=== PATIENT | female | born 1975 | race Caucasian/White ===

== ENCOUNTER 2023-12-27 15:56 | Emergency (ER) | payer BC, SELFPAY ==
[2023-12-27 16:12] VITALS: BP 140/93; PULSE 99; TEMP 37.7; O2SAT 96; BMI 25.7
[2023-12-27 16:35] LABS: Appearance Urine Clear (Clear); Bilirubin Urine Negative (Negative); Blood Urine Negative (Negative); Color Urine Yellow (Yellow); Glucose Urine Negative (Negative); Ketones Urine Negative (Negative); Leukocyte Esterase Urine Negative (Negative); Nitrite Urine Negative (Negative); Protein Urine Negative (Negative); Specific Gravity Urine 1.025 (1.000-1.030); Urobilinogen Urine 0.2 (0.2-1.0)
[2023-12-27 16:48] LABS: RBC Urine 0-2 (0-2); WBC Urine 0-2 (0-5)
--- NOTE | 2023-12-27 16:54 | ED_ITS ---
HPI - Fever General Chief Complaint: Fever Stated Complaint: fever of 102, has breast cancer/MS Time Seen by Provider: 12/27/23 16:20 History of Present Illness HPI Narrative: This 48-year-old female comes in reporting upper respiratory symptoms that began today including fever measuring at 102? F along with sinus congestion and pain, occasional cough, and sore throat. She has generalized aches and pains also. The patient has MS and breast cancer and is currently on immunosuppressant medications. She did take ibuprofen prior to arrival and her temperature is reduced to 99.9? F. she does not report any shortness of breath. Related Data Home Medications Medication Instructions Recorded Confirmed armodafinil 150 mg tablet (Nuvigil) mg PO 11/15/23 11/15/23 gabapentin 300 mg capsule 300 mg PO DAILY 11/15/23 11/15/23 interferon beta-1a (albumin) 44 44 mcg subcut 3XW 11/15/23 11/15/23 mcg/0.5 mL subcutaneous pen injector (Rebif Rebidose) letrozole 2.5 mg tablet 2.5 mg PO DAILY 11/15/23 11/15/23 Previous Rx's Medication Instructions Recorded amoxicillin 500 mg capsule 500 mg PO TID 7 days #21 caps 12/27/23 Allergies Allergy/AdvReac Type Severity Reaction Status Date / Time No Known Drug Allergies Allergy Verified 11/15/23 09:56 Review of Systems Status of ROS Reports: 10 or more systems reviewed and unremarkable except as noted in History and below Narrative Constitutional: No weight gain or loss. Fevers began today. Eyes: No discharge. No vision changes. HENT: Nasal congestion with left-sided maxillary facial pain. Sore throat. Cardiovascular: No chest pain, no palpitations. Respiratory: No shortness of breath, no wheezes. Occasional cough. Gastrointestinal: No abdominal pain, no vomiting, no diarrhea. Genitourinary: No dysuria, no hematuria. Musculoskeletal: Normal range of motion. Skin: No rashes, no pruritis. Neurological: No dizziness, weakness, sensory change, speech change. Endo/Heme/Allergies: No bruising or bleeding. No polydipsia. Pysch: no suicidality, no anxiety, no insomnia. All other systems reviewed and are negative. PFSH PFSH Social History Smoking Status: Never smoker Non-prescribed substance use: denies use Exam Narrative Exam Narrative: Constitutional: Well-developed, well-nourished, no acute distress. HEENT: Normocephalic, atraumatic. Neck: Normal range of motion. Nontender. Supple. Heart: Regular. No murmurs. Normal rate. Intact distal pulses. Lungs: Clear to auscultation. No chest discomfort. No wheezes, rhonchi, or rales. Abdomen: Normal bowel sounds. Nontender. No rebound tenderness. Genitalia: Deferred. Back: No midline tenderness. Normal range of motion. Extremities: Normal range of motion. No injury. Skin: Intact. No rash. Warm. No erythema or pallor. Neurologic: No altered sensation. No weakness. Alert and oriented. Psychiatric: No suicidality. No anxiety or depression. No insomnia. Nursing notes and vitals signs are reviewed. Const Vital Signs, click to edit/add: Vital Signs - 24 hr 12/27/23 16:12 12/27/23 17:41 Temperature 99.9 F H 99.9 F H Pulse Rate [Pulse Oximeter] 99 Blood Pressure [Right Upper Arm] 140/93 H Pulse Oximetry 96 Oxygen Delivery Method Room Air Course Vital Signs Vital signs: Initial Vital Signs Temperature 99.9 F H 12/27/23 16:12 Temperature Source Temporal Artery Scan 12/27/23 16:12 Pulse Rate 99 12/27/23 16:12 Blood Pressure 140/93 H 12/27/23 16:12 Blood Pressure Mean 108 H 12/27/23 16:12 Blood Pressure Position Sitting 12/27/23 16:12 Pulse Oximetry 96 12/27/23 16:12 Oxygen Delivery Method Room Air 12/27/23 16:12 Vital Signs Temperature 99.9 F H 12/27/23 16:12 Pulse Rate 99 12/27/23 16:12 Blood Pressure 140/93 H 12/27/23 16:12 Pulse Oximetry 96 12/27/23 16:12 Oxygen Delivery Method Room Air 12/27/23 16:12 Temperature 99.9 F H 12/27/23 17:41 Pulse Rate 99 12/27/23 16:12 Blood Pressure 140/93 H 12/27/23 16:12 Pulse Oximetry 96 12/27/23 16:12 Oxygen Delivery Method Room Air 12/27/23 16:12 Medications Administered Medications: Discontinued Medications Generic Name Dose Route Start Last Admin Trade Name Freq PRN Reason Stop Dose Admin Acetaminophen 1,000 mg 12/27/23 16:53 12/27/23 17:00 Acetaminophen 500 Mg Tablet PO 12/27/23 16:54 1,000 mg ONCE ONE Administration MDM - Fever MDM Narrative Medical decision making narrative: This 48-year-old female comes in reporting a fever of 102? F that began this morning. She has nasal congestion and occasional cough with sore throat. She is on some immune modulating medications to treat breast cancer and MS. Nasopharyngeal swab returns negative for viral infections. Additionally lab results are all in normal range including normal white count, lactate, and other electrolytes. Blood cultures are pending. The patient did receive a dose of Tylenol 1000 mg while here. She is okay to be discharged home. She did receive an oral dose of dexamethasone 10 mg and I did provide a prescription for amoxicillin. We did not find any obvious source of her fever but given her medications and suppressed immunity I did prescribe this out of an abundance of caution. Lab Data Labs: Lab Results 12/27/23 12/27/23 12/27/23 Range/Units 16:20 16:30 17:11 WBC 4.84 (4.50-11.00) K/uL RBC 4.12 (4.00-5.20) m/uL Hgb 13.0 (12.0-16.0) gm/dL Hct 38.3 (33.0-51.0) % MCV 93 (80-100) fL MCH 32 (26-34) pg MCHC 34 (32-36) gm/dL RDW Coeff of Gee 11.5 (11.5-15.5) % Plt Count 297 (140-440) K/uL Neut % (Auto) 57.8 (42.0-72.0) % Lymph % (Auto) 26.7 (20-44) % Hyde % (Auto) 13.4 H (0.0-11.0) % Eos % (Auto) 1.7 (0.0-7.0) % Baso % (Auto) 0.2 (0.0-3.0) % Neut # (Auto) 2.80 (1.7-7.0) K/uL Lymph # (Auto) 1.29 (0.90-2.90) K/uL Hyde # (Auto) 0.60 (0.00-0.90) K/UL Eos # (Auto) 0.08 (0.00-0.50) K/uL Baso # (Auto) 0.01 (0.00-0.30) K/uL Abs Immat Gran (auto) 0.01 (0.00-0.30) K/uL Imm/Tot Granulo (auto) 0.2 % Sodium 139 (135-149) mmol/L Potassium 3.8 (3.6-5.1) mmol/L Chloride 104 (96-114) mmol/L Carbon Dioxide 23 (20-32) mmol/L Anion Gap 12 (7-15) mEq/L BUN 16 (7-30) mg/dL Creatinine 0.7 (0.5-1.5) mg/dL Estimated Creat Clear 79.54 Estimated GFR 105 ml/min Glucose 105 (60-115) mg/dL Lactate 0.9 (0.5-1.9) mmol/L Calcium 8.9 (8.4-10.6) mg/dL Urine Color Yellow (Yellow) Urine Appearance Clear (Clear) Urine pH 6.0 (5.0-8.5) Ur Specific [place] 1.025 (1.000-1.030) Urine Protein Negative (Negative) Urine Glucose (UA) Negative (Negative) Urine Ketones Negative (Negative) Urine Blood Negative (Negative) Urine Nitrite Negative (Negative) Urine Bilirubin Negative (Negative) Urine Urobilinogen 0.2 (0.2-1.0) Ur Leukocyte Esterase Negative (Negative) Urine RBC 0-2 (0-2) Urine WBC 0-2 (0-5) Ur Squamous Epith Cells None (None-Few) Urine Bacteria None (None) SARS-CoV-2 (PCR) Negative SARS-CoV-2 (Negative) Influenza Type A (PCR) Negative PCR FLU A (Negative) Influenza Type B (PCR) Negative PCR FLU B (Negative) RSV (PCR) Negative PCR RSV (Negative) Group A Strep DNA NOT DETECTED (Not Detectd) Discharge Plan Discharge Clinical Impression: Fever, Acute respiratory infection Patient Disposition: Home, Self-Care Condition: Stable Additional Instructions: Continue current plans. Take medication as prescribed. Follow up with MD return if worsening. Prescriptions: New amoxicillin 500 mg capsule 500 mg PO TID 7 Days Qty: 21 0RF No Action gabapentin 300 mg capsule 300 mg PO DAILY letrozole 2.5 mg tablet 2.5 mg PO DAILY armodafinil [Nuvigil] 150 mg tablet PO Rebif Rebidose 44 mcg/0.5 mL pen injector 44 mcg subcut 3XW Follow Up/Referrals: Provider,Not a Local [Primary Care Provider] - Stand Alone Forms: [employer] Info Instructions
[2023-12-27 16:57] LABS: Strep A DNA Probe* NOT DETECTED (Not Detectd)
[2023-12-27] MEDS: ACETAMINOPHEN 500 MG TABLET 1000 MG PO (17:00)
[2023-12-27 17:08] LABS: PCR FLU A Negative PCR FLU A (Negative); PCR FLU B Negative PCR FLU B (Negative); PCR RSV Negative PCR RSV (Negative); SARS PCR* Negative SARS-CoV-2 (Negative)
[2023-12-27 17:15] LABS: Lactate* 0.9 mmol/L (0.5-1.9)
[2023-12-27 17:17] LABS: Basophils Absolute Auto 0.01 K/uL (0.00-0.30); Basophils Percent Auto 0.2 % (0.0-3.0); Eosinophils Absolute Auto 0.08 K/uL (0.00-0.50); Eosinophils Percent Auto 1.7 % (0.0-7.0); Hematocrit 38.3 % (33.0-51.0); Immature Granulocytes Abs Auto 0.01 K/uL (0.00-0.30); Immature Granulocytes Pct Auto 0.2 %; Lymphocytes Absolute Auto 1.29 K/uL (0.90-2.90); Lymphocytes Percent Auto 26.7 % (20-44); Mean Corpuscular HGB Conc 34 gm/dL (32-36); Mean Corpuscular Hemoglobin 32 pg (26-34); Mean Corpuscular Volume 93 fL (80-100); Monocytes Percent Auto 13.4 % (0.0-11.0); Neutrophils Percent Auto 57.8 % (42.0-72.0); Platelet Count* 297 K/uL (140-440); RDW Coefficient of Variation % 11.5 % (11.5-15.5); Red Blood Count 4.12 m/uL (4.00-5.20); White Blood Count* 4.84 K/uL (4.50-11.00)
[2023-12-27 17:22] LABS: Slide Review Reflex No
[2023-12-27 17:34] LABS: Chloride* 104 mmol/L (96-114); Potassium* 3.8 mmol/L (3.6-5.1); Sodium* 139 mmol/L (135-149)
[2023-12-27 17:37] LABS: Creatinine* 0.7 mg/dL (0.5-1.5); Est. Creatinine Clearance* 79.54; Estimated Glomerular Filt Rate 105 ml/min
[2023-12-27 17:38] LABS: Anion Gap 12 mEq/L (7-15); Blood Urea Nitrogen* 16 mg/dL (7-30); Calcium* 8.9 mg/dL (8.4-10.6); Carbon Dioxide* 23 mmol/L (20-32); Glucose* 105 mg/dL (60-115)
[2023-12-27 17:41] VITALS: TEMP 37.7
[2023-12-27] MEDS: dexAMETHasone 10 MG/ML inj PO (18:00)
== END 2023-12-27 18:04 | disposition home or self-care (01) ==
PROVIDERS: Emergency Provider Emergency Medicine Emergency Medical Services
DX: J06.9 Acute upper respiratory infection, unspecified (principal)
CPT/HCPCS: 36415; 80048; 81001; 83605; 85025; 87040; 87631; 87651; 99283; 99284; A9270; J1100

== ENCOUNTER 2025-01-07 23:11 | Emergency (ER) | payer BC, SELFPAY ==
--- OUTSIDE RECORDS SUMMARY | 2025-01-07 23:13 | XMS_ITS | Clinical Summary ---
Author Organization [facility] Address [address] [place] [address] Care Team Providers Care Marklogic Developer Name Role Phone No Ref-Primary, Physician Primary Care Provider Allergies Active Allergy Reactions Criticality Noted Date Comments No Known Allergies 06/01/2003 Medications MIRCETTE 0.15-0.02/0.01 MG (05/04) OR TABSIndications:Oth er general counseling and advice for contraceptive management 1 TABLET DAILY-PT WILL NOT BE ALLOWED ANY FURTHER REFILLS UNTIL SEEN. 28 0 04/09/ 5 Active SYNTHROID 100 MCG OR TABSIndications:Uns pecified hypothyroidism 1 TABLET DAILY Active REBIF 44 MCG/0.5ML SC SOLNIndications:MS (multiple sclerosis) (H) 44 MCG THREE TIMES A WEEK Active armodafinil (NUVIGIL) 150 MG TABS Take by mouth every morning. Active Active Problems Problem Noted Date Diagnosed Date Atopic rhinitis 11/10/2011 Overview (08/16/2012): (Problem list name updated by automated process. Provider to review and confirm.) CARDIOVASCULAR SCREENING; LDL GOAL LESS THAN 160 09/15/2010 MS (multiple sclerosis) 01/31/2009 Hypothyroidism 11/13/2005 Overview (08/16/2015): Problem list name updated by automated process. Provider to review Sleep disorder Encounters Date Type Department Care Team Description 10/11/2024 2:00 PM [facility] [address] [place] [address] Multiple sclerosis (H) (Primary Dx) 10/11/2024 Travel from Last 3 Months Immunizations Name Administration Dates Next Due HEPA 04/06/2000 Influenza (IIV3) PF 11/10/2011,08/13/2009 TD,PF 7+ (Tenivac) 04/06/2000 TDAP Vaccine (Adacel) 11/10/2011 Family History Medical History Relation Comments Family History Negative Brother Family History Negative Father Family History Negative Mother Family History Negative Sister Relation Status Comments Brother Father Mother Sister Social History Tobacco Use Types Packs/Day Years Used Date Smoking Tobacco: Never Smokeless Tobacco: Never Tobacco Cessation:Counseling Given: Yes Alcohol Use Standard Drinks/Week Comments Yes 0 (1 standard drink = 0.6 oz pur e alcohol) 1-2 drinks per month Adolescent Education Answer Date Record ed Getting School Help Needed Not on file 08/30 Comments No Sex and Gender Information Value Date Recorded Sex Assigned at Not on file Legal Sex Female 3:34 AM HAND TILE MAKER Gender Identity Not on file Sexual Orientation Not on file Last Filed Vital Signs Vital Sign Reading Time Taken Comments Blood Pressure 124/78 05/23/2021 10:53 AM CDT Pulse 74 05/23/2021 10:53 AM CDT Temperature 36.9 C (98.4 F) 11/10/2011 9:43 AM HAND TILE MAKER Respiratory Rate 16 05/23/2021 10:53 AM CDT Oxygen Saturation 97% 05/23/2021 10:53 AM CDT Inhaled Oxygen Concentration - - Weight 56.7 kg (125 lb) 05/23/2021 10:53 AM CDT Height 160 cm (5' 3) 05/23/2021 10:53 AM CDT Body Mass Index 22.14 05/23/2021 10:53 AM CDT Plan of Treatment Health Maintenance Due Date Last Done Comments ADVANCE CARE PLANNING 1973 ANNUAL REVIEW OF HM ORDERS 1973 CT COLONOGRAPHY 1973 FIT 1973 FLEX SIG 1973 sDNA (Cologuard) 1973 COVID-19 Vaccine (#1) 1978 COLONOSCOPY 1983 COLORECTAL CANCER SCREENING 1983 HIV SCREENING 1988 HEPATITIS B IMMUNIZATION (1 of 3 - 19+ 3-dose series) 1992 Pneumococcal Vaccine: 50+ Years (1 of 2 - PCV) 1992 ZOSTER IMMUNIZATION (1 of 2) 1992 YEARLY PREVENTIVE VISIT 06/11/2006 06/11/2005, 06/01 PAP 04/03/2008 04/03/2005, 03/16, 06/01/2003, Additional history exists TSH W/FREE T4 REFLEX 11/10/2012 11/10/2011, 08/13/2009, 01/19/2008, Additional history exists LIPID 11/10/2016 11/10/2011, 02/14, 10/23/2006, Additional history exists DTAP/TDAP/TD IMMUNIZATION (2 - Td or Tdap) 11/10/2021 11/10/2011, 04/06/2000 INFLUENZA VACCINE (#1) 2024 , 08/02/2019, 11/10/2011, Additional history exists PHQ-2 (once per calendar year) 2024 GLUCOSE 11/18/2025 11/18/2022, 12/0 01/2020, 11/23/2015, Additional history exists MAMMO SCREENING 08/17/2026 08/17/2024, 09/16, 09/24/2007 HEPATITIS C SCREENING Completed 08/23/2024 HPV IMMUNIZATION Aged Out No longer e ligible based on patient's age to complete this topic MENINGITIS IMMUNIZATION Aged Out No l onger eligible based on patient's age to complete this topic Procedures Procedure Name Priority Date/Time Associated Diagnosis Comments NELSON VIRUS AB INDEX REFLEX INHIBITION Routine 10/11/2024 2:08 PM HAND TILE MAKER Multiple sclerosis (H) HEPATITIS C ANTIBODY Routine 08/23/2024 12:37 PM CDT Multiple sclerosis (H) MA DIAGNOSTIC BILATERAL W/ BARRY Routine 08/17/2024 9:20 AM CDT Breast cancer of upper-outer quadrant of right female breast (H) Blurred vision Breast pain Encounter for breast reconstruction following mastectomy Chronic fatigue Hot flashes, menopausal Hypothyroidism Multiple sclerosis (H) Osteopenia BASIC METABOLIC PANEL Routine 11/18/2022 5:00 PM HAND TILE MAKER Encounter for other specified special examinations [ICD-10-CM] TSH WITH FREE T4 REFLEX Routine 11/10/2011 10:01 AM HAND TILE MAKER HYPOTHYROIDISM NOS LIPID REFLEX TO DIRECT LDL PANEL Routine 11/10/2011 10:01 AM HAND TILE MAKER CARDIOVASCULAR SCREENING; LDL GOAL LESS THAN 160 HCL PAP THIN LAYER DIAGNOSTIC Routine 04/03/2005 DIAGNOSIS NOT YET DEFINED from Last 3 Months or Most Recently Relevant to Health Maintenance Results * (ABNORMAL) NELSON Virus Ab Index Reflex Inhibition (10/11/2024 2:08 PM HAND TILE MAKER) See Scanned Result NELSON VIRUS AB INDEX REFLEX INHIBITION- Scanned(A) 10/19/2024 8:41 AM HAND TILE MAKER [facility] Blood STRUCTURE OF LEFT UPPER LIMB / Unknown Venipuncture / Unknown 10/11/2024 2:08 PM HAND TILE MAKER 10/11/2024 2:08 PM HAND TILE MAKER us Kevon Duarte MD LAB - BLOOD ORDERABLES Final R esult [facility] [address] [phone] * Hepatitis C antibody (08/23/2024 12:37 PM CDT) Hepatitis C Antibody Nonreactive Nonreactive 08/23/2024 7:15 PM CDT [facility] Comment:A nonreactive screen ing test result does not exclude the possibility of exposure to or infection with HCV. Nonreactive screening test results in individuals with prior exposure to HCV may be due to antibody levels below the limit of detection of this assay or lack of reactivity to the HCV antigens used in this assay. Patients with recent HCV infections (<3 months from time of exposure) may have false- negative HCV antibody results due to the time needed for seroconversion (average of 8 to 9 weeks). Blood STRUCTURE OF LEFT UPPER LIMB / Unknown Venipuncture / Unknown 08/23/2024 12:37 PM CDT 08/23/2024 12:38 PM CDT us Kevon Duarte MD LAB - BLOOD ORDERABLES Final R esult [facility] [place] [facility] [address] [facility], Room [address] [phone] * (ABNORMAL) MA Diagnostic Bilateral w/Barry (08/17/2024 9:20 AM CDT) Anatomical Region Laterality Modality Breast Bilateral Mammography Impressions 08/17/2024 3:03 PM CDT IMPRESSION: BI-RADS CATEGORY: 6 - Known Biopsy-Proven Malignancy. RECOMMENDED FOLLOW-UP: Continued oncologic and surgical consultation for right breast cancer.. SONAL HERNANDEZ MD Narrative 08/17/2024 3:03 PM CDT EXAM: MA DIAGNOSTIC BILATERAL W/ BARRY, US BREAST RIGHT LIMITED 1-3 QUADRANTS, 08/17/2024 9:20 AM COMPARISONS: Mammogram 09/25/2020, ultrasound 09/25/2020, MRI 12/10/2021, 10/25/2020, PET/CT 10/23/2020 HISTORY: 49-year-old woman with a invasive ductal carcinoma of the right breast diagnosed in September 2020, treated with neoadjuvant endocrine therapy. BREAST DENSITY: The breasts are heterogeneously dense, which may obscure small masses. FINDINGS: In the right breast at the 1:00 position, posterior depth adjacent to the biopsy marker at the site of biopsy-proven malignancy there is a persistent area of architectural distortion. There are no suspicious findings in the left breast. Targeted ultrasound evaluation of the right breast was performed by the technologist and radiologist. At the 1:00 position, 4 cm from the nipple the site of biopsy-proven malignancy, again seen is an irregular, hypoechoic mass measuring 1.4 x 1.1 x 2.0 cm, previously 3.5 x 1.8 x 3.1 cm on 09/25/2020. At the 8:00 and 9:00 position, 6 cm from the nipple, only normal breast tissue is seen. Georgia Gilmore MD IMG MAMMOGRAPHY ORDERABLES Final Result * (ABNORMAL) Basic metabolic panel (11/18/2022 5:00 PM HAND TILE MAKER) Sodium 143 136 - 145 mmol/L 11/18/2022 9:05 PM HAND TILE MAKER [facility] Potassium 3.8 3.4 - 5.3 mmol/L 11/18/2022 9:05 PM HAND TILE MAKER [facility] Chloride 103 98 - 107 mmol/L 11/18/2022 9:05 PM HAND TILE MAKER [facility] Carbon Dioxide (CO2) 23 22 - 29 mmol/L 11/18/2022 9:05 PM HAND TILE MAKER [facility] Anion Gap 17(H) 7 - 15 mmol/L 11/18/2022 9:05 PM HAND TILE MAKER [facility] Urea Nitrogen 14.9 6.0 - 20.0 mg/dL 11/18/2022 9:05 PM HAND TILE MAKER [facility] Creatinine 0.82 0.51 - 0.95 mg/dL 11/18/2022 9:05 PM HAND TILE MAKER [facility] Calcium 9.8 8.6 - 10.0 mg/dL 11/18/2022 9:05 PM HAND TILE MAKER [facility] Glucose 116(H) 70 - 99 mg/dL 11/18/2022 9:05 PM HAND TILE MAKER [facility] GFR Estimate 87 >60 mL/min/1.7 3m2 11/18/2022 9:05 PM HAND TILE MAKER [facility] Comment:Effective October 172020 eGFRcr in adults is calculated using the 2020 CKD-EPI creatinine equation which includes age and gender (Tello et al., NEJ, DOI: 10.1056/DHPGaw0112376) Blood BLOOD SPECIMEN / Unknown Client Draw / Unknown 11/18/2022 5:00 PM HAND TILE MAKER 11/18/2022 8:20 PM HAND TILE MAKER us London Del Rio DO LAB - BLOOD ORDERABLES F inal Result [facility] [place] [facility] [address] [facility] [address] Building, [address] [place] [address], [facility] [phone] * TSH with free T4 reflex (11/10/2011 10:01 AM HAND TILE MAKER) TSH 0.60 0.4 - 5.0 mU/L [facility] Blood specimen (specimen) 11/10/2011 10:01 AM HAND TILE MAKER 11/10/2011 10:04 AM HAND TILE MAKER Oumar Rocha MD LAB - BLOOD ORDERABLES Final Res ult Performing Organization Address City/[facility]/ZIP Co de Phone Number [facility] [address] [place] [address] * (ABNORMAL) Lipid Profile with reflex to direct LDL (11/10/2011 10:01 AM HAND TILE MAKER) Cholesterol 181 0 - 200 mg/dL [facility] Comment: LDL Cholesterol is the primary guide to therapy. The NCEP recommends further evaluation of: patients with cholesterol greater than 200 mg/dL if additional risk factors are present, cholesterol greater than 240 mg/dL, triglycerides greater than 150 mg/dL, or HDL less than 40 mg/dL. Triglycerides 174(H) 0 - 150 mg/dL [facility] HDL Cholesterol 73 50 - 110 mg/dL [facility] LDL Cholesterol Calculated 73 0 - 129 mg/dL [facility] Comment: LDL Cholesterol is the primary guide to therapy: LDL-cholesterol goal in high risk patients is <100 mg/dL and in very high risk patients is <70 mg/dL. VLDL-Cholesterol 35(H) 0 - 30 mg/dL [facility] Cholesterol/HDL Ratio 2.5 0.0 - 5.0 [facility] Blood specimen (specimen) 11/10/2011 10:01 AM HAND TILE MAKER 11/10/2011 10:04 AM HAND TILE MAKER Oumar Rocha MD LAB - BLOOD ORDERABLES Final Res ult Performing Organization Address City/[facility]/ZIP Co de Phone Number [facility] [address] [place] [address] * A THIN LAYER, DIAGNOSTIC PAP (04/03/2005) 04/03/2005 Oumar Rocha MD LABORATORY Final Result MISYS from Last 3 Months or Most Recently Relevant to Health Maintenance Insurance [facility] Care Teams Marklogic Developer Relationship Specialty Start Date End Date No Ref-Primary, Physician PCP - General 10/11/24
[2025-01-07 23:14] VITALS: BP 146/83; PULSE 68; RESP 20; TEMP 36.1; O2SAT 98; BMI 28.3
--- OUTSIDE RECORDS SUMMARY | 2025-01-07 23:14 | XMS_ITS | Encounter Summary ---
Author Organization [facility] Address [address] [place] [address] Care Team Providers Care Case Specialist Name Role Phone Unavailable Primary Care Provider Unavailabl e Encounter Details Date Type Department Care Team (Late st Contact Info) Description 12/02/2024 Clinical Communication Department of Radiation Oncology in [place], [place] [address] [place] [address] Osvaldo Durant M.D. [address] [place] [address] Social History Tobacco Use Types Packs/Day Years Used Date Smoking Tobacco: Never Assessed [facility] Utilities Answer Date Recorded In the past 12 months has th e electric, gas, oil, or water company threatened to shut off services in your home? No 12/14/2024 Exercise Vital Sign Answer Date Recorde d On average, how many days pe r week do you engage in moderate to strenuous exercise (like a brisk walk)? 4 days 12/14/2024 On average, how many minutes do you engage in exercise at this level? 10 min 12/14/2024 Hunger Vital Sign Answer Date Recorded Within the past 12 months, y ou worried that your food would run out before you got the money to buy more. Never true 12/14/19 25 Within the past 12 months, t he food you bought just didn't last and you didn't have money to get more. Never true 12/14/2024 PRAPARE - Transportation Answer Date Re corded In the past 12 months, has l ack of transportation kept you from medical appointments or from getting medications? No 11/17 In the past 12 months, has l ack of transportation kept you from meetings, work, or from getting things needed for daily living? No 12/14/2024 Nutrition Answer Date Recorded On average, how many serving s of fruits and vegetables do you eat per day (serving size is equal to 1 cup or approximately the size of a tennis ball)? 0-2 12/14/2024 Dental Answer Date Recorded Dental: Regular Dentist Yes 12/14/19 Employment Answer Date Recorded Employment status Unemployed/not in [employer] paid workforce but seeking employment 12/14/2024 Housing Stability Answer Date Recorded What is your living situation today? I have a [facility] place to live 12/14/2024 Comments Unknown Sex and Gender Information Value Date Recorded Sex Assigned at Female 12/14/2024 12:10 PM DESKTOP PUBLISHER Legal Sex Female 10:00 AM CDT Gender Identity Female 12/14/2024 12:10 PM DESKTOP PUBLISHER Sexual Orientation Straight 12/14/2024 12 :10 PM DESKTOP PUBLISHER documented as of this encounter Plan of Treatment Upcoming Encounters Date Type Department Care Team (Latest Contact Info) Description 01/12/2025 8:30 AM DESKTOP PUBLISHER Comprehensive Visit Division of Breast and Melanoma Surgical Oncology in [place], [place] [address] [place] [phone] Rosalva Ruiz M.D. [address] [place] [phone] 01/12/2025 10:20 AM DESKTOP PUBLISHER Comprehensive Visit Department of Oncology in [place], [place] [address] [place] [phone] Amie Sue M.B., B.Ch. [address] [place] [address] [phone] 01/12/2025 1:00 PM DESKTOP PUBLISHER Appointment Department of Radiation Oncology in [place], [place] [address] [place] [phone] Delilah Dos Santos, MPAS, P.A.-C. [address] [place] [phone] 01/12/2025 1:30 PM DESKTOP PUBLISHER Comprehensive Visit Breast Diagnostic Clinic in [place], [place] [address] [place] [phone] Radha Becker, Ph.D., L.P. [address] [place] [address] [phone] 01/13/2025 9:30 AM DESKTOP PUBLISHER Appointment Department of Radiology in [place], [place] [address] [place] [phone] Rei Loredo M.D. [address] [place] [address] [phone] Discharge Disposition: Home or Self Care documented as of this encounter Visit Diagnoses Not on filedocumented in this encounter
--- OUTSIDE RECORDS SUMMARY | 2025-01-07 23:14 | XMS_ITS | Clinical Summary ---
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 For routine questions regarding patient records, call [phone] during business hours, M-F 8:00 AM - 5:00 PM Central Time. Record requests for emergency care only can be directed to [phone] at any time.[facility] Allergies No known active allergies Medications armodafiniL (NuvigiL) 150 mg tablet Take 150 mg by mouth 2 (two) times a day. Active letrozole (Femara) 2.5 mg tablet Take 2.5 mg by mouth daily. 4 Active MULTIVITAMIN ORAL Take 1 tablet by mouth 3 (three) times a week. Active ascorbic acid, vitamin C, (Vitamin C) 500 mg chewable tablet Chew 500 mg daily. 3 Active biotin 5,000 mcg tablet,disinteg rating Dissolve 5,000 mcg in the mouth 3 (three) times a week. 2 Active cholecalciferol (Vitamin D3) 50 mcg (2,000 Unit) capsule Take 50 mcg by mouth 3 (three) times a week. 9 Active cyanocobalamin (vitamin B-12) 500 mcg tablet Take 500 mcg by mouth 3 (three) times a week. 4 Active glucosam/edis-m sm1/C/rosie/bosw (OSTEO BI-FLEX TRIPLE STRENGTH ORAL) Take 1 tablet by mouth 3 (three) times a week. 3 Active omega 1-wtk-ppa-fish oil 900 mg-360 mg- 455 mg-1,000 mg capsule Take 1 capsule by mouth 3 (three) times a week. 3 Active ublituximab-xii y (BRIUMVI IV) every 6 (six) months. 4 Active vitamin E acetate (VITAMIN E ORAL) Take 1 capsule by mouth 3 (three) times a week. 4 Active glucosamine sulfate (GLUCOSAMINE ORAL) Glucosamine-C hondroitin Oral Capsule 500 mg-400 mg 3x a week active 01/03/20 25 Discontinu ed(Error) ergocalciferol, vitamin D2, (VITAMIN D2 ORAL) Calcium Carbonate Oral 3x a week active 01/03/20 25 Discontinu ed(Error) armodafiniL (NuvigiL) 150 mg tablet 9 01/04/20 25 Discontinu ed(Duplica te order) Active Problems Problem Noted Date Diagnosed Date Chronic Fatigue Syndrome 12/15/2024 Other Specified Disorders Of Bone Density And Structure Unspecified Site 12/15/2024 Sleep Disorder 12/15/2024 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 11/30/2024 Cancer Staging:Clinical stage from 10/04/2020:Stage IA(cT1c, cN0, cM0, G2, ER+, SC+, HER2-) - Unsigned Multiple Sclerosis 01/31/2009 Hypothyroidism 11/13/2005 Overview (12/15/2024): Problem list name updated by automated process. Provider to review Encounters Date Type Department Care Team Description 01/06/2025 11:43 AM CASH APPLICATIONS SPECIALIST - 01/06/2025 11:59 PM [facility] Hospital Encounter Department of Radiology, [place], [place] [address] [place] [address] Angela Piper APRN, C.N.P., D.N.P. 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) Discharge Disposition: Home or Self Care 01/04/2025 1:30 PM CASH APPLICATIONS SPECIALIST Comprehensive Visit Department of Medical Genetics in [place], [place] [address] [place] [phone] Rei Loredo M.D. Purfeerst, Madaline T, M.SAminata, [facility] [place] 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) (Primary Dx) 01/04/2025 1:00 PM CASH APPLICATIONS SPECIALIST Comprehensive Visit Department of Medical Genetics in [place], [place] [address] [place] [phone] Rei Loredo M.D. Emilio Jamilah 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) 01/04/2025 8:30 AM CASH APPLICATIONS SPECIALIST Comprehensive Visit [facility] in [address] [phone] Rei Loredo M.D. 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) (Primary Dx) 01/04/2025 Clinical Communication Department of Medical Genetics in [address] [phone] Tonie Calle, M.SAminata, [facility] [place] Ambry:MTP 01/03/2025 8:30 AM CASH APPLICATIONS SPECIALIST Clinical Communication Virtual Review in [address] [phone] Pre-visit Intake 12/20/2024 9:25 AM CASH APPLICATIONS SPECIALIST - 12/20/2024 11:59 PM CASH APPLICATIONS SPECIALIST Hospital Encounter Department of Radiology in [address] [phone] Angela Piper APRN, C.N.P., D.N.P. 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 PET CT Skull to Thigh FDG, BI Breast Diagnostic Right with Tomosynthesis, BI Ultrasound Breast Focused Right 12/19/2024 Documentation [facility] in [place], [place] [address] [place] [phone] Joelle Dos Santos L.PAminataN. 12/16/2024 Clinical Communication [facility] in [place], [place] [address] [place] [phone] Fariha Corral M.D. 12/15/2024 12:22 PM CASH APPLICATIONS SPECIALIST - 12/15/2024 11:59 PM CASH APPLICATIONS SPECIALIST Hospital Encounter Department of Radiology in [place], [place] [address] [place] [phone] Arely Martinez P.A.-C. Breast Examination Abnormal Discharge Disposition: Home or Self Care 12/15/2024 9:30 AM CASH APPLICATIONS SPECIALIST - 12/15/2024 12:21 PM CASH APPLICATIONS SPECIALIST Hospital Encounter Department of Radiation Oncology in [place], [place] [address] [place] [address] Osvaldo Durant M.D. 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) 12/08/2024 Orders Only RST RO LMP [address] [place] [phone] Arely Martinez P.A.-C. 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) 12/02/2024 Clinical Communication Department of Radiation Oncology in [address] [phone] Osvaldo Durant M.D. 11/30/2024 1:15 PM CASH APPLICATIONS SPECIALIST Ancillary Procedure Department of Radiology in [address] [phone] Arely Martinez P.AAminata-C. 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) 11/30/2024 Referral Triage Department of Radiation Oncology in [address] [phone] Arely Martinez P.AAminata-CAminata from Last 3 Months Immunizations Immunization Administration Dates Next Due HepA, Unspecified 04/06/2000 Influenza, Seasonal, Injectable 11/10/2011,08/13 Influenza, Unspecified 09/21/2020 Td Preservative Free (TENIVAC, DECAVAC) 04/06/20 00 Tdap 11/10/2011 influenza vaccine quad (FLUZ ONE/FLUARIX) (6 months and older)(PF) 08/02/2019 Family History Medical History Relation Name Comments Heart disease Father's Brother Alberto Bypass josey nancy Heart attack Maternal Grandfather Shine Arthritis Maternal Grandmother Jocelyn Amezcua Obesity Mother Aparna De La Garza Uterine cancer Mother Aparna De La Garza Autism spectrum disorder Nephew Lev el 1 (Asperger's) Endometriosis Paternal Cousin 1 Karmen Coronary artery disease Paternal Cousin 2 Ashutosh Jr. Bypass surgery Relation Name Status Comments Father Yoandy Alive Father's Brother Alberto d. COVID Half-Brother Alive Limited informa tion Maternal Cousin 1 Alive TWO, 1 boy and 1 girl Maternal Cousin 2 Alive THREE, 2 g irls, 1 boy (1 girl is biological) Maternal Cousin 3 Alive THREE, 1 o ne is adopted Maternal Grandfather Shine d. MIOn O2 later in life Maternal Grandmother Jocelyn Seven dAminata megan ntiaLymph nodes removed in 50s, trying to find out more information on this Mother Aparna De La Garza Alive Mother's Brother 1 Alive Mother's Brother 2 dAminata REYEZ Mother's Sister Alive Nephew Alive Over 18 Niece Alive Paternal Cousin 1 Karmen Alive Paternal Cousin 2 Ashutosh Jr. Alive Paternal Grandfather Yoadny Sr d. [place] Paternal Grandmother Claudia d. [place] Sister Shabana Alive Social History Tobacco Use Types Packs/Day Years Used Date Smoking Tobacco: Never Passive Smoke Exposure: Never Smokeless Tobacco: Never Tobacco Cessation:Counseling Given: Not Answered Alcohol Use Standard Drinks/Week Comments Yes 14 (1 standard drink = 0.6 oz pu re alcohol) [facility] Utilities Answer Date Recorded In the past 12 months has [employer], gas, oil, or water [employer] threatened to shut off services in your [...] money to buy more. Never true 12/14/19 Within the past 12 months, t he [...] Answer Date Recorded Employment status Unemployed/not in e paid workforce but seeking employment 12/14/2024 Housing Stability Answer Date Recorded What is your living situation today? I have a [facility] place to live 12/14/2024 Comments No Sex and Gender Information Value Date Recorded Sex Assigned at Female 12/14/2024 12:10 PM CASH APPLICATIONS SPECIALIST Legal Sex Female 10:00 AM CDT Gender Identity Female 12/14/2024 12:10 PM CASH APPLICATIONS SPECIALIST Sexual Orientation Straight 12/14/2024 12 :10 PM CASH APPLICATIONS SPECIALIST Last Filed Vital Signs Vital Sign Reading Time Taken Comments Blood Pressure 127/85 01/04/2025 8:07 AM CASH APPLICATIONS SPECIALIST Pulse 75 01/04/2025 8:07 AM CASH APPLICATIONS SPECIALIST Temperature - - Respiratory Rate - - Oxygen Saturation - - Inhaled Oxygen Concentration - - Weight 74.2 kg (163 lb 7.5 oz) 01/04/2025 8:07 A M CASH APPLICATIONS SPECIALIST Height 160.1 cm (5' 3.03) 01/04/2025 8:07 AM CS T Body Mass Index 28.93 01/04/2025 8:07 AM CASH APPLICATIONS SPECIALIST Plan of Treatment Upcoming Encounters Date Type Department Care Team (Latest Contact Info) Description 01/12/2025 8:30 AM CASH APPLICATIONS SPECIALIST Comprehensive Visit Division of Breast and Melanoma Surgical Oncology in [place], [place] [address] [place] [address] Rosalva Ruiz M.D. [address] [place] [phone] 01/12/2025 10:20 AM CASH APPLICATIONS SPECIALIST Comprehensive Visit Department of Oncology in [place], [place] [address] [place] [phone] Amie Sue M.B., B.Ch. [address] [place] [phone] 01/12/2025 1:00 PM CASH APPLICATIONS SPECIALIST Appointment Department of Radiation Oncology in [place], [place] [address] [place] [phone] Delilah Dos Santos, MPAS, P.A.-C. [address] [place] [phone] 01/12/2025 1:30 PM CASH APPLICATIONS SPECIALIST Comprehensive Visit Breast Diagnostic Clinic in [address] [phone] Radha Becker, Ph.D., L.P. [address] [place] [phone] 01/13/2025 9:30 AM CASH APPLICATIONS SPECIALIST Appointment Department of Radiology in [address] [phone] Rei Loredo M.D. [address] [place] [phone] Discharge Disposition: Home or Self Care Health Maintenance Due Date Last Done Comments CT Colonography 1973 Cologuard 1973 Colonoscopy 1973 Colorectal Cancer Screening 1973 FIT 1973 Hepatitis C Screening 1973 Lipid (Cholesterol) Screening 1973 COVID-19 Vaccine (#1) 1978 Hepatitis B Vaccines (1 of 3 - 19+ 3-dose series) 1992 Pneumococcal vaccine (50+ years) (1 of 2 - PCV) 1992 Zoster Vaccines (1 of 2) 1992 Hepatitis A Vaccines (2 of 2 - Risk 2-dose series) 10/07/2000 04/06/2000 Cervical/Vaginal Cancer Screening 04/03/2008 04/03/2005 DTaP,Tdap,and Td Vaccines (2 - Td or Tdap) 11/10/2021 11/10/2011, 04/06/2000 Influenza Vaccine (#1) 2024 , 08/02/2019, 11/10/2011, Additional history exists Depression Screening (Annual PHQ-2) 11/16/2024 Fasting Glucose for Diabetes Screening 11/18/2025 11/18/2022, 10/18/2020 Mammogram 12/20/2025 12/20/2024, 11/18, 08/17/2024, Additional history exists HPV Vaccines Aged Out No longer eligi ble based on patient's age to complete this topic IPV Vaccines Aged Out No longer eligi ble based on patient's age to complete this topic Medical Devices Implanted Type Area Cellophane Wrapping Examiner Device Identifier Shelf Expiration Date Model / Serial / Lot Imaging Marker Imaging Marker Right: Breast Description:Patient is unsur e of how many markers are in her right breast/axilla. 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) BI BREAST DIAGNOSTIC RIGHT WITH TOMOSYNTHESIS RAD - Routine (most inpatients and all outpatients) 12/20/2024 10:37 AM CASH APPLICATIONS SPECIALIST 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) PET CT SKULL TO THIGH RAD - Routine (most inpatients and all outpatients) 12/20/2024 8:17 AM CASH APPLICATIONS SPECIALIST 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) BI BREAST DIAGNOSTIC LEFT WITH TOMOSYNTHESIS RAD - Routine (most inpatients and all outpatients) 12/15/2024 12:58 PM CASH APPLICATIONS SPECIALIST Breast Examination Abnormal INTERPRETATION OF OUTSIDE BREAST IMAGING RAD - Routine (most inpatients and all outpatients) 12/02/2024 2:29 PM CASH APPLICATIONS SPECIALIST 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) INTERPRETATION OF OUTSIDE BREAST IMAGING RAD - Routine (most inpatients and all outpatients) 12/02/2024 2:29 PM CASH APPLICATIONS SPECIALIST 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) INTERPRETATION OF OUTSIDE NM PET SCAN RAD - Routine (most inpatients and all outpatients) 11/30/2024 1:15 PM CASH APPLICATIONS SPECIALIST 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 LAB MISC ORDERABLES Final Result [facility] [address] [place] [address], [facility] HLS [facility] [address] [place] [address] * (ABNORMAL) BI Ultrasound Breast Focused Right (12/20/2024 12:14 PM CASH APPLICATIONS SPECIALIST) Anatomical Region Laterality Modality Breast, Breast Imaging RST L OS, Breast Imaging ARZ LOS, Breast Imaging FLA LOS Right Ultrasound Impressions 12/20/2024 3:37 PM CASH APPLICATIONS SPECIALIST Known biopsy-proven malignancy in the inner right breast has decreased in mammographic size compared with prior prediagnosis mammogram of 09/25/2020. Due to technical differences and differences in image labeling, it is difficult to definitively evaluate for sonographic change in the known biopsy-proven malignancy. RECOMMENDATION: Clinical Management Breast MRI is recommended to better evaluate extent of patient's known malignancy. Recommend continued multidisciplinary care given patient's known right breast malignancy which has not yet undergone surgical excision. ASSESSMENT: BI-RADS: 6: Known Biopsy-Proven Malignancy. Narrative 12/20/2024 3:37 PM CASH APPLICATIONS SPECIALIST EXAM: BI BREAST DIAGNOSTIC RIGHT WITH TOMOSYNTHESIS, BI ULTRASOUND BREAST FOCUSED RIGHT INDICATION: 49-year-old with right breast carcinoma which was diagnosed in 2019. Patient has undergone extended neoadjuvant endocrine therapy due to personal reasons and has not yet undergone surgical therapy. COMPARISON: Prior exam(s) were available and reviewed for comparison. DENSITY: c. The breast(s) are heterogeneously dense, which may obscure small masses. FINDINGS: There is a hydromark (T4) butterfly biopsy marker clip in the inner right breast posterior depth at reported site of known biopsy-proven malignancy. There is some persistent architectural distortion at the site of the known biopsy-proven malignancy in the inner right breast; this mass appears mammographically decreased in size since the prior outside pre-diagnosis mammogram of 09/25/2020, however the malignant mass was not entirely included on the 09/25/2023 diagnosis mammogram and therefore direct size comparison between the current mammogram and prior outside mammogram of 09/25/2020 is not possible. The persistent architectural distortion at the site of the known biopsy-proven malignancy in the inner right breast posterior depth is grossly similar to the prior outside mammogram of 08/17/2024. Hydromark open coil biopsy marker clip in the subareolar right breast from a prior outside biopsy which reportedly yielded benign findings. Targeted ultrasound of the right breast was performed. There is ill-defined hypoechoic tissue in the 2:00 subareolar/region; it is difficult to definitively determine whether this corresponds with the site of patient's known biopsy- proven malignancy, but this is grossly similar in appearance to prior outside sonographic images of 08/17/2024 which are labeled 1:00 4 cm from the nipple. Procedure Note Jessica Case M.D. - 12/20/2024 EXAM: BI BREAST DIAGNOSTIC RIGHT WITH TOMOSYNTHESIS, BI ULTRASOUND BREASTFOCUSED RIGHT INDICATION: 49-year-old with right breast carcinoma which was diagnosedin 2019. Patient has undergone extended neoadjuvant endocrine therapy dueto personal reasons and has not yet undergone surgical therapy. COMPARISON: Prior exam(s) were available and reviewed for comparison. DENSITY: c. The breast(s) are heterogeneously dense, which may obscuresmall masses. FINDINGS: There is a hydromark (T4) butterfly biopsy marker clip in theinner right breast posterior depth at reported site of known biopsy-provenmalignancy. There is some persistent architectural distortion at the siteof the known biopsy-proven malignancy in the inner right breast; this mass appears mammographicallydecreased in size since the prior outside pre-diagnosis mammogram of09/25/2020, however the malignant mass was not entirely included on the09/25/2023 diagnosis mammogram and therefore direct size comparison between the current mammogram and prioroutside mammogram of 09/25/2020 is not possible. The persistentarchitectural distortion at the site of the known biopsy-proven malignancyin the inner right breast posterior depth is grossly similar to the prior outside mammogram of 08/17/2024. Hydromarkopen coil biopsy marker clip in the subareolar right breast from a prioroutside biopsy which reportedly yielded benign findings. Targeted ultrasound of the right breast was performed. There isill-defined hypoechoic tissue in the 2:00 subareolar/region; it isdifficult to definitively determine whether this corresponds with the siteof patient's known biopsy-proven malignancy, but this is grossly similar in appearance to prior outside sonographic imagesof 08/17/2024 which are labeled 1:00 4 cm from the nipple. IMPRESSION: Known biopsy-proven malignancy in the inner right breast has decreased inmammographic size compared with prior prediagnosis mammogram of09/25/2020. Due to technical differences and differences in imagelabeling, it is difficult to definitively evaluate for sonographic change in the known biopsy- provenmalignancy. RECOMMENDATION: Clinical Management Breast MRI is recommended to better evaluate extent of patient's knownmalignancy. Recommend continued multidisciplinary care given patient'sknown right breast malignancy which has not yet undergone surgicalexcision. ASSESSMENT: BI-RADS: 6: Known Biopsy-Proven Malignancy. Angela Piper APRN, C.N.P., D.N.P. IMG BI PRO CEDURES Final Result * (ABNORMAL) BI Breast Diagnostic Right with Tomosynthesis (12/20/2024 10:37 AM CASH APPLICATIONS SPECIALIST) Anatomical Region Laterality Modality Breast, Breast Imaging RST L OS, Breast Imaging ARZ LOS, Breast Imaging FLA LOS Right Mammography Impressions 12/20/2024 3:37 PM CASH APPLICATIONS SPECIALIST Known biopsy-proven malignancy in the inner right breast has decreased in mammographic size compared with prior prediagnosis mammogram of 09/25/2020. Due to technical differences and differences in image labeling, it is difficult to definitively evaluate for sonographic change in the known biopsy-proven malignancy. RECOMMENDATION: Clinical Management Breast MRI is recommended to better evaluate extent of patient's known malignancy. Recommend continued multidisciplinary care given patient's known right breast malignancy which has not yet undergone surgical excision. ASSESSMENT: BI-RADS: 6: Known Biopsy-Proven Malignancy. Narrative 12/20/2024 3:37 PM CASH APPLICATIONS SPECIALIST EXAM: BI BREAST DIAGNOSTIC RIGHT WITH TOMOSYNTHESIS, BI ULTRASOUND BREAST FOCUSED RIGHT INDICATION: 49-year-old with right breast carcinoma which was diagnosed in 2019. Patient has undergone extended neoadjuvant endocrine therapy due to personal reasons and has not yet undergone surgical therapy. COMPARISON: Prior exam(s) were available and reviewed for comparison. DENSITY: c. The breast(s) are heterogeneously dense, which may obscure small masses. FINDINGS: There is a hydromark (T4) butterfly biopsy marker clip in the inner right breast posterior depth at reported site of known biopsy-proven malignancy. There is some persistent architectural distortion at the site of the known biopsy-proven malignancy in the inner right breast; this mass appears mammographically decreased in size since the prior outside pre-diagnosis mammogram of 09/25/2020, however the malignant mass was not entirely included on the 09/25/2023 diagnosis mammogram and therefore direct size comparison between the current mammogram and prior outside mammogram of 09/25/2020 is not possible. The persistent architectural distortion at the site of the known biopsy-proven malignancy in the inner right breast posterior depth is grossly similar to the prior outside mammogram of 08/17/2024. Hydromark open coil biopsy marker clip in the subareolar right breast from a prior outside biopsy which reportedly yielded benign findings. Targeted ultrasound of the right breast was performed. There is ill-defined hypoechoic tissue in the 2:00 subareolar/region; it is difficult to definitively determine whether this corresponds with the site of patient's known biopsy- proven malignancy, but this is grossly similar in appearance to prior outside sonographic images of 08/17/2024 which are labeled 1:00 4 cm from the nipple. Procedure Note Jessica Case M.D. - 12/20/2024 EXAM: BI BREAST DIAGNOSTIC RIGHT WITH TOMOSYNTHESIS, BI ULTRASOUND BREASTFOCUSED RIGHT INDICATION: 49-year-old with right breast carcinoma which was diagnosedin 2019. Patient has undergone extended neoadjuvant endocrine therapy dueto personal reasons and has not yet undergone surgical therapy. COMPARISON: Prior exam(s) were available and reviewed for comparison. DENSITY: c. The breast(s) are heterogeneously dense, which may obscuresmall masses. FINDINGS: There is a hydromark (T4) butterfly biopsy marker clip in theinner right breast posterior depth at reported site of known biopsy-provenmalignancy. There is some persistent architectural distortion at the siteof the known biopsy-proven malignancy in the inner right breast; this mass appears mammographicallydecreased in size since the prior outside pre-diagnosis mammogram of09/25/2020, however the malignant mass was not entirely included on the09/25/2023 diagnosis mammogram and therefore direct size comparison between the current mammogram and prioroutside mammogram of 09/25/2020 is not possible. The persistentarchitectural distortion at the site of the known biopsy-proven malignancyin the inner right breast posterior depth is grossly similar to the prior outside mammogram of 08/17/2024. Hydromarkopen coil biopsy marker clip in the subareolar right breast from a prioroutside biopsy which reportedly yielded benign findings. Targeted ultrasound of the right breast was performed. There isill-defined hypoechoic tissue in the 2:00 subareolar/region; it isdifficult to definitively determine whether this corresponds with the siteof patient's known biopsy-proven malignancy, but this is grossly similar in appearance to prior outside sonographic imagesof 08/17/2024 which are labeled 1:00 4 cm from the nipple. IMPRESSION: Known biopsy-proven malignancy in the inner right breast has decreased inmammographic size compared with prior prediagnosis mammogram of09/25/2020. Due to technical differences and differences in imagelabeling, it is difficult to definitively evaluate for sonographic change in the known biopsy- provenmalignancy. RECOMMENDATION: Clinical Management Breast MRI is recommended to better evaluate extent of patient's knownmalignancy. Recommend continued multidisciplinary care given patient'sknown right breast malignancy which has not yet undergone surgicalexcision. ASSESSMENT: BI-RADS: 6: Known Biopsy-Proven Malignancy. Angela Piper APRN, C.N.P., D.N.P. IMG BI PRO CEDURES Final Result * PET CT Skull to Thigh FDG (12/20/2024 8:17 AM CASH APPLICATIONS SPECIALIST) Anatomical Region Laterality Modality Body, Nuclear Medicine PET R ST LOS, PET ARZ LOS, Nuclear Medicine PET FLA LOS, Nuclear Medicine N/A Positron Emission Tomography (PET), Positron Emission Tomography (PET) Impressions 12/20/2024 10:09 AM CASH APPLICATIONS SPECIALIST Compared with prior outside FDG PET significantly decreased conspicuity in FDG activity in the right breast cancer now with similar FDG activity to background. No evidence of suspicious FDG avid metastatic disease. Narrative 12/20/2024 10:09 AM CASH APPLICATIONS SPECIALIST EXAM: PET CT SKULL TO THIGH FDG Serum glucose at time of F-18 FDG injection was 81 mg/dL. Patient followed standard dietary/fasting requirements for this exam. RADIOPHARMACEUTICAL/MEDS: Route: intravenous fludeoxyglucose F 18 injection HALFWAY (FDG F-18),14.87 millicurie TECHNIQUE: F-18 FDG PET/CT scan was performed from the orbits through the thighs with low dose, non-contrast, free-breathing CT images for attenuation correction and anatomic localization (AC/AL), with imaging beginning at approximately 60 minutes after radiotracer injection. COMPARISON: Outside FDG PET/CT 10/23/2020 INDICATION: Restaging. Right breast cancer diagnosed in 2019 with extended neoadjuvant endocrine therapy. Subsequent treatment strategy. The patient reports no recent vaccinations. FINDINGS: Compared with prior outside FDG PET of 10/23/2020, the medial right breast cancer has significantly decreased in conspicuity and FDG activity with SUV 1.3 similar to background parenchyma (series 13, series 79), previously this demonstrated SUV max 7.7. Minimal residual soft tissue extending to the pectoralis muscle(series 3, image 80). Bilateral axillary lymph nodes stations demonstrate low level FDG activity SUV max 1.0 (series 12 image 65) and are likely reactive. No significant intramammary shubham activity. No evidence of FDG avid distant metastatic disease. Musculoskeletal degenerative uptake about the hips and shoulders. Incidental findings on low-dose, noncontrast CT performed for attenuation correction purposes: Stable tiny pulmonary nodules. Procedure Note Debbie Pace M.D. - 12/20/2024 EXAM: PET CT SKULL TO THIGH FDG Serum glucose at time of F-18 FDG injection was 81 mg/dL. Patient followedstandard dietary/fasting requirements for this exam. RADIOPHARMACEUTICAL/MEDS: Route: intravenous fludeoxyglucose F 18 injection HALFWAY (FDG F-18),14.87 millicurie TECHNIQUE: F-18 FDG PET/CT scan was performed from the orbits through thethighs with low dose, non-contrast, free-breathing CT images forattenuation correction and anatomic localization (AC/AL), with imagingbeginning at approximately 60 minutes after radiotracer injection. COMPARISON: Outside FDG PET/CT 10/23/2020 INDICATION: Restaging. Right breast cancer diagnosed in 2019 withextended neoadjuvant endocrine therapy. Subsequent treatment strategy. The patient reports no recent vaccinations. FINDINGS: Compared with prior outside FDG PET of 10/23/2020, the medialright breast cancer has significantly decreased in conspicuity and FDGactivity with SUV 1.3 similar to background parenchyma (series 13, [id number]), previously this demonstrated SUV max 7.7. Minimal residual soft tissue extending to the pectoralismuscle(series 3, image 80). Bilateral axillary lymph nodes stations demonstrate low level FDG activitySUV max 1.0 (series 12 image 65) and are likely reactive. No significantintramammary shubham activity. No evidence of FDG avid distant metastatic disease. Musculoskeletaldegenerative uptake about the hips and shoulders. Incidental findings on low-dose, noncontrast CT performed for attenuationcorrection purposes: Stable tiny pulmonary nodules. IMPRESSION: Compared with prior outside FDG PET significantly decreased conspicuity inFDG activity in the right breast cancer now with similar FDG activity tobackground. No evidence of suspicious FDG avid metastatic disease. Angela Piper APRN, C.N.P., D.N.P. IMG NM PRO CEDURES Final Result * BI Breast Diagnostic Left with Tomosynthesis (12/15/2024 12:58 PM CASH APPLICATIONS SPECIALIST) Anatomical Region Laterality Modality Breast, Breast Imaging RST L OS, Breast Imaging ARZ LOS, Breast Imaging FLA LOS Left Mammography Impressions 12/15/2024 1:16 PM C[employer] APPLICATIONS SPECIALIST No mammographic findings of malignancy. RECOMMENDATION: Clinical Management Continue multidisciplinary management of the contralateral breast malignancy. ASSESSMENT: BI-RADS: 2: Benign. Narrative 12/15/2024 1:16 PM CASH APPLICATIONS SPECIALIST EXAM: BI BREAST DIAGNOSTIC LEFT WITH TOMOSYNTHESIS INDICATION: Abnormal outside mammogram COMPARISON: Prior exam(s) were available and reviewed for comparison. DENSITY: c. The breast(s) are heterogeneously dense, which may obscure small masses. FINDINGS: Left diagnostic mammogram with tomosynthesis compression views of the inner breast demonstrates the asymmetry to localize to the inferior skin. Upon direct visual inspection, this corresponds to a skin tag. Procedure Note Soniya Thomas M.D. - 12/15/2024 EXAM: BI BREAST DIAGNOSTIC LEFT WITH TOMOSYNTHESIS INDICATION: Abnormal outside mammogram COMPARISON: Prior exam(s) were available and reviewed for comparison. DENSITY: c. The breast(s) are heterogeneously dense, which may obscuresmall masses. FINDINGS: Left diagnostic mammogram with tomosynthesis compression viewsof the inner breast demonstrates the asymmetry to localize to the inferiorskin. Upon direct visual inspection, this corresponds to a skin tag. IMPRESSION: No mammographic findings of malignancy. RECOMMENDATION: Clinical Management Continue multidisciplinary management of the contralateral breastmalignancy. ASSESSMENT: BI-RADS: 2: Benign. Arely N Juan P.A.-C. IMG BI PROCEDURES Final R esult * Interpretation of Outside Breast Imaging (12/02/2024 2:29 PM CASH APPLICATIONS SPECIALIST) Only the most recent of2 resultswithin the time period is included. Anatomical Region Laterality Modality Breast, Breast Imaging RST L OS, Breast Imaging ARZ LOS, Breast Imaging FLA LOS, Other N/A Mammography Impressions 12/05/2024 11:28 AM CASH APPLICATIONS SPECIALIST 1. Decreased size of the biopsy-proven right breast malignancy at 1:00, 4 cm from the nipple measuring 2 cm (down from 3.5 cm on 09/25/2020), which was initially sampled under ultrasound guidance and as annotated by a Hydromark butterfly clip. This can be localized under ultrasound guidance. 2. Pathology results not available for the additional biopsies performed in the right breast at 1:00 in the retroareolar position (Hydromark open coil clip) and a right axillary lymph node (Hydromark butterfly clip), which were also performed on 10/04/2020. 3. Partially imaged asymmetry in the far posterior inner left breast on the CC view only. RECOMMENDATIONS: 1. Multidisciplinary management recommended for biopsy-proven right breast malignancy. 2. Diagnostic imaging of the partially imaged asymmetry in the far posterior inner left breast. Narrative 12/05/2024 11:28 AM CASH APPLICATIONS SPECIALIST EXAM: INTERPRETATION OF OUTSIDE BREAST IMAGING, INTERPRETATION OF OUTSIDE BREAST IMAGING HISTORY/INDICATION: Biopsy-proven right breast malignancy at 1:00, 4 cm from the nipple initially diagnosed in September 2020 treated with systemic therapy. DENSITY: c. The breast(s) are heterogeneously dense, which may obscure small masses. FINDINGS: BILATERAL DIAGNOSTIC MAMMOGRAPHY WITHOUT INTRAVENOUS CONTRAST, 08/17/2024 COMPARED TO PRIOR MAMMOGRAM DATED 09/25/2020 AND 10/04/2020. TARGETED ULTRASOUND OF THE RIGHT BREAST WITHOUT INTRAVENOUS CONTRAST DATED 08/17/2024 COMPARED TO PRIOR ULTRASOUND DATED 09/25/2020. MAMMOGRAPHY: Multiple biopsy clips are seen in the inner right breast. When compared to the prior 09/25/2020 exam, there is decreased architectural distortion in the far posterior inner right breast at the site of biopsy-proven malignancy. There is a partially imaged asymmetry in the far posterior inner left breast on the CC view only. This is not seen on the XCCL or MLO images. ULTRASOUND: Decreased size of the biopsy-proven malignancy corresponding to an irregular hypoechoic mass in the right breast at 1:00, 4 cm from the nipple measuring 2.0 x 1.4 x 1.1 cm, previously 3.5 x 1.8 x 3.1 cm on 09/25/2020. This was adequately sampled under ultrasound guidance on 10/04/2020 and a butterfly Hydromark clip was placed. Outside pathology was malignant and concordant. Linear echogenicity at 2:00, 6 cm from the nipple in the right breast may present a biopsy clip. Additional medical sales representative images were saved at 2:00, 4 cm from the nipple, 8:00, 6 cm from the nipple, and 9:00, 6 cm from the nipple demonstrating fibroglandular and fibrofatty breast tissue. Images on 09/25/2020 also demonstrate a 4 mm short axis internal mammary lymph node in the 3rd intercostal space. A second site was biopsied under ultrasound guidance at 1:00 in the retroareolar position and annotated by a hydromark open coil clip (10/04/2020). Outside pathology results not available. Images also demonstrate sampling of a right axillary lymph node located 4 cm from the nipple and annotated by a hydromark butterfly clip (10/04/2020). Outside pathology results not available. Procedure Note Primitivo Oliveros M.D. - 12/05/2024 EXAM: INTERPRETATION OF OUTSIDE BREAST IMAGING, INTERPRETATION OF OUTSIDEBREAST IMAGING HISTORY/INDICATION: Biopsy-proven right breast malignancy at 1:00, 4 cmfrom the nipple initially diagnosed in September 2020 treated with systemictherapy. DENSITY: c. The breast(s) are heterogeneously dense, which may obscuresmall masses. FINDINGS: BILATERAL DIAGNOSTIC MAMMOGRAPHY WITHOUT INTRAVENOUS CONTRAST, 4COMPARED TO PRIOR MAMMOGRAM DATED 09/25/2020 AND 10/04/2020. TARGETED ULTRASOUND OF THE RIGHT BREAST WITHOUT INTRAVENOUS CONTRAST DATED1 COMPARED TO PRIOR ULTRASOUND DATED 09/25/2020. MAMMOGRAPHY: Multiple biopsy clips are seen in the inner right breast. When compared tothe prior 09/25/2020 exam, there is decreased architectural distortion inthe far posterior inner right breast at the site of biopsy-provenmalignancy. There is a partially imaged asymmetry in the far posterior inner leftbreast on the CC view only. This is not seen on the XCCL or MLO images. ULTRASOUND: Decreased size of the biopsy-proven malignancy corresponding to anirregular hypoechoic mass in the right breast at 1:00, 4 cm from thenipple measuring 2.0 x 1.4 x 1.1 cm, previously 3.5 x 1.8 x 3.1 cm on09/25/2020. This was adequately sampled under ultrasound guidance on 10/04/2020 and a butterfly Hydromark clip wasplaced. Outside pathology was malignant and concordant. Linear echogenicity at 2:00, 6 cm from the nipple in the right breast maypresent a biopsy clip. Additional medical sales representative images were saved at2:00, 4 cm from the nipple, 8:00, 6 cm from the nipple, and 9:00, 6 cmfrom the nipple demonstrating fibroglandular and fibrofatty breast tissue. Images on 09/25/2020 alsodemonstrate a 4 mm short axis internal mammary lymph node in the 3rdintercostal space. A second site was biopsied under ultrasound guidance at 1:00 in theretroareolar position and annotated by a hydromark open coil clip(10/04/2020). Outside pathology results not available. Images also demonstrate sampling of a right axillary lymph node located 4cm from the nipple and annotated by a hydromark butterfly clip(10/04/2020). Outside pathology results not available. IMPRESSION: 1. Decreased size of the biopsy-proven right breast malignancy at 1:00, 4cm from the nipple measuring 2 cm (down from 3.5 cm on 09/25/2020), whichwas initially sampled under ultrasound guidance and as annotated by aHydromark butterfly clip. This can be localized under ultrasound guidance. 2. Pathology results not available for the additional biopsies performedin the right breast at 1:00 in the retroareolar position (Hydromark opencoil clip) and a right axillary lymph node (Hydromark butterfly clip),which were also performed on 10/04/2020. 3. Partially imaged asymmetry in the far posterior inner left breast onthe CC view only. RECOMMENDATIONS: 1. Multidisciplinary management recommended for biopsy-proven rightbreast malignancy. 2. Diagnostic imaging of the partially imaged asymmetry in the farposterior inner left breast. us Arely MoraA.-C. IMG BI PROCEDURES Final R esult * Interpretation of Outside NM PET Scan (11/30/2024 1:15 PM CASH APPLICATIONS SPECIALIST) Anatomical Region Laterality Modality Nuclear Medicine PET RST LOS , Nuclear Medicine ARZ LOS, Nuclear Medicine FLA LOS, Nuclear Medicine, Other, Neuroradiology ARZ LOS, Neuroradiology FLA LOS, Neuroradiology RST LOS, Body N/A Nuclear Medicine Impressions 12/01/2024 3:49 PM CASH APPLICATIONS SPECIALIST 1. Moderately hypermetabolic right breast mass (deep medial right breast, just above the level of the nipple) consistent with biopsy-proven malignancy. This mass abuts and appears to extend into the adjacent pectoralis muscle. 2. Several tiny right internal mammary lymph nodes with varying degrees of low- level to mild FDG uptake, suspicious for metastatic lymph node involvement. 3. Several prominent but nonenlarged bilateral axillary lymph nodes with low level to mild uptake, nonspecific. These lymph nodes have a similar appearance to the contralateral side and most maintain their fatty hilum. 4. No convincing FDG avid manifestations of distal metastatic disease. Tiny sub- 4 mm noncalcified pulmonary nodules in the right and left upper lobes are below PET resolution. Consider attention on follow-up to ensure stability. Narrative 12/01/2024 3:49 PM CASH APPLICATIONS SPECIALIST EXAM: INTERPRETATION OF OUTSIDE NM PET SCAN dated 10/23/2020. TECHNIQUE: F-18 Fluorodeoxyglucose (FDG) PET/CT scan was performed from the vertex through the toes with CT fusion imaging for attenuation correction and anatomic coregistration only. Note, CT was performed with IV contrast. COMPARISON: Outside breast MRI, 10/25/2020 INDICATION: Right breast cancer. Diagnosed on ultrasound-guided breast biopsy, 10/04/2020. Initial staging study. Initial treatment strategy. FINDINGS: Scattered hypermetabolic brown adipose tissue in the neck, supraclavicular regions, mediastinum, along the descending thoracic aorta, and along the costovertebral junctions. This limits evaluation for subtle nonenlarged lymph nodes in these areas. 2.6 x 1.6 x 1.8 cm (transverse by AP by CC) enhancing mass in the deep medial right breast, just above the level of the nipple. This mass demonstrates associated moderately increased FDG uptake (maximum SUV 7.6) and appears to extend to involve the adjacent pectoralis muscle (CT slice 191). Several tiny suspected right internal mammary nodes with varying degrees of low- level to mild FDG uptake (PET slices 172, 190, and 193, respective CT slices 175, 193, and 196). The most prominent of these suspected lymph nodes (CT slice 193) measures approximately 4 mm with a maximum SUV of 2.3. Several prominent but nonenlarged bilateral axillary lymph nodes with low level to mild FDG uptake. A right axillary lymph node (CT slice 151) measures approximately 1.1 x 0.7 cm, maintains its fatty hilum, and demonstrates a maximum SUV of 2.1 and a left axillary lymph node (CT slice 157) measures 1.1 x 0.9 cm, maintains its fatty hilum, and demonstrates a maximum SUV of 2. No additional concerning FDG avid findings. Physiologic mild-moderate FDG uptake in the bilateral adnexa and mild uptake in the endometrial cavity. Additional contrast-enhanced CT findings: Tiny sub-4 mm noncalcified pulmonary nodules in the left upper lobe (12/70) and right upper lobe (/79) are below PET resolution. Otherwise, no significant incidental CT findings. Procedure Note Tj Jackson M.D. - 12/01/2024 EXAM: INTERPRETATION OF OUTSIDE NM PET SCAN dated 10/23/2020. TECHNIQUE: F-18 Fluorodeoxyglucose (FDG) PET/CT scan was performed fromthe vertex through the toes with CT fusion imaging for attenuationcorrection and anatomic coregistration only. Note, CT was performed withIV contrast. COMPARISON: Outside breast MRI, 10/25/2020 INDICATION: Right breast cancer. Diagnosed on ultrasound-guided breastbiopsy, 10/04/2020. Initial staging study. Initial treatment strategy. FINDINGS: Scattered hypermetabolic brown adipose tissue in the neck, supraclavicularregions, mediastinum, along the descending thoracic aorta, and along thecostovertebral junctions. This limits evaluation for subtle nonenlargedlymph nodes in these areas. 2.6 x 1.6 x 1.8 cm (transverse by AP by CC) enhancing mass in the deepmedial right breast, just above the level of the nipple. This massdemonstrates associated moderately increased FDG uptake (maximum SUV 7.6)and appears to extend to involve the adjacent pectoralis muscle (CT slice 191). Several tiny suspected right internal mammary nodes with varying degreesof low- level to mild FDG uptake (PET slices 172, 190, and 193, respectiveCT slices 175, 193, and 196). The most prominent of these suspected lymphnodes (CT slice 193) measures approximately 4 mm with a maximum SUV of 2.3. Several prominent but nonenlarged bilateral axillary lymph nodes with lowlevel to mild FDG uptake. A right axillary lymph node (CT slice 151)measures approximately 1.1 x 0.7 cm, maintains its fatty hilum, anddemonstrates a maximum SUV of 2.1 and a left axillary lymph node (CT slice 157) measures 1.1 x 0.9 cm, maintainsits fatty hilum, and demonstrates a maximum SUV of 2. No additional concerning FDG avid findings. Physiologic mild-moderate FDGuptake in the bilateral adnexa and mild uptake in the endometrialcavity. Additional contrast-enhanced CT findings: Tiny sub-4 mm noncalcifiedpulmonary nodules in the left upper lobe (12/70) and right upper lobe(2/79) are below PET resolution. Otherwise, no significant incidental CTfindings. IMPRESSION: 1. Moderately hypermetabolic right breast mass (deep medial right breast,just above the level of the nipple) consistent with biopsy-provenmalignancy. This mass abuts and appears to extend into the adjacentpectoralis muscle. 2. Several tiny right internal mammary lymph nodes with varying degrees oflow- level to mild FDG uptake, suspicious for metastatic lymph nodeinvolvement. 3. Several prominent but nonenlarged bilateral axillary lymph nodes withlow level to mild uptake, nonspecific. These lymph nodes have a similarappearance to the contralateral side and most maintain their fattyhilum. 4. No convincing FDG avid manifestations of distal metastatic disease.Tiny sub-4 mm noncalcified pulmonary nodules in the right and left upperlobes are below PET resolution. Consider attention on follow-up to ensurestability. Arely MCLEANG NM PROCEDURES Final R esult from Last 3 Months Insurance [place] [id number]
--- OUTSIDE RECORDS SUMMARY | 2025-01-07 23:14 | XMS_ITS | Encounter Summary ---
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 [address] [place] [phone] Phone: tel: fax: [facility] Referral ID Status Reason Start Date Expiration Date Visits Re quested Visits Authorized [id number] Closed 12/20/2024 06/21/2026 1 1 Encounter Details Date Type Department Care Team (Latest Contact Info) Description 01/04/2025 1:00 PM HIGH SCHOOL SCIENCE TUTOR Comprehensive Visit Department of Medical Genetics in [place], [place] [address] [place] [phone] Rei Loredo M.D. 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) Social History Tobacco Use Types Packs/Day Years Used Date Smoking Tobacco: Never Passive Smoke Exposure: Never Smokeless Tobacco: Never Alcohol Use Standard Drinks/Week Comments Yes 14 (1 standard drink = 0.6 oz pu re alcohol) [facility] Utilities Answer Date Recorded In the past 12 months has [facility] [employer], gas, oil, or water [employer] threatened to shut off services in your [...] Answer Date Recorded Employment status Unemployed/not in th e paid workforce but seeking employment 12/14/2024 Housing Stability Answer Date Recorded What is your living situation today? I have a [facility] place to live 12/14/2024 Comments No Sex and Gender Information Value Date Recorded Sex Assigned at Female 12/14/2024 12:10 PM HIGH SCHOOL SCIENCE TUTOR Legal Sex Female 10:00 AM CDT Gender Identity Female 12/14/2024 12:10 PM HIGH SCHOOL SCIENCE TUTOR Sexual Orientation Straight 12/14/2024 12 :10 PM HIGH SCHOOL SCIENCE TUTOR documented as of this encounter Progress Notes * Jamilah Jhaveri - 01/04/2025 1:00 PM CST REFERRAL Rei Loredo M.D. CHIEF COMPLAINT/PURPOSE OF VISIT Obtain and construct family history for clinical assessment. HISTORY OF PRESENT ILLNESS Please see Tonie Calle [facility] consultation for further details. FAMILY HISTORY Per the referral of Rei Loredo M.D., a comprehensive family history was obtained and constructed for the Clinical Genomics consult. The complete family history has been saved as a scanned document and is available for viewing. The patient will be seen in Clinical Genomics by Tonie Calle [facility]. Please see the consult note regarding pertinent findings of the family history in relationto the differential diagnosis and clinical assessment. Total time: 15 minutes SCHOOL SCIENCE TUTOR documented in this encounter Plan of Treatment Upcoming Encounters Date Type Department Care Team (Latest Contact Info) Description 01/12/2025 8:30 AM HIGH SCHOOL SCIENCE TUTOR Comprehensive Visit Division of Breast and Melanoma Surgical Oncology in [address] [phone] Rosalva Ruiz M.D. [address] [place] [phone] 01/12/2025 10:20 AM HIGH SCHOOL SCIENCE TUTOR Comprehensive Visit Department of Oncology in [address] [phone] Amie Sue M.B., B.Ch. [address] [place] [phone] 01/12/2025 1:00 PM HIGH SCHOOL SCIENCE TUTOR Appointment Department of Radiation Oncology in [address] [phone] Delilah Dos Santos, MPAS, P.A.-C. [address] [place] [phone] 01/12/2025 1:30 PM HIGH SCHOOL SCIENCE TUTOR Comprehensive Visit Breast Diagnostic Clinic in [address] [phone] Radha Becker, Ph.D., L.P. [address] [place] [phone] 01/13/2025 9:30 AM HIGH SCHOOL SCIENCE TUTOR Appointment Department of Radiology in [place], [place] [address] [place] [phone] Rei Loredo M.D. 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
--- OUTSIDE RECORDS SUMMARY | 2025-01-07 23:14 | XMS_ITS | Encounter Summary ---
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 [address] [place] [phone] Phone: tel: fax: [facility] Referral ID Status Reason Start Date Expiration Date Visits Re quested Visits Authorized [id number] Closed 12/15/2024 03/17/2026 1 1 Encounter Details Date Type Department Care Team (Latest Contact Info) Description 01/06/2025 11:43 AM CHEESE PACKER - 01/06/2025 11:59 PM CHEESE PACKER Hospital Encounter Department of Radiology, [facility], in [place], [place] [address] [place] [phone] Angela Piper APRN, C.N.P., D.N.P. 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 Utilities Answer Date Recorded In the past 12 months has th [employer], gas, oil, or water [employer] threatened to shut off services in your [...] Date Recorded Dental: Regular Dentist Yes 12/14/19 25 Employment Answer Date Recorded Employment status Unemployed/not in th e paid workforce but seeking employment 12/14/2024 Housing Stability Answer Date Recorded What is your living situation today? I have a [facility] place to live 12/14/2024 Comments No Sex and Gender Information Value Date Recorded Sex Assigned at Female 12/14/2024 12:10 PM CHEESE PACKER Legal Sex Female 10:00 AM CDT Gender Identity Female 12/14/2024 12:10 PM CHEESE PACKER Sexual Orientation Straight 12/14/2024 12 :10 PM CHEESE PACKER documented as of this encounter Medications at Time of Discharge armodafiniL (NuvigiL) 150 mg tablet Take 150 mg by mouth 2 (two) times a day. ascorbic acid, vitamin C, (Vitamin C) 500 mg chewable tablet Chew 500 mg daily. 11/18/2022 biotin 5,000 mcg tablet,disintegra ting Dissolve 5,000 mcg in the mouth 3 (three) times a week. 11/18/2021 cholecalciferol (Vitamin D3) 50 mcg (2,000 Unit) capsule Take 50 mcg by mouth 3 (three) times a week. 11/18/2008 cyanocobalamin (vitamin B-12) 500 mcg tablet Take 500 mcg by mouth 3 (three) times a week. 08/18/2024 glucosam/eids-msm 1/C/rosie/bosw (OSTEO BI-FLEX TRIPLE STRENGTH ORAL) Take 1 tablet by mouth 3 (three) times a week. 11/18/2022 letrozole (Femara) 2.5 mg tablet Take 2.5 mg by mouth daily. 03/12/2024 MULTIVITAMIN ORAL Take 1 tablet by mouth 3 (three) times a week. omega 4-ayk-xai-fish oil 900 mg-360 mg- 455 mg-1,000 mg capsule Take 1 capsule by mouth 3 (three) times a week. 11/18/2022 ublituximab-xiiy (BRIUMVI IV) every 6 (six) months. 10/27/2024 vitamin E acetate (VITAMIN E ORAL) Take 1 capsule by mouth 3 (three) times a week. 08/18/2024 documented as of this encounter Plan of Treatment Upcoming Encounters Date Type Department Care Team (Latest Contact Info) Description 01/12/2025 8:30 AM CHEESE PACKER Comprehensive Visit Division of Breast and Melanoma Surgical Oncology in [place], [place] [address] [place] [phone] Rosalva Ruiz M.D. [address] [place] [phone] 01/12/2025 10:20 AM CHEESE PACKER Comprehensive Visit Department of Oncology in [place], [place] [address] [place] [phone] Amie Sue M.B., B.Ch. [address] [place] [phone] 01/12/2025 1:00 PM CHEESE PACKER Appointment Department of Radiation Oncology in [address] [phone] Delilah Dos Santos, SCOTS, P.A.-C. [address] [place] [phone] 01/12/2025 1:30 PM CHEESE PACKER Comprehensive Visit Breast Diagnostic Clinic in [address] [phone] Radha Becker, Ph.D., L.P. [address] [place] [phone] 01/13/2025 9:30 AM CHEESE PACKER Appointment Department of Radiology in [address] [phone] Rei Loredo M.D. 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) Once for 1 Occurrences starting 01/06/2025 until 01/06/2025 documented as of this encounter Visit Diagnoses Diagnosis 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 Given 01/06/2025 1:18 PM CHEESE PACKER 8 mL sodium chloride (PF) 0.9 % injection 1-100 mL 1-100 mL, intravenous, Once, On Thu01/06/25 at 1300, For 1 dose, Imaging Protocol Orders, Dose per Radiant Medication Guidelines Given 01/06/2025 1:18 PM CHEESE PACKER 20 mL documented in this encounter
--- OUTSIDE RECORDS SUMMARY | 2025-01-07 23:14 | XMS_ITS | Encounter Summary ---
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 [address] [place] [phone] Phone: tel: fax: [facility] Referral ID Status Reason Start Date Expiration Date Visits Re quested Visits Authorized [id number] Closed 12/16/2024 06/17/2026 1 1 Encounter Details Date Type Department Care Team (Latest Contact Info) Description 01/04/2025 8:30 AM CASTING ASSOCIATE Comprehensive Visit Breast Diagnostic Clinic in [place], [place] [address] [place] [phone] Rei Loredo M.D. 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 I have a [facility] place to live 12/14/2024 Comments No Sex and Gender Information Value Date Recorded Sex Assigned at Female 12/14/2024 12:10 PM CASTING ASSOCIATE Legal Sex Female 10:00 AM CDT Gender Identity Female 12/14/2024 12:10 PM CASTING ASSOCIATE Sexual Orientation Straight 12/14/2024 12 :10 PM CASTING ASSOCIATE documented as of this encounter Last Filed Vital Signs Vital Sign Reading Time Taken Comments Blood Pressure 127/85 01/04/2025 8:07 AM CASTING ASSOCIATE Pulse 75 01/04/2025 8:07 AM CASTING ASSOCIATE Temperature - - Respiratory Rate - - Oxygen Saturation - - Inhaled Oxygen Concentration - - Weight 74.2 kg (163 lb 7.5 oz) 01/04/2025 8:07 A M CASTING ASSOCIATE Height 160.1 cm (5' 3.03) 01/04/2025 8:07 AM CS T Body Mass Index 28.93 01/04/2025 8:07 AM CASTING ASSOCIATE documented in this encounter Progress Notes * Belle Bentley R.N. - 01/04/2025 8:30 AM CST SUBJECTIVE CHIEF COMPLAINT/REASON FOR VISIT Breast cancer education HISTORY OF PRESENT ILLNESS Type of Cancer: invasive ductal carcinoma Hormone Receptors: estrogen positive, progesterone positive, HER2 equivocal, FISH negative, and Ki67: 10% Grade: 2 OBJECTIVE Patient attended the appointment independently. Discussion: Reviewed with patient the findings from the breast pathology and specifically, the difference between in situ and invasive carcinomas. Discussed type of cancer, grading and staging of breast cancer. Discussed estrogen and progesterone receptor status. Discussed Patient Online Services. Explained the process for clinical evaluation which will be outlined today along with recommendations utilizing a team of providers for breast cancer treatment. Psychosocial: Patient appears to be coping adequately at this time. The patient has a network of support including family and friends. I offered encouragement and my continued support at this time. ING ASSOCIATE * Belle Bentley R.N. - 01/04/2025 8:30 AM CST SUBJECTIVE CHIEF COMPLAINT/REASON FOR VISIT Review of resources related to breast cancer consultation. OBJECTIVE Discussion included: Resource List, Breast Cancer Mentorship contact information, [facility]. ING ASSOCIATE documented in this encounter Consult Notes * Rei Loredo M.D. - 01/04/2025 8:30 AM CST SUBJECTIVE CHIEF COMPLAINT / REASON FOR VISIT New diagnosis breast cancer HISTORY OF PRESENT ILLNESS Mrs. Florez is a very pleasant 49 y.o. woman who comes in today for further evaluation and recommendations in regards to a new diagnosis of breast cancer. The patient reportedly noticed the right breast change with breast retraction, and puckering in theupper inner quadrant of her breast with nipple position change. Started evaluation in September of 2020. She was found to have a 3.7 cm at 1 position 7 cm from the nipple, and another lesion retroareolar left breast. Biopsy of the retroareolar breast benign findings. Lesion at 1 position 7 cm from the nipple positive for a grade 2 IDC, ER MD positive HER2 negative by fish, Ki 67 10%. Because of her MS, and pandemic she decided to not proceed with surgery at that time. She was placed on goserelininjection, and letrozole. November 2021: Decreased size of malignancy from 3.5x1.8x3.1 to 2x1.4x1.1. January 05, 2023 had underwent BSO. Subsequently placed only on letrozole. Recent PET scan compared to prior: significantly decreased conspicuity in FDG activity in the right breast cancer now with similar FDG activity to background. No evidence of suspicious FDG avid metastatic disease. Patient came to [facility] seeking Radiation Oncology consultation for possible radiation treatment. She wassubsequently referred to the breast Diagnostic Clinic. Because of her MS, she is looking for nonsurgical treatment, however willing to proceed with standard treatment if advised. Oncology History Overview Note History of MS. 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 Patient palpated abnormality in right breast in early 2018. COVID-19 pandemic delayed evaluation and mass grew. 09/25/2020: US showed a 3.5 cm mass at 1:00 in the right breast. Second mass noted at 1:090, retroareolar breast, measuring 3.7 cm with prominent axillary adenopathy and probable internal mammary adenopathy 10/04/2020 Initial Diagnosis Diagnostic mammogram: Bilateral, 09/25/2020 . Left breast mammography with digital breast tomosynthesis demonstrates calcifications medially. Magnification views show these to be layering calcifications indicating milk of calcium within fibrocystic change. No concerning mammographic/tomographic findings in the Left breast. Ultrasound breast/axilla: Right, 09/25/2020 . Focussed ultrasound by radiologist and technologist of the upper inner quadrant of the RIGHT breast was performed. Irregularly-shaped hypoechoic mass with spiculated margins is seen at the patient's palpable area of concern, 1:00 4 cm from the nipple. This measures approximately 3.1 x 3.5 x 1.8 cm. In the same ductal distribution at 1:00 retroareolar RIGHT breast there is ill-defined hypoechogenicity concerning for a second mass measuring 2.7 x 3.7 x 1.3 cm. RIGHT axillary ultrasound survey demonstrates a prominent lymph node with somewhat eccentric cortical thickening. Additionally, there is a prominent internal mammary chain lymph node in the t hird intercostal space. Per [facility] Review: 10/23/2020: PET scan demonstrates a 2.6 x 1.6 x 1.8 cm moderately hypermetabolic mass in the medial right breast. This abuts and appears to involve the adjacent pectoralis muscle. Several tiny suspected right internal mammary nodes with very degrees of low to mild FDG uptake, the most prominent of which measures approximately 4 mm, suspicious for metastatic involvement. There areseveral prominent but not enlarged bilateral axillary lymph nodes, most maintain their fatty hilum.No evidence of distant metastatic disease. Tiny sub 4 mm noncalcified pulmonary nodules in the right and left upper lobes are below PET resolution, consider attention on follow-up. Per [facility] review of local PET scan. 10/25/2020: Breast MRI showed known malignancy measuring 3.4 x 1.9 x 1.4 cm, abutting right pectoralis muscle, appears to be tethering the muscle. There is a small enhancing mass in the lower outer right breast. Two enlarged right internal mammary lymph nodes, largest measuring 6 mm. Left breast non mass enhancement from 9-11 o'clock without mass or adenopathy. Per local report, not reviewed at [facility]. 04/30/2021: Breast MRI demonstrated decrease size of right breast mass (now 2.6 x 1.2 x 1.8 cm) andinternal mammary adenopathy has decreased in prominence. Previously noted lower outer right breast enhancing mass now measures 2 mm, previously 6 mm. Previously noted left upper inner enhancement less prominent, no mass or adenopathy. Per local report, not reviewed at [facility]. 12/10/2021: Breast MRI demonstrates residual architectural distortion of the right breast in the area of biopsy-proven malignancy but enhancement has completely resolved. Right lower outer enhancing mass has also resolved. No adenopathy. Left breast with mild background parenchymal enhancement no mass or adenopathy. Per local report, not reviewed at [facility]. Per [facility] Review: Screening mammogram: Bilateral, 08/17/2024 . Multiple biopsy clips are seen in the inner right breast. When compared to the prior 09/25/2020 exam, there is decreased architectural distortion in the far posterior inner right breast at the site of biopsy-proven malignancy. There is a partially imaged asymmetry in the far posterior inner left breast on the CC view only. This is not seen on the XCCL or MLO images. Per [facility] Review: Diagnostic mammogram: Right, 08/17/2024 . Decreased size of the biopsy-proven malignancy corresponding [...] breast may present a biopsy clip. Additional field service representative images were saved at 2:00, 4 cm from the nipple, 8:00, 6 cm from the nipple, and 9:00, 6 cm from the nipple demonstrating fibroglandular and f ibrofatty breast tissue. Images on 09/25/2020 also demonstrate a 4 mm short axis internal mammary lymph node in the 3rd intercostal space. A second site was biopsied under ultrasound guidance at 1:00in the retroareolar position and annotated by a hydromark open coil clip (10/04/2020). Outside pathology results not available. Images also demonstrate sampling of a right axillary lymph node located4 cm from the nipple and annotated by a hydromark butterfly clip (10/04/2020). Outside pathology results not available. Diagnostic mammogram: Left, 12/15/2024 . Left diagnostic mammogram with tomosynthesis compression views of the inner breast demonstrates the asymmetry to localize to the inferior skin. Upon direct visual inspection, this corresponds to a skin tag. Diagnostic mammogram: Right, 12/20/2024: There is a hydromark (T4) butterfly biopsy marker clip in the inner right breast posterior depth atreported site of known biopsy-proven malignancy. There is [...] of 09/25/2020 is not possible. The persistent architecturaldistortion at the site of the known biopsy-proven malignancy in the inner right breast posterior depth is grossly similar to the prior outside mammogram of 08/17/2024. Hydromark open coil biopsy marker clip in the subareolar right breast from a prior outside biopsy which reportedly yielded benign fin dings. Ultrasound breast/axilla: Right, 12/20/2024 . Targeted ultrasound of the right breast was performed. There is ill-defined hypoechoic tissue in the 2:00 subareolar/region; it is difficult to definitively determine whether this corresponds with the site of patient's known biopsy- proven malignancy, but this is grossly similar in appearance to prior outside sonographic images of 08/17/2024 which are labeled 1:00 4 cm from the nipple. Positron emission tomography (PET) scan: 12/20/2024. Compared with prior outside FDG PET significantly decreased conspicuity in FDG activity in the right breast cancer now with similar FDG activity to background. No evidence of suspicious FDG avid metastatic disease. Magnetic resonance imaging (MRI): Bilateral, 02/02/2025 . 10/04/2020 Biopsy/Pathology A. Breast, right, 1:00 o'clock, 4 cm from nipple, ultrasound-guided needle core biopsy: Invasive ductal carcinoma, Sandeep grade II (of III), 6 mm in linear extent. Hormone receptor testing: Estrogen positive (91-100%) and Progesterone positive (91-100%). Per report HER2 FISH negative. Ki-67: 10%. B. Right breast biopsy 1 o'clock, retroareolar: benign breast tissue, negative for malignancy. C. Right axillary lymph node biopsy: negative for malignancy, benign lymphoid parenchyma. Per [facility] review: Complete. 10/04/2020 Genetic Testing and Tumor Genotyping MammaPrint: Low risk, luminal B 12/18/2020 - Biological/Targeted/Hormone Therapy Initiated neoadjuvant goserelin injection and letrozole per patient preference (declined upfront surgery). 12/2022 Surgery and Procedures Laparoscopic BSO BREAST CANCER RISK PROFILE: G0. Menarche at 11 or 12. Had BSO at 46. Used control in the past for over 11 years. No fertility medications. Does not know if she was exposed to SHAMAR. No breast pain. Biopsies as above. No radiation to chest or breast in the past. Nonsmoker, no secondhand smoking exposure. Drinks more than 5drinks of alcohol per week (shares about of wine with her every not). Current weight 160 lb, weight a year ago 150 lb. She is 5 ft 3 in tall. She is of white race, not or , andnot adopted. FAMILY HISTORY: No family history of breast or ovarian cancer. The following portions of the patient's history were reviewed and updated as appropriate: allergies, current medications, family history, medical history, social history, surgical history and problemlist. REVIEW OF SYSTEMS Please see HPI. All other systems reviewed and are negative. OBJECTIVE VITAL SIGNS BP 127/85 (BP Location: Left arm, Patient Position: Sitting, Cuff Size: Regular) Pulse 75 Ht 160.1 cm Wt 74.2 kg BMI 28.93 kg/m?? PHYSICAL EXAMINATION Constitutional: She appears well-developed and well-nourished. No distress. Neck: Normal range of motion. Neck supple. No thyromegaly present. Cardiovascular: Normal rate, regular rhythm and normal heart sounds. She exhibits no edema. Exam reveals no gallop and no friction rub. No murmur heard. Pulmonary/Chest: Effort normal and breath sounds normal. No respiratory distress. She has no wheezes. She has no rales. Breast: Breasts are moderate, right breast smaller than left. Right breast: Nipple pulled upward, but everted. No nipple lesion/discharge. No skin puckering, no skin discoloration. 1 o'clock position7 cm from the nipple there is a thickening. Left breast: Nipple everted, no nipple lesion/discharge. No skin discoloration, skin puckering. No dominant mass on palpation. Lymphadenopathy: No submental, no submandibular and no occipital adenopathy present. She has no cervical adenopathy. She has no axillary adenopathy. Psychiatric: She has a normal mood and affect. ASSESSMENT / PLAN #1 Right grade 2 IDC, ER/MD strongly positive HER2 negative by FISH, Ki 67:10% #2 Currently on endocrine therapy #3 Status post BSO January 05, 2023 #4 Multiple sclerosis Reviewed with the patient the findings from the breast pathology and specifically, the difference between in situ and invasive carcinomas. Reviewed grading and staging of breast cancer. Discussed estrogen, progesterone and HER2/elyssa receptor status and impact in determining use of adjuvant treatment. Surgical options were discussed including wide local excision and mastectomy. Equivalent survival with BCT and mastectomy discussed. Risks of local recurrence discussed. Advantages of frozen section pathology discussed. Her preference is lumpectomy. Discussed the role of the sentinel lymph node biopsy technique to assess lymph node involvement in invasive breast cancer. Reviewed the role of complete axillary node dissection if the sentinel lymphnode is positive. Discussed possible complications of sentinel lymph node biopsy and axillary node d issection including potential for lymphedema. Discussed plastic surgery options for reconstruction following mastectomy including breast implantsand flap procedures. Discussed delayed versus immediate reconstruction. Discussed breast MRI indications, risks, limitations, costs and benefits. Discussed potential risk of false-positive test results that might require additional tests with breast ultrasound, mammogramor biopsy. Discussed the role of radiation therapy including the schedule of radiation therapy. Reviewed benefits and potential side effects of radiation therapy. Reviewed the role of adjuvant hormonal treatment (anti-estrogens). Specifically, discussed the risks and benefits of tamoxifen and the aromatase inhibitors. Informed the patient that further discussion regarding the role of chemotherapy and adjuvant hormone therapy would take place with the medical oncologist. Patient referred to breast clinic nurse for cancer education and psychosocial support. Cancer psychology consult may also be considered. I offered my encouragement and support during this difficult time. Discussed the role of the Breast Cancer Survivorship Clinic visit after completion of treatments. Follow-up may be completed either at [facility] or locally. Patient informed that the cancer surveillance schedule will include at a minimum six-month clinical breast exams and annual diagnostic mammograms for five years after which, usual cancer screening can be completed through the primary care provider. RECOMMENDATIONS: 1. Breast MRI, right axillary ultrasound 2. Genetic consultation 3. Multidisciplinary breast Clinic team consultation PATIENT EDUCATION: Ready to learn, no apparent learning barriers were identified; learning preferences include listening. Explained diagnosis and treatment plan; patient expressed understanding of the content. Total visit time greater than 90 minutes, with over 50% spent counseling with the patient and coordination of care activities described above. ING ASSOCIATE documented in this encounter Plan of Treatment Upcoming Encounters Date Type Department Care Team (Latest Contact Info) Description 01/12/2025 8:30 AM CASTING ASSOCIATE Comprehensive Visit Division of Breast and Melanoma Surgical Oncology in [address] [phone] Rosalva Ruiz M.D. [address] [place] [phone] 01/12/2025 10:20 AM CASTING ASSOCIATE Comprehensive Visit Department of Oncology in [address] [phone] Amie Sue M.B., B.Ch. [address] [place] [phone] 01/12/2025 1:00 PM CASTING ASSOCIATE Appointment Department of Radiation Oncology in [address] [phone] Delilah Dos Santos, MPAS, P.A.-C. [address] [place] [phone] 01/12/2025 1:30 PM CASTING ASSOCIATE Comprehensive Visit Breast Diagnostic Clinic in [address] [phone] Radha Becker, Ph.D., L.P. [address] [place] [phone] 01/13/2025 9:30 AM CASTING ASSOCIATE Appointment Department of Radiology in [place], [place] [address] [place] [address] [place] [phone] Rei Loredo M.D. 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) Expected: 01/04/2025, Expires: 04/03/2026 Oncology - Multi-Disiciplinary breast clinic consult (clinic) Outpatient Referral Routine 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
--- OUTSIDE RECORDS SUMMARY | 2025-01-07 23:14 | XMS_ITS | Encounter Summary ---
Author Organization [facility] Address [address] [place] [address] Care Team Providers Care Shirt Presser Name Role Phone Unavailable Primary Care Provider Unavailabl e Reason for Visit * Reason Onset Date Comments Ambry:MTP 01/04/2025 Encounter Details Date Type Department Care Team (Late st Contact Info) Description 01/04/2025 Clinical Communication Department of Medical Genetics in [place], [place] [address] [place] [phone] Tonie Calle M.S., [facility] [address] [place] [phone] Ambry:[facility] Social History Tobacco Use Types Packs/Day Years Used Date Smoking Tobacco: Never Passive Smoke Exposure: Never Smokeless Tobacco: Never Alcohol Use Standard Drinks/Week Comments Yes 14 (1 standard drink = 0.6 oz pu re alcohol) [facility] Utilities Answer Date Recorded In the past 12 months has [facility] [employer], gas, oil, or water [employer] threatened to shut off services in your [...] your living situation today? I have a [facility] place to live 12/14/2024 Comments No Sex and Gender Information Value Date Recorded Sex Assigned at Female 12/14/2024 12:10 PM MATERNITY FLOOR SUPERVISOR Legal Sex Female 10:00 AM CDT Gender Identity Female 12/14/2024 12:10 PM MATERNITY FLOOR SUPERVISOR Sexual Orientation Straight 12/14/2024 12 :10 PM MATERNITY FLOOR SUPERVISOR documented as of this encounter Miscellaneous Notes * Telephone Encounter - Jamilah Jhaveri - 01/04/2025 1:34 PM CST Date: 01/04/25 Lab: [facility] Test: RNA Sample: Whole Blood Provider: Tonie Calle CGC Insurance: Commercial RNITY FLOOR SUPERVISOR documented in this encounter Plan of Treatment Upcoming Encounters Date Type Department Care Team (Latest Contact Info) Description 01/12/2025 8:30 AM MATERNITY FLOOR SUPERVISOR Comprehensive Visit Division of Breast and Melanoma Surgical Oncology in [place], [place] [address] [place] [phone] Rosalva Ruiz M.D. 200 [place] [phone] 01/12/2025 10:20 AM MATERNITY FLOOR SUPERVISOR Comprehensive Visit Department of Oncology in [place], [place] [address] [place] [phone] Amie Sue M.B., B.Ch. [address] [place] [phone] 01/12/2025 1:00 PM MATERNITY FLOOR SUPERVISOR Appointment Department of Radiation Oncology in [place], [place] [address] [place] [address] [phone] Delilah Dos Santos, SCOTS, P.A.-C. [address] [place] [phone] 01/12/2025 1:30 PM MATERNITY FLOOR SUPERVISOR Comprehensive Visit Breast Diagnostic Clinic in [place], [place] [address] [place] [phone] Radha Becker, Ph.D., L.P. [address] [place] [phone] 01/13/2025 9:30 AM MATERNITY FLOOR SUPERVISOR Appointment Department of Radiology in [place], [place] [address] [place] [address] [phone] Rei Loredo M.D. [address] [place] [phone] Discharge Disposition: Home or Self Care documented as of this encounter Visit Diagnoses Not on filedocumented in this encounter
--- OUTSIDE RECORDS SUMMARY | 2025-01-07 23:14 | XMS_ITS | Encounter Summary ---
Author Organization [facility] Address [address] [place] [address] Care Team Providers Care Military Pilot Name Role Phone Unavailable Primary Care Provider Unavailabl e Encounter Details Date Type Department Care Team (Late st Contact Info) Description 12/16/2024 Clinical Communication Breast Diagnostic Clinic in [place], [place] [address] [place] [phone] Fariha Corral M.D. [address] [place] [phone] Social History Tobacco Use Types Packs/Day Years Used Date Smoking Tobacco: Never Smokeless Tobacco: Never Alcohol Use Standard Drinks/Week Comments Yes 14 (1 standard drink = 0.6 oz pu re alcohol) [facility] Utilities Answer Date Recorded In the past 12 months has th e electric, gas, oil, or water [employer] threatened to shut off services in your [...] your living situation today? I have a [facility] place to live 12/14/2024 Comments Unknown Sex and Gender Information Value Date Recorded Sex Assigned at Female 12/14/2024 12:10 PM INTERLOCKING AND SIGNAL MECHANIC Legal Sex Female 10:00 AM CDT Gender Identity Female 12/14/2024 12:10 PM INTERLOCKING AND SIGNAL MECHANIC Sexual Orientation Straight 12/14/2024 12 :10 PM INTERLOCKING AND SIGNAL MECHANIC documented as of this encounter Miscellaneous Notes * Telephone Encounter - Ling Marmolejo - 12/19/2024 10:38 AM CST MAUREEN call has been scheduled RLOCKING AND SIGNAL MECHANIC * Telephone Encounter - Ling Marmolejo - 12/16/2024 3:25 PM CST I see that there???s an order for a breast cancer consultation from Radiation Oncology. 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 However, she has not undergone surgery or radiation therapy. Given this history, should this patient begin in the breast clinic? Also, what type of consult would be most appropriate. Please advise Thank you Ling RLOCKING AND SIGNAL MECHANIC documented in this encounter Plan of Treatment Upcoming Encounters Date Type Department Care Team (Latest Contact Info) Description 01/12/2025 8:30 AM INTERLOCKING AND SIGNAL MECHANIC Comprehensive Visit Division of Breast and Melanoma Surgical Oncology in [place], [place] [address] [place] [phone] Rosalva Ruiz M.D. [address] [place] [phone] 01/12/2025 10:20 AM INTERLOCKING AND SIGNAL MECHANIC Comprehensive Visit Department of Oncology in [place], [place] [address] [place] [phone] Amie Sue M.B., B.Ch. [address] [place] [address] [phone] 01/12/2025 1:00 PM INTERLOCKING AND SIGNAL MECHANIC Appointment Department of Radiation Oncology in [address] [phone] Delilah Dos Santos, AISHWARYA, P.A.-C. [address] [place] [phone] 01/12/2025 1:30 PM INTERLOCKING AND SIGNAL MECHANIC Comprehensive Visit Breast Diagnostic Clinic in [place], [place] [address] [place] [address] [phone] Radha Becker, Ph.D., L.P. [address] [place] [address] [phone] 01/13/2025 9:30 AM INTERLOCKING AND SIGNAL MECHANIC Appointment Department of Radiology in [place], [place] [address] [place] [address] [phone] Rei Loredo M.D. [address] [place] [phone] Discharge Disposition: Home or Self Care documented as of this encounter Visit Diagnoses Not on filedocumented in this encounter
--- OUTSIDE RECORDS SUMMARY | 2025-01-07 23:14 | XMS_ITS | Encounter Summary ---
Author Organization [facility] Address [address] [place] [address] Care Team Providers Care Women'S Basketball Coach Name Role Phone No Ref-Primary, Physician Primary Care Provider No Ref-Primary, Physician Primary Care Provider Encounter Details Date Type Department Care Team (Late st Contact Info) Description 08/22/2024 [facility] [address] [place] [address] Kevon Duarte MD [address] [facility] [address] [place] [address] Multiple sclerosis (H) (Primary Dx) Social History Tobacco Use Types Packs/Day Years Used Date Smoking Tobacco: Never Smokeless Tobacco: Never Alcohol Use Standard Drinks/Week Comments Yes 0 (1 standard drink = 0.6 oz pur e alcohol) 1-2 drinks per month Adolescent Education Answer Date Record ed Getting School Help Needed Not on file 08/30 Comments No Sex and Gender Information Value Date Recorded Sex Assigned at Not on file Legal Sex Female 3:34 AM PLANNER/SCHEDULER Gender Identity Not on file Sexual Orientation Not on file documented as of this encounter Plan of Treatment Not on file documented as of this encounter Results * CD20 on B Cells, Blood (08/23/2024 12:37 PM CDT) CD45 Absolute 2.20 0.99 - 3.15 thou/mcL 08/24/2024 3:06 PM CDT [facility] %CD19 B-Cells 12 4.6 - 22.1 % 08/24/2024 3:06 PM CDT [facility] %CD20 B-Cells 12 5.0 - 22.3 % 08/24/2024 3:06 PM CDT [facility] CD19 Absolute 255 56.6 - 417.4 cells/mcL 08/24/2024 3:06 PM CDT [facility] CD20 Absolute 255 74.4 - 441.1 cells/mcL 08/24/2024 3:06 PM CDT [facility] Comment: ADDITIONAL INFORMATION Reference values implemented February 14, 2009. This test was developed using an analyte specific reagent. Its performance characteristics were determined by [facility] in a manner consistent with CLIA requirements. This test has not been cleared or approved by the U.S. Food and Drug Administration. Test Performed by: [place] [address] Salary Manager: Rich Latif Ph.D.; CLIA# [id number] Blood STRUCTURE OF LEFT UPPER LIMB / Unknown Venipuncture / Unknown 08/23/2024 12:37 PM CDT 08/23/2024 12:38 PM CDT Kevon Duarte MD LAB - BLOOD ORDERABLES Final R esult [facility] [address] [phone] * Hepatitis C antibody (08/23/2024 12:37 PM CDT) Pathologist [facility] Hepatitis C Antibody Nonreactive Nonreactive 08/23/2024 7:15 [...] 12:37 PM CDT 08/23/2024 12:38 PM CDT Kevon Duarte MD LAB - BLOOD ORDERABLES Final R esult [facility] [address] [facility], Room [address] [place] [phone] * [facility]; [id number]; HBV Baseline Avaluation, HCV Direct-acting Antivirals (Laboratory Miscellaneous Order) (08/23/2024 12:37 PM CDT) Specimen Status Specimen received. Reordered and sent to performing laboratory. Report to follow upon completion. [facility] 08/23/2024 1:46 PM CDT LABORATORY Performing Laboratory [facility] 08/23/2024 1:46 PM CDT [facility] Test Name HBV Baseline Avaluation, HCV Direct-acting Antivirals [facility] 08/23/2024 1:46 PM CDT LABORATORY Test Code [id number] [facility] 08/23/2024 1:46 PM CDT LABORATORY Blood STRUCTURE OF LEFT UPPER LIMB / Unknown Venipuncture / Unknown 08/23/2024 12:37 PM CDT 08/23/2024 12:38 PM CDT Kevon Duarte MD LAB - BLOOD ORDERABLES Final R esult LABORATORY [facility] [address] Lab (1st floor, no room number) [place] [phone] documented in this encounter Visit Diagnoses Diagnosis Multiple sclerosis (H)- Primary Multiple sclerosis documented in this encounter Care Teams Women'S Basketball Coach Relationship Specialty Start Date End Date No Ref-Primary, Physician PCP - General 09/04/14 10/10/24 No Ref-Primary, Physician PCP - General 10/11/24 documented as of this encounter
--- OUTSIDE RECORDS SUMMARY | 2025-01-07 23:14 | XMS_ITS | Encounter Summary ---
Author Organization [facility] Address [address] [place] [address] Care Team Providers Care Mash Tub Cooker Name Role Phone Unavailable Primary Care Provider Unavailabl e Encounter Details Date Type Department Care Team ([facility] st Contact Info) Description 12/20/2024 Results Follow-Up Department of Radiation Oncology in [place], [place] [address] [place] [phone] Angela Piper APRN, C.N.P., D.N.P. [address] [place] [phone] Skull to Thigh FDG, BI Breast Diagnostic Right with Tomosynthesis, BI Ultrasound Breast Focused Right Social History Tobacco Use Types Packs/Day Years Used Date Smoking Tobacco: Never Smokeless Tobacco: Never Alcohol Use Standard Drinks/Week Comments Yes 14 (1 standard drink = 0.6 oz pu re alcohol) [facility] Utilities Answer Date Recorded In the past 12 months has [employer], [employer], oil, or water [employer] threatened to shut off services in your [...] your living situation today? I have a [facility] place to live 12/14/2024 Comments Unknown Sex and Gender Information Value Date Recorded Sex Assigned at Female 12/14/2024 12:10 PM EXERCISE PHYSIOLOGY PROFESSOR Legal Sex Female 10:00 AM CDT Gender Identity Female 12/14/2024 12:10 PM EXERCISE PHYSIOLOGY PROFESSOR Sexual Orientation Straight 12/14/2024 12 :10 PM EXERCISE PHYSIOLOGY PROFESSOR documented as of this encounter Plan of Treatment Upcoming Encounters Date Type Department Care Team (Latest Contact Info) Description 01/12/2025 8:30 AM EXERCISE PHYSIOLOGY PROFESSOR Comprehensive Visit Division of Breast and Melanoma Surgical Oncology in [place], [place] 200 [place] [phone] Rosalva Ruiz M.D. [address] [place] [phone] 01/12/2025 10:20 AM EXERCISE PHYSIOLOGY PROFESSOR Comprehensive Visit Department of Oncology in [place], [place] 200 [place] [phone] Amie Sue M.B., B.Ch. [address] [place] [phone] 01/12/2025 1:00 PM EXERCISE PHYSIOLOGY PROFESSOR Appointment Department of Radiation Oncology in [place], [place] [address] [place] [phone] Delilah Dos Santos, SCOTS, P.A.-C. [address] [place] [phone] 01/12/2025 1:30 PM EXERCISE PHYSIOLOGY PROFESSOR Comprehensive Visit Breast Diagnostic Clinic in [place], [place] [address] [place] [phone] Radha Becker, Ph.D., L.P. [address] [place] [phone] 01/13/2025 9:30 AM EXERCISE PHYSIOLOGY PROFESSOR Appointment Department of Radiology in [place], [place] [address] [place] [phone] Rei Loredo M.D. [address] [place] [phone] Discharge Disposition: Home or Self Care documented as of this encounter Visit Diagnoses Not on filedocumented in this encounter
--- OUTSIDE RECORDS SUMMARY | 2025-01-07 23:14 | XMS_ITS | Encounter Summary ---
Author Organization [facility] Address [address] [place] [address] Care Team Providers Care Water Jet Loom Fixer Name Role Phone Unavailable Primary Care Provider Unavailabl e Reason for Referral * Outpatient (Routine) - Closed Specialty Diagnoses / Procedures Referred By Judyac t Referred To Contact Diagnoses Breast Examination Abnormal Procedures BI Breast Diagnostic Left with Tomosynthesis Arely Martinez P.A.-C. [address] [place] [phone] Phone: tel: fax: [facility] Referral ID Status Reason Start Date Expiration Date Visits Re quested Visits Authorized [id number] Closed 12/05/2024 03/07/2026 1 1 R CLEANER OPERATOR Reason for Visit * Outpatient (Routine) - Closed Specialty Diagnoses / Procedures Referred By Contac katty Referred To Contact Diagnoses Breast Examination Abnormal Procedures BI Breast Diagnostic Left with Tomosynthesis Arely Martinez P.A.-C. [address] [place] [phone] Phone: tel: fax: [facility] Referral ID Status Reason Start Date Expiration Date Visits Re quested Visits Authorized [id number] Closed 12/05/2024 03/07/2026 1 1 Encounter Details Date Type Department Care Team (Latest Contact Info) Description 12/15/2024 12:22 PM POWER CLEANER OPERATOR - 12/15/2024 11:59 PM POWER CLEANER OPERATOR Hospital Encounter Department of Radiology in [place], [place] [address] [place] [phone] Arely Martinez P.A.-C. [address] [place] [phone] Breast Examination Abnormal Discharge Disposition: Home or Self Care Social History Tobacco Use Types Packs/Day Years Used Date Smoking Tobacco: Never Smokeless Tobacco: Never Alcohol Use Standard Drinks/Week Comments Yes 14 (1 standard drink = 0.6 oz pu re alcohol) [facility] Utilities Answer Date Recorded In the past 12 months has th e electric, gas, oil, or water [employer] threatened to shut off services in your [...] your living situation today? I have a [facility] place to live 12/14/2024 Comments Unknown Sex and Gender Information Value Date Recorded Sex Assigned at Female 12/14/2024 12:10 PM POWER CLEANER OPERATOR Legal Sex Female 10:00 AM CDT Gender Identity Female 12/14/2024 12:10 PM POWER CLEANER OPERATOR Sexual Orientation Straight 12/14/2024 12 :10 PM POWER CLEANER OPERATOR documented as of this encounter Medications at Time of Discharge armodafiniL (NuvigiL) 150 mg tablet Take 150 mg by mouth 2 (two) times a day. ascorbic acid, vitamin C, (Vitamin C) 500 mg chewable tablet Chew 500 mg daily. 11/18/2022 biotin 5,000 mcg tablet,disintegr ating Dissolve 5,000 mcg in the mouth 3 (three) times a week. 11/18/2021 cholecalciferol (Vitamin D3) 50 mcg (2,000 Unit) capsule Take 50 mcg by mouth 3 (three) times a week. 11/18/2008 cyanocobalamin (vitamin B-12) 500 mcg tablet Take 500 mcg by mouth 3 (three) times a week. 08/18/2024 glucosam/edis-ms m1/C/rosie/bosw (OSTEO BI-FLEX TRIPLE STRENGTH ORAL) Take 1 tablet by mouth 3 (three) times a week. 11/18/2022 letrozole (Femara) 2.5 mg tablet Take 2.5 mg by mouth daily. 03/12/2024 MULTIVITAMIN ORAL Take 1 tablet by mouth 3 (three) times a week. omega 4-jxj-gsv-fish oil 900 mg-360 mg- 455 mg-1,000 mg capsule Take 1 capsule by mouth 3 (three) times a week. 11/18/2022 ublituximab-xiiy (BRIUMVI IV) every 6 (six) months. 10/27/2024 vitamin E acetate (VITAMIN E ORAL) Take 1 capsule by mouth 3 (three) times a week. 08/18/2024 armodafiniL (NuvigiL) 150 mg tablet 11/18/2008 5 ergocalciferol, vitamin D2, (VITAMIN D2 ORAL) Calcium Carbonate Oral 3x a week active 5 glucosamine sulfate (GLUCOSAMINE ORAL) Glucosamine-Cho ndroitin Oral Capsule 500 mg-400 mg 3x a week active 5 documented as of this encounter Plan of Treatment Upcoming Encounters Date Type Department Care Team (Latest Contact Info) Description 01/12/2025 8:30 AM POWER CLEANER OPERATOR Comprehensive Visit Division of Breast and Melanoma Surgical Oncology in [place], [place] [address] [place] [phone] Rosalva Ruiz M.D. [address] [place] [phone] 01/12/2025 10:20 AM POWER CLEANER OPERATOR Comprehensive Visit Department of Oncology in [place], [place] [address] [place] [phone] Amie Sue M.B., B.Ch. [address] [place] [phone] 01/12/2025 1:00 PM POWER CLEANER OPERATOR Appointment Department of Radiation Oncology in [place], [place] [address] [place] [phone] Delilah Dos Santos MPAS, P.A.-C. [address] [place] [address] [phone] 01/12/2025 1:30 PM POWER CLEANER OPERATOR Comprehensive Visit Breast Diagnostic Clinic in [place], [place] [address] [place] [phone] Radha Becker, Ph.D., L.P. [address] [place] [address] [phone] 01/13/2025 9:30 AM POWER CLEANER OPERATOR Appointment Department of Radiology in [place], [place] [address] [place] [address] [phone] Rei Loredo M.D. [address] [place] [phone] Discharge Disposition: Home or Self Care documented as of this encounter Procedures Procedure Name Priority Date/Time Associated Diagnosis Comments BI BREAST DIAGNOSTIC LEFT WITH TOMOSYNTHESIS RAD - Routine (most inpatients and all outpatients) 12/15/2024 12:58 PM POWER CLEANER OPERATOR Breast Examination Abnormal documented in this encounter Results * BI Breast Diagnostic Left with Tomosynthesis (12/15/2024 12:58 PM POWER CLEANER OPERATOR) Anatomical Region Laterality Modality Breast, Breast Imaging RST L OS, Breast Imaging ARZ LOS, Breast Imaging FLA LOS Left Mammography Impressions 12/15/2024 1:16 PM POWER CLEANER OPERATOR No mammographic findings of malignancy. RECOMMENDATION: Clinical Management Continue multidisciplinary management of the contralateral breast malignancy. ASSESSMENT: BI-RADS: 2: Benign. Narrative 12/15/2024 1:16 PM POWER CLEANER OPERATOR EXAM: BI BREAST DIAGNOSTIC LEFT WITH TOMOSYNTHESIS [...] contralateral breastmalignancy. ASSESSMENT: BI-RADS: 2: Benign. Arely Martinez P.A.-C. IM BI PROCEDURES Final R esult documented in this encounter Visit Diagnoses Diagnosis Breast Examination Abnormal documented in this encounter
--- OUTSIDE RECORDS SUMMARY | 2025-01-07 23:14 | XMS_ITS | Encounter Summary ---
Author Organization 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 [address] [place] [phone] Phone: tel: fax: [facility] Referral ID Status Reason Start Date Expiration Date Visits Re quested Visits Authorized [id number] Closed 12/20/2024 06/21/2026 1 1 Encounter Details Date Type Department Care Team (Latest Contact Info) Description 01/04/2025 1:30 PM RADIAGRAPH OPERATOR Comprehensive Visit Department of Medical Genetics in [place], [place] [address] [place] [phone] Rei Loredo M.D. 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 I have a [facility] place to live 12/14/2024 Comments No Sex and Gender Information Value Date Recorded Sex Assigned at Female 12/14/2024 12:10 PM RADIAGRAPH OPERATOR Legal Sex Female 10:00 AM CDT Gender Identity Female 12/14/2024 12:10 PM RADIAGRAPH OPERATOR Sexual Orientation Straight 12/14/2024 12 :10 PM RADIAGRAPH OPERATOR documented as of this encounter Consult Notes * Tonie Calle M.S., [facility] 01/04/2025 1:30 PM CST Images from the original note were not included. REFERRING PROVIDER Rei Loredo M.D. CHIEF COMPLAINT Breast cancer HISTORY OF PRESENT ILLNESS Aury Jeffers is a delightful 49 y.o. female referred today by Rei Loredo M.D. dueto a personal history of breast cancer. Aury was diagnosed with right breast cancer in 2019 at age 45. Final pathology demonstrated invasive ductal carcinoma, ER positive, WI positive, HER2 negative. Aury has been on endocrine therapy for nearly four years; however, Aury has not undergone surgery. Please refer to Dr. Rei Loredo M.D.'s clinical notes for further details of the patient's diagnosis. The patient's surgical consult is scheduled for 01/12/2025. Aury reports no personal history of any additional cancers. Aury retains her uterus but has had bilateral salpingo-oophorectomy. The family history is significant for uterine cancer. Please see family history section below for additional details. The patient attended today's consultation unaccompanied. FAMILY HISTORY Jamilah Jhaveri assisted with today's consultation by documenting the family history. A detailed family history was obtained from the patient and a pedigree was constructed. The pedigree will be saved as a scanned document and available for viewing under [email or web address]. Our risk assessment is based upon medical and family history information as provided by the patient, and may change in the future should new information be obtained. Pedigree by 01/04/2025 Relevant History: -Mother: uterine cancer dx 52, currently age 72 Pertinent Negatives: -The patient has no children -Sister: no cancer, age 47 -Maternal half-brother: adopted out of family, limited information, age 55 -Father: no cancer, age 76 -No additional reported paternal or maternal family history of cancer -Unless listed above, to the patient's knowledge, no one in their family has had clinical hereditary cancer germline genetic testing -There is no reported consanguinity The patient's maternal ancestry is [place] and possibly [place]; the patient's paternal ancestry is [place]. IMPRESSION/REPORT/PLAN PATIENT EDUCATION As a part of this appointment, the patient viewed the Hereditary Breast Cancer Video for educational purposes. The topics covered in this video are summarized below. Note: the terms male/man and female/woman refer to sex assigned at . Cancer is a relatively common diagnosis in the general population, and the majority of these cancers are either sporadic or familial. Hereditary cancers are caused by mutations within a single cancersusceptibility gene. Families with hereditary cancers tend to have the following features: specifictypes of cancer in multiple close relatives and in several consecutive generations, early age at diagnosis (under 50), multiple primary or bilateral tumors, and a lack of environmental or other knownrisk factors. About 12% of women in the [place] will develop breast cancer during their lifetime. It is believed that approximately 5%-10% of breast cancers are associated with a strong underlying hereditary susceptibility, such as mutations in the BRCA1 gene or the BRCA2 gene. Additionally, mutations in other genes, including PALB2, MING, and CHEK2, among others, have been found to cause a hereditary susceptibility to breast cancer. The cancer risks, medical management guidelines, and inheritance patterns associated with mutations in these genes were reviewed. We discussed how results of genetic testing may influence treatment of the patient's breast cancer.Identification of a mutation in a high-risk breast cancer gene may indicate an increased risk for asecond breast cancer during Aury's lifetime. Some individuals with a high-risk breast cancer gene mutation may choose a bilateral mastectomy for breast cancer risk-reduction. We also briefly discussed that individuals with certain germline mutations may be eligible for use of PARP inhibitor to treat their breast cancer. Treatment decisions are deferred to the patient's care team. We discussed testing panels that cover many genes known or thought to be associated with hereditaryor familial cancer. Mutations in some of the genes account for rare hereditary cancer syndromes that include significant risks for cancer, while other genes are currently thought of as modifier genesthat potentially increase the risk for cancer. There are several limitations of these tests. The exact cancer risks for some of the genes that are included on these panels are not known at this pointin time. Therefore, it may be difficult to provide appropriate screening/medical management recommendations. Additionally, there is a significant chance that a variant of uncertain significance may be identified. We discussed different hereditary cancer panel test options. Laws governing genetic discrimination were reviewed. Risks, benefits, and limitations of genetic testing were discussed. Implications of possible test results, including positive, negative, and variant of uncertain significance, were reviewed. RISK ASSESSMENT Aury Florez meets current National Comprehensive Cancer Network (NCCN) Testing Criteria for breast cancer susceptibility genes. The [place] [employer] recommends genetic testing be made available to all patients with a personal history of breast cancer. Genetic testing is most informative when it is first performed on a family member with a personal history of cancer, as is the case for this patient. Genetic testing is warranted for the patient as results will help clarify future cancer risks and, thus, will help direct decisions regarding cancer screening and prevention. JENNIE Jeffers elected to pursue the BRCAplus panel with reflex to the CancerNext: Expanded + RNA insight panel through [facility]. Aury will complete a blood draw today. The laboratory will bill the patient's insurance directly and will contact the patient if the out of pocket cost is greater than $100. Results of the BRCAplus panel will become available approximately 1-2 weeks from the release of testing. Results of the patient's reflex testing may take an additional 1-2 weeks. All results will first be shared with the patient via the patient online portal. If results are negative or a variant of uncertain significance is identified, the patient will be contacted with results via the patient portal or by mailed letter by our genetic counseling assistants. If a pathogenic variant is identified, the patient will first be notified of the result via the portal by a genetic counselor and then a follow-up virtual visit (zoom video call) or an in- person visit will be scheduled to review the results in more detail. If results are complex, the patient will also be offered anin-person or video return visit. If genetic test results are negative or a variant of uncertain significance is identified, the following screening recommendations would apply for the patient and their family. PERSONAL AND FAMILY SCREENING RECOMMENDATIONS The patient is encouraged to follow the recommendations of their care providers in any treatment, management, and/or screening. The following screening recommendations are also applicable. Individuals in this family with a first- or second-degree relative diagnosed with breast cancer remain at increased risk for breast cancer given their family history. Individuals assigned female at would be advised to undergo breast cancer screening beginning approximately 10 years younger than the earliest age of breast cancer diagnosis in the family, or by age 40, whichever comes first. At a minimum, breast cancer screening should include monthly self-breast exam, annual or semi-annual clinical breast exam, annual mammogram, and possibly annual breast MRI. These screening options should be discussed with their care providers. Individuals with a uterus in this family who have a first- or second-degree relative diagnosed withendometrial cancer are encouraged to respond promptly to endometrial cancer symptoms (e.g. dysfunctional uterine bleeding). They may also wish to discuss the options of endometrial cancer screening, such as transvaginal ultrasound and office endometrial sampling, as well as the option of risk reducing hysterectomy with their physicians. Individuals in this family with a first- or second-degree relative diagnosed with another type of cancer or tumor may remain at increased risk for these cancers and/or tumors given their family history. These individuals would be advised to share their family history with their care providers and discuss their screening options with their managing providers. These screening recommendations are based on national guidelines. Final screening recommendations should be deferred to the discretion of the managing physician. Other screening recommendations, suchas those made by the [place] [employer], do remain appropriate. It was a pleasure to meet Aury. The family is certainly welcome to contact us with any additional questions. PATIENT EDUCATION: All of the above was discussed in detail with the patient who verbalized understanding. The patient's questions were answered. Total time: 11 minutes AGRAPH OPERATOR documented in this encounter Plan of Treatment Upcoming Encounters Date Type Department Care Team (Latest Contact Info) Description 01/12/2025 8:30 AM RADIAGRAPH OPERATOR Comprehensive Visit Division of Breast and Melanoma Surgical Oncology in [address] [phone] Rosalva Ruiz M.D. [address] [place] [phone] 01/12/2025 10:20 AM RADIAGRAPH OPERATOR Comprehensive Visit Department of Oncology in [address] [phone] Amie Sue M.B., B.Ch. [address] [place] [phone] 01/12/2025 1:00 PM RADIAGRAPH OPERATOR Appointment Department of Radiation Oncology in [address] [phone] Delilah Dos Santos, SCOTS, P.A.-C. [address] [place] [phone] 01/12/2025 1:30 PM RADIAGRAPH OPERATOR Comprehensive Visit Breast Diagnostic Clinic in [place], [place] [address] [place] [phone] Radha Becker, Ph.D., L.P. [address] [place] [phone] 01/13/2025 9:30 AM RADIAGRAPH OPERATOR Appointment Department of Radiology in [place], [place] [address] [place] [phone] Rei Loredo M.D. [address] [place] [phone] Discharge Disposition: Home or Self Care documented as of this encounter Results * [id number] Emulate Custom + RNA Panel - Miscellaneous Test (01/04/2025 1:50 PM RADIAGRAPH OPERATOR) Test Name Ambry Custom + RNA Panel 01/04/2025 1:50 PM RADIAGRAPH OPERATOR HLS Result Specimen sent out; results to follow DEFAULT 01/04/2025 1:50 PM RADIAGRAPH OPERATOR HLS Blood (Blood, Venous) 01/04/2025 1:50 PM RADIAGRAPH OPERATOR 01/04/2025 1:50 PM RADIAGRAPH OPERATOR Ned Yates M.D. LAB MISC ORDERABLES Final Result [facility] [address] [place] [address], [facility] HLS 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
--- OUTSIDE RECORDS SUMMARY | 2025-01-07 23:14 | XMS_ITS | Encounter Summary ---
Author Organization [facility] Address [address] [place] [phone] Care Team Providers Care Home Health Registered Nurse Name Role Phone Unavailable Primary Care Provider Unavailabl e Encounter Details Date Type Department Care Team (Late st Contact Info) Description 12/08/2024 Orders Only RST RO LMP [address] [place] [phone] Arely Martinez P.A.-C. 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 Utilities Answer Date Recorded In the [...] Answer Date Recorded Employment status Unemployed/not in [email or web address] paid workforce but seeking employment 12/14/2024 Housing Stability Answer Date Recorded What is your living situation today? I have a [facility] place to live 12/14/2024 Comments Unknown Sex and Gender Information Value Date Recorded Sex Assigned at Female 12/14/2024 12:10 PM SENIOR PRINCIPAL Legal Sex Female 10:00 AM CDT Gender Identity Female 12/14/2024 12:10 PM SENIOR PRINCIPAL Sexual Orientation Straight 12/14/2024 12 :10 PM SENIOR PRINCIPAL documented as of this encounter Plan of Treatment Upcoming Encounters Date Type Department Care Team (Latest Contact Info) Description 01/12/2025 8:30 AM SENIOR PRINCIPAL Comprehensive Visit Division of Breast and Melanoma Surgical Oncology in [place], [place] [address] [place] [phone] Rosalva Ruiz M.D. [address] [place], [place] [phone] 01/12/2025 10:20 AM SENIOR PRINCIPAL Comprehensive Visit Department of Oncology in [place], [place] [address] [place] [phone] Amie Sue M.B., B.Ch. [address] [place] [phone] 01/12/2025 1:00 PM SENIOR PRINCIPAL Appointment Department of Radiation Oncology in [place], [place] [address] [place] [phone] Delilah Dos Santos, MPAS, P.A.-C. [address] [place] [phone] 01/12/2025 1:30 PM SENIOR PRINCIPAL Comprehensive Visit Breast Diagnostic Clinic in [place], [place] [address] [place] [phone] Radha Becker, Ph.D., L.P. [address] [place] [phone] 01/13/2025 9:30 AM SENIOR PRINCIPAL Appointment Department of Radiology in [place], [place] [address] [place] [phone] Rei Loredo M.D. [address] [place] [phone] Discharge Disposition: Home or Self Care documented as of this encounter Results * Pathology Review of Outside Material (10/04/2020 12:00 AM SENIOR PRINCIPAL) 12/09/2024 2:01 PM SENIOR PRINCIPAL DTL Report electronically signed by Matthew Abreu M.D. I verify that I have examined all relevant slides/materials for the specimen(s) and rendered or confirmed the diagnosis. 12/09/2024 2:01 PM SENIOR PRINCIPAL DTL Material Received A. [id number]: Breast, right, lymph node, right, axillary 12 stained slides 12/09/2024 2:01 PM SENIOR PRINCIPAL DTL Addendum Breast, right, 1:00 o'clock, 4 cm from nipple, ultrasound-guided needle core biopsy, ([id number]; 10/04/2020): block [id number] SPECIAL PROCEDURE REPORT Breast Biomarker(s) for: Invasive or metastatic breast carcinoma Result(s): Ki-67 by Immunohistochemistry (IHC): Percentage of positive-staining tumor nuclei: 10% METHOD AND SCORING Ki-67 Breast Cancer Automated Scoring Method: Ki-67 proliferation data must be interpreted within the clinical context for which the test was ordered. Studies have suggested that Ki-67 analysis of paraffin-embedded breast cancer tissue specimens may provide useful prognostic and predictive information. 1. jose luis Johansen al. Proliferation marker Ki-67 in early breast cancer https://pubmed.ncbi.[facility].nih.gov/64616839/ 2. Mcqueen et al. Ki-67 as prognostic marker in early breast cancer; a meta-analysis of published studies involving 12,155 patients https://pubmed.ncbi.[facility].nih.gov/08188950/ 3. Castillo Read, et al: Assessment of Ki67 in Breast Cancer: Updated Recommendations from the International Ki67 in Breast Cancer Working Group https://pubmed.ncbi.[facility].nih.gov/02256590/ Immunohistochemical staining of the Ki-67 antigen in formalin-fixed paraffin-embedded tissue sections has been validated by our laboratory, using the Dako mouse monoclonal MIB-1 clone and a proprietary detection system. External controls show appropriate reactivity. Immunohistochemical stained slides are scanned using the [employer] GT450 digital scanner. The captured digital image is analyzed in [facility](r) by an AI (Artificial Intelligence) algorithm. The [employer] software renders a percentage of positive-staining tumor nuclei. A technologist reviews the analyzed digital image and ensures at least 80% of the total invasive or metastatic cancer is analyzed appropriately. The [employer](r) data and corresponding slide are reviewed by a pathologist for final interpretation. This test was developed and its performance characteristics determined by [facility] in a manner consistent with CLIA requirements. This test has not been cleared or approved by the U.S. Food and Drug Administration. Signed by Tone Benavides M.D. 12/23/2024 2:27 PM 12/23/2024 2:27 PM SENIOR PRINCIPAL DTL Comment:REVISED RESULTS Interpretation FINAL DIAGNOSIS Breast, right, and right axillary lymph node ([id number]; 10/04/2020): A. Breast, right, 1:00 o'clock, 4 cm from nipple, ultrasound-guided needle core biopsy: - Invasive ductal carcinoma, [place] grade II (of III), 6 mm in linear extent. Immunohistochemical stains reviewed at [facility] demonstrate: ER: 91-100% of tumor cells staining, strong intensity AL: 91-100% of tumor cells staining, strong intensity Per report, HER2 FISH was performed and was negative. B. Breast, right, 1 o'clock, retroareolar, ultrasound-guided needle core biopsy: - Benign breast tissue, negative for tumor. C. Lymph node, right axillary, needle core biopsy: - Benign lymphoid parenchyma, negative for tumor. Digital imaging was used in the diagnostic assessment of this case. 12/23/2024 2:27 PM SENIOR PRINCIPAL DTL Varies 10/04/2020 12/08/2024 1:1 8 PM SENIOR PRINCIPAL Arely Martinez P.A.-C. 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
--- OUTSIDE RECORDS SUMMARY | 2025-01-07 23:14 | XMS_ITS | Encounter Summary ---
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 [address] [place] [phone] Phone: tel: fax: [facility] Referral ID Status Reason Start Date Expiration Date Visits Re quested Visits Authorized [id number] Closed 12/15/2024 03/17/2026 1 1 Encounter Details Date Type Department Care Team (Latest Contact Info) Description 12/20/2024 9:25 AM HOLISTIC SPECIALIST - 12/20/2024 11:59 PM HOLISTIC SPECIALIST Hospital Encounter Department of Radiology in [place], [place] [address] [place] [address] Angela Piper APRN, C.N.P., D.N.P. 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) Discharge Disposition: Home or Self Care Social History Tobacco Use Types Packs/Day Years Used Date Smoking Tobacco: Never Smokeless Tobacco: Never Alcohol Use Standard Drinks/Week Comments Yes 14 (1 standard drink = 0.6 oz pu re alcohol) [facility] Utilities Answer Date Recorded In the [...] Sex Assigned at Female 12/14/2024 12:10 PM HOLISTIC SPECIALIST Legal Sex Female 10:00 AM CDT Gender Identity Female 12/14/2024 12:10 PM HOLISTIC SPECIALIST Sexual Orientation Straight 12/14/2024 12 :10 PM HOLISTIC SPECIALIST documented as of this encounter Medications at [...] mouth 3 (three) times a week. omega 9-xlq-jpz-fish oil 900 mg-360 mg- 455 mg-1,000 mg capsule Take 1 capsule by mouth 3 (three) times a week. 11/18/2022 ublituximab-xiiy (BRIUMVI IV) every 6 (six) months. 10/27/2024 vitamin E acetate (VITAMIN E ORAL) Take 1 capsule by mouth 3 (three) times a week. 08/18/2024 armodafiniL (NuvigiL) 150 mg tablet 11/18/2008 ergocalciferol, vitamin D2, (VITAMIN D2 ORAL) Calcium Carbonate Oral 3x a week active 5 glucosamine sulfate (GLUCOSAMINE ORAL) Glucosamine-Cho ndroitin Oral Capsule 500 mg-400 mg 3x a week active 5 documented as of this encounter Plan of Treatment Upcoming Encounters Date Type Department Care Team (Latest Contact Info) Description 01/12/2025 8:30 AM HOLISTIC SPECIALIST Comprehensive Visit Division of Breast and Melanoma Surgical Oncology in [place], [place] [address] [place] [phone] Rosalva Ruiz M.D. [address] [place] [phone] 01/12/2025 10:20 AM HOLISTIC SPECIALIST Comprehensive Visit Department of Oncology in [place], [place] [address] [place] [phone] Amie Sue M.B., B.Ch. [address] [place] [phone] 01/12/2025 1:00 PM HOLISTIC SPECIALIST Appointment Department of Radiation Oncology in [place], [place] [address] [place] [phone] Delilah Dos Santos, MPAS, P.A.-C. [address] [place] [phone] 01/12/2025 1:30 PM HOLISTIC SPECIALIST Comprehensive Visit Breast Diagnostic Clinic in [place], [place] [address] [place] [phone] Radha Becker, Ph.D., L.P. [address] [place] [phone] 01/13/2025 9:30 AM HOLISTIC SPECIALIST Appointment Department of Radiology in [place], [place] [address] [place] [phone] Rei Loredo M.D. 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 Narrative 12/20/2024 3:37 PM HOLISTIC SPECIALIST EXAM: BI BREAST DIAGNOSTIC RIGHT WITH [...] D.N.P. 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
--- OUTSIDE RECORDS SUMMARY | 2025-01-07 23:14 | XMS_ITS | Encounter Summary ---
Author Organization [facility] Address [address] [place] [address] Care Team Providers Care Clay Hoister Name Role Phone Unavailable Primary Care Provider Unavailabl e Encounter Details Date Type Department Care Team (Latest Contact Info) Description 01/04/2025 1:37 PM HOMEBOUND TEACHER - 01/04/2025 11:59 PM HOMEBOUND TEACHER Hospital Encounter Department of Laboratory Medicine and Pathology, [facility] in [place], [place] [address] [place] [phone] Ned Yates M.D. 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 I have a [facility] place to live 12/14/2024 Comments No Sex and Gender Information Value Date Recorded Sex Assigned at Female 12/14/2024 12:10 PM HOMEBOUND TEACHER Legal Sex Female 10:00 AM CDT Gender Identity Female 12/14/2024 12:10 PM HOMEBOUND TEACHER Sexual Orientation Straight 12/14/2024 12 :10 PM HOMEBOUND TEACHER documented as of this encounter Medications at [...] mouth 3 (three) times a week. 08/18/2024 glucosam/edis-msm 1/C/rosie/bosw (OSTEO BI-FLEX TRIPLE STRENGTH ORAL) Take 1 tablet by mouth 3 (three) times a week. 11/18/2022 letrozole (Femara) 2.5 mg tablet Take 2.5 mg by mouth daily. 03/12/2024 MULTIVITAMIN ORAL Take 1 tablet by mouth 3 (three) times a week. omega 3-tvg-ufz-fish oil 900 mg-360 mg- 455 mg-1,000 mg [...] (Latest Contact Info) Description 01/12/2025 8:30 AM HOMEBOUND TEACHER Comprehensive Visit Division of Breast and Melanoma Surgical Oncology in [place], [place] [address] [place] [phone] Rosalva Ruiz M.D. [address] [place] [phone] 01/12/2025 10:20 AM HOMEBOUND TEACHER Comprehensive Visit Department of Oncology in [place], [place] [address] [place] [phone] Amie Sue M.B., B.Ch. [address] [place] [phone] 01/12/2025 1:00 PM HOMEBOUND TEACHER Appointment Department of Radiation Oncology in [place], [place] [address] [place] [phone] Delilah Dos Santos, MPAS, P.A.-C. [address] [place] [phone] 01/12/2025 1:30 PM HOMEBOUND TEACHER Comprehensive Visit Breast Diagnostic Clinic in [place], [place] [address] [place] [phone] Radha Becker, Ph.D., L.P. [address] [place] [phone] 01/13/2025 9:30 AM HOMEBOUND TEACHER Appointment Department of Radiology in [place], [place] [address] [place] [phone] Rei Loredo M.D. 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
--- OUTSIDE RECORDS SUMMARY | 2025-01-07 23:14 | XMS_ITS | Encounter Summary ---
Author Organization [facility] Address [address] [place] [address] Care Team Providers Care Motorcycle Tester Name Role Phone Unavailable Primary Care Provider Unavailabl e Reason for Visit * Reason Onset Date Comments Pre-visit Intake 01/03/2025 * Appointment Request (Routine) - Authorized Specialty Diagnoses / Procedures Referred By Deidre t Referred To Contact Breast Clinic Referral ID Status Reason Start Date Expiration Date V isits Requested Visits Authorized [id number] Authorized 12/20/2024 03/22/2026 1 1 Encounter Details Date Type Department Care Team (Latest Contact Info) Description 01/03/2025 8:30 AM SCREENER AND BLENDER OPERATOR Clinical Communication Virtual Review in [address] [phone] Pre-visit Intake Social History Tobacco Use Types Packs/Day Years Used Date Smoking Tobacco: Never Smokeless Tobacco: Never Tobacco Cessation:Counseling Given: Not Answered Alcohol Use Standard Drinks/Week Comments Yes 14 (1 standard drink = 0.6 oz pu re alcohol) [facility] Utilities Answer Date Recorded In the past 12 months has [employer] gas, oil, or water [employer] threatened to shut off services in your [...] living situation today? I have a [facility] place to live 12/14/2024 Comments No Sex and Gender Information Value Date Recorded Sex Assigned at Female 12/14/2024 12:10 PM SCREENER AND BLENDER OPERATOR Legal Sex Female 10:00 AM CDT Gender Identity Female 12/14/2024 12:10 PM SCREENER AND BLENDER OPERATOR Sexual Orientation Straight 12/14/2024 12 :10 PM SCREENER AND BLENDER OPERATOR documented as of this encounter Plan of Treatment Upcoming Encounters Date Type Department Care Team (Latest Contact Info) Description 01/12/2025 8:30 AM SCREENER AND BLENDER OPERATOR Comprehensive Visit Division of Breast and Melanoma Surgical Oncology in [place], [place] 200 [place] [phone] Rosalva Ruiz M.D. [address] [place] [phone] 01/12/2025 10:20 AM SCREENER AND BLENDER OPERATOR Comprehensive Visit Department of Oncology in [place], [place] [address] [place] [phone] Amie Sue M.B., B.Ch. [address] [place] [phone] 01/12/2025 1:00 PM SCREENER AND BLENDER OPERATOR Appointment Department of Radiation Oncology in [place], [place] [address] [place] [phone] Delilah Dos Santos, MPAS, P.A.-C. [address] [place] [phone] 01/12/2025 1:30 PM SCREENER AND BLENDER OPERATOR Comprehensive Visit Breast Diagnostic Clinic in [place], [place] [address] [place] [phone] Radha Becker, Ph.D., L.P. [address] [place] [phone] 01/13/2025 9:30 AM SCREENER AND BLENDER OPERATOR Appointment Department of Radiology in [place], [place] [address] [place] [phone] Rei Loredo M.D. [address] [place] [phone] Discharge Disposition: Home or Self Care documented as of this encounter Visit Diagnoses Not on filedocumented in this encounter
--- OUTSIDE RECORDS SUMMARY | 2025-01-07 23:14 | XMS_ITS | Encounter Summary ---
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 [address] [place] [phone] Phone: tel: fax: [facility] Referral ID Status Reason Start Date Expiration Date Visits Re quested Visits Authorized [id number] Closed 12/15/2024 03/17/2026 1 1 Encounter Details Date Type Department Care Team (Latest Contact Info) Description 12/20/2024 6:08 AM MONITORING ENGINEER - 12/20/2024 9:24 AM MONITORING ENGINEER Hospital Encounter Department of Radiology, [facility], in [place], [place] [address] [place] [phone] Angela Piper APRN, C.N.P., D.N.P. 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 I have a [facility] place to live 12/14/2024 Comments Unknown Sex and Gender Information Value Date Recorded Sex Assigned at Female 12/14/2024 12:10 PM MONITORING ENGINEER Legal Sex Female 10:00 AM CDT Gender Identity Female 12/14/2024 12:10 PM MONITORING ENGINEER Sexual Orientation Straight 12/14/2024 12 :10 PM MONITORING ENGINEER documented as of this encounter Medications at [...] mouth 3 (three) times a week. omega 9-lwu-hyd-fish oil 900 mg-360 mg- 455 mg-1,000 mg [...] (Latest Contact Info) Description 01/12/2025 8:30 AM MONITORING ENGINEER Comprehensive Visit Division of Breast and Melanoma Surgical Oncology in [place], [place] [address] [place] [phone] Rosalva Ruiz M.D. [address] [place] [phone] 01/12/2025 10:20 AM MONITORING ENGINEER Comprehensive Visit Department of Oncology in [place], [place] [address] [place] [phone] Amie Sue M.B., B.Ch. [address] [place] [phone] 01/12/2025 1:00 PM MONITORING ENGINEER Appointment Department of Radiation Oncology in [place], [place] [address] [place] [phone] Delilah Dos Santos, MPAS, P.A.-C. [address] [place] [phone] 01/12/2025 1:30 PM MONITORING ENGINEER Comprehensive Visit Breast Diagnostic Clinic in [place], [place] [address] [place] [phone] Radha Becker, Ph.D., L.P. [address] [place] [address] [phone] 01/13/2025 9:30 AM MONITORING ENGINEER Appointment Department of Radiology in [place], [place] [address] [place] [phone] Rei Loredo M.D. 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 No evidence of suspicious FDG avid metastatic disease. Narrative 12/20/2024 10:09 AM MONITORING ENGINEER EXAM: PET CT SKULL TO THIGH FDG Serum glucose at time of F-18 FDG injection was 81 mg/dL. Patient followed standard dietary/fasting requirements for this exam. RADIOPHARMACEUTICAL/MEDS: Route: intravenous fludeoxyglucose F 18 injection [facility] (FDG F-18),14.87 millicurie TECHNIQUE: F-18 FDG PET/CT [...] RADIOPHARMACEUTICAL/MEDS: Route: intravenous fludeoxyglucose F 18 injection [facility] (FDG F-18),14.87 millicurie TECHNIQUE: F-18 FDG PET/CT [...] 1.3 similar to background parenchyma (series 13, [id number]), previously this demonstrated SUV max 7.7. Minimal [...] evidence of suspicious FDG avid metastatic disease. us Angela Piper APRN, C.N.P., D.N.P. 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
--- OUTSIDE RECORDS SUMMARY | 2025-01-07 23:14 | XMS_ITS | Encounter Summary ---
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 [address] [place] [address] Phone: tel: fax: [facility] Referral ID Status Reason Start Date Expiration Date V isits Requested Visits Authorized [id number] Authorized 12/20/2024 06/21/2026 1 1 Scheduling Instructions Please coordinate with other appointments. If unable to have completed on same day as [facility] or other appointments. Please make it a video appointment. Thanks. BREAKING MACHINE OPERATOR Reason for Visit * Reason Onset Date Comments SUPERVISOR ASBESTOS REMOVAL Dandy Call 12/20/2024 Encounter Details Date Type Department Care Team (Latest Contact Info) Description 12/20/2024 8:45 AM EGG BREAKING MACHINE OPERATOR Clinical Communication Breast Diagnostic Clinic in [place], [place] [address] [place] [address] SUPERVISOR ASBESTOS REMOVAL Dandy Call Social History Tobacco Use Types Packs/Day Years Used Date Smoking Tobacco: Never Smokeless Tobacco: Never Alcohol Use Standard Drinks/Week Comments Yes 14 (1 standard drink = 0.6 oz pu re alcohol) [facility] Utilities Answer Date Recorded In [...] living situation today? I have a [facility] place to live 12/14/2024 Comments Unknown Sex and Gender Information Value Date Recorded Sex Assigned at Female 12/14/2024 12:10 PM EGG BREAKING MACHINE OPERATOR Legal Sex Female 10:00 AM CDT Gender Identity Female 12/14/2024 12:10 PM EGG BREAKING MACHINE OPERATOR Sexual Orientation Straight 12/14/2024 12 :10 PM EGG BREAKING MACHINE OPERATOR documented as of this encounter Miscellaneous Notes * Addendum Note - Joelle Dos Santos L.P.N. - 12/20/2024 2:28 PM CSTAddended by: JOELLE DOS SANTOS on: 12/20/2024 02:28 PM Modules accepted: Orders BREAKING MACHINE OPERATOR * Telephone Encounter - Joelle DosS antos L.P.N. - 12/20/2024 8:34 AM EGG BREAKING MACHINE OPERATOR SUBJECTIVE REFERRAL: Internal Referral Local Care Provider None. REASON FOR COMMUNICATION SUPERVISOR ASBESTOS REMOVAL focused assessment phone call in preparation for first appointment with newly diagnosed breast cancer patient. Patient's expectations of the upcoming visit: Opinion, surgery, radiation therapy and chemotherapy at [facility]. Oncology History Overview Note History of MS. [...] in the t hird intercostal space. Per [place] Review: 10/23/2020: PET scan demonstrates a 2.6 [...] PET resolution, consider attention on follow-up. Per [facility] review of local PET scan. 10/25/2020: Breast [...] adenopathy. Per local report, not reviewed at [facility]. 04/30/2021: Breast MRI demonstrated decrease size of right breast mass (now 2.6 x 1.2 x 1.8 cm) andinternal mammary adenopathy has decreased in prominence. Previously noted lower outer right breast enhancing mass now measures 2 mm, previously 6 mm. Previously noted left upper inner enhancement less prominent, no mass or adenopathy. Per local report, not reviewed at [facility]. 12/10/2021: Breast MRI demonstrates residual architectural distortion of the right breast in the area of biopsy-proven malignancy but enhancement has completely resolved. Right lower outer enhancing mass has also resolved. No adenopathy. Left breast with mild background parenchymal enhancement no mass or adenopathy. Per local report, not reviewed at [facility]. Per [place] Review: Screening mammogram: Bilateral, 08/17/2024 . Multiple [...] on the XCCL or MLO images. Per [place] Review: Diagnostic mammogram: Right, 08/17/2024 . Decreased [...] breast may present a biopsy clip. Additional loss prevention representative images were saved at 2:00, 4 [...] to a skin tag. Diagnostic mammogram: Right, 12/20/2024 Ultrasound breast/axilla: Right, 12/20/2024 . Positron emission tomography (PET) scan: 12/20/2024. Magnetic resonance imaging (MRI): Bilateral, 02/02/2025 . 10/04/2020 Biopsy/Pathology Right breast biopsy 1 o'clock 4 CMFN: IDC, grade 2 ER positive (91-100%) MA positive (91-100%) HER-2 negative Right breast biopsy 1 o'clock, retroareolar: benign breast tissue, negative for malignancy. Right axillary lymph node biopsy: negative for malignancy, benign lymphoid parenchyma. Per [facility] review: Complete. 10/04/2020 Genetic Testing and Tumor Genotyping MammaPrint: Low risk, luminal B 12/18/2020 - Biological/Targeted/Hormone Therapy Initiated neoadjuvant goserelin injection and letrozole per patient preference (declined upfront surgery). 12/2022 Surgery and Procedures Laparoscopic BSO Please refer to the Oncology History for the most up to date information on imaging, pathology, & treatment SOCIAL HISTORY Current living status: Lives with spouse. Caregivers in the home: No. Additional support systems: Yes. Able to return to current living environment: Yes. Transportation to and from appointments/treatments: Yes. 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 Psychosocial: Financial concerns and Employment concerns. ASSESSMENT/PLAN PATIENT INSTRUCTIONS Patient advised: Plan to stay up to 5 days to allow for additional imaging or testing. Notify nurse if any additional imaging, testing, biopsies, surgery, or starting any treatments (Chemotherapy/Radiation) Be aware that the last 3 years of outside breast imaging and biopsy slides will be requested for review. There are fees associated with having images and biopsy slides reviewed. Additional imaging may be recommended/scheduled based on the radiology interpretation. Bring a list of current medications including supplements and over the counter. Please call [phone] if needing to cancel or reschedule. PLAN The following information was provided: Information/Education: patient/caller able to teach back. The following references were used: none. BREAKING MACHINE OPERATOR documented in this encounter Plan of Treatment Upcoming Encounters Date Type Department Care Team (Latest Contact Info) Description 01/12/2025 8:30 AM EGG BREAKING MACHINE OPERATOR Comprehensive Visit Division of Breast and Melanoma Surgical Oncology in [place], [place] [address] [place] [address] Rosalva Ruiz M.D. [address] [place] [address] 01/12/2025 10:20 AM EGG BREAKING MACHINE OPERATOR Comprehensive Visit Department of Oncology in [place], [place] [address] [place] [phone] Amie Sue M.B., B.Ch. [address] [place] [phone] 01/12/2025 1:00 PM EGG BREAKING MACHINE OPERATOR Appointment Department of Radiation Oncology in [place], [place] [address] [place] [phone] Delilah Dos Santos, SCOTS, P.A.-C. [address] [place] [phone] 01/12/2025 1:30 PM EGG BREAKING MACHINE OPERATOR Comprehensive Visit Breast Diagnostic Clinic in [place], [place] [address] [place] [phone] Radha Becker, Ph.D., L.P. [address] [place] [phone] 01/13/2025 9:30 AM EGG BREAKING MACHINE OPERATOR Appointment Department of Radiology in [place], [place] [address] [place] [phone] Rei Loredo M.D. 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
--- OUTSIDE RECORDS SUMMARY | 2025-01-07 23:14 | XMS_ITS | Encounter Summary ---
Author Organization [facility] Address [address] [place] [address] Care Team Providers Care Natural Gas Plant Supervisor Name Role Phone Unavailable Primary Care Provider Unavailabl e Encounter Details Date Type Department Care Team (Late st Contact Info) Description 12/19/2024 Documentation Breast Diagnostic Clinic in [place], [place] [address] [place] [address] Joelle Dos Santos, L.P.N. Social History Tobacco Use Types Packs/Day Years Used Date Smoking Tobacco: Never Smokeless Tobacco: Never Alcohol Use Standard Drinks/Week Comments Yes 14 (1 standard drink = 0.6 oz pu re alcohol) [facility] Utilities Answer Date Recorded In the past 12 months has th e electric, gas, oil, or water [place] [employer] threatened to shut off services in your [...] your living situation today? I have a [facility] place to live 12/14/2024 Comments Unknown Sex and Gender Information Value Date Recorded Sex Assigned at Female 12/14/2024 12:10 PM CONSTRUCTION AREA MANAGER Legal Sex Female 10:00 AM CDT Gender Identity Female 12/14/2024 12:10 PM CONSTRUCTION AREA MANAGER Sexual Orientation Straight 12/14/2024 12 :10 PM CONSTRUCTION AREA MANAGER documented as of this encounter Progress Notes * Joelle Dos Santos LAminataP.N. - 12/19/2024 12:49 PM CST Primary Care Provider: Name : Don?t have a dedicated GP Address : N/A Phone : N/A Patient was not referred to [facility] by a physician. History of present illness: Patient is coming to the [facility] in order to get a second opinion, have surgery, have reconstructive surgery and have all treatments. She has no schedule limitations regarding her future appointment at [facility]. She reports her diagnosis was discovered based on abnormal breast symptoms. She does not have a history of breast cancer. The date of the biopsy confirming the new diagnosis was Sep 03 2020. Based on her answers, she does not have inflammatory breast cancer. Tumor is involving 1 site, tumor size is 2.6-5 cm. She had a lymph node biopsy which was negative. She has already undergone anti-estrogen therapy for this episode of breast cancer. Anti-estrogen therapy started Dec 2020. Cardiac history: Patient denies any cardiac conditions. Allergies: Patient denies a penicillin allergy. Social information: Patient lives with others, she will have assistance in the home after surgery or during treatment. Her support systems include family and friends. She reports financial concerns and employment concerns relating to her new diagnosis. She denies past or present tobacco use. Tests and images: Patient has completed the following tests: mammogram, ultrasound, biopsy, MRI, PET scan and CT. Breast biopsy: Side: Right. Diagnosis: Invasive ductal carcinoma. Grade: IDC- 2. ER: Positive, 100%. ID: Positive, 100% HER2: Negative (HER2 FISH negative) Ki-67: . Medical tests taken in the last 12 months: Mammogram Aug 17, 2024, [facility] Aug 17, 2024, [facility] TRUCTION AREA MANAGER documented in this encounter Plan of Treatment Upcoming Encounters Date Type Department Care Team (Latest Contact Info) Description 01/12/2025 8:30 AM CONSTRUCTION AREA MANAGER Comprehensive Visit Division of Breast and Melanoma Surgical Oncology in [address] [phone] Rosalva Ruiz M.D. [address] [place] [phone] 01/12/2025 10:20 AM CONSTRUCTION AREA MANAGER Comprehensive Visit Department of Oncology in [address] [phone] Amie Sue M.B., B.Ch. [address] [place] [phone] 01/12/2025 1:00 PM CONSTRUCTION AREA MANAGER Appointment Department of Radiation Oncology in [address] [phone] Delilah Dos Santos, SCOTS, P.A.-C. [address] [place] [phone] 01/12/2025 1:30 PM CONSTRUCTION AREA MANAGER Comprehensive Visit Breast Diagnostic Clinic in [address] [phone] Radha Becker, Ph.D., L.P. [address] [place] [phone] 01/13/2025 9:30 AM CONSTRUCTION AREA MANAGER Appointment Department of Radiology in [place], [place] [address] [place] [address] Rei Loredo M.D. [address] [place] [address] Discharge Disposition: Home or Self Care documented as of this encounter Visit Diagnoses Not on filedocumented in this encounter
--- OUTSIDE RECORDS SUMMARY | 2025-01-07 23:14 | XMS_ITS | Encounter Summary ---
Author Organization [facility] Address [address] [place] [phone] Care Team Providers Care Polytechnic Registrar Name Role Phone Unavailable Primary Care Provider Unavailabl e Encounter Details Date Type Department Care Team ( Contact Info) Description 12/08/2024 1:05 PM MEDICAL CERTIFICATION SPECIALIST Lab [facility] [address] [place] [phone] Arely Martinez P.A.-C. [address] [place] [phone] 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) Social History Tobacco Use Types Packs/Day Years Used Date Smoking Tobacco: Never Assessed Nutrition Answer Date Recorded Nutrition: EVOO Fat Source Unknown 03/18 Nutrition: Servings of Fruits/Vegetables per Day Not on file 03/18/2023 Dental Answer Date Recorded Dental: Regular Dentist Unknown 03/18/20 Comments Unknown Sex and Gender Information Value Date Recorded Sex Assigned at Female 12/14/2024 12:10 PM MEDICAL CERTIFICATION SPECIALIST Legal Sex Female 10:00 AM CDT Gender Identity Female 12/14/2024 12:10 PM MEDICAL CERTIFICATION SPECIALIST Sexual Orientation Straight 12/14/2024 12 :10 PM MEDICAL CERTIFICATION SPECIALIST documented as of this encounter Plan of Treatment Upcoming Encounters Date Type Department Care Team (Latest Contact Info) Description 01/12/2025 8:30 AM MEDICAL CERTIFICATION SPECIALIST Comprehensive Visit Division of Breast and Melanoma Surgical Oncology in [place], [place] [address] [place] [phone] Rosalva Ruiz M.D. [address] [place] [phone] 01/12/2025 10:20 AM MEDICAL CERTIFICATION SPECIALIST Comprehensive Visit Department of Oncology in [place], [place] [address] [place] [phone] Amie Sue M.B., B.Ch. [address] [place] [phone] 01/12/2025 1:00 PM MEDICAL CERTIFICATION SPECIALIST Appointment Department of Radiation Oncology in [address] [phone] Delilah Dos Santos, SCOTS, P.A.-C. [address] [place] [phone] 01/12/2025 1:30 PM MEDICAL CERTIFICATION SPECIALIST Comprehensive Visit Breast Diagnostic Clinic in [address] [phone] Radha Becker, Ph.D., L.P. [address] [place] [phone] 01/13/2025 9:30 AM MEDICAL CERTIFICATION SPECIALIST Appointment Department of Radiology in [address] [phone] Rei Loredo M.D. 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 I verify that I have examined all relevant slides/materials for the specimen(s) and rendered or confirmed the diagnosis. 12/09/2024 2:01 PM [facility] DT Material Received A. [id number]: Breast, right, lymph node, right, axillary 12 stained slides 12/09/2024 2:01 PM [facility] DTL Addendum Breast, right, 1:00 o'clock, 4 cm from nipple, ultrasound-guided needle core biopsy, ([id number]; 10/04/2020): block [id number] SPECIAL PROCEDURE REPORT Breast Biomarker(s) for: Invasive [...] provide useful prognostic and predictive information. 1. Falguni Dior, et al. Proliferation marker Ki-67 in early breast cancer https://pubmed.ncbi.nl .nih.gov/83448902/ 2. Mcqueen et al. Ki-67 as prognostic marker in early breast cancer; a meta-analysis of published studies involving 12,155 patients https://pubmed.ncbi. m.nih.gov/69748329/ 3. Castillo Read, et al: Assessment of Ki67 in Breast Cancer: Updated Recommendations from the International Ki67 in Breast Cancer Working Group https://pubmed.ncbi.[facility].nih.gov/80709685/ Immunohistochemical staining of the Ki-67 antigen in formalin-fixed paraffin-embedded tissue sections has been validated by our laboratory, using the Dako mouse monoclonal MIB-1 clone and a proprietary detection system. External controls show appropriate reactivity. Immunohistochemical stained slides are scanned using the Leica oboxo GT450 digital scanner. The captured digital image is analyzed in Itineris(Gutenberg[employer]) by an AI (Artificial Intelligence) algorithm. The Aiforia software renders a percentage of positive-staining tumor nuclei. A technologist reviews the analyzed digital image and ensures at least 80% of the total invasive or metastatic cancer is analyzed appropriately. The Richard Toland Designsoria(r) data and corresponding slide are reviewed by a pathologist for final interpretation. This test was developed and its performance characteristics determined by [facility] in a manner consistent with CLIA requirements. This test has not been cleared or approved by the U.S. Food and Drug Administration. Signed by Tone Benavides M.D. 12/23/2024 2:27 PM 12/23/2024 2:27 PM MEDICAL CERTIFICATION SPECIALIST DTL Comment:REVISED RESULTS Interpretation FINAL DIAGNOSIS Breast, right, and right axillary lymph node ([id number]; 10/04/2020): A. Breast, right, 1:00 o'clock, 4 cm from nipple, ultrasound-guided needle core biopsy: - Invasive ductal carcinoma, [place] grade II (of III), 6 mm in linear extent. Immunohistochemical stains reviewed at [facility] demonstrate: ER: 91-100% of tumor cells staining, strong intensity MI: 91-100% of tumor cells staining, strong intensity Per report, HER2 FISH was performed and was negative. B. Breast, right, 1 o'clock, retroareolar, ultrasound-guided needle core biopsy: - Benign breast tissue, negative for tumor. C. Lymph node, right axillary, needle core biopsy: - Benign lymphoid parenchyma, negative for tumor. Digital imaging was used in the diagnostic assessment of this case. 12/23/2024 2:27 PM MEDICAL CERTIFICATION SPECIALIST DTL Varies 10/04/2020 12/08/2024 1:1 8 PM MEDICAL CERTIFICATION SPECIALIST Arely Martinez P.A.-C. LAB SURG PATH ORDERABLES Edited Result - Final [facility] [address] [place] [address], [facility] DTL [address] [place] [address] documented in this encounter Visit Diagnoses Diagnosis 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) documented in this encounter
--- OUTSIDE RECORDS SUMMARY | 2025-01-07 23:14 | XMS_ITS | Encounter Summary ---
Author Organization [facility] Address [address] [place] [address] Care Team Providers Care Hospital Director Name Role Phone Unavailable Primary Care Provider Unavailabl e Reason for Referral * Outpatient (Routine) - Closed Specialty Diagnoses / Procedures Referred By Deidre t Referred To Contact Diagnoses 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) Procedures BI Breast Diagnostic Right with Tomosynthesis Angela Piper APRN, C.N.P., D.N.P. [address] [place] [phone] Phone: tel: fax: [facility] Referral ID Status Reason Start Date Expiration Date Visits Re quested Visits Authorized [id number] Closed 12/15/2024 03/17/2026 1 1 R BRAKE OPERATOR Reason for Visit * Outpatient (Routine) - Closed Specialty Diagnoses / Procedures Referred By Contdonna t Referred To Contact Diagnoses 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) Procedures BI Breast Diagnostic Right with Tomosynthesis Angela Piper APRN, C.N.P., D.N.P. [address] [place] [phone] Phone: tel: fax: [facility] Referral ID Status Reason Start Date Expiration Date Visits Re quested Visits Authorized [id number] Closed 12/15/2024 03/17/2026 1 1 Encounter Details Date Type Department Care Team (Latest Contact Info) Description 12/20/2024 9:25 AM POWER BRAKE OPERATOR - 12/20/2024 11:59 PM POWER BRAKE OPERATOR Hospital Encounter Department of Radiology in [place], [place] [address] [place] [address] Angela Piper APRN, C.N.P., D.N.P. 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) Discharge Disposition: Home or Self Care Social History Tobacco Use Types Packs/Day Years Used Date Smoking Tobacco: Never Smokeless Tobacco: Never Alcohol Use Standard Drinks/Week Comments Yes 14 (1 standard drink = 0.6 oz pu re alcohol) [facility] Utilities Answer Date Recorded In the past 12 months has e electric, gas, oil, or water [employer] threatened to shut off services in your [...] Answer Date Recorded Dental: Regular Dentist Yes 01/29/20 25 Employment Answer Date Recorded Employment status Unemployed/not in th e paid workforce but seeking employment 12/14/2024 Housing Stability Answer Date Recorded What is your living situation today? I have a [facility] place to live 12/14/2024 Comments Unknown Sex and Gender Information Value Date Recorded Sex Assigned at Female 12/14/2024 12:10 PM POWER BRAKE OPERATOR Legal Sex Female 10:00 AM CDT Gender Identity Female 12/14/2024 12:10 PM POWER BRAKE OPERATOR Sexual Orientation Straight 12/14/2024 12 :10 PM POWER BRAKE OPERATOR documented as of this encounter Medications [...] mouth 3 (three) times a week. omega 0-iox-pjd-fish oil 900 mg-360 mg- 455 mg-1,000 mg capsule Take 1 capsule by mouth 3 (three) times a week. 11/18/2022 ublituximab-xiiy (BRIUMVI IV) every 6 (six) months. 10/27/2024 vitamin E acetate (VITAMIN E ORAL) Take 1 capsule by mouth 3 (three) times a week. 08/18/2024 armodafiniL (NuvigiL) 150 mg tablet 11/18/2008 02/19/202 5 ergocalciferol, vitamin D2, (VITAMIN D2 ORAL) Calcium Carbonate Oral 3x a week active 5 glucosamine sulfate (GLUCOSAMINE ORAL) Glucosamine-Cho ndroitin Oral Capsule 500 mg-400 mg 3x a week active 5 documented as of this encounter Plan of Treatment Upcoming Encounters Date Type Department Care Team (Latest Contact Info) Description 01/12/2025 8:30 AM POWER BRAKE OPERATOR Comprehensive Visit Division of Breast and Melanoma Surgical Oncology in [place], [place] [address] [place] [phone] Rosalva Ruiz M.D. [address] [place] [phone] 01/12/2025 10:20 AM POWER BRAKE OPERATOR Comprehensive Visit Department of Oncology in [place], [place] [address] [place] [phone] Amie Sue M.B., B.Ch. [address] [place] [phone] 01/12/2025 1:00 PM POWER BRAKE OPERATOR Appointment Department of Radiation Oncology in [place], [place] [address] [place] [phone] Delilah Dos Santos, MPAS, P.A.-C. [address] [place] [phone] 01/12/2025 1:30 PM POWER BRAKE OPERATOR Comprehensive Visit Breast Diagnostic Clinic in [place], [place] [address] [place] [phone] Radha Becker, Ph.D., L.P. [address] [place] [phone] 01/13/2025 9:30 AM POWER BRAKE OPERATOR Appointment Department of Radiology in [place], [place] [address] [place] [phone] Rei Loredo M.D. [address] [place] [phone] Discharge Disposition: Home or Self Care documented as of this encounter Procedures Procedure Name Priority Date/Time Associated Diagnosis Comments BI BREAST DIAGNOSTIC RIGHT WITH TOMOSYNTHESIS RAD - Routine (most inpatients and all outpatients) 12/20/2024 10:37 AM POWER BRAKE OPERATOR 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) documented in this encounter Results * (ABNORMAL) BI Breast Diagnostic Right with Tomosynthesis (12/20/2024 10:37 AM POWER BRAKE OPERATOR) Anatomical Region Laterality Modality Breast, Breast Imaging RST L OS, Breast Imaging ARZ LOS, Breast Imaging FLA LOS Right Mammography Impressions 12/20/2024 3:37 PM POWER BRAKE OPERATOR Known biopsy-proven malignancy in the inner right [...] Known Biopsy-Proven Malignancy. Narrative 12/20/2024 3:37 PM POWER BRAKE OPERATOR EXAM: BI BREAST DIAGNOSTIC RIGHT WITH TOMOSYNTHESIS, [...]
--- OUTSIDE RECORDS SUMMARY | 2025-01-07 23:15 | XMS_ITS | Encounter Summary ---
Author Organization [facility] Address [address] [place] [phone] Care Team Providers Care Payment Poster Name Role Phone Unavailable Primary Care Provider Unavailabl e Encounter Details Date Type Department Care Team ([facility] st Contact Info) Description 11/30/2024 Referral Triage Department of Radiation Oncology in [place], [place] [address] [place] [phone] Arely Martinez P.A.-C. [address] [place] [phone] Social History Tobacco Use Types Packs/Day Years Used Date Smoking Tobacco: Never Assessed [facility] Utilities Answer Date Recorded In the [...] Answer Date Recorded Employment status Unemployed/not in [employer] paid workforce but seeking employment 12/14/2024 Housing Stability Answer Date Recorded What is your living situation today? I have a [facility] place to live 12/14/2024 Comments Unknown Sex and Gender Information Value Date Recorded Sex Assigned at Female 12/14/2024 12:10 PM GLOBAL HUMAN RESOURCES DIRECTOR Legal Sex Female 10:00 AM CDT Gender Identity Female 12/14/2024 12:10 PM GLOBAL HUMAN RESOURCES DIRECTOR Sexual Orientation Straight 12/14/2024 12 :10 PM GLOBAL HUMAN RESOURCES DIRECTOR documented as of this encounter Plan of Treatment Upcoming Encounters Date Type Department Care Team (Latest Contact Info) Description 01/12/2025 8:30 AM GLOBAL HUMAN RESOURCES DIRECTOR Comprehensive Visit Division of Breast and Melanoma Surgical Oncology in [place], [place] [address] [place] [phone] Rosalva Ruiz M.D. [address] [place], [place] [phone] 01/12/2025 10:20 AM GLOBAL HUMAN RESOURCES DIRECTOR Comprehensive Visit Department of Oncology in [place], [place] [address] [place] [phone] Amie Sue M.B., B.Ch. [address] [place] [phone] 01/12/2025 1:00 PM GLOBAL HUMAN RESOURCES DIRECTOR Appointment Department of Radiation Oncology in [place], [place] [address] [place] [phone] Delilah Dos Santos, MPAS, P.A.-C. [address] [place] [phone] 01/12/2025 1:30 PM GLOBAL HUMAN RESOURCES DIRECTOR Comprehensive Visit Breast Diagnostic Clinic in [place], [place] [address] [place] [phone] Radha Becker, Ph.D., L.P. [address] [place] [phone] 01/13/2025 9:30 AM GLOBAL HUMAN RESOURCES DIRECTOR Appointment Department of Radiology in [place], [place] [address] [place] [phone] Rei Loredo M.D. [address] [place] [phone] Discharge Disposition: Home or Self Care documented as of this encounter Results * Interpretation of Outside Breast Imaging (12/02/2024 2:29 PM GLOBAL HUMAN RESOURCES DIRECTOR) Anatomical Region Laterality Modality Breast, Breast Imaging RST L OS, Breast Imaging ARZ LOS, Breast Imaging FLA LOS, Other N/A Mammography Impressions 12/05/2024 11:28 AM GLOBAL HUMAN RESOURCES DIRECTOR 1. Decreased size of the biopsy-proven right [...] inner left breast. Narrative 12/05/2024 11:28 AM GLOBAL HUMAN RESOURCES DIRECTOR EXAM: INTERPRETATION OF OUTSIDE BREAST IMAGING, INTERPRETATION [...] breast may present a biopsy clip. Additional sales account representative images were saved at 2:00, 4 [...] right breast maypresent a biopsy clip. Additional sales account representative images were saved at2:00, 4 cm [...] under ultrasound guidance and as annotated by Isaura pace. This can be localized under ultrasound guidance. [...] the farposterior inner left breast. us Arely Martinez P.A.-C. IMG BI PROCEDURES Final R esult * Interpretation of Outside NM PET Scan (11/30/2024 1:15 PM GLOBAL HUMAN RESOURCES DIRECTOR) Anatomical Region Laterality Modality Nuclear Medicine PET RST LOS , Nuclear Medicine ARZ LOS, Nuclear Medicine FLA LOS, Nuclear Medicine, Other, Neuroradiology ARZ LOS, Neuroradiology FLA LOS, Neuroradiology RST LOS, Body N/A Nuclear Medicine Impressions 12/01/2024 3:49 PM GLOBAL HUMAN RESOURCES DIRECTOR 1. Moderately hypermetabolic right breast mass (deep [...] to ensure stability. Narrative 12/01/2024 3:49 PM GLOBAL HUMAN RESOURCES DIRECTOR EXAM: INTERPRETATION OF OUTSIDE NM PET SCAN [...] pulmonary nodules in the left upper lobe (/) and right upper lobe (/79) are below [...] Consider attention on follow-up to ensurestability. Arely Martinez P.A.-C. IMG NM PROCEDURES Final R esult documented in this encounter Visit Diagnoses Diagnosis 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)- Primary 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) 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) documented in this encounter
--- OUTSIDE RECORDS SUMMARY | 2025-01-07 23:15 | XMS_ITS | Encounter Summary ---
Author Organization [facility] Address [address] [place] [phone] Care Team Providers Care College Counselor Name Role Phone Unavailable Primary Care Provider Unavailabl e Encounter Details Date Type Department Care Team (Latest Contact Info) Description 11/30/2024 1:10 PM INDUSTRY SEGMENT SPECIALIST Ancillary Procedure Department of Radiology in [place], [place] [address] [place] [phone] Arely Martinez P.A.-C. [address] [place] [phone] 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) Social History Tobacco Use Types Packs/Day Years Used Date Smoking Tobacco: Never Assessed Nutrition Answer Date Recorded Nutrition: EVOO Fat Source Unknown 03/18 Nutrition: Servings of Fruits/Vegetables per Day Not on file 03/18/2023 Dental Answer Date Recorded Dental: Regular Dentist Unknown 03/18/20 23 Comments Unknown Sex and Gender Information Value Date Recorded Sex Assigned at Female 12/14/2024 12:10 PM INDUSTRY SEGMENT SPECIALIST Legal Sex Female 10:00 AM CDT Gender Identity Female 12/14/2024 12:10 PM INDUSTRY SEGMENT SPECIALIST Sexual Orientation Straight 12/14/2024 12 :10 PM INDUSTRY SEGMENT SPECIALIST documented as of this encounter Plan of Treatment Upcoming Encounters Date Type Department Care Team (Latest Contact Info) Description 01/12/2025 8:30 AM INDUSTRY SEGMENT SPECIALIST Comprehensive Visit Division of Breast and Melanoma Surgical Oncology in [place], [place] [address] [place] [phone] Rosalva Ruiz M.D. [address] [place] [phone] 01/12/2025 10:20 AM INDUSTRY SEGMENT SPECIALIST Comprehensive Visit Department of Oncology in [place], [place] [address] [place] [phone] Amie Sue M.B., B.Ch. [address] [place] [phone] 01/12/2025 1:00 PM INDUSTRY SEGMENT SPECIALIST Appointment Department of Radiation Oncology in [place], [place] [address] [place] [phone] Delilah Dos Santos, SCOTS, P.A.-C. [address] [place] [address] [phone] 01/12/2025 1:30 PM INDUSTRY SEGMENT SPECIALIST Comprehensive Visit Breast Diagnostic Clinic in [place], [place] [address] [place] [phone] Radha Becker, Ph.D., L.P. [address] [place] [phone] 01/13/2025 9:30 AM INDUSTRY SEGMENT SPECIALIST Appointment Department of Radiology in [place], [place] [address] [place] [phone] Rei Loredo M.D. [address] [place] [phone] Discharge Disposition: Home or Self Care documented as of this encounter Visit Diagnoses Diagnosis 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) documented in this encounter
--- OUTSIDE RECORDS SUMMARY | 2025-01-07 23:15 | XMS_ITS | Encounter Summary ---
Author Organization [facility] Address [address] [place] [phone] Care Team Providers Care Electrician Assistant Name Role Phone Unavailable Primary Care Provider Unavailabl e Encounter Details Date Type Department Care Team (Latest Contact Info) Description 11/30/2024 1:10 PM AERONAUTICAL DRAFTER Ancillary Procedure Department of Radiology in [place], [place] [address] [place] [phone] Arely Martinez P.A.-C. [address] [place] [phone] Malignant Neoplasm Of Breast Upper Inner Quadrant [...] Sex Assigned at Female 12/14/2024 12:10 PM AERONAUTICAL DRAFTER Legal Sex Female 10:00 AM CDT Gender Identity Female 12/14/2024 12:10 PM AERONAUTICAL DRAFTER Sexual Orientation Straight 12/14/2024 12 :10 PM AERONAUTICAL DRAFTER documented as of this encounter Plan of Treatment Upcoming Encounters Date Type Department Care Team (Latest Contact Info) Description 01/12/2025 8:30 AM AERONAUTICAL DRAFTER Comprehensive Visit Division of Breast and Melanoma Surgical Oncology in [place], [place] [address] [place] [phone] Rosalva Ruiz M.D. [address] [place] [phone] 01/12/2025 10:20 AM AERONAUTICAL DRAFTER Comprehensive Visit Department of Oncology in [place], [place] [address] [place] [phone] Amie Sue M.B., B.Ch. [address] [place] [phone] 01/12/2025 1:00 PM AERONAUTICAL DRAFTER Appointment Department of Radiation Oncology in [place], [place] [address] [place] [phone] Delilah Dos Santos, MPAS, P.A.-C. [address] [place] [phone] 01/12/2025 1:30 PM AERONAUTICAL DRAFTER Comprehensive Visit Breast Diagnostic Clinic in [place], [place] [address] [place] [phone] Radha Becker, Ph.D., L.P. [address] [place] [phone] 01/13/2025 9:30 AM AERONAUTICAL DRAFTER Appointment Department of Radiology in [address] [phone] Rei Loredo M.D. 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 Decreased size of the biopsy-proven right [...] inner left breast. Narrative 12/05/2024 11:28 AM AERONAUTICAL DRAFTER EXAM: INTERPRETATION OF OUTSIDE BREAST IMAGING, INTERPRETATION [...] breast may present a biopsy clip. Additional veterans employment representative images were saved at 2:00, 4 [...] right breast maypresent a biopsy clip. Additional veterans employment representative images were saved at2:00, 4 cm [...] of Outside Breast Imaging (12/02/2024 2:29 PM AERONAUTICAL DRAFTER) Anatomical Region Laterality Modality Breast, Breast Imaging RST L OS, Breast Imaging ARZ LOS, Breast Imaging FLA LOS, Other N/A Mammography Impressions 12/05/2024 11:28 AM AERONAUTICAL DRAFTER 1. Decreased size of the biopsy-proven right [...] inner left breast. Narrative 12/05/2024 11:28 AM AERONAUTICAL DRAFTER EXAM: INTERPRETATION OF OUTSIDE BREAST IMAGING, INTERPRETATION [...] breast may present a biopsy clip. Additional veterans employment representative images were saved at 2:00, 4 [...] right breast maypresent a biopsy clip. Additional veterans employment representative images were saved at2:00, 4 cm [...] P.A.-C. 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
--- OUTSIDE RECORDS SUMMARY | 2025-01-07 23:15 | XMS_ITS | Encounter Summary ---
Author Organization [facility] Address [address] [place] [phone] Care Team Providers Care Dermatopathologist Name Role Phone Unavailable Primary Care Provider Unavailabl e Reason for Referral * Outpatient (High Priority-New Referral) - Closed Specialty Diagnoses / Procedures Referred By Contac t Referred To Contact Breast Clinic Diagnoses 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) Angela Piper APRN, C.N.P., D.N.P. [address] [place] [phone] Phone: tel: fax: [facility] Referral ID Status Reason Start Date Expiration Date Visits Re quested Visits Authorized [id number] Closed 12/16/2024 06/17/2026 1 1 TER CREASER SLOTTER OPERATOR * Outpatient (Routine) - Closed Specialty Diagnoses / Procedures Referred By Contac t Referred To Contact Diagnoses 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) Procedures BI Ultrasound Breast Focused Right Angela Piper APRN, C.N.P., D.N.P. [address] [place] [phone] Phone: tel: fax: [facility] Referral ID Status Reason Start Date Expiration Date Visits Re quested Visits Authorized [id number] Closed 12/15/2024 03/17/2026 1 1 TER CREASER SLOTTER OPERATOR * Outpatient (Routine) - Closed Specialty Diagnoses / Procedures Referred By Judyac t Referred To Contact Diagnoses 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) Procedures BI Breast Diagnostic Right with Tomosynthesis Angela Piper APRN, C.N.P., D.N.P. [address] [place] [phone] Phone: tel: fax: [facility] Referral ID Status Reason Start Date Expiration Date Visits Re quested Visits Authorized [id number] Closed 12/15/2024 03/17/2026 1 1 TER CREASER SLOTTER OPERATOR * MRI/CAT/PET Scan (Routine) - Closed Specialty Diagnoses / Procedures Referred By Deidre t Referred To Contact Diagnoses 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) Procedures PET CT Skull to Thigh FDG Angela Piper APRN C.N.P., D.N.P. [address] [place] [phone] Phone: tel: fax: [facility] Referral ID Status Reason Start Date Expiration Date Visits Re quested Visits Authorized [id number] Closed 12/15/2024 03/17/2026 1 1 TER CREASER SLOTTER OPERATOR * Outpatient (Routine) - Authorized Specialty Diagnoses / Procedures Referred By Judyac t Referred To Contact Breast Clinic Diagnoses 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) Angela Piper APRN, C.N.P., D.N.P. [address] [place] [phone] Phone: tel: fax: [facility] Referral ID Status Reason Start Date Expiration Date V isits Requested Visits Authorized [id number] Authorized 12/15/2024 06/16/2026 1 1 TER CREASER SLOTTER OPERATOR * MRI/CAT/PET Scan (Routine) - Closed Specialty Diagnoses / Procedures Referred By Contac t Referred To Contact Radiology Diagnoses 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) Procedures MR Breast Bilateral without and with IV Contrast TN MRI BREAST WOW CNTRST W/CAD BILAT Angela Piper APRN, C.N.P., D.N.P. 200 [place] [address] Phone: tel: fax: [facility] Referral ID Status Reason Start Date Expiration Date Visits Re quested Visits Authorized [id number] Closed 12/15/2024 03/17/2026 1 1 TER CREASER SLOTTER OPERATOR Reason for Visit * Appointment Request (Routine) - Pending Review Specialty Diagnoses / Procedures Referred By Contac t Referred To Contact Radiation Oncology Diagnoses Breast Cancer NOS Multiple Sclerosis (HCC) Fatigue Shortness Of Breath Referral ID Status Reason Start Date Expiration Date V isits Requested Visits Authorized [id number] Pending Review 04/14/2024 04/14/2025 1 1 Encounter Details Date Type Department Care Team (Latest Contact Info) Description 12/15/2024 9:30 AM SLITTER CREASER SLOTTER OPERATOR - 12/15/2024 12:21 PM SLITTER CREASER SLOTTER OPERATOR Hospital Encounter Department of Radiation Oncology in [place], [place] [address] [place] [phone] Osvaldo Durant M.D. 200 [place] [phone] 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) (Primary Dx) Social History Tobacco Use Types Packs/Day Years Used Date Smoking Tobacco: Never Smokeless Tobacco: Never Tobacco Cessation:Counseling Given: Not Answered Alcohol Use Standard Drinks/Week Comments Yes 14 (1 standard drink = 0.6 oz pu re alcohol) [facility] Utilities Answer Date Recorded In the past [...] your living situation today? I have a [facility] place to live 12/14/2024 Comments Unknown Sex and Gender Information Value Date Recorded Sex Assigned at Female 12/14/2024 12:10 PM SLITTER CREASER SLOTTER OPERATOR Legal Sex Female 10:00 AM CDT Gender Identity Female 12/14/2024 12:10 PM SLITTER CREASER SLOTTER OPERATOR Sexual Orientation Straight 12/14/2024 12 :10 PM SLITTER CREASER SLOTTER OPERATOR documented as of this encounter Last Filed Vital Signs Vital Sign Reading Time Taken Comments Blood Pressure - - Pulse - - Temperature - - Respiratory Rate - - Oxygen Saturation - - Inhaled Oxygen Concentration - - Weight 72.6 kg (160 lb) 12/15/2024 9:46 AM SLITTER CREASER SLOTTER OPERATOR Height - - Body Mass Index - - documented in this encounter Medications at Time of Discharge [...] mouth 3 (three) times a week. omega 9-vhj-kpd-fish oil 900 mg-360 mg- 455 mg-1,000 mg [...] active 5 documented as of this encounter Consult Notes * Angela Piper APRN, C.N.P., D.N.P. - 12/15/2024 10:00 AM CST SUBJECTIVE REQUESTING PROVIDER No ref. provider found CHIEF COMPLAINT/REASON FOR CONSULT Consultation regarding the role of radiotherapy for treatment of breast carcinoma. Collaborating Physician: Osvaldo Durant M.D. ([phone]) HISTORY OF PRESENT ILLNESS Aury Florez is a 49 y.o. woman from [place], [place] with right breast invasive ductal carcinoma, grade 2, ER+ (91-100%) TN+ (91-100%) HER2- , cT2 N2b M0 diagnosed in 2019 on long-term neoadjuvant letrozole. She presents to the Department of Radiation Oncology for discussion regarding the role of radiotherapy. She is unaccompanied today. Her oncologic history is as follows: Oncology History Overview Note History of MS. [...] adenopathy and probable internal mammary adenopathy 10/04/2020 Biopsy/Pathology Right breast biopsy 1 o'clock 4 CMFN: IDC, grade 2 ER positive (91-100%) TN positive (91-100%) HER-2 negative Right breast biopsy 1 o'clock, retroareolar: benign breast tissue, negative for malignancy. Right axillary lymph node biopsy: negative for malignancy, benign lymphoid parenchyma. Per [facility] review of local pathology. Genetic Testing and Tumor Genotyping MammaPrint: Low risk, luminal B 10/23/2020 Critical Imaging 10/23/2020: PET scan demonstrates a 2.6 x 1.6 x 1.8 cm moderately hypermetabolic mass in the medialright breast. This abuts and appears to involve the adjacent pectoralis muscle. Several tiny suspected right internal mammary nodes with very degrees of low to mild FDG uptake, the most prominent of which measures approximately 4 mm, suspicious for metastatic involvement. There are several prominent but not enlarged bilateral axillary lymph nodes, most maintain their fatty hilum. No evidence of distant metastatic disease. Tiny sub 4 mm noncalcified pulmonary nodules in the right and left upper lobes are below PET resolution, consider attention on follow-up. Per [facility] review of local PET scan. 10/25/2020: Breast [...] adenopathy. Per local report, not reviewed at [facility]. 12/18/2020 - Biological/Targeted/Hormone Therapy Initiated neoadjuvant goserelin and letrozole per patient preference (declined upfront surgery). Critical Imaging 04/30/2021: Breast MRI demonstrated decrease size of right breast mass (now 2.6 x 1.2 x 1.8 cm) andinternal mammary adenopathy has decreased in prominence. Previously noted lower outer right breast enhancing mass now measures 2 mm, previously 6 mm. Previously noted left upper inner enhancement less prominent, no mass or adenopathy. Per local report, not reviewed at [facility]. 12/10/2021: Breast MRI demonstrates residual architectural distortion of the right breast in the area of biopsy-proven malignancy but enhancement has completely resolved. Right lower outer enhancing mass has also resolved. No adenopathy. Left breast with mild background parenchymal enhancement no mass or adenopathy. Per local report, not reviewed at [facility]. 12/2022 Surgery and Procedures Laparoscopic BSO 08/17/2024 Critical Imaging Right breast diagnostic mammogram and targeted ultrasound. Decreased size of the irregular hypoechoic mass in the right breast, 1 o'clock position 4 cm from the nipple, now measuring 2 x 1.4 x 1.1 cm, previously 3.5 x 1.8 x 3.1 cm on 09/25/2020. INTERVAL HISTORY Aury Florez confirms the above summary. We reviewed the details of her diagnosis and treatment thus far. She is interested in proton radiation due to concerns of her MS and ability to take a deep breath as required with standard radiotherapy. She is not yet decided on a surgical plan as she wanted to have the next steps in place first. She is scheduled for left breast mammogram today after [place] review of her local imaging identified an incompletely imaged asymmetry in the posterior left breast. She had a right breast mammogram last in August 2024 which revealed continued treatment response. She has not had an MRI since November 2021. She expresses some indecision about surgery type due to concerns of quality of life, cosmetic outcome, desire to avoid implant reconstruction, question ofstaged surgeries. She was somewhat recently switched to Briumvi for her MS and worries about stopping medication for surgery(-ies) as well. She did experience a few MS relapses prior to switching to Briumvi due to life stressors, difficulty taking prior medication consistently, breast cancer diagnosis. She is still adjusting to Briumvi but seems to be tolerating it well. She has noticed slight increase in breast tenderness in the past 4-6 weeks with perhaps slight visual change. She cannot palpate a mass presently. RADIOTHERAPY HISTORY Prior Radiation therapy: None Medical Devices: None Connective Tissue Diseases: None Other cancer: NO Tumor Testing: MammaPrint low risk, luminal B Menopausal Status: surgically menopausal (pre-menopausal at diagnosis) SOCIAL HISTORY Aury Florez lives with her in [place]. 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 She has a hobby farm and large garden that keep her busy. She and her are very activeand target shoot competitively. She is a never smoker. MEDICAL/SURGICAL HISTORY In addition to her breast cancer as detailed above, Aury Florez has a medical/surgical history notable for multiple sclerosis, chronic fatigue, hypothyroid, osteopenia; s/p BSO 12/2022. Cancer-related family history is not on file. OBJECTIVE Wt 72.6 kg Pain Score: 0-No pain/10; PHYSICAL EXAMINATION ECOG score: 0 General: A well-appearing 49 y.o. female sitting comfortably in clinic in no acute distress. Breasts: Focused right breast exam completed in the seated and supine positions. No palpable mass in the right breast; increased density of the upper inner breast with slight visible asymmetry. Both nipples are somewhat flattened. Dr. Durant repeated the exam and I was present as ct scan special procedures technologist. Lymph: No palpable cervical, supraclavicular, infraclavicular, or axillary adenopathy bilaterally. Extremities: Upper extremity range of motion is unrestricted, no appreciable edema. Neuro: Alert and oriented. No focal deficits. Gait is normal. ASSESSMENT / PLAN 1. 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) It was a pleasure to meet with Aury Florez in clinic today. I introduced myself as a nurse practitioner in Radiation Oncology working with Dr. Durant. I reviewed her diagnosis, pathology, and clinical scenario in detail and discussed the role and rationale for use of adjuvant radiotherapy in this specific setting. We reviewed that in the setting of clinically involved internal mammary adenopathy, we would advise radiation regardless of the type of surgery she undergoes. We reviewed an estimated 3-4 week course, pending surgery and final pathology. We discussed proton therapy in detail. This would be a reasonable option for her considering the size of the treatment field in a younger patient, with additional concerns about ability for breath hold. We discussed consideration of updated staging imaging to inform surgical decision. She expresses interest in second opinion here and we will begin this process. I reviewed the logistics of radiotherapy as well as risks, benefits, and alternatives. We discussedtreatment planning and potential strategies for minimizing dose to critical structures. I reviewed the differences between photons and protons, the general sequence of appointments here in radiation o ncology, including simulation, treatment planning, and daily treatment Thursday-Thursday. I discussed the potential acute and late toxicities which may be associated with radiation therapy. Acute reactions which could occur as a result of the procedure may include some or all of the following: Fatigue or weakness. Breast swelling, discomfort. Skin inflammation, including redness, pain, dryness and scaling, hair loss, and / or blistering with superficial ulceration. Sore throat, difficulty swallowing, or sense of obstruction. Late reactions which could occur as a result of the procedure may include some or all of the following: Permanent skin changes, including skin thickening/firmness and color change. Change in breast symmetry, volume, appearance. Breast or arm swelling (lymphedema). Limitation in shoulder motion, which may require physical therapy. Complications with reconstruction, if applicable. Low risk of lung inflammation, with persistent cough or shortness of breath. Low risk of rib damage or fracture. Rare risk of nerve damage to the brachial plexus causing weakness or loss of sensation in arm and hand. Rare risk of thyroid damage resulting in decreased thyroid function requiring lifelong medication. Rare risk of heart damage, including coronary artery damage, heart failure, pericarditis, valve damage, and irregular heart beats (<1%). Rare risk of second cancers (<1%). Aury Florez verbalized understanding of the above discussion and rationale for radiotherapy. Plan: Update imaging including mammogram/US, breast MRI and PET-CT. Breast clinic referral; consideration of MDBC consult. Questions and concerns were addressed to the best of my ability and with apparent satisfaction. Ourcontact information was provided if any further questions arise. EDUCATION Ready to learn, no apparent learning barriers were identified. Explained diagnosis and treatment plan; patient expressed understanding of the content. I personally spent 65 minutes in care of the patient today. Time includes both non face to face andface to face patient care. Angela Piper APRN, C.N.P., Lai. Cosigned by Osvaldo Durant M.D. at 12/16/2024 12:24 PM SLITTER CREASER SLOTTER OPERATOR TER CREASER SLOTTER OPERATOR TER CREASER SLOTTER OPERATOR Associated attestation - Osvaldo Durant M.D. - 12/16/2024 12:24 PM SLITTER CREASER SLOTTER OPERATOR I saw and evaluated the patient and participated in the millan portions of the service. I reviewed thedocumentation of Angela Piper and agree with the findings and plan. Mrs. Florez is a very pleasant woman from [place], [place] who has a history of multiple sclerosis (most bothersome symptoms fatigueand dyspnea) and locally advanced right breast cancer diagnosed in late 2019. I reviewed the imaging myself in detail and it appears this was a [id number] medially located tumor. Biopsy revealed grade 2 IDC, ER and TN strongly positive, HER-2 negative. Due to her multiple sclerosis and concerns about potential impact of mastectomy which was felt to be indicated at the time, she did not pursue localtherapy initially but rather went on an extended period of letrozole with ovarian function suppression followed by oophorectomy. She apparently saw a surgeon two years back and lumpectomy was offeredbut the patient declined this at that time. Most recently she saw a radiation oncologist locally who referred her for consideration of proton therapy. The patient did express a desire to proceed withrecommended locoregional treatment at this time. Her last imaging from August, does show clinical response compared to the time of diagnosis. However, the patient does note that the tumor has felt more tender and noticeable over the past 4-6 weeks. On physical exam this is a well-appearing female sitting comfortably in clinic in no acute distress. The right breast is smaller than the left. There is a 2-3 cm mobile mass in the upper inner quadrant of the right breast consistent with biopsy-proven disease. No other concerning lesions or masses appreciated in either breast or axilla. No extremity edema. Normal range of motion the upper extremities. We had a long discussion regarding the diagnosis, natural history, staging and treatment of breast cancer. Although initially diagnosed with cT2 N2 B M0 grade 2 invasive ductal carcinoma, ER positive, TN positive, HER2 negative, the patient has yet to undergo definitive local therapy. Given the possibility of local therapy and potential clinical symptoms at this time of progression we will arrange for the patient to be restaged with a PET-CT scan as well as dedicated breast imaging to facilitate potential surgical planning. Given the complexity of this case with her multiple sclerosis, the long time since diagnosis on endocrine therapy and possible evidence of clinical progression I do think the patient would be best served with a referral to our breast clinic to potentially facilitate a multidisciplinary consultation at our multidisciplinary breast clinic. We did discuss the potential role of adjuvant radiotherapy as part of multidisciplinary care, the timing, logistics, risks and benefits. She may be a good candidate for pencil beam scanning proton therapy to minimize exposure to the lungs and heart and optimize coverage of the internal mammary lymph nodes. I answered all of thepatient's questions to the best my abilities. She knows to contact me at any point should questionsor concerns arise. 70 minutes were spent in the care of this patient today including both vlde-qk-ovaz and non dpqb-wh-cnre patient care. documented in this encounter Miscellaneous Notes * Addendum Note - Angela Piper APRN, C.N.P., D.N.P. - 12/15/2024 10:00 AM CSTEncounter addended by: Angela Piper APRN, C.N.P., D.N.P. on: 12/16/2024 9:14 AM Actions taken: Order list changed, Diagnosis association updated TER CREASER SLOTTER OPERATOR documented in this encounter Plan of Treatment Upcoming Encounters Date Type Department Care Team (Latest Contact Info) Description 01/12/2025 8:30 AM SLITTER CREASER SLOTTER OPERATOR Comprehensive Visit Division of Breast and Melanoma Surgical Oncology in [place], [place] [address] [place] [phone] Rosalva Ruiz M.D. [address] [place] [phone] 01/12/2025 10:20 AM SLITTER CREASER SLOTTER OPERATOR Comprehensive Visit Department of Oncology in [place], [place] [address] [place] [phone] Amie Sue M.B., B.Ch. [address] [place] [phone] 01/12/2025 1:00 PM SLITTER CREASER SLOTTER OPERATOR Appointment Department of Radiation Oncology in [address] [phone] Delilah Dos Santos MPAS, P.A.-C. [address] [place] [phone] 01/12/2025 1:30 PM SLITTER CREASER SLOTTER OPERATOR Comprehensive Visit Breast Diagnostic Clinic in [address] [phone] Radha Becker, Ph.D., L.P. [address] [place] [phone] 01/13/2025 9:30 AM SLITTER CREASER SLOTTER OPERATOR Appointment Department of Radiology in [address] [phone] Rei Loredo M.D. [address] [place] [phone] Discharge Disposition: Home or Self Care Pending Results Name Type Priority Associated Diagnoses Date /Time MR Breast Bilateral without and with IV Contrast Imaging RAD - Routine (most inpatients and all outpatients) 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) 01/06/2025 1:17 PM SLITTER CREASER SLOTTER OPERATOR Scheduled Orders Name Type Priority Associated Diagnoses Orde r Schedule MR Breast Bilateral without and with IV Contrast Imaging RAD - Routine (most inpatients and all outpatients) 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) Expected: 12/15/2024, Expires: 03/15/2026 Scheduled Referrals Name Type Priority Associated Diagnoses Orde r Schedule Breast Clinic - General consult (clinic) Outpatient Referral Routine 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) Expected: 12/15/2024, Expires: 03/15/2026 Breast Clinic - New or suspected breast cancer consult (clinic) Outpatient Referral Routine 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) Expected: 12/16/2024, Expires: 03/15/2026 documented as of this encounter Results * (ABNORMAL) BI Ultrasound Breast Focused Right (12/20/2024 12:14 PM SLITTER CREASER SLOTTER OPERATOR) Anatomical Region Laterality Modality Breast, Breast Imaging RST L OS, Breast Imaging ARZ LOS, Breast Imaging FLA LOS Right Ultrasound Impressions 12/20/2024 3:37 PM SLITTER CREASER SLOTTER OPERATOR Known biopsy-proven malignancy in the inner [...] Known Biopsy-Proven Malignancy. Narrative 12/20/2024 3:37 PM SLITTER CREASER SLOTTER OPERATOR EXAM: BI BREAST DIAGNOSTIC RIGHT WITH [...] Diagnostic Right with Tomosynthesis (12/20/2024 10:37 AM SLITTER CREASER SLOTTER OPERATOR) Anatomical Region Laterality Modality Breast, Breast Imaging RST L OS, Breast Imaging ARZ LOS, Breast Imaging FLA LOS Right Mammography Impressions 12/20/2024 3:37 PM SLITTER CREASER SLOTTER OPERATOR Known biopsy-proven malignancy in the inner [...] Known Biopsy-Proven Malignancy. Narrative 12/20/2024 3:37 PM SLITTER CREASER SLOTTER OPERATOR EXAM: BI BREAST DIAGNOSTIC RIGHT WITH [...] Skull to Thigh FDG (12/20/2024 8:17 AM SLITTER CREASER SLOTTER OPERATOR) Anatomical Region Laterality Modality Body, Nuclear Medicine PET R ST LOS, PET ARZ LOS, Nuclear Medicine PET FLA LOS, Nuclear Medicine N/A Positron Emission Tomography (PET), Positron Emission Tomography (PET) Impressions 12/20/2024 10:09 AM SLITTER CREASER SLOTTER OPERATOR Compared with prior outside FDG PET significantly decreased conspicuity in FDG activity in the right breast cancer now with similar FDG activity to background. No evidence of suspicious FDG avid metastatic disease. Narrative 12/20/2024 10:09 AM SLITTER CREASER SLOTTER OPERATOR EXAM: PET CT SKULL TO THIGH FDG Serum glucose at time of F-18 FDG injection was 81 mg/dL. Patient followed standard dietary/fasting requirements for this exam. RADIOPHARMACEUTICAL/MEDS: Route: intravenous fludeoxyglucose F 18 injection CORRECTION (FDG F-18),14.87 millicurie TECHNIQUE: F-18 FDG PET/CT [...] RADIOPHARMACEUTICAL/MEDS: Route: intravenous fludeoxyglucose F 18 injection CORRECTION (FDG F-18),14.87 millicurie TECHNIQUE: F-18 FDG PET/CT [...] 1.3 similar to background parenchyma (series 13, [id number]), previously this demonstrated SUV max 7.7. Minimal [...] D.N.P. IMG NM PRO CEDURES Final Result documented in [...]
--- OUTSIDE RECORDS SUMMARY | 2025-01-07 23:15 | XMS_ITS | Encounter Summary ---
Author Organization [facility] Address [address] [place] [id number] Care Team Providers Care Carbon Capture Power Plant Manager Name Role Phone Unavailable Primary Care Provider Unavailabl e Encounter Details Date Type Department Care Team (Latest Contact Info) Description 11/30/2024 1:15 PM OUTDOOR FITNESS TRAINER Ancillary Procedure Department of Radiology in [place], [place] [address] [place] [phone] Arely Martinez P.A.-C. [address] [place] [phone] Malignant Neoplasm Of Breast Upper Inner Quadrant [...] Sex Assigned at Female 12/14/2024 12:10 PM OUTDOOR FITNESS TRAINER Legal Sex Female 10:00 AM CDT Gender Identity Female 12/14/2024 12:10 PM OUTDOOR FITNESS TRAINER Sexual Orientation Straight 12/14/2024 12 :10 PM OUTDOOR FITNESS TRAINER documented as of this encounter Plan of Treatment Upcoming Encounters Date Type Department Care Team (Latest Contact Info) Description 01/12/2025 8:30 AM OUTDOOR FITNESS TRAINER Comprehensive Visit Division of Breast and Melanoma Surgical Oncology in [place], [place] [address] [place] [phone] Rosalva Ruiz M.D. [address] [place] [phone] 01/12/2025 10:20 AM OUTDOOR FITNESS TRAINER Comprehensive Visit Department of Oncology in [place], [place] [address] [place] [phone] Amie Sue M.B., B.Ch. [address] [place] [phone] 01/12/2025 1:00 PM OUTDOOR FITNESS TRAINER Appointment Department of Radiation Oncology in [place], [place] [address] [place] [phone] Delilah Dos Santos, MPAS, P.A.-C. [address] [place] [phone] 01/12/2025 1:30 PM OUTDOOR FITNESS TRAINER Comprehensive Visit Breast Diagnostic Clinic in [place], [place] [address] [place] [phone] Radha Becker, Ph.D., L.P. [address] [place] [phone] 01/13/2025 9:30 AM OUTDOOR FITNESS TRAINER Appointment Department of Radiology in [address] [phone] Rei Loredo M.D. 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 Decreased size of the biopsy-proven right [...] inner left breast. Narrative 12/05/2024 11:28 AM OUTDOOR FITNESS TRAINER EXAM: INTERPRETATION OF OUTSIDE BREAST IMAGING, INTERPRETATION [...] may present a biopsy clip. Additional medical device sales representative images were saved at 2:00, [...] breast maypresent a biopsy clip. Additional medical device sales representative images were saved at2:00, 4 [...] of Outside Breast Imaging (12/02/2024 2:29 PM OUTDOOR FITNESS TRAINER) Anatomical Region Laterality Modality Breast, Breast Imaging RST L OS, Breast Imaging ARZ LOS, Breast Imaging FLA LOS, Other N/A Mammography Impressions 12/05/2024 11:28 AM OUTDOOR FITNESS TRAINER 1. Decreased size of the biopsy-proven right [...] inner left breast. Narrative 12/05/2024 11:28 AM OUTDOOR FITNESS TRAINER EXAM: INTERPRETATION OF OUTSIDE BREAST IMAGING, INTERPRETATION [...] may present a biopsy clip. Additional medical device sales representative images were saved at 2:00, [...] breast maypresent a biopsy clip. Additional medical device sales representative images were saved at2:00, 4 [...]
--- OUTSIDE RECORDS SUMMARY | 2025-01-07 23:15 | XMS_ITS | Encounter Summary ---
Author Organization [facility] Address [address] [place] [phone] Care Team Providers Care Roving Sizer Name Role Phone Unavailable Primary Care Provider Unavailabl e Encounter Details Date Type Department Care Team (Latest Contact Info) Description 11/30/2024 1:10 PM FELLER HAND Ancillary Procedure Department of Radiology in [place], [place] [address] [place] [phone] Arely Martinez P.A.-C. [address] [place] [phone] Malignant Neoplasm Of Breast Upper Inner Quadrant [...] Sex Assigned at Female 12/14/2024 12:10 PM FELLER HAND Legal Sex Female 10:00 AM CDT Gender Identity Female 12/14/2024 12:10 PM FELLER HAND Sexual Orientation Straight 12/14/2024 12 :10 PM FELLER HAND documented as of this encounter Plan of Treatment Upcoming Encounters Date Type Department Care Team (Latest Contact Info) Description 01/12/2025 8:30 AM FELLER HAND Comprehensive Visit Division of Breast and Melanoma Surgical Oncology in [place], [place] [address] [place] [phone] Rosalva Ruiz M.D. [address] [place] [phone] 01/12/2025 10:20 AM FELLER HAND Comprehensive Visit Department of Oncology in [place], [place] [address] [place] [phone] Amie Sue M.B., B.Ch. [address] [place] [phone] 01/12/2025 1:00 PM FELLER HAND Appointment Department of Radiation Oncology in [place], [place] [address] [place] [phone] Delilah Dos Santos, MPAS, P.A.-C. [address] [place] [phone] 01/12/2025 1:30 PM FELLER HAND Comprehensive Visit Breast Diagnostic Clinic in [place], [place] [address] [place] [phone] Radha Becker, Ph.D., L.P. [address] [place] [phone] 01/13/2025 9:30 AM FELLER HAND Appointment Department of Radiology in [address] [phone] Rei Loredo M.D. 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 Moderately hypermetabolic right breast mass (deep [...] to ensure stability. Narrative 12/01/2024 3:49 PM FELLER HAND EXAM: INTERPRETATION OF OUTSIDE NM PET SCAN [...] pulmonary nodules in the left upper lobe () and right upper lobe () are below PET resolution. Otherwise, no significant [...] Consider attention on follow-up to ensurestability. 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
--- OUTSIDE RECORDS SUMMARY | 2025-01-07 23:19 | XMS_ITS | Continuity of Care Document ---
Author Organization [facility] Address [address] [place] [address] Phone Care Team Providers Care Supervisor Inventory Merchandising Name Role Phone Seven HERNÁNDEZ MD, Navid Unavailable Unavailable Advance Directives Directive Yes / No Effective Date File Name No Information Encounters Encounter Description Practice Location Reason(s) For Visit Diagnoses Date Provider Providers Copied on Encounter [facility], [address], [place], [place], [id number], [place] tel:[phone] No Information Seven HERNÁNDEZ Navid. [address], [place], [address], [place]. tel:[phone] Family History Family Member Type Diagnosis Age At Onset No Information Payers Payer name Insurance type Covered green party ID Authoriza tion(s) [employer] Commercial BL [id number] Social History Type Description Quantity Date Captured Comments Sex Female Smoking Status No Information Chief Complaint And Reason For Visit No Information Reason For Referral Reason For Referral No Information History Of Present Illness Encounter Date Complaint History Of Prese nt Illness No Information Functional Status Date Functional Assessmen t No Information Instructions Date Instruction Additional Infor mation No Information Assessments Type Assessment Date No Information Patient Care Teams Name Effective Dates (start - stop) Status Members No Information
--- OUTSIDE RECORDS SUMMARY | 2025-01-07 23:20 | XMS_ITS ---
Author Name Interface, [id number] lity Address [address] [address] Organization [facility] Address [address] [address] Care Team Providers Care Technical Account Executive Name Role Phone Sylvester Panchito Unavailable Unavailable Allergies and Adverse Reactions Medication/Group Name Reaction Severity Date No known allergies Plan Date Type Value 10/03/2024 APPOINTMENT OV 20 MIN 08/12/2024 APPOINTMENT OUTSIDE TEST 5 M IN 08/12/2024 APPOINTMENT OUTSIDE TEST 5 M IN 04/15/2024 APPOINTMENT OV 20 MIN 05/14/2023 APPOINTMENT TREATMENT 1 HR 05/14/2023 APPOINTMENT LAB 15 MIN 05/14/2023 APPOINTMENT OV 30 MIN 03/16/2023 APPOINTMENT TELEHEALTH SVC N EW PATIENT 15 MIN 03/16/2023 APPOINTMENT INTERNAL REFERRA L 60 MIN 05/14/2023 LABORDER iSTAT creatinine panel 04/15/2024 LABORDER DEXA scan 04/15/2024 LABORDER Mammogram, diagn ostic, bilateral breast 04/15/2024 LABORDER U/S Reason for Visit OV 20 MIN Encounters Date Name 03/16/2023 Breast cancer, femal e 03/16/2023 Breast pain 03/16/2023 Estrogen receptor po sitive status [ER+] 03/16/2023 History of malignant neoplasm of breast (situation) 03/16/2023 Postmenopausal state (finding) Immunizations Date Name Route Dose Instructions Refusal Reason Stat us Covid-19 vaccine (Moderna) Patient declined/rejected Not Administered Flu vaccine - Adult Patient declined/rejected Not Administered Medications Date Name Route Dose Frequency Instructions Start Date End Date Status Cholecalciferol Oral weekly active Armodafinil Oral bid active Calcium Carbonate Oral 3x a week active Glucosamine-Chondr oitin Oral Capsule 500 mg-400 mg 3x a week active Docosahexanoic Acid-Eicosapentano ic Acid Oral 120 mg-180 mg 3x a week active Multivitamins Oral Tablet QD active 12/13 famotidine 10 MG/ML Injectable Solution intravenously 20.0 mg Re-initiate treatment only upon physician approval. 2025 active 12/13 1 ML epinephrine 1 MG/ML Injection intramuscularly 0.3 mg once Re-initiate treatment only upon physician approval. 2025 active 12/13 methylprednisolone 2000 MG Injection intravenously 125.0 mg Re-initiate treatment only upon physician approval. 2025 active 12/13 hydrocortisone 100 MG Injection intravenously 100.0 mg Re-initiate treatment only upon physician approval. 2025 active 12/13 diphenhydramine hydrochloride 0.5 MG/ML Injectable Solution intravenously 50.0 mg Re-initiate treatment only upon physician approval. 2025 active 11/15 1 ML epinephrine 1 MG/ML Injection intramuscularly 0.3 mg once Re-initiate treatment only upon physician approval. 2024 active 11/15 hydrocortisone 100 MG Injection intravenously 100.0 mg Re-initiate treatment only upon physician approval. 2024 active 11/15 diphenhydramine hydrochloride 0.5 MG/ML Injectable Solution intravenously 50.0 mg Re-initiate treatment only upon physician approval. 2024 active 11/15 famotidine 10 MG/ML Injectable Solution intravenously 20.0 mg Re-initiate treatment only upon physician approval. 2024 active 11/15 methylprednisolone 2000 MG Injection intravenously 125.0 mg Re-initiate treatment only upon physician approval. 2024 active 10/18 methylprednisolone 2000 MG Injection intravenously 125.0 mg Re-initiate treatment only upon physician approval. 2024 active 10/18 hydrocortisone 100 MG Injection intravenously 100.0 mg Re-initiate treatment only upon physician approval. 2024 active 10/18 famotidine 10 MG/ML Injectable Solution intravenously 20.0 mg Re-initiate treatment only upon physician approval. 2024 active 10/18 diphenhydramine hydrochloride 0.5 MG/ML Injectable Solution intravenously 50.0 mg Re-initiate treatment only upon physician approval. 2024 active 10/18 1 ML epinephrine 1 MG/ML Injection intramuscularly 0.3 mg once Re-initiate treatment only upon physician approval. 2024 active 09/20 hydrocortisone 100 MG Injection intravenously 100.0 mg Re-initiate treatment only upon physician approval. 2024 active 09/20 1 ML epinephrine 1 MG/ML Injection intramuscularly 0.3 mg once Re-initiate treatment only upon physician approval. 2024 active 09/20 methylprednisolone 2000 MG Injection intravenously 125.0 mg Re-initiate treatment only upon physician approval. 2024 active 09/20 diphenhydramine hydrochloride 0.5 MG/ML Injectable Solution intravenously 50.0 mg Re-initiate treatment only upon physician approval. 2024 active 09/20 famotidine 10 MG/ML Injectable Solution intravenously 20.0 mg Re-initiate treatment only upon physician approval. 2024 active 08/23 1 ML epinephrine 1 MG/ML Injection intramuscularly 0.3 mg once Re-initiate treatment only upon physician approval. 2024 active 08/23 methylprednisolone 2000 MG Injection intravenously 125.0 mg Re-initiate treatment only upon physician approval. 2024 active 08/23 diphenhydramine hydrochloride 0.5 MG/ML Injectable Solution intravenously 50.0 mg Re-initiate treatment only upon physician approval. 2024 active 08/23 hydrocortisone 100 MG Injection intravenously 100.0 mg Re-initiate treatment only upon physician approval. 2024 active 08/23 famotidine 10 MG/ML Injectable Solution intravenously 20.0 mg Re-initiate treatment only upon physician approval. 2024 active 07/26 hydrocortisone 100 MG Injection intravenously 100.0 mg Re-initiate treatment only upon physician approval. 2024 active 07/26 diphenhydramine hydrochloride 0.5 MG/ML Injectable Solution intravenously 50.0 mg Re-initiate treatment only upon physician approval. 2024 active 07/26 methylprednisolone 2000 MG Injection intravenously 125.0 mg Re-initiate treatment only upon physician approval. 2024 active 07/26 1 ML epinephrine 1 MG/ML Injection intramuscularly 0.3 mg once Re-initiate treatment only upon physician approval. 2024 active 07/26 famotidine 10 MG/ML Injectable Solution intravenously 20.0 mg Re-initiate treatment only upon physician approval. 2024 active 06/28 hydrocortisone 100 MG Injection intravenously 100.0 mg Re-initiate treatment only upon physician approval. 2024 active 06/28 1 ML epinephrine 1 MG/ML Injection intramuscularly 0.3 mg once Re-initiate treatment only upon physician approval. 2024 active 06/28 diphenhydramine hydrochloride 0.5 MG/ML Injectable Solution intravenously 50.0 mg Re-initiate treatment only upon physician approval. 2024 active 06/28 famotidine 10 MG/ML Injectable Solution intravenously 20.0 mg Re-initiate treatment only upon physician approval. 2024 active 06/28 methylprednisolone 2000 MG Injection intravenously 125.0 mg Re-initiate treatment only upon physician approval. 2024 active 05/31 diphenhydramine hydrochloride 0.5 MG/ML Injectable Solution intravenously 50.0 mg Re-initiate treatment only upon physician approval. 2024 active 05/31 famotidine 10 MG/ML Injectable Solution intravenously 20.0 mg Re-initiate treatment only upon physician approval. 2024 active 05/31 hydrocortisone 100 MG Injection intravenously 100.0 mg Re-initiate treatment only upon physician approval. 2024 active 05/31 1 ML epinephrine 1 MG/ML Injection intramuscularly 0.3 mg once Re-initiate treatment only upon physician approval. 2024 active 05/31 methylprednisolone 2000 MG Injection intravenously 125.0 mg Re-initiate treatment only upon physician approval. 2024 active 05/03 1 ML epinephrine 1 MG/ML Injection intramuscularly 0.3 mg once Re-initiate treatment only upon physician approval. 2024 active 05/03 methylprednisolone 2000 MG Injection intravenously 125.0 mg Re-initiate treatment only upon physician approval. 2024 active 05/03 hydrocortisone 100 MG Injection intravenously 100.0 mg Re-initiate treatment only upon physician approval. 2024 active 05/03 diphenhydramine hydrochloride 0.5 MG/ML Injectable Solution intravenously 50.0 mg Re-initiate treatment only upon physician approval. 2024 active 05/03 famotidine 10 MG/ML Injectable Solution intravenously 20.0 mg Re-initiate treatment only upon physician approval. 2024 active 04/05 hydrocortisone 100 MG Injection intravenously 100.0 mg Re-initiate treatment only upon physician approval. 2024 active 04/05 famotidine 10 MG/ML Injectable Solution intravenously 20.0 mg Re-initiate treatment only upon physician approval. 2024 active 04/05 methylprednisolone 2000 MG Injection intravenously 125.0 mg Re-initiate treatment only upon physician approval. 2024 active 04/05 1 ML epinephrine 1 MG/ML Injection intramuscularly 0.3 mg once Re-initiate treatment only upon physician approval. 2024 active 04/05 diphenhydramine hydrochloride 0.5 MG/ML Injectable Solution intravenously 50.0 mg Re-initiate treatment only upon physician approval. 2024 active 03/08 diphenhydramine hydrochloride 0.5 MG/ML Injectable Solution intravenously 50.0 mg Re-initiate treatment only upon physician approval. 2024 active 03/08 famotidine 10 MG/ML Injectable Solution intravenously 20.0 mg Re-initiate treatment only upon physician approval. 2024 active 03/08 methylprednisolone 2000 MG Injection intravenously 125.0 mg Re-initiate treatment only upon physician approval. 2024 active 03/08 hydrocortisone 100 MG Injection intravenously 100.0 mg Re-initiate treatment only upon physician approval. 2024 active 03/08 1 ML epinephrine 1 MG/ML Injection intramuscularly 0.3 mg once Re-initiate treatment only upon physician approval. 2024 active 02/08 hydrocortisone 100 MG Injection intravenously 100.0 mg Re-initiate treatment only upon physician approval. 2024 active 02/08 diphenhydramine hydrochloride 0.5 MG/ML Injectable Solution intravenously 50.0 mg Re-initiate treatment only upon physician approval. 2024 active 02/08 famotidine 10 MG/ML Injectable Solution intravenously 20.0 mg Re-initiate treatment only upon physician approval. 2024 active 02/08 methylprednisolone 2000 MG Injection intravenously 125.0 mg Re-initiate treatment only upon physician approval. 2024 active 02/08 1 ML epinephrine 1 MG/ML Injection intramuscularly 0.3 mg once Re-initiate treatment only upon physician approval. 2024 active 01/11 diphenhydramine hydrochloride 0.5 MG/ML Injectable Solution intravenously 50.0 mg Re-initiate treatment only upon physician approval. 2024 active 01/11 famotidine 10 MG/ML Injectable Solution intravenously 20.0 mg Re-initiate treatment only upon physician approval. 2024 active 01/11 1 ML epinephrine 1 MG/ML Injection intramuscularly 0.3 mg once Re-initiate treatment only upon physician approval. 2024 active 01/11 methylprednisolone 2000 MG Injection intravenously 125.0 mg Re-initiate treatment only upon physician approval. 2024 active 01/11 hydrocortisone 100 MG Injection intravenously 100.0 mg Re-initiate treatment only upon physician approval. 2024 active 12/14 methylprednisolone 2000 MG Injection intravenously 125.0 mg Re-initiate treatment only upon physician approval. 2024 active 12/14 diphenhydramine hydrochloride 0.5 MG/ML Injectable Solution intravenously 50.0 mg Re-initiate treatment only upon physician approval. 2024 active 12/14 famotidine 10 MG/ML Injectable Solution intravenously 20.0 mg Re-initiate treatment only upon physician approval. 2024 active 12/14 1 ML epinephrine 1 MG/ML Injection intramuscularly 0.3 mg once Re-initiate treatment only upon physician approval. 2024 active 12/14 hydrocortisone 100 MG Injection intravenously 100.0 mg Re-initiate treatment only upon physician approval. 2024 active 11/16 diphenhydramine hydrochloride 0.5 MG/ML Injectable Solution intravenously 50.0 mg Re-initiate treatment only upon physician approval. 2024 active 11/16 hydrocortisone 100 MG Injection intravenously 100.0 mg Re-initiate treatment only upon physician approval. 2024 active 11/16 famotidine 10 MG/ML Injectable Solution intravenously 20.0 mg Re-initiate treatment only upon physician approval. 2024 active 11/16 1 ML epinephrine 1 MG/ML Injection intramuscularly 0.3 mg once Re-initiate treatment only upon physician approval. 2024 active 11/16 methylprednisolone 2000 MG Injection intravenously 125.0 mg Re-initiate treatment only upon physician approval. 2024 active 10/19 hydrocortisone 100 MG Injection intravenously 100.0 mg Re-initiate treatment only upon physician approval. 2023 active 10/19 1 ML epinephrine 1 MG/ML Injection intramuscularly 0.3 mg once Re-initiate treatment only upon physician approval. 2023 active 10/19 diphenhydramine hydrochloride 0.5 MG/ML Injectable Solution intravenously 50.0 mg Re-initiate treatment only upon physician approval. 2023 active 10/19 famotidine 10 MG/ML Injectable Solution intravenously 20.0 mg Re-initiate treatment only upon physician approval. 2023 active 10/19 methylprednisolone 2000 MG Injection intravenously 125.0 mg Re-initiate treatment only upon physician approval. 2023 active 09/21 hydrocortisone 100 MG Injection intravenously 100.0 mg Re-initiate treatment only upon physician approval. 2023 active 09/21 methylprednisolone 2000 MG Injection intravenously 125.0 mg Re-initiate treatment only upon physician approval. 2023 active 09/21 1 ML epinephrine 1 MG/ML Injection intramuscularly 0.3 mg once Re-initiate treatment only upon physician approval. 2023 active 09/21 diphenhydramine hydrochloride 0.5 MG/ML Injectable Solution intravenously 50.0 mg Re-initiate treatment only upon physician approval. 2023 active 09/21 famotidine 10 MG/ML Injectable Solution intravenously 20.0 mg Re-initiate treatment only upon physician approval. 2023 active 08/24 hydrocortisone 100 MG Injection intravenously 100.0 mg Re-initiate treatment only upon physician approval. 2023 active 08/24 diphenhydramine hydrochloride 0.5 MG/ML Injectable Solution intravenously 50.0 mg Re-initiate treatment only upon physician approval. 2023 active 08/24 1 ML epinephrine 1 MG/ML Injection intramuscularly 0.3 mg once Re-initiate treatment only upon physician approval. 2023 active 08/24 methylprednisolone 2000 MG Injection intravenously 125.0 mg Re-initiate treatment only upon physician approval. 2023 active 08/24 famotidine 10 MG/ML Injectable Solution intravenously 20.0 mg Re-initiate treatment only upon physician approval. 2023 active 07/27 famotidine 10 MG/ML Injectable Solution intravenously 20.0 mg Re-initiate treatment only upon physician approval. 2023 active 07/27 methylprednisolone 2000 MG Injection intravenously 125.0 mg Re-initiate treatment only upon physician approval. 2023 active 07/27 hydrocortisone 100 MG Injection intravenously 100.0 mg Re-initiate treatment only upon physician approval. 2023 active 07/27 diphenhydramine hydrochloride 0.5 MG/ML Injectable Solution intravenously 50.0 mg Re-initiate treatment only upon physician approval. 2023 active 07/27 1 ML epinephrine 1 MG/ML Injection intramuscularly 0.3 mg once Re-initiate treatment only upon physician approval. 2023 active 06/29 diphenhydramine hydrochloride 0.5 MG/ML Injectable Solution intravenously 50.0 mg Re-initiate treatment only upon physician approval. 2023 active 06/29 hydrocortisone 100 MG Injection intravenously 100.0 mg Re-initiate treatment only upon physician approval. 2023 active 06/29 methylprednisolone 2000 MG Injection intravenously 125.0 mg Re-initiate treatment only upon physician approval. 2023 active 06/29 1 ML epinephrine 1 MG/ML Injection intramuscularly 0.3 mg once Re-initiate treatment only upon physician approval. 2023 active 06/29 famotidine 10 MG/ML Injectable Solution intravenously 20.0 mg Re-initiate treatment only upon physician approval. 2023 active 06/01 famotidine 10 MG/ML Injectable Solution intravenously 20.0 mg Re-initiate treatment only upon physician approval. 2023 active 06/01 methylprednisolone 2000 MG Injection intravenously 125.0 mg Re-initiate treatment only upon physician approval. 2023 active 06/01 1 ML epinephrine 1 MG/ML Injection intramuscularly 0.3 mg once Re-initiate treatment only upon physician approval. 2023 active 06/01 diphenhydramine hydrochloride 0.5 MG/ML Injectable Solution intravenously 50.0 mg Re-initiate treatment only upon physician approval. 2023 active 06/01 hydrocortisone 100 MG Injection intravenously 100.0 mg Re-initiate treatment only upon physician approval. 2023 active 05/04 1 ML epinephrine 1 MG/ML Injection intramuscularly 0.3 mg once Re-initiate treatment only upon physician approval. 2023 active 05/04 diphenhydramine hydrochloride 0.5 MG/ML Injectable Solution intravenously 50.0 mg Re-initiate treatment only upon physician approval. 2023 active 05/04 hydrocortisone 100 MG Injection intravenously 100.0 mg Re-initiate treatment only upon physician approval. 2023 active 05/04 methylprednisolone 2000 MG Injection intravenously 125.0 mg Re-initiate treatment only upon physician approval. 2023 active 05/04 famotidine 10 MG/ML Injectable Solution intravenously 20.0 mg Re-initiate treatment only upon physician approval. 2023 active 04/06 diphenhydramine hydrochloride 0.5 MG/ML Injectable Solution intravenously 50.0 mg Re-initiate treatment only upon physician approval. 2023 active 04/06 hydrocortisone 100 MG Injection intravenously 100.0 mg Re-initiate treatment only upon physician approval. 2023 active 04/06 1 ML epinephrine 1 MG/ML Injection intramuscularly 0.3 mg once Re-initiate treatment only upon physician approval. 2023 active 04/06 famotidine 10 MG/ML Injectable Solution intravenously 20.0 mg Re-initiate treatment only upon physician approval. 2023 active 04/06 methylprednisolone 2000 MG Injection intravenously 125.0 mg Re-initiate treatment only upon physician approval. 2023 active 03/22 letrozole 2.5 MG Oral Tablet 2023 active 03/12 letrozole 2.5 MG Oral Tablet 2023 active 03/09 methylprednisolone 2000 MG Injection intravenously 125.0 mg Re-initiate treatment only upon physician approval. 2023 active 03/09 1 ML epinephrine 1 MG/ML Injection intramuscularly 0.3 mg once Re-initiate treatment only upon physician approval. 2023 active 03/09 famotidine 10 MG/ML Injectable Solution intravenously 20.0 mg Re-initiate treatment only upon physician approval. 2023 active 03/09 hydrocortisone 100 MG Injection intravenously 100.0 mg Re-initiate treatment only upon physician approval. 2023 active 03/09 diphenhydramine hydrochloride 0.5 MG/ML Injectable Solution intravenously 50.0 mg Re-initiate treatment only upon physician approval. 2023 active 02/09 famotidine 10 MG/ML Injectable Solution intravenously 20.0 mg Re-initiate treatment only upon physician approval. 2023 active 02/09 methylprednisolone 2000 MG Injection intravenously 125.0 mg Re-initiate treatment only upon physician approval. 2023 active 02/09 1 ML epinephrine 1 MG/ML Injection intramuscularly 0.3 mg once Re-initiate treatment only upon physician approval. 2023 active 02/09 hydrocortisone 100 MG Injection intravenously 100.0 mg Re-initiate treatment only upon physician approval. 2023 active 02/09 diphenhydramine hydrochloride 0.5 MG/ML Injectable Solution intravenously 50.0 mg Re-initiate treatment only upon physician approval. 2023 active 01/13 famotidine 10 MG/ML Injectable Solution intravenously 20.0 mg Re-initiate treatment only upon physician approval. 2023 active 01/13 1 ML epinephrine 1 MG/ML Injection intramuscularly 0.3 mg once Re-initiate treatment only upon physician approval. 2023 active 01/13 diphenhydramine hydrochloride 0.5 MG/ML Injectable Solution intravenously 50.0 mg Re-initiate treatment only upon physician approval. 2023 active 01/13 methylprednisolone 2000 MG Injection intravenously 125.0 mg Re-initiate treatment only upon physician approval. 2023 active 01/13 hydrocortisone 100 MG Injection intravenously 100.0 mg Re-initiate treatment only upon physician approval. 2023 active 12/16 hydrocortisone 100 MG Injection intravenously 100.0 mg Re-initiate treatment only upon physician approval. 2023 active 12/16 1 ML epinephrine 1 MG/ML Injection intramuscularly 0.3 mg once Re-initiate treatment only upon physician approval. 2023 active 12/16 famotidine 10 MG/ML Injectable Solution intravenously 20.0 mg Re-initiate treatment only upon physician approval. 2023 active 12/16 methylprednisolone 2000 MG Injection intravenously 125.0 mg Re-initiate treatment only upon physician approval. 2023 active 12/16 diphenhydramine hydrochloride 0.5 MG/ML Injectable Solution intravenously 50.0 mg Re-initiate treatment only upon physician approval. 2023 active 11/18 hydrocortisone 100 MG Injection intravenously 100.0 mg Re-initiate treatment only upon physician approval. 2023 active 11/18 famotidine 10 MG/ML Injectable Solution intravenously 20.0 mg Re-initiate treatment only upon physician approval. 2023 active 11/18 1 ML epinephrine 1 MG/ML Injection intramuscularly 0.3 mg once Re-initiate treatment only upon physician approval. 2023 active 11/18 diphenhydramine hydrochloride 0.5 MG/ML Injectable Solution intravenously 50.0 mg Re-initiate treatment only upon physician approval. 2023 active 11/18 methylprednisolone 2000 MG Injection intravenously 125.0 mg Re-initiate treatment only upon physician approval. 2023 active 10/29 1 ML epinephrine 1 MG/ML Injection intramuscularly 0.3 mg once Re-initiate treatment only upon physician approval. 2022 active 10/29 diphenhydramine hydrochloride 0.5 MG/ML Injectable Solution intravenously 50.0 mg Re-initiate treatment only upon physician approval. 2022 active 10/29 methylprednisolone 2000 MG Injection intravenously 125.0 mg Re-initiate treatment only upon physician approval. 2022 active 10/29 Zoledronic Acid IV (Zometa) intravenously 4.0 mg once 2022 active 10/29 famotidine 10 MG/ML Injectable Solution intravenously 20.0 mg Re-initiate treatment only upon physician approval. 2022 active 10/29 hydrocortisone 100 MG Injection intravenously 100.0 mg Re-initiate treatment only upon physician approval. 2022 active 10/21 methylprednisolone 2000 MG Injection intravenously 125.0 mg Re-initiate treatment only upon physician approval. 2022 active 10/21 1 ML epinephrine 1 MG/ML Injection intramuscularly 0.3 mg once Re-initiate treatment only upon physician approval. 2022 active 10/21 diphenhydramine hydrochloride 0.5 MG/ML Injectable Solution intravenously 50.0 mg Re-initiate treatment only upon physician approval. 2022 active 10/21 famotidine 10 MG/ML Injectable Solution intravenously 20.0 mg Re-initiate treatment only upon physician approval. 2022 active 10/21 hydrocortisone 100 MG Injection intravenously 100.0 mg Re-initiate treatment only upon physician approval. 2022 active 09/23 diphenhydramine hydrochloride 0.5 MG/ML Injectable Solution intravenously 50.0 mg Re-initiate treatment only upon physician approval. 2022 active 09/23 hydrocortisone 100 MG Injection intravenously 100.0 mg Re-initiate treatment only upon physician approval. 2022 active 09/23 famotidine 10 MG/ML Injectable Solution intravenously 20.0 mg Re-initiate treatment only upon physician approval. 2022 active 09/23 methylprednisolone 2000 MG Injection intravenously 125.0 mg Re-initiate treatment only upon physician approval. 2022 active 09/23 1 ML epinephrine 1 MG/ML Injection intramuscularly 0.3 mg once Re-initiate treatment only upon physician approval. 2022 active 08/26 methylprednisolone 2000 MG Injection intravenously 125.0 mg Re-initiate treatment only upon physician approval. 2022 active 08/26 diphenhydramine hydrochloride 0.5 MG/ML Injectable Solution intravenously 50.0 mg Re-initiate treatment only upon physician approval. 2022 active 08/26 famotidine 10 MG/ML Injectable Solution intravenously 20.0 mg Re-initiate treatment only upon physician approval. 2022 active 08/26 hydrocortisone 100 MG Injection intravenously 100.0 mg Re-initiate treatment only upon physician approval. 2022 active 08/26 1 ML epinephrine 1 MG/ML Injection intramuscularly 0.3 mg once Re-initiate treatment only upon physician approval. 2022 active 07/29 famotidine 10 MG/ML Injectable Solution intravenously 20.0 mg Re-initiate treatment only upon physician approval. 2022 active 07/29 diphenhydramine hydrochloride 0.5 MG/ML Injectable Solution intravenously 50.0 mg Re-initiate treatment only upon physician approval. 2022 active 07/29 methylprednisolone 2000 MG Injection intravenously 125.0 mg Re-initiate treatment only upon physician approval. 2022 active 07/29 1 ML epinephrine 1 MG/ML Injection intramuscularly 0.3 mg once Re-initiate treatment only upon physician approval. 2022 active 07/29 hydrocortisone 100 MG Injection intravenously 100.0 mg Re-initiate treatment only upon physician approval. 2022 active 07/01 1 ML epinephrine 1 MG/ML Injection intramuscularly 0.3 mg once Re-initiate treatment only upon physician approval. 2022 active 07/01 diphenhydramine hydrochloride 0.5 MG/ML Injectable Solution intravenously 50.0 mg Re-initiate treatment only upon physician approval. 2022 active 07/01 methylprednisolone 2000 MG Injection intravenously 125.0 mg Re-initiate treatment only upon physician approval. 2022 active 07/01 famotidine 10 MG/ML Injectable Solution intravenously 20.0 mg Re-initiate treatment only upon physician approval. 2022 active 07/01 hydrocortisone 100 MG Injection intravenously 100.0 mg Re-initiate treatment only upon physician approval. 2022 active 06/03 hydrocortisone 100 MG Injection intravenously 100.0 mg Re-initiate treatment only upon physician approval. 2022 active 06/03 famotidine 10 MG/ML Injectable Solution intravenously 20.0 mg Re-initiate treatment only upon physician approval. 2022 active 06/03 diphenhydramine hydrochloride 0.5 MG/ML Injectable Solution intravenously 50.0 mg Re-initiate treatment only upon physician approval. 2022 active 06/03 methylprednisolone 2000 MG Injection intravenously 125.0 mg Re-initiate treatment only upon physician approval. 2022 active 06/03 1 ML epinephrine 1 MG/ML Injection intramuscularly 0.3 mg once Re-initiate treatment only upon physician approval. 2022 active 05/14 diphenhydramine hydrochloride 0.5 MG/ML Injectable Solution intravenously 50.0 mg Re-initiate treatment only upon physician approval. 2022 active 05/14 methylprednisolone 2000 MG Injection intravenously 125.0 mg Re-initiate treatment only upon physician approval. 2022 active 05/14 famotidine 10 MG/ML Injectable Solution intravenously 20.0 mg Re-initiate treatment only upon physician approval. 2022 active 05/14 1 ML epinephrine 1 MG/ML Injection intramuscularly 0.3 mg once Re-initiate treatment only upon physician approval. 2022 active 05/14 Zoledronic Acid IV (Zometa) intravenously 4.0 mg once 2022 active 05/14 hydrocortisone 100 MG Injection intravenously 100.0 mg Re-initiate treatment only upon physician approval. 2022 active 05/06 famotidine 10 MG/ML Injectable Solution intravenously 20.0 mg Re-initiate treatment only upon physician approval. 2022 active 05/06 hydrocortisone 100 MG Injection intravenously 100.0 mg Re-initiate treatment only upon physician approval. 2022 active 05/06 1 ML epinephrine 1 MG/ML Injection intramuscularly 0.3 mg once Re-initiate treatment only upon physician approval. 2022 active 05/06 methylprednisolone 2000 MG Injection intravenously 125.0 mg Re-initiate treatment only upon physician approval. 2022 active 05/06 diphenhydramine hydrochloride 0.5 MG/ML Injectable Solution intravenously 50.0 mg Re-initiate treatment only upon physician approval. 2022 active 04/08 hydrocortisone 100 MG Injection intravenously 100.0 mg Re-initiate treatment only upon physician approval. 2022 active 04/08 diphenhydramine hydrochloride 0.5 MG/ML Injectable Solution intravenously 50.0 mg Re-initiate treatment only upon physician approval. 2022 active 04/08 famotidine 10 MG/ML Injectable Solution intravenously 20.0 mg Re-initiate treatment only upon physician approval. 2022 active 04/08 methylprednisolone 2000 MG Injection intravenously 125.0 mg Re-initiate treatment only upon physician approval. 2022 active 04/08 1 ML epinephrine 1 MG/ML Injection intramuscularly 0.3 mg once Re-initiate treatment only upon physician approval. 2022 active 03/11 famotidine 10 MG/ML Injectable Solution intravenously 20.0 mg Re-initiate treatment only upon physician approval. 2022 active 03/11 hydrocortisone 100 MG Injection intravenously 100.0 mg Re-initiate treatment only upon physician approval. 2022 active 03/11 1 ML epinephrine 1 MG/ML Injection intramuscularly 0.3 mg once Re-initiate treatment only upon physician approval. 2022 active 03/11 methylprednisolone 2000 MG Injection intravenously 125.0 mg Re-initiate treatment only upon physician approval. 2022 active 03/11 diphenhydramine hydrochloride 0.5 MG/ML Injectable Solution intravenously 50.0 mg Re-initiate treatment only upon physician approval. 2022 active 03/04 letrozole 2.5 MG Oral Tablet 2022 active 02/11 diphenhydramine hydrochloride 0.5 MG/ML Injectable Solution intravenously 50.0 mg Re-initiate treatment only upon physician approval. 2022 active 02/11 hydrocortisone 100 MG Injection intravenously 100.0 mg Re-initiate treatment only upon physician approval. 2022 active 02/11 1 ML epinephrine 1 MG/ML Injection intramuscularly 0.3 mg once Re-initiate treatment only upon physician approval. 2022 active 02/11 methylprednisolone 2000 MG Injection intravenously 125.0 mg Re-initiate treatment only upon physician approval. 2022 active 02/11 famotidine 10 MG/ML Injectable Solution intravenously 20.0 mg Re-initiate treatment only upon physician approval. 2022 active 01/14 diphenhydramine hydrochloride 0.5 MG/ML Injectable Solution intravenously 50.0 mg Re-initiate treatment only upon physician approval. 2022 active 01/14 1 ML epinephrine 1 MG/ML Injection intramuscularly 0.3 mg once Re-initiate treatment only upon physician approval. 2022 active 01/14 goserelin 3.6 MG Drug Implant subcutaneously 3.6 mg once 2022 active 01/14 methylprednisolone 2000 MG Injection intravenously 125.0 mg Re-initiate treatment only upon physician approval. 2022 active 01/14 hydrocortisone 100 MG Injection intravenously 100.0 mg Re-initiate treatment only upon physician approval. 2022 active 01/14 famotidine 10 MG/ML Injectable Solution intravenously 20.0 mg Re-initiate treatment only upon physician approval. 2022 active 12/17 1 ML epinephrine 1 MG/ML Injection intramuscularly 0.3 mg once Re-initiate treatment only upon physician approval. 2022 active 12/17 diphenhydramine hydrochloride 0.5 MG/ML Injectable Solution intravenously 50.0 mg Re-initiate treatment only upon physician approval. 2022 active 12/17 hydrocortisone 100 MG Injection intravenously 100.0 mg Re-initiate treatment only upon physician approval. 2022 active 12/17 famotidine 10 MG/ML Injectable Solution intravenously 20.0 mg Re-initiate treatment only upon physician approval. 2022 active 12/17 methylprednisolone 2000 MG Injection intravenously 125.0 mg Re-initiate treatment only upon physician approval. 2022 active 11/19 famotidine 10 MG/ML Injectable Solution intravenously 20.0 mg Re-initiate treatment only upon physician approval. 2022 active 11/19 1 ML epinephrine 1 MG/ML Injection intramuscularly 0.3 mg once Re-initiate treatment only upon physician approval. 2022 active 11/19 methylprednisolone 2000 MG Injection intravenously 125.0 mg Re-initiate treatment only upon physician approval. 2022 active 11/19 hydrocortisone 100 MG Injection intravenously 100.0 mg Re-initiate treatment only upon physician approval. 2022 active 11/19 diphenhydramine hydrochloride 0.5 MG/ML Injectable Solution intravenously 50.0 mg Re-initiate treatment only upon physician approval. 2022 active 10/22 diphenhydramine hydrochloride 0.5 MG/ML Injectable Solution intravenously 50.0 mg Re-initiate treatment only upon physician approval. 2021 active 10/22 1 ML epinephrine 1 MG/ML Injection intramuscularly 0.3 mg once Re-initiate treatment only upon physician approval. 2021 active 10/22 methylprednisolone 2000 MG Injection intravenously 125.0 mg Re-initiate treatment only upon physician approval. 2021 active 10/22 hydrocortisone 100 MG Injection intravenously 100.0 mg Re-initiate treatment only upon physician approval. 2021 active 10/22 famotidine 10 MG/ML Injectable Solution intravenously 20.0 mg Re-initiate treatment only upon physician approval. 2021 active 09/23 methylprednisolone 2000 MG Injection intravenously 125.0 mg Re-initiate treatment only upon physician approval. 2021 active 09/23 1 ML epinephrine 1 MG/ML Injection intramuscularly 0.3 mg once Re-initiate treatment only upon physician approval. 2021 active 09/23 hydrocortisone 100 MG Injection intravenously 100.0 mg Re-initiate treatment only upon physician approval. 2021 active 09/23 famotidine 10 MG/ML Injectable Solution intravenously 20.0 mg Re-initiate treatment only upon physician approval. 2021 active 09/23 diphenhydramine hydrochloride 0.5 MG/ML Injectable Solution intravenously 50.0 mg Re-initiate treatment only upon physician approval. 2021 active 08/26 methylprednisolone 2000 MG Injection intravenously 125.0 mg Re-initiate treatment only upon physician approval. 2021 active 08/26 famotidine 10 MG/ML Injectable Solution intravenously 20.0 mg Re-initiate treatment only upon physician approval. 2021 active 08/26 hydrocortisone 100 MG Injection intravenously 100.0 mg Re-initiate treatment only upon physician approval. 2021 active 08/26 1 ML epinephrine 1 MG/ML Injection intramuscularly 0.3 mg once Re-initiate treatment only upon physician approval. 2021 active 08/26 diphenhydramine hydrochloride 0.5 MG/ML Injectable Solution intravenously 50.0 mg Re-initiate treatment only upon physician approval. 2021 active 07/29 diphenhydramine hydrochloride 0.5 MG/ML Injectable Solution intravenously 50.0 mg Re-initiate treatment only upon physician approval. 2021 active 07/29 1 ML epinephrine 1 MG/ML Injection intramuscularly 0.3 mg once Re-initiate treatment only upon physician approval. 2021 active 07/29 hydrocortisone 100 MG Injection intravenously 100.0 mg Re-initiate treatment only upon physician approval. 2021 active 07/29 methylprednisolone 2000 MG Injection intravenously 125.0 mg Re-initiate treatment only upon physician approval. 2021 active 07/29 famotidine 10 MG/ML Injectable Solution intravenously 20.0 mg Re-initiate treatment only upon physician approval. 2021 active 07/01 diphenhydramine hydrochloride 0.5 MG/ML Injectable Solution intravenously 50.0 mg Re-initiate treatment only upon physician approval. 2021 active 07/01 hydrocortisone 100 MG Injection intravenously 100.0 mg Re-initiate treatment only upon physician approval. 2021 active 07/01 1 ML epinephrine 1 MG/ML Injection intramuscularly 0.3 mg once Re-initiate treatment only upon physician approval. 2021 active 07/01 methylprednisolone 2000 MG Injection intravenously 125.0 mg Re-initiate treatment only upon physician approval. 2021 active 07/01 famotidine 10 MG/ML Injectable Solution intravenously 20.0 mg Re-initiate treatment only upon physician approval. 2021 active 06/03 diphenhydramine hydrochloride 0.5 MG/ML Injectable Solution intravenously 50.0 mg Re-initiate treatment only upon physician approval. 2021 active 06/03 1 ML epinephrine 1 MG/ML Injection intramuscularly 0.3 mg once Re-initiate treatment only upon physician approval. 2021 active 06/03 famotidine 10 MG/ML Injectable Solution intravenously 20.0 mg Re-initiate treatment only upon physician approval. 2021 active 06/03 methylprednisolone 2000 MG Injection intravenously 125.0 mg Re-initiate treatment only upon physician approval. 2021 active 06/03 hydrocortisone 100 MG Injection intravenously 100.0 mg Re-initiate treatment only upon physician approval. 2021 active 05/06 methylprednisolone 2000 MG Injection intravenously 125.0 mg Re-initiate treatment only upon physician approval. 2021 active 05/06 1 ML epinephrine 1 MG/ML Injection intramuscularly 0.3 mg once Re-initiate treatment only upon physician approval. 2021 active 05/06 famotidine 10 MG/ML Injectable Solution intravenously 20.0 mg Re-initiate treatment only upon physician approval. 2021 active 05/06 diphenhydramine hydrochloride 0.5 MG/ML Injectable Solution intravenously 50.0 mg Re-initiate treatment only upon physician approval. 2021 active 05/06 hydrocortisone 100 MG Injection intravenously 100.0 mg Re-initiate treatment only upon physician approval. 2021 active 04/08 diphenhydramine hydrochloride 0.5 MG/ML Injectable Solution intravenously 50.0 mg Re-initiate treatment only upon physician approval. 2021 active 04/08 hydrocortisone 100 MG Injection intravenously 100.0 mg Re-initiate treatment only upon physician approval. 2021 active 04/08 famotidine 10 MG/ML Injectable Solution intravenously 20.0 mg Re-initiate treatment only upon physician approval. 2021 active 04/08 1 ML epinephrine 1 MG/ML Injection intramuscularly 0.3 mg once Re-initiate treatment only upon physician approval. 2021 active 04/08 methylprednisolone 2000 MG Injection intravenously 125.0 mg Re-initiate treatment only upon physician approval. 2021 active 03/11 diphenhydramine hydrochloride 0.5 MG/ML Injectable Solution intravenously 50.0 mg Re-initiate treatment only upon physician approval. 2021 active 03/11 methylprednisolone 2000 MG Injection intravenously 125.0 mg Re-initiate treatment only upon physician approval. 2021 active 03/11 1 ML epinephrine 1 MG/ML Injection intramuscularly 0.3 mg once Re-initiate treatment only upon physician approval. 2021 active 03/11 famotidine 10 MG/ML Injectable Solution intravenously 20.0 mg Re-initiate treatment only upon physician approval. 2021 active 03/11 hydrocortisone 100 MG Injection intravenously 100.0 mg Re-initiate treatment only upon physician approval. 2021 active 02/11 1 ML epinephrine 1 MG/ML Injection intramuscularly 0.3 mg once Re-initiate treatment only upon physician approval. 2021 active 02/11 diphenhydramine hydrochloride 0.5 MG/ML Injectable Solution intravenously 50.0 mg Re-initiate treatment only upon physician approval. 2021 active 02/11 famotidine 10 MG/ML Injectable Solution intravenously 20.0 mg Re-initiate treatment only upon physician approval. 2021 active 02/11 methylprednisolone 2000 MG Injection intravenously 125.0 mg Re-initiate treatment only upon physician approval. 2021 active 02/11 hydrocortisone 100 MG Injection intravenously 100.0 mg Re-initiate treatment only upon physician approval. 2021 active 01/14 diphenhydramine hydrochloride 0.5 MG/ML Injectable Solution intravenously 50.0 mg Re-initiate treatment only upon physician approval. 2021 active 01/14 1 ML epinephrine 1 MG/ML Injection intramuscularly 0.3 mg once Re-initiate treatment only upon physician approval. 2021 active 01/14 famotidine 10 MG/ML Injectable Solution intravenously 20.0 mg Re-initiate treatment only upon physician approval. 2021 active 01/14 methylprednisolone 2000 MG Injection intravenously 125.0 mg Re-initiate treatment only upon physician approval. 2021 active 01/14 hydrocortisone 100 MG Injection intravenously 100.0 mg Re-initiate treatment only upon physician approval. 2021 active 12/23 letrozole 2.5 MG Oral Tablet 2021 active 12/17 diphenhydramine hydrochloride 0.5 MG/ML Injectable Solution intravenously 50.0 mg Re-initiate treatment only upon physician approval. 2021 active 12/17 famotidine 10 MG/ML Injectable Solution intravenously 20.0 mg Re-initiate treatment only upon physician approval. 2021 active 12/17 1 ML epinephrine 1 MG/ML Injection intramuscularly 0.3 mg once Re-initiate treatment only upon physician approval. 2021 active 12/17 methylprednisolone 2000 MG Injection intravenously 125.0 mg Re-initiate treatment only upon physician approval. 2021 active 12/17 hydrocortisone 100 MG Injection intravenously 100.0 mg Re-initiate treatment only upon physician approval. 2021 active 11/19 diphenhydramine hydrochloride 0.5 MG/ML Injectable Solution intravenously 50.0 mg Re-initiate treatment only upon physician approval. 2021 active 11/19 methylprednisolone 2000 MG Injection intravenously 125.0 mg Re-initiate treatment only upon physician approval. 2021 active 11/19 1 ML epinephrine 1 MG/ML Injection intramuscularly 0.3 mg once Re-initiate treatment only upon physician approval. 2021 active 11/19 hydrocortisone 100 MG Injection intravenously 100.0 mg Re-initiate treatment only upon physician approval. 2021 active 11/19 famotidine 10 MG/ML Injectable Solution intravenously 20.0 mg Re-initiate treatment only upon physician approval. 2021 active 10/22 hydrocortisone 100 MG Injection intravenously 100.0 mg Re-initiate treatment only upon physician approval. 2020 active 10/22 diphenhydramine hydrochloride 0.5 MG/ML Injectable Solution intravenously 50.0 mg Re-initiate treatment only upon physician approval. 2020 active 10/22 famotidine 10 MG/ML Injectable Solution intravenously 20.0 mg Re-initiate treatment only upon physician approval. 2020 active 10/22 1 ML epinephrine 1 MG/ML Injection intramuscularly 0.3 mg once Re-initiate treatment only upon physician approval. 2020 active 10/22 methylprednisolone 2000 MG Injection intravenously 125.0 mg Re-initiate treatment only upon physician approval. 2020 active 09/24 1 ML epinephrine 1 MG/ML Injection intramuscularly 0.3 mg once Re-initiate treatment only upon physician approval. 2020 active 09/24 methylprednisolone 2000 MG Injection intravenously 125.0 mg Re-initiate treatment only upon physician approval. 2020 active 09/24 diphenhydramine hydrochloride 0.5 MG/ML Injectable Solution intravenously 50.0 mg Re-initiate treatment only upon physician approval. 2020 active 09/24 hydrocortisone 100 MG Injection intravenously 100.0 mg Re-initiate treatment only upon physician approval. 2020 active 09/24 famotidine 10 MG/ML Injectable Solution intravenously 20.0 mg Re-initiate treatment only upon physician approval. 2020 active 08/27 hydrocortisone 100 MG Injection intravenously 100.0 mg Re-initiate treatment only upon physician approval. 2020 active 08/27 diphenhydramine hydrochloride 0.5 MG/ML Injectable Solution intravenously 50.0 mg Re-initiate treatment only upon physician approval. 2020 active 08/27 famotidine 10 MG/ML Injectable Solution intravenously 20.0 mg Re-initiate treatment only upon physician approval. 2020 active 08/27 1 ML epinephrine 1 MG/ML Injection intramuscularly 0.3 mg once Re-initiate treatment only upon physician approval. 2020 active 08/27 methylprednisolone 2000 MG Injection intravenously 125.0 mg Re-initiate treatment only upon physician approval. 2020 active 07/30 hydrocortisone 100 MG Injection intravenously 100.0 mg Re-initiate treatment only upon physician approval. 2020 active 07/30 famotidine 10 MG/ML Injectable Solution intravenously 20.0 mg Re-initiate treatment only upon physician approval. 2020 active 07/30 1 ML epinephrine 1 MG/ML Injection intramuscularly 0.3 mg once Re-initiate treatment only upon physician approval. 2020 active 07/30 diphenhydramine hydrochloride 0.5 MG/ML Injectable Solution intravenously 50.0 mg Re-initiate treatment only upon physician approval. 2020 active 07/30 methylprednisolone 2000 MG Injection intravenously 125.0 mg Re-initiate treatment only upon physician approval. 2020 active 07/02 1 ML epinephrine 1 MG/ML Injection intramuscularly 0.3 mg once Re-initiate treatment only upon physician approval. 2020 active 07/02 diphenhydramine hydrochloride 0.5 MG/ML Injectable Solution intravenously 50.0 mg Re-initiate treatment only upon physician approval. 2020 active 07/02 hydrocortisone 100 MG Injection intravenously 100.0 mg Re-initiate treatment only upon physician approval. 2020 active 07/02 famotidine 10 MG/ML Injectable Solution intravenously 20.0 mg Re-initiate treatment only upon physician approval. 2020 active 07/02 methylprednisolone 2000 MG Injection intravenously 125.0 mg Re-initiate treatment only upon physician approval. 2020 active 06/04 diphenhydramine hydrochloride 0.5 MG/ML Injectable Solution intravenously 50.0 mg Re-initiate treatment only upon physician approval. 2020 active 06/04 methylprednisolone 2000 MG Injection intravenously 125.0 mg Re-initiate treatment only upon physician approval. 2020 active 06/04 hydrocortisone 100 MG Injection intravenously 100.0 mg Re-initiate treatment only upon physician approval. 2020 active 06/04 famotidine 10 MG/ML Injectable Solution intravenously 20.0 mg Re-initiate treatment only upon physician approval. 2020 active 06/04 1 ML epinephrine 1 MG/ML Injection intramuscularly 0.3 mg once Re-initiate treatment only upon physician approval. 2020 active 05/07 1 ML epinephrine 1 MG/ML Injection intramuscularly 0.3 mg once Re-initiate treatment only upon physician approval. 2020 active 05/07 hydrocortisone 100 MG Injection intravenously 100.0 mg Re-initiate treatment only upon physician approval. 2020 active 05/07 methylprednisolone 2000 MG Injection intravenously 125.0 mg Re-initiate treatment only upon physician approval. 2020 active 05/07 famotidine 10 MG/ML Injectable Solution intravenously 20.0 mg Re-initiate treatment only upon physician approval. 2020 active 05/07 diphenhydramine hydrochloride 0.5 MG/ML Injectable Solution intravenously 50.0 mg Re-initiate treatment only upon physician approval. 2020 active 04/09 hydrocortisone 100 MG Injection intravenously 100.0 mg Re-initiate treatment only upon physician approval. 2020 active 04/09 1 ML epinephrine 1 MG/ML Injection intramuscularly 0.3 mg once Re-initiate treatment only upon physician approval. 2020 active 04/09 diphenhydramine hydrochloride 0.5 MG/ML Injectable Solution intravenously 50.0 mg Re-initiate treatment only upon physician approval. 2020 active 04/09 famotidine 10 MG/ML Injectable Solution intravenously 20.0 mg Re-initiate treatment only upon physician approval. 2020 active 04/09 methylprednisolone 2000 MG Injection intravenously 125.0 mg Re-initiate treatment only upon physician approval. 2020 active 03/12 1 ML epinephrine 1 MG/ML Injection intramuscularly 0.3 mg once Re-initiate treatment only upon physician approval. 2020 active 03/12 methylprednisolone 2000 MG Injection intravenously 125.0 mg Re-initiate treatment only upon physician approval. 2020 active 03/12 hydrocortisone 100 MG Injection intravenously 100.0 mg Re-initiate treatment only upon physician approval. 2020 active 03/12 diphenhydramine hydrochloride 0.5 MG/ML Injectable Solution intravenously 50.0 mg Re-initiate treatment only upon physician approval. 2020 active 03/12 famotidine 10 MG/ML Injectable Solution intravenously 20.0 mg Re-initiate treatment only upon physician approval. 2020 active 02/12 famotidine 10 MG/ML Injectable Solution intravenously 20.0 mg Re-initiate treatment only upon physician approval. 2020 active 02/12 methylprednisolone 2000 MG Injection intravenously 125.0 mg Re-initiate treatment only upon physician approval. 2020 active 02/12 1 ML epinephrine 1 MG/ML Injection intramuscularly 0.3 mg once Re-initiate treatment only upon physician approval. 2020 active 02/12 hydrocortisone 100 MG Injection intravenously 100.0 mg Re-initiate treatment only upon physician approval. 2020 active 02/12 diphenhydramine hydrochloride 0.5 MG/ML Injectable Solution intravenously 50.0 mg Re-initiate treatment only upon physician approval. 2020 active 01/15 hydrocortisone 100 MG Injection intravenously 100.0 mg Re-initiate treatment only upon physician approval. 2020 active 01/15 1 ML epinephrine 1 MG/ML Injection intramuscularly 0.3 mg once Re-initiate treatment only upon physician approval. 2020 active 01/15 famotidine 10 MG/ML Injectable Solution intravenously 20.0 mg Re-initiate treatment only upon physician approval. 2020 active 01/15 methylprednisolone 2000 MG Injection intravenously 125.0 mg Re-initiate treatment only upon physician approval. 2020 active 01/15 diphenhydramine hydrochloride 0.5 MG/ML Injectable Solution intravenously 50.0 mg Re-initiate treatment only upon physician approval. 2020 active 02/02 /2021 methylprednisolone 2000 MG Injection intravenously 125.0 mg Re-initiate treatment only upon physician approval. 2020 active 12/18 diphenhydramine hydrochloride 0.5 MG/ML Injectable Solution intravenously 50.0 mg Re-initiate treatment only upon physician approval. 2020 active 12/18 1 ML epinephrine 1 MG/ML Injection intramuscularly 0.3 mg once Re-initiate treatment only upon physician approval. 2020 active 12/18 famotidine 10 MG/ML Injectable Solution intravenously 20.0 mg Re-initiate treatment only upon physician approval. 2020 active 12/18 hydrocortisone 100 MG Injection intravenously 100.0 mg Re-initiate treatment only upon physician approval. 2020 active Problems Diagnosis Status Date of Diagnosi s Multiple sclerosis (disorder) Active Breast cancer, female Active 10/04/2020 Nausea Active Hot flashes Active Postmenopausal state (finding) Active Breast pain Active Estrogen receptor positive status [ER+] Active 04/18/2024 Hypothyroidism Active Fatigue Active Osteopenia Active History of malignant neoplasm of breast (situati on) Active Encounter for other plastic and reconstructive surgery following medical procedure or healed injury Active Blurry vision Active Vital Signs Date Type Value 03/16/2023 Pain Scale 0.00 03/16/2023 Height 63.00 04/15/2024 Body Temperature 98.00 04/15/2024 BSA 1.73 04/15/2024 BMI 27.35 04/15/2024 Height 63.00 04/15/2024 Weight 154.40 04/15/2024 Pain Scale 3.00 04/15/2024 Intravascular Systolic 144 04/15/2024 Intravascular Diastolic 100 04/15/2024 Oxygen Saturation 98.00 04/15/2024 Respiratory Rate 16.00 04/15/2024 Heart Beat 94.00 10/03/2024 Body Temperature 97.70 10/03/2024 Heart Beat 89.00 10/03/2024 BSA 1.76 10/03/2024 BMI 28.24 10/03/2024 Respiratory Rate 16.00 10/03/2024 Weight 159.40 10/03/2024 Pain Scale 0.00 10/03/2024 Intravascular Systolic 130 10/03/2024 Intravascular Diastolic 100 10/03/2024 Oxygen Saturation 98.00 10/03/2024 Height 63.00 Notes Section * Rad Onc New Consult RADIATION ONCOLOGY CONSULT NOTE Patient Name: EYAD FLOREZ Date of : 1975 Date of Service: 03/16/2023 Care Team: Primary Radiation Physician: Panchito Phan MD Primary Oncology Physician:??Panchito Phan (Radiation Oncology), Georgia Gilmore (Hematology/Oncology) Referring Physician: Panchito Estrada???MD Gee (General Surgery) Chief Complaint (Radiation): Right breast cancer Assessment & Plan (Radiation): 1. ??Locally advanced??right breast cancer with internal mammary adenopathy s/p 2.5 years of neoadjuvant endocrine therapy I discussed the situation in detail with the patient.?? She has had a nice response to long-term endocrine therapy??and is considering her surgical and adjuvant radiotherapy treatment options.?? I discussed that the radiation recommendations will vary based on the type of surgery pursued. ??However, I would likely recommend radiation delivered to the breast (or??chest wall or reconstructed breast)??along with comprehensive regional lymph node radiation.?? She would need a boost to the initiallyinvolved but undissected internal mammary lymph nodes. We discussed logistics of simulation,??treatment planning, daily treatments, on treatment visits and subsequent follow-up.? We discussed the risks associated with radiotherapy, including, but not limited to fatigue, radiation dermatitis, desquamation, cosmetic changes, lymphedema, esophagitis, pneumonitis and the low riskof cardiac complications, secondary malignancy and brachial plexopathy. ??In addition, if a reconstruction takes place, we discussed up to a 20-30% risk of reconstructive complications necessitating implant removal or replacement. We discussed the need for ipsilateral hris analyst overexpansion and contralateral deflation for the duration of radiotherapy if she chooses reconstruction.?? Due to her MS, she has episodes that occur unpredictably that confer difficulty breathing. As such,lowering her pneumonitis risk as much as possible would be advantageous and proton therapy may be beneficial. She is interested in exploring proton therapy so I will arrange a referral.?? The patient was given the opportunity to ask questions, which I answered. ??She knows to contact meif she has any additional questions. I explained the multidisciplinary nature of cancer care and the role of the various team members. Thank you for the opportunity to participate in the care of this patient. ??If I can be of further assistance or you require additional documentation, please do not hesitate to contact our office. Advance Care Plan: Pain Care Scale & Plan: Pain Scale: 0 Plan: Date of Service: 03/16/2023 Pain Scale (0-10): 0 Pain Treatment Plan: No pain reported Comment: Psycho-social PHQ-9 Follow-up Plan (if applicable):?? Depression Status Was screened; Outcome positive: No; Screening Date: 02/10/2023; Screening Tool: PRIME MD-PHQ2; Total depression score: 0 Tobacco Screening & Cessation: Smoking Status: Smoking Tobacco : Never smoker; Smokeless Tobacco : Never used smokeless tobacco; Vaping : Never vaped Cessation Counseling: Interval History: Doing well overall. However, has multiple sclerosis and experiences significant fatigue. She also describes episodes called an MS Hug where she has tightness in the chest and trouble breathing.?? History of Present Illness (Radiation): Ms. Florez??is a pleasant 47-year-old woman with the following oncologic history: 1.?? September 2020, diagnosed with breast cancer. ??Imaging revealed a 3.5 cm??1:00 right breast mass??with prominent??axillary??adenopathy and??probable internal mammary adenopathy.?? A biopsy confirmed??invasive ductal carcinoma, grade 2, ER positive (90%), PA positive (90%), HER2 negative.?? MammaPrint was low risk. 2.?December 2020,??neoadjuvant therapy with goserelin and letrozole. 3. ??April 2021, breast MRI showed a decrease in size of the mass??and improvement in adenopathy. 4.?? November 2021, MRI showed??minimal enhancement in the biopsy-proven disease. ??No adenopathy. 5. ??December 2022, underwent laparoscopic bilateral salpingo-oophorectomy. Prior Radiation Summary: None Review of Systems (Radiation): As documented in the HPI. Remainder of the complete review of systems is otherwise negative. Past Medical History (Radiation): Multiple sclerosis with significant fatigue Breast cancer Allergies: No known medication allergies Updated on today's visit and reviewed by me. Current Medications: Documented in the EHR. Updated on today's visit and reviewed by me. Health Maintenance: Screenings: No recorded screenings. Immunizations: Covid-19 vaccine (Pfizer) (10/22/2021), Patient declined/rejected; Flu vaccine - Adult (10/2021), Patient declined/rejected Social History: Smoking Status Smoking Tobacco : Never smoker; Smokeless Tobacco : Never used smokeless tobacco; Vaping : Never vaped Marital Status: Employment Status: Not recorded. OBJECTIVE: Physical Examination (Radiation): Vital Signs: Blood pressure: Not recorded on visit., Pulse: Not recorded on visit., Temperature: Not recorded on visit., Respirations: Not recorded on visit., O2 sat: Not recorded on visit., Pain Scale: 0, Height: 63 in, Weight: Not recorded on visit., BSA: Not recorded on visit., BMI: Not recordedon visit. ECO Normal activity. Fully active, able to carry on all pre-disease performance without restriction. (Date: 10/12/2020) Karnofsky: Not recorded or not applicable. CONSTITUTIONAL: awake, alert, cooperative, no apparent distress EYES: pupils equal, round ENT: Normocephalic, without obvious abnormality, atraumatic NECK: supple, symmetrical, no jugular venous distension HEMATOLOGIC/LYMPHATIC: no cervical, supraclavicular or axillary lymphadenopathy LUNGS: no increased work of breathing CARDIOVASCULAR: regular rate and rhythm ABDOMEN: benign MUSCULOSKELETAL: full range of motion noted, tone is normal NEUROLOGIC: awake, alert, oriented to name, place and time. Motor skills grossly intact. SKIN: Normal skin color, texture, turgor and no jaundice. appears intact EXTREMITIES: no LE edema PSYCHIATRIC: affect appropriate Labs: CBC Lab Results 02/10/2023 11/18/2022 10/22/2022 07/08/2022 05/06/2004/08/2022 CBC WBC x 10^3/uL 5.1 RBC x 10^6/uL 4.40 NRBC % /100 wbc 0.0 HGB g/dL 13.9 HCT % 41.7 MCV fL 94.8 MCH pg 31.6 MCHC g/dL 33.3 RDW % 11.80 PLT x 10^3/uL 311 MPV fL 9.4 (L) Doreen % 35.1 (L) LY % 52.3 (H) MO % 9.8 EO % 2.0 IG % 0.2 Doreen # (ANC) x 10^3/uL 1.8 BA % 0.6 MO # x 10^3/uL 0.5 EO # x 10^3/uL 0.1 BA # x 10^3/uL 0.0 IG # x 10^3/uL 0.01 LY # x 10^3/uL 2.7 Chemistries Lab Results 02/10/2023 11/18/2022 10/22/2022 07/08/2022 05/06/2004/08/2022 Chemistries Glucose mg/dL 95 BUN mg/dL 16 Creatinine mg/dL 0.81 Creatinine, iSTAT mg/dL 0.8 0.8 0.8 0.8 Sodium mmol/L 144 Potassium mmol/L 4.2 Chloride mmol/L 106 CO2 mmol/L 27 Calcium mg/dL 9.9 Albumin g/dL 5.0 Total protein g/dL 7.9 Bilirubin, total mg/dL 0.3 Alkaline phosphatase U/L 73 AST/SGOT U/L 22 ALT/SGPT U/L 22 GFR estimate mL/min/1.73m2 90.0; 88.6 90.1 90.4 90.5 ? Imaging: As above Status N/A Pacemaker None In excess of 33 mins was spent in preparation and with the patient in discussing workup, staging, medical history and treatment options. Over 50% of this time was in counseling regarding treatment options, side effects, and outcomes. Start time 1:03pm, end time 1:36pm. Total time 33 mins. Patient in her home. I was at [facility].?? I have discussed the above stated plan with the patient and they verbalized understanding and agreed with the plan. Thank you for allowing us to participate in this patient's care. Panchito Phan MD Copy To:??Joyce Maharaj MD FAX Adalberto Estrada???MD Gee (Referring) Electronically signed by Panchito Phan MD 03/16/2023 14:01 CDT
--- NOTE | 2025-01-07 23:23 | ED_ITS ---
HPI - SOB/Dyspnea General Time Seen by Provider: 23:23 Date Seen: 01/07/25 Chief Complaint: Shortness of Breath/Dyspnea Stated Complaint: difficulty breathing Time Seen by Provider: 01/07/25 23:23 Source: patient and RN notes reviewed Mode of arrival: ambulatory Limitations: no limitations History of Present Illness HPI Narrative: Aury is a very pleasant 49-year-old female with history of breast cancer, MS currently on Nuvigil, gabapentin, interferon beta 1 and letrozole who comes to the emergency room with shortness of breath. Patient notes the onset of some mild coughing yesterday. This morning she had sore throat and a little bit of a runny nose. She states that the cough was more productive earlier today. Tonight she said we had more difficulty breathing and hoarseness. She notes no fever. She does note some left ear discomfort. She has been able to eat and drink. Very dramatic in appearance. No vomiting or diarrhea. No known ill exposures although significant other had cold like symptoms that have been very mild recently. Patient denies a history of asthma, tobacco use. Related Data Home Medications ?Medication ?Instructions ?Recorded ?Confirmed armodafinil 150 mg tablet (Nuvigil) mg PO 11/15/23 11/15/23 gabapentin 300 mg capsule 300 mg PO DAILY 11/15/23 11/15/23 interferon beta-1a (albumin) 44 44 mcg subcut 3XW 11/15/23 11/15/23 mcg/0.5 mL subcutaneous pen injector (Rebif Rebidose) letrozole 2.5 mg tablet 2.5 mg PO DAILY 11/15/23 11/15/23 Previous Rx's ?Medication ?Instructions ?Recorded amoxicillin 500 mg capsule 500 mg PO TID 7 days #21 caps 12/27/23 albuterol sulfate 2.5 mg/3 mL 2.5 mg (3 mL) inhalation Q4H PRN 01/08/25 (0.083 %) solution for nebulization #75 mL nebulizer and compressor #1 ea 01/08/25 prednisone 20 mg tablet 20 mg PO BID #6 tabs 01/08/25 Allergies Allergy/AdvReac Type Severity Reaction Status Date / Time No Known Drug Allergies Allergy Verified 11/15/23 09:56 Review of Systems Status of ROS: Reports: 10 or more systems reviewed and unremarkable except as noted in History and below Const: Reports: fatigue; Denies: fever or chills Eyes: Denies: change in vision ENMT: Reports: throat pain, hoarseness and nasal discharge; Denies: neck pain, throat swelling or difficulty swallowing Cardio: Reports: shortness of breath with exertion; Denies: chest pain or swelling of feet/ankles Resp: Reports: shortness of breath, cough and wheezing GI: Denies: abdominal pain, nausea, vomiting or difficulty swallowing Musculo: Denies: neck pain Neuro: Reports: headache Endo: Reports: fatigue Allergy/Immuno: Reports: wheezing; Denies: throat swelling PFSH [facility] Social History Smoking Status: Never smoker Non-prescribed substance use: denies use Exam Narrative: Exam Narrative: Patient is alert and oriented. She has episodes of expiratory hoarseness and coarseness and shortness of breath but when answering questions able to speak in complete sentences normally. Her eyes are clear. Left TMs have some erythema down the central aspect of the TM but this is retracted TM and there is no significant erythema otherwise. Right TM within normal limits. Nose is clear oral cavity with moist mucous membranes. Neck is supple without lymphadenopathy. Heart with a regular rate and rhythm. Lungs show some crackles bilaterally abdomen soft. Lower extremities without edema. Const: Vital Signs, click to edit/add: Vital Signs - 24 hr 01/07/25 23:14 Temperature 96.9 F L Pulse Rate [Left P ulse Oximeter] 68 Respiratory Rate 20 Blood Pressure [Ri ght Upper Arm] 146/83 H Pulse Oximetry 98 Oxygen Delivery Me thod Room Air Documenting provider has reviewed patient's vital signs: yes Course Course ED Course: Differential diagnosis includes but is not limited to COVID/influenza/RSV/pneumonia. P it ED is considered but patient is not tachycardic and she has normal O2 sats and this appears to be more respiratory related. Will obtain chest x-ray, triple swab. Will give DuoNeb at this time to see if it helps. Patient is in agreement with this plan. Reevaluation(s) Reevaluation #1: Patient is looking much better. Her bronchospasm is much improved. I was very surprised she tested negative for COVID influenza. I have added pertussis on to her orders at this time. Potassium is low at 3.1 and therefore will give 50 mEq p.o.. Vital Signs Vital signs: Initial Vital Signs Respiratory Effort Normal 01/07/25 23:13 Respiratory Depth Normal 01/07/25 23:13 Respiratory Pattern Normal 01/07/25 23:13 Vital Signs Temperature 96.9 F L 01/07/25 23:14 Pulse Rate 68 01/07/25 23:14 Respiratory Rate 20 01/07/25 23:14 Blood Pressure 146/83 H 01/07/25 23:14 Pulse Oximetry 98 01/07/25 23:14 Oxygen Delivery Method Room Air 01/07/25 23:14 Temperature 96.9 F L 01/07/25 23:14 Pulse Rate 68 01/07/25 23:14 Respiratory Rate 20 01/07/25 23:14 Blood Pressure 146/83 H 01/07/25 23:14 Pulse Oximetry 98 01/07/25 23:14 Oxygen Delivery Method Room Air 01/07/25 23:14 Medications Administered Medications: Discontinued Medications Generic Name Dose Route Start Last Admin Trade Name Lidia PRN Reason Stop Dose Admin Albuterol/Ipratropium 1 neb 01/07/25 23:36 01/07/25 23:45 Iprat-Albut 0.5-2.5 Mg/3 Ml Neb IH 01/07/25 23:37 1 neb ONCE ONE Administration Dexamethasone 10 mg 01/08/25 00:35 01/08/25 00:42 Dexamethasone 10 Mg/Ml Inj IVP 01/08/25 00:36 10 mg ONCE ONE Administration Potassium Bicarbonate 50 meq 01/08/25 00:35 01/08/25 00:42 Potassium Bicarb 25 Meq Effervescent Tab PO 01/08/25 00:36 50 meq ONCE ONE Administration MDM - SOB/Dyspnea MDM Narrative Medical decision making narrative: 1. Lower respiratory infection-chest x-ray with evidence of viral infection and no infiltrates. White count is slightly depressed but this may be from her current medications. She has tested negative for COVID in influenza as well as RSV. My initial thought that this may be influenza but she is tested negative. She did have improvement with the DuoNeb and now has a more congested type of cough. She appeared to have some expiratory bronchospasm but this was likely from some tachypnea and anxiety. I was reassured as she was able to speak to me in complete sentences. Again, is doing much better now. Will repeat albuterol neb prior to her going home and prescribed albuterol and a home nebulizer for her. I have also given her a dose of dexamethasone 10 mg IV. Will have prednisone available to her to continue for 3 days starting on Thursday morning January 09. Again, very surprised that she tested negative for influenza and COVID. Have added pertussis testing. I have asked her to return for worsening symptoms and as needed. Recommend ibuprofen or Tylenol as needed for discomfort. 2. Hypokalemia with potassium of 3.1. She is given potassium 50 mEq p.o. during her stay in the ED. 3. Disposition-home at this time. Return for worsening symptoms and as needed. Medical Records Attestation: I reviewed the patient's medical records. Lab Data Attestation: I reviewed the patient's lab results. Labs: Lab Results 01/07/25 Range/Units 23:30 WBC 3.79 L (4.50-11.00) K/uL RBC 4.01 (4.00-5.20) m/uL Hgb 12.3 (12.0-16.0) gm/dL Hct 36.7 (33.0-51.0) % MCV 92 (80-100) fL MCH 31 (26-34) pg MCHC 34 (32-36) gm/dL RDW Coeff of Gee 11.8 (11.5-15.5) % Plt Count 240 (140-440) K/uL Neut % (Auto) 43.0 (42.0-72.0) % Lymph % (Auto) 37.2 (20-44) % [place] % (Auto) 15.6 H (0.0-11.0) % Eos % (Auto) 3.4 (0.0-7.0) % Baso % (Auto) 0.8 (0.0-3.0) % Neut # (Auto) 1.60 L (1.7-7.0) K/uL Lymph # (Auto) 1.40 (0.90-2.90) K/uL [place] # (Auto) 0.60 (0.00-0.90) K/UL Eos # (Auto) 0.10 (0.00-0.50) K/uL Baso # (Auto) 0.00 (0.00-0.30) K/uL Abs Immat Gran (auto) 0.00 (0.00-0.30) K/uL Imm/Tot Granulo (auto) 0.0 % Sodium 137 (135-149) mmol/L Potassium 3.1 L (3.6-5.1) mmol/L Chloride 103 (96-114) mmol/L Carbon Dioxide 23 (20-32) mmol/L Anion Gap 11 (7-15) mEq/L BUN 17 (7-30) mg/dL Creatinine 0.6 (0.5-1.5) mg/dL Estimated Creat Clear 91.76 Estimated GFR 109 ml/min Glucose 89 (60-115) mg/dL Calcium 8.3 L (8.4-10.6) mg/dL Total Bilirubin 0.3 (0.1-1.5) mg/dL AST 23 (12-35) U/L ALT 20 (4-35) U/L Alkaline Phosphatase 58 (40-150) U/L Total Protein 6.8 (6.0-8.3) g/dL Albumin 4.4 (3.3-5.0) g/dL SARS-CoV-2 (PCR) Negative SARS-CoV-2 (Negative) Influenza Type A (PCR) Negative PCR FLU A (Negative) Influenza Type B (PCR) Negative PCR FLU B (Negative) RSV (PCR) Negative PCR RSV (Negative) Imaging Data Chest x-ray: Attestation: I have reviewed the pertinent imaging results. My impression: Increased lung markings throughout. I do not note an infiltrate. Radiologist's impression: Cardiovascular and mediastinum: Heart size and vasculature are normal in caliber and appearance. Lungs and pleural spaces: Trace peribronchial thickening. No sign of infiltrate or mass. No sign of pleural effusion. No pneumothorax. Bones and soft tissues: No significant findings. IMPRESSION: Trace peribronchial thickening, likely reactive airway disease or viral pneumonia in the appropriate clinical setting. No focal consolidation. Discharge Plan Discharge Clinical Impression: Acute lower respiratory infection, Acute bronchospasm Patient Disposition: Home, Self-Care Condition: Improved Additional Instructions: Continue 3 more days of steroids with prednisone. Next dose Thursday morning. Nebulizer every 4 hours as needed while awake. Take with you the tube being that you use this evening. I sent a prescription in for the nebulizer machine and the albuterol as well. Seek medical attention for worsening symptoms. Push fluids. Prescriptions: New prednisone 20 mg tablet 20 mg PO BID Qty: 6 0RF albuterol sulfate 2.5 mg /3 mL (0.083 %) solution for nebulization 2.5 mg inhalation Q4H PRNQty: 75 0RF (DME) nebulizer and compressor Device See Rx Instructions .Route Qty: 1 0RF Rx Instructions: As directed No Action gabapentin 300 mg capsule 300 mg PO DAILY letrozole 2.5 mg tablet 2.5 mg PO DAILY armodafinil [Nuvigil] 150 mg tablet PO Rebif Rebidose 44 mcg/0.5 mL pen injector 44 mcg subcut 3XW amoxicillin 500 mg capsule 500 mg PO TID 7 Days Qty: 21 0RF Follow Up/Referrals: Provider,Not a Local [Primary Care Provider] - Stand Alone Forms: MyHealth Info Instructions
--- NOTE | 2025-01-07 23:36 | CRLHL7_ITS ---
For Patients: As a result of the Century Cures Act, medical imaging exams and procedure reports are released immediately into your electronic medical record. You may view this report before your referring provider. If you have questions, please contact your health care provider. INDICATION: Cough. TECHNIQUE: Chest 1 views. COMPARISON: December 25, 2018. FINDINGS: Cardiovascular and mediastinum: Heart size and vasculature are normal in caliber and appearance. Lungs and pleural spaces: Trace peribronchial thickening. No sign of infiltrate or mass. No sign of pleural effusion. No pneumothorax. Bones and soft tissues: No significant findings. IMPRESSION: Trace peribronchial thickening, likely reactive airway disease or viral pneumonia in the appropriate clinical setting. No focal consolidation. Dictated by Moustapha Sanchez MD @ 01/08/2025 12:02:30 AM (Electronically Signed)
[2025-01-07] MEDS: IPRAT-ALBUT 0.5-2.5 MG/3 ML NEB 1 NEB IH (23:45)
[2025-01-07 23:48] LABS: Basophils Percent Auto 0.8 % (0.0-3.0); Eosinophils Percent Auto 3.4 % (0.0-7.0); Hematocrit 36.7 % (33.0-51.0); Hemoglobin* 12.3 gm/dL (12.0-16.0); Lymphocytes Percent Auto 37.2 % (20-44); Mean Corpuscular HGB Conc 34 gm/dL (32-36); Mean Corpuscular Hemoglobin 31 pg (26-34); Mean Corpuscular Volume 92 fL (80-100); Monocytes Percent Auto 15.6 % (0.0-11.0); Platelet Count* 240 K/uL (140-440); RDW Coefficient of Variation % 11.8 % (11.5-15.5); Red Blood Count 4.01 m/uL (4.00-5.20); White Blood Count* 3.79 K/uL (4.50-11.00)
[2025-01-07 23:55] LABS: Albumin* 4.4 g/dL (3.3-5.0); Chloride* 103 mmol/L (96-114); Potassium* 3.1 mmol/L (3.6-5.1); Sodium* 137 mmol/L (135-149)
[2025-01-07 23:56] LABS: Slide Review Reflex No
[2025-01-07 23:57] LABS: Bilirubin Total* 0.3 mg/dL (0.1-1.5); Creatinine* 0.6 mg/dL (0.5-1.5); Est. Creatinine Clearance* 91.76; Estimated Glomerular Filt Rate 109 ml/min
[2025-01-07 23:58] LABS: Alanine Aminotransferase* 20 U/L (4-35); Alkaline Phosphatase* 58 U/L (40-150); Anion Gap 11 mEq/L (7-15); Aspartate Amino Transferase* 23 U/L (12-35); Blood Urea Nitrogen* 17 mg/dL (7-30); Calcium* 8.3 mg/dL (8.4-10.6); Carbon Dioxide* 23 mmol/L (20-32); Glucose* 89 mg/dL (60-115); Total Protein* 6.8 g/dL (6.0-8.3)
--- OUTSIDE RECORDS SUMMARY | 2025-01-08 00:10 | XMS_ITS ---
Author Name Interface, [id number] lity Address [address] [facility] [address] [address] Organization [facility] Address [address] [facility] [address] [address] Care Team Providers Care Water Main Pipe Layer Name Role Phone Reema Law Unavailable Unavailable Allergies and Adverse Reactions Medication/Group [...] 03/16/2023 APPOINTMENT INTERNAL REFERRA L 60 MIN 02/16/2023 APPOINTMENT INTERNAL REFERRA L 60 MIN 02/10/2023 APPOINTMENT LAB 15 MIN 02/10/2023 APPOINTMENT OV 20 MIN 02/10/2023 APPOINTMENT INJECTION 15 MIN 02/09/2023 APPOINTMENT INJECTION 15 MIN 02/09/2023 APPOINTMENT LAB 15 MIN 02/09/2023 APPOINTMENT OV 20 MIN 01/14/2023 APPOINTMENT INJECTION 15 MIN 12/23/2022 APPOINTMENT LAB 15 MIN 12/23/2022 APPOINTMENT OV 20 MIN 12/17/2022 APPOINTMENT INJECTION 15 MIN 11/19/2022 APPOINTMENT INJECTION 15 MIN 10/22/2022 APPOINTMENT INJECTION 15 MIN 10/22/2022 APPOINTMENT LAB 15 MIN 10/22/2022 APPOINTMENT OV 20 MIN 10/22/2022 APPOINTMENT TREATMENT 1 HR 10/22/2022 APPOINTMENT LAB 15 MIN 10/22/2022 APPOINTMENT OV 20 MIN 10/22/2022 APPOINTMENT INJECTION 15 MIN 10/17/2022 APPOINTMENT Innovent Charges 09/23/2022 APPOINTMENT INJECTION 15 MIN 09/17/2022 APPOINTMENT [employer] 08/26/2022 APPOINTMENT INJECTION 15 MIN 08/17/2022 APPOINTMENT Innov[employer] charges 07/29/2022 APPOINTMENT TREATMENT 1 HR 07/29/2022 APPOINTMENT OV 20 MIN 07/29/2022 APPOINTMENT INJECTION 15 MIN 07/29/2022 APPOINTMENT OV 20 MIN 07/29/2022 APPOINTMENT LAB 15 MIN 07/18/2022 APPOINTMENT Innovent charges 07/01/2022 APPOINTMENT INJECTION 15 MIN 06/17/2022 APPOINTMENT [employer]es 06/03/2022 APPOINTMENT INJECTION 15 MIN 06/03/2022 APPOINTMENT TREATMENT 1 HR 06/03/2022 APPOINTMENT LAB 15 MIN 06/03/2022 APPOINTMENT LAB 15 MIN 06/03/2022 APPOINTMENT INJECTION 15 MIN 06/03/2022 APPOINTMENT TREATMENT 1 HR 05/17/2022 APPOINTMENT [employer] 05/06/2022 APPOINTMENT LAB 15 MIN 05/06/2022 APPOINTMENT TREATMENT 1 HR 05/06/2022 APPOINTMENT OV 20 MIN 05/06/2022 APPOINTMENT INJECTION 15 MIN 04/17/2022 APPOINTMENT Innov[employer] charges 04/08/2022 APPOINTMENT LAB 15 MIN 04/08/2022 APPOINTMENT TREATMENT 1 HR 03/17/2022 APPOINTMENT [employer] 03/11/2022 APPOINTMENT INJECTION 15 MIN 02/14/2022 APPOINTMENT [employer]es 02/11/2022 APPOINTMENT INJECTION 15 MIN 01/16/2022 APPOINTMENT [employer] 01/14/2022 APPOINTMENT TREATMENT 15 MIN 01/14/2022 APPOINTMENT OV 20 MIN 01/14/2022 APPOINTMENT INJECTION 15 MIN 12/17/2021 APPOINTMENT INJECTION 15 MIN 12/11/2021 APPOINTMENT CHART CHECK 5 MO N 12/10/2021 APPOINTMENT OUTSIDE TEST 5 M IN 11/26/2021 APPOINTMENT NEW PT CONSULT 6 0 MIN 11/19/2021 APPOINTMENT INJECTION 15 MIN 10/22/2021 APPOINTMENT INJECTION 15 MIN 10/22/2021 APPOINTMENT OV 30 MIN 10/22/2021 APPOINTMENT LAB 5 MIN 10/22/2021 LABORDER CBC w/ auto diff 10/22/2021 LABORDER TSH w/ reflex to free T4 10/22/2021 LABORDER MRI breast, bila teral 04/08/2022 LABORDER iSTAT creatinine panel 05/06/2022 LABORDER iSTAT creatinine panel 06/03/2022 LABORDER iSTAT creatinine panel 10/22/2022 LABORDER iSTAT creatinine panel 02/10/2023 LABORDER CMP 02/10/2023 LABORDER iSTAT creatinine panel 02/10/2023 LABORDER CBC w/ auto diff 05/14/2023 LABORDER iSTAT creatinine panel 04/15/2024 LABORDER DEXA scan 04/15/2024 LABORDER Mammogram, diagn ostic, bilateral breast 04/15/2024 LABORDER U/S Reason for Visit OV 20 MIN Encounters Date Name 10/22/2021 Blurry vision 10/22/2021 Breast cancer, femal e 10/22/2021 Breast pain 10/22/2021 Encounter for other plastic and reconstructive surgery following medical procedure or healed injury 10/22/2021 Estrogen receptor po sitive status [ER+] 10/22/2021 Fatigue 10/22/2021 History of malignant neoplasm of breast (situation) 10/22/2021 Hypothyroidism 10/22/2021 Osteopenia 10/22/2021 Postmenopausal state (finding) Immunizations Date Name Route Dose Instructions Refusal Reason Stat us Covid-19 vaccine (Pfizer) Patient declined/rejected Not Administered Covid-19 vaccine (Moderna) Patient declined/rejected Not Administered Flu vaccine - Adult Patient declined/rejected Not Administered Diagnostic Results Date Type Test Units Lower Limit Upper Limit Result Flag Comments Status Ordered By Specimen Source Lab Address 10/22 CBC w/ auto diff WBC K/uL 3.0 8.9 5.0 FINAL [facility] [place], [address] [place] [phone] 0 Phone: () - 10/22 CBC w/ auto diff HGB g/dL 11.3 15.2 13.8 FINAL [facility] [place], [address] [place] [phone] 0 Phone: () - 10/22 CBC w/ auto diff PLT K/uL 113.0 364.0 318 FINAL [facility] [place], [address] [place] [phone] 0 Phone: () - 10/22 CBC w/ auto diff Doreen # (ANC) K/uL 1.6 6.6 2.3 FINAL [facility] [place], [address] [place] [phone] 0 Phone: () - 10/22 CBC w/ auto diff Doreen % % 43.0 74.0 46.3 FINAL [facility] [place], [address] [place] [phone] 0 Phone: () - 10/22 CBC w/ auto diff IG % % 0.0 0.5 0.4 FINAL [facility]ema [facility] [place], [address] [place] [phone] 0 Phone: () - 10/22 CBC w/ auto diff IG # K/uL 0.0 0.03 0.02 FINAL [facility] [place], [address] [place] [phone] 0 Phone: () - 10/22 CBC w/ auto diff LY % % 14.0 41.0 37.9 FINAL eRema [facility] - [place], [address] [place] [phone] 0 Phone: () - 10/22 CBC w/ auto diff MO % % 6.0 15.0 13.4 FINAL [facility]ema [facility] [place], [address] [place] [phone] 0 Phone: () - 10/22 CBC w/ auto diff EO % % 0.0 7.0 1.2 FINAL Reema [facility] [place], [address] [place] [phone] 0 Phone: () - 10/22 CBC w/ auto diff BA % % 0.0 2.0 0.8 FINAL [facility] [place], [address] [place] [phone] 0 Phone: () - 10/22 CBC w/ auto diff LY # K/uL 0.4 3.6 1.9 FINAL [facility]ema [facility] - [place], [address] [place] [phone] 0 Phone: () - 10/22 CBC w/ auto diff MO # K/uL 0.2 1.3 0.7 FINAL [facility]ema [facility] [place], [address] [place] [phone] 0 Phone: () - 10/22 CBC w/ auto diff EO # K/uL 0.0 0.6 0.1 FINAL [facility]ema [facility] [place], [address] [facility] [address] [place] [phone] 0 Phone: () - 10/22 CBC w/ auto diff BA # K/uL 0.0 0.2 0.0 FINAL Reema [facility] [place], [address] [facility] [address] [place] [phone] 0 Phone: () - 10/22 CBC w/ auto diff NRBC % #/100W BC 0.0 0.2 0.0 FINAL [facility]ema [facility] [place], [address] [facility] [address] [place] [phone] 0 Phone: () - 10/22 CBC w/ auto diff RBC M/uL 3.9 5.1 4.35 FINAL [facility] [place], [address] [place] [phone] 0 Phone: () - 10/22 CBC w/ auto diff HCT % 35.0 48.0 41.2 FINAL [facility] [place], [address] [place] [phone] 0 Phone: () - 10/22 CBC w/ auto diff MCV fL 80.0 104.0 94.7 FINAL Reema [facility] - [place], [address] [place] [phone] 0 Phone: () - 10/22 CBC w/ auto diff MCH pg 26.0 35.0 31.7 FINAL Reema [facility] - [place], [address] [facility] [address] [place] [phone] 0 Phone: () - 10/22 CBC w/ auto diff MCHC g/dL 30.0 35.0 33.5 FINAL Reema [facility] - [place], [address] [place] [address] d [address] [facility] [place] [phone] 0 Phone: () - 10/22 CBC w/ auto diff MPV fL 9.5 13.4 9.3 Low FINAL Reema [facility] [place], [address] [place] [address] [address] [facility] [place] [phone] 0 Phone: () - 10/22 CBC w/ auto diff RDW % 11.4 16.1 11.30 Low FINAL Reema [facility] - [place], [address] [place] [address] [address] [facility] [place] [phone] 0 Phone: () - 10/22 TSH w/ refle x to free T4 TSH uIU/ml 0.32 5.0 1.34 Test performed at [facility] on a PAX Streamline 2000 Immunoass ay Analyzer that uses an immunoenz ymometric sandwich assay for analysis. Patient testing should not be performed using multiple methodolo giphoebe due to analytica l variation seen between test methodarcadio zavala. FINAL Reema [facility] - [place], [address] [place] [phone] 0 Phone: () - 04/08 iSTAT creat inine panel Creat inine , iSTAT mg/dl 0.6 1.3 0.8 FINAL [place] [facility] - [place] , [address] [facility] [address] [facility] [place] [phone] 0 Phone: () - 04/08 iSTAT creat inine panel GFR estim ate ml/min /1.73m ^2 90.5 GFR is calculate d using the CKD-EPI equation. FINAL [place] [facility] - [place], [address] [place] [phone] 0 Phone: () - 05/06 iSTAT creat inine panel Creat inine , iSTAT mg/dl 0.6 1.3 0.8 FINAL [place] [facility] - [place], [address] [place] [phone] 0 Phone: () - 05/06 iSTAT creat inine panel GFR estim ate ml/min /1.73m ^2 90.4 GFR is calculate d using the CKD-EPI equation. 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 11/18 [facility] [place] lab See barrel rifler operator d 11/18 [facility] [place] lab See barrel rifler operator d 11/18 [facility] [place] lab See barrel rifler operator d 02/10 iSTAT creat inine panel Creat inine , iSTAT mg/dl 0.6 1.3 0.8 FINAL [place] Gerard [facility] - [place], [address] [place] [phone] 0 Phone: () - 02/10 iSTAT creat inine panel GFR estim ate ml/min /1.73m ^2 90.0 GFR is calculate d using the CKD-EPI equation. FINAL [place] peralta [facility], [address] [facility] [phone] 0 Phone: () - 02/10 CMP Album in g/dL 3.2 5.2 5.0 [facility] [address] [facility] [phone] 0 Phone: () - 02/10 CMP Alkal ine phosp hatas e U/L 46.0 116.0 73 [facility] [address] [facility] [address] [facility] [phone] 0 Phone: () - 02/10 CMP ALT/S GPT U/L 7.0 40.0 22 [facility] [place] [facility] [address] [facility] [address] [facility] [phone] 0 Phone: () - 02/10 CMP AST/S GOT U/L 13.0 40.0 22 [facility] [address] [facility] [address] [facility] [phone] 0 Phone: () - 02/10 CMP BUN mg/dL 9.0 23.0 16 [facility], [address] [facility] [address] [facility] [phone] 0 Phone: () - 02/10 CMP Calci um mg/dL 8.7 10.4 9.9 FINAL [place] peralta [facility], [facility] [address] [facility] [address] [facility] [phone] 0 Phone: () - 02/10 CMP Chlor indy mmol/L 96.0 114.0 106 [place] [address] [address] [facility] [address] [phone] 0 Phone: () - 02/10 CMP CO2 mmol/L 20.0 31.0 27 The expected total allowable error for CO2 is 5.6%. We have seen up to 10% differenc e in values if reported at the end of the 96 hour stability window. Please consider the clinical significa nce of a 2.0-2.5 mmol/L lower reported CO2 value if reported at the end of the 96 hour stability window. FINAL [place] [address] [phone] 0 Phone: () - 02/10 CMP Creat inine mg/dL 0.5 1.2 0.81 FINAL [place] [address] [phone] 0 Phone: () - 02/10 CMP GFR estim ate ml/min /1.73m ^2 88.6 GFR is calculate d using the CKD-EPI equation. FINAL [place] Gerard [address] [phone] 0 Phone: () - 02/10 CMP Gluco se mg/dL 73.0 126.0 95 FINAL [place] Oron[address] [phone] 0 Phone: () - 02/10 CMP Potas sium mmol/L 3.5 5.1 4.2 FINAL [place] [address] [phone] 0 Phone: () - 02/10 CMP Sodiu m mmol/L 136.0 145.0 144 [place]AL [place] [address] [phone] 0 Phone: () - 02/10 CMP Bilir ubin, total mg/dL 0.3 1.2 0.3 FINAL [place] [address] [phone] 0 Phone: () - 02/10 CMP Total prote in g/dL 5.7 8.2 7.9 FINAL [place] [address] [phone] 0 Phone: () - 02/10 CBC w/ auto diff WBC K/uL 3.0 8.9 5.1 FINAL [place] [facility] [place], [address] [place] [phone] 0 Phone: () - 02/10 CBC w/ auto diff HGB g/dL 11.3 15.2 13.9 FINAL [place] [facility] [place], [address] [place] [phone] 0 Phone: () - 02/10 CBC w/ auto diff PLT K/uL 113.0 364.0 311 FINAL [place] Gerard [facility] - [place], [address] [place] [phone] 0 Phone: () - 02/10 CBC w/ auto diff Doreen # (ANC) K/uL 1.6 6.6 1.8 FINAL [place] [facility] - [place], [address] [place] [phone] 0 Phone: () - 02/10 CBC w/ auto diff Doreen % % 43.0 74.0 35.1 Low FINAL [place] [facility] - [place], [address] [place] [phone] 0 Phone: () - 02/10 CBC w/ auto diff IG % % 0.0 0.5 0.2 FINAL [place] [facility] - [place], [address] [place] [phone] 0 Phone: () - 02/10 CBC w/ auto diff IG # K/uL 0.0 0.03 0.01 FINAL [place] [facility] - [place], [address] [place] [phone] 0 Phone: () - 02/10 CBC w/ auto diff LY % % 14.0 41.0 52.3 High FINAL [place] [facility] - [place], [address] [place] [phone] 0 Phone: () - 02/10 CBC w/ auto diff MO % % 6.0 15.0 9.8 FINAL [place] [facility] - [place], [address] [place] [phone] 0 Phone: () - 02/10 CBC w/ auto diff EO % % 0.0 7.0 2.0 FINAL [place] [facility] [place], [address] [place] [phone] 0 Phone: () - 02/10 CBC w/ auto diff BA % % 0.0 2.0 0.6 FINAL [place] [facility] [place], [address] [place] [phone] 0 Phone: () - 02/10 CBC w/ auto diff LY # K/uL 0.4 3.6 2.7 FINAL [place] [facility] [place], [address] [place] [phone] 0 Phone: () - 02/10 CBC w/ auto diff MO # K/uL 0.2 1.3 0.5 FINAL [place] [facility] - [place], [address] [place] [phone] 0 Phone: () - 02/10 CBC w/ auto diff EO # K/uL 0.0 0.6 0.1 FINAL [place] [facility] - [place], [address] [place] [phone] 0 Phone: () - 02/10 CBC w/ auto diff BA # K/uL 0.0 0.2 0.0 FINAL [place] [facility] [place], [address] [place] [phone] 0 Phone: () - 02/10 CBC w/ auto diff NRBC % #/100W BC 0.0 0.2 0.0 FINAL [place] [facility] - [place], [address] [place] [phone] 0 Phone: () - 02/10 CBC w/ auto diff RBC M/uL 3.9 5.1 4.40 FINAL [place] M[facility] - [place], [address] [place] [phone] 0 Phone: () - 02/10 CBC w/ auto diff HCT % 35.0 48.0 41.7 FINAL [place] Moustapha [facility] - [place], [address] [place] [phone] 0 Phone: () - 02/10 CBC w/ auto diff MCV fL 80.0 104.0 94.8 FINAL [place] Mando M[facility] [place], [address] [place] [phone] 0 Phone: () - 02/10 CBC w/ auto diff MCH pg 26.0 35.0 31.6 FINAL [place] M[place] [facility] - [place], [address] [place] [phone] 0 Phone: () - 02/10 CBC w/ auto diff MCHC g/dL 30.0 35.0 33.3 FINAL [place] Gil[place] Moustapha [facility] - [place], [address] [place] [phone] 0 Phone: () - 02/10 CBC w/ auto diff MPV fL 9.5 13.4 9.4 Low FINAL [place] [facility]ush [facility] - [place], [address] [place] [phone] 0 Phone: () - 02/10 CBC w/ auto diff RDW % 11.4 16.1 11.80 FINAL [place] M[place] Adwo[facility]ush [facility] - [place], [address] [place] [phone] 0 Phone: () - Medications Date Name Route Dose Frequency Instructions [...] treatment only upon physician approval. 2022 active 04/19 /2023 letrozole 2.5 MG Oral Tablet 2022 active [...] only upon physician approval. 2020 active 12/18 methylprednisolone 2000 MG Injection intravenously 125.0 mg [...] vision Active Vital Signs Date Type Value 10/22/2021 Body Temperature 98.00 10/22/2021 Heart Beat 58.00 10/22/2021 Respiratory Rate 14.00 10/22/2021 Oxygen Saturation 96.00 10/22/2021 BSA 1.63 10/22/2021 Pain Scale 0.00 10/22/2021 Weight 134.00 10/22/2021 Height 63.00 10/22/2021 BMI 23.74 10/22/2021 Intravascular Systolic 131 10/22/2021 Intravascular Diastolic 79 11/26/2021 Respiratory Rate 16.00 11/26/2021 Pain Scale 0.00 11/26/2021 Weight 134.00 11/26/2021 Height 63.00 11/26/2021 BSA 1.63 11/26/2021 Intravascular Systolic 146 11/26/2021 Intravascular Diastolic 91 11/26/2021 Oxygen Saturation 98.00 11/26/2021 Heart Beat 89.00 11/26/2021 BMI 23.74 01/14/2022 Pain Scale 0.00 01/14/2022 Oxygen Saturation 93.00 01/14/2022 Respiratory Rate 16.00 01/14/2022 Heart Beat 62.00 01/14/2022 Body Temperature 98.90 01/14/2022 Weight 140.80 01/14/2022 Intravascular Systolic 153 01/14/2022 Intravascular Diastolic 104 01/14/2022 BSA 1.67 01/14/2022 BMI 24.94 01/14/2022 Height 63.00 05/06/2022 Oxygen Saturation 98.00 05/06/2022 Intravascular Systolic 134 05/06/2022 Intravascular Diastolic 86 05/06/2022 Pain Scale 0.00 05/06/2022 Weight 146.00 05/06/2022 Respiratory Rate 16.00 05/06/2022 Body Temperature 99.10 05/06/2022 BSA 1.69 05/06/2022 BMI 25.86 05/06/2022 Heart Beat 87.00 05/06/2022 Height 63.00 07/29/2022 BSA 1.70 07/29/2022 BMI 26.08 07/29/2022 Height 63.00 07/29/2022 Weight 147.20 07/29/2022 Intravascular Systolic 144 07/29/2022 Intravascular Diastolic 90 07/29/2022 Oxygen Saturation 97.00 07/29/2022 Respiratory Rate 16.00 07/29/2022 Heart Beat 75.00 07/29/2022 Body Temperature 98.80 07/29/2022 Pain Scale 0.00 10/22/2022 Body Temperature 98.40 10/22/2022 Heart Beat 82.00 10/22/2022 Respiratory Rate 16.00 10/22/2022 Oxygen Saturation 98.00 10/22/2022 BSA 1.69 10/22/2022 Pain Scale 0.00 10/22/2022 Weight 145.80 10/22/2022 Height 63.00 10/22/2022 BMI 25.83 10/22/2022 Intravascular Systolic 148 10/22/2022 Intravascular Diastolic 92 11/19/2022 Pain Scale 0.00 02/10/2023 Intravascular Systolic 118 02/10/2023 Intravascular Diastolic 76 02/10/2023 BSA 1.71 02/10/2023 Body Temperature 98.60 02/10/2023 Heart Beat 71.00 02/10/2023 Respiratory Rate 16.00 02/10/2023 Oxygen Saturation 99.00 02/10/2023 Pain Scale 0.00 02/10/2023 Weight 149.00 02/10/2023 Height 63.00 02/10/2023 BMI 26.39 03/16/2023 Pain Scale 0.00 03/16/2023 Height 63.00 04/15/2024 Body Temperature 98.00 04/15/2024 Heart Beat 94.00 04/15/2024 Respiratory Rate 16.00 04/15/2024 Oxygen Saturation 98.00 04/15/2024 Intravascular Systolic 144 04/15/2024 Intravascular Diastolic 100 04/15/2024 Pain Scale 3.00 04/15/2024 Weight 154.40 04/15/2024 Height 63.00 04/15/2024 BMI 27.35 04/15/2024 BSA 1.73 10/03/2024 Body Temperature 97.70 10/03/2024 Heart Beat 89.00 10/03/2024 Respiratory Rate 16.00 10/03/2024 Oxygen Saturation 98.00 10/03/2024 BSA 1.76 10/03/2024 Pain Scale 0.00 10/03/2024 Weight 159.40 10/03/2024 Height 63.00 10/03/2024 BMI 28.24 10/03/2024 Intravascular Systolic 130 10/03/2024 Intravascular Diastolic 100
--- OUTSIDE RECORDS SUMMARY | 2025-01-08 00:11 | XMS_ITS | Clinical Summary ---
Author Organization [facility] Address [address] [place] [address] Care Team Providers Care Coordinator Of Genetic Services Name Role Phone Unavailable Primary Care Provider Unavailabl e Source Comments Patient records contain information from all sites at [facility]. For routine questions regarding patient records, call [phone] during business hours, M-F 8:00 AM - 5:00 PM Central Time. Record requests for emergency care only can be directed to [phone] at any time.[facility] Allergies No known active allergies Medications armodafiniL [...] (three) times a week. 3 Active omega 7-zlq-ueo-fish oil 900 mg-360 mg- 455 mg-1,000 mg [...] from 10/04/2020:Stage IA(cT1c, cN0, cM0, G2, ER+, WY+, HER2-) - Unsigned Multiple Sclerosis 01/31/2009 Hypothyroidism 11/13/2005 Overview (12/15/2024): Problem list name updated by automated process. Provider to review Encounters Date Type Department Care Team Description 01/06/2025 11:43 AM GREENHOUSE SUPERINTENDENT - 01/06/2025 11:59 PM [facility] Hospital Encounter Department of Radiology, [place], [place] [address] [place] [address] Angela Piper APRN, C.N.P., D.N.P. 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 PET CT Skull to Thigh FDG, BI Breast Diagnostic Right with Tomosynthesis, BI Ultrasound Breast Focused Right 12/19/2024 Documentation [facility] in [place], [place] [address] [place] [phone] Joelle Dos Santos L.PAminataN. 12/16/2024 Clinical Communication [facility] in [place], [place] [address] [place] [phone] Fariha Corral M.D. 12/15/2024 12:22 PM GREENHOUSE SUPERINTENDENT - 12/15/2024 11:59 PM GREENHOUSE SUPERINTENDENT Hospital Encounter Department of Radiology in [place], [place] [address] [place] [phone] Arely Martinez P.A.-C. Breast Examination Abnormal Discharge Disposition: Home or Self Care 12/15/2024 9:30 AM GREENHOUSE SUPERINTENDENT - 12/15/2024 12:21 PM GREENHOUSE SUPERINTENDENT Hospital Encounter Department of Radiation Oncology in [place], [place] [address] [place] [address] Osvaldo Durant M.D. 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 11/30/2024 1:15 PM GREENHOUSE SUPERINTENDENT Ancillary Procedure Department of Radiology in [address] [phone] Arely Martinez P.AAminata-C. 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 Alive Paternal Grandfather Yoandy Sr d. [place] Paternal Grandmother Claudia d. [place] Sister Shabana Alive Social History Tobacco Use Types Packs/Day Years Used Date Smoking Tobacco: Never Passive Smoke Exposure: Never Smokeless Tobacco: Never Tobacco Cessation:Counseling Given: Not Answered Alcohol Use Standard Drinks/Week Comments Yes 14 (1 standard drink = 0.6 oz pu re alcohol) [facility] Utilities Answer Date Recorded In the past 12 months has [employer], gas, oil, or water [employer] threatened to shut off services in your [...] Sex Assigned at Female 12/14/2024 12:10 PM GREENHOUSE SUPERINTENDENT Legal Sex Female 10:00 AM CDT Gender Identity Female 12/14/2024 12:10 PM GREENHOUSE SUPERINTENDENT Sexual Orientation Straight 12/14/2024 12 :10 PM GREENHOUSE SUPERINTENDENT Last Filed Vital Signs Vital Sign Reading Time Taken Comments Blood Pressure 127/85 01/04/2025 8:07 AM GREENHOUSE SUPERINTENDENT Pulse 75 01/04/2025 8:07 AM GREENHOUSE SUPERINTENDENT Temperature - - Respiratory Rate - - Oxygen Saturation - - Inhaled Oxygen Concentration - - Weight 74.2 kg (163 lb 7.5 oz) 01/04/2025 8:07 A M GREENHOUSE SUPERINTENDENT Height 160.1 cm (5' 3.03) 01/04/2025 8:07 AM CS T Body Mass Index 28.93 01/04/2025 8:07 AM GREENHOUSE SUPERINTENDENT Plan of Treatment Upcoming Encounters Date Type Department Care Team (Latest Contact Info) Description 01/12/2025 8:30 AM GREENHOUSE SUPERINTENDENT Comprehensive Visit Division of Breast and Melanoma Surgical Oncology in [place], [place] [address] [place] [address] Rosalva Ruiz M.D. [address] [place] [phone] 01/12/2025 10:20 AM GREENHOUSE SUPERINTENDENT Comprehensive Visit Department of Oncology in [place], [place] [address] [place] [phone] Amie Sue M.B., B.Ch. [address] [place] [phone] 01/12/2025 1:00 PM GREENHOUSE SUPERINTENDENT Appointment Department of Radiation Oncology in [place], [place] [address] [place] [phone] Delilah Dos Santos, MPAS, P.A.-C. [address] [place] [phone] 01/12/2025 1:30 PM GREENHOUSE SUPERINTENDENT Comprehensive Visit Breast Diagnostic Clinic in [address] [phone] Radha Becker, Ph.D., L.P. [address] [place] [phone] 01/13/2025 9:30 AM GREENHOUSE SUPERINTENDENT Appointment Department of Radiology in [address] [phone] Rei Loredo M.D. [address] [place] [phone] Discharge Disposition: Home or Self Care Health [...] this topic Medical Devices Implanted Type Area Automatic Maintainer Device Identifier Shelf Expiration Date Model / Serial / Lot Imaging Marker Imaging Marker Right: Breast Description:Patient is unsur e of how many markers are in her right breast/axilla. 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) BI BREAST DIAGNOSTIC RIGHT WITH TOMOSYNTHESIS RAD - Routine (most inpatients and all outpatients) 12/20/2024 10:37 AM GREENHOUSE SUPERINTENDENT 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) PET CT SKULL TO THIGH RAD - Routine (most inpatients and all outpatients) 12/20/2024 8:17 AM GREENHOUSE SUPERINTENDENT 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) BI BREAST DIAGNOSTIC LEFT WITH TOMOSYNTHESIS RAD - Routine (most inpatients and all outpatients) 12/15/2024 12:58 PM GREENHOUSE SUPERINTENDENT Breast Examination Abnormal INTERPRETATION OF OUTSIDE BREAST IMAGING RAD - Routine (most inpatients and all outpatients) 12/02/2024 2:29 PM GREENHOUSE SUPERINTENDENT 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) INTERPRETATION OF OUTSIDE BREAST IMAGING RAD - Routine (most inpatients and all outpatients) 12/02/2024 2:29 PM GREENHOUSE SUPERINTENDENT 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) INTERPRETATION OF OUTSIDE NM PET SCAN RAD - Routine (most inpatients and all outpatients) 11/30/2024 1:15 PM GREENHOUSE SUPERINTENDENT 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 LAB MISC ORDERABLES Final Result [facility] [address] [place] [address], [facility] HLS [facility] [address] [place] [address] * (ABNORMAL) BI Ultrasound Breast Focused Right (12/20/2024 12:14 PM GREENHOUSE SUPERINTENDENT) Anatomical Region Laterality Modality Breast, Breast Imaging RST L OS, Breast Imaging ARZ LOS, Breast Imaging FLA LOS Right Ultrasound Impressions 12/20/2024 3:37 PM GREENHOUSE SUPERINTENDENT Known biopsy-proven malignancy in the inner right [...] Known Biopsy-Proven Malignancy. Narrative 12/20/2024 3:37 PM GREENHOUSE SUPERINTENDENT EXAM: BI BREAST DIAGNOSTIC RIGHT WITH TOMOSYNTHESIS, [...] Diagnostic Right with Tomosynthesis (12/20/2024 10:37 AM GREENHOUSE SUPERINTENDENT) Anatomical Region Laterality Modality Breast, Breast Imaging RST L OS, Breast Imaging ARZ LOS, Breast Imaging FLA LOS Right Mammography Impressions 12/20/2024 3:37 PM GREENHOUSE SUPERINTENDENT Known biopsy-proven malignancy in the inner right [...] Known Biopsy-Proven Malignancy. Narrative 12/20/2024 3:37 PM GREENHOUSE SUPERINTENDENT EXAM: BI BREAST DIAGNOSTIC RIGHT WITH TOMOSYNTHESIS, [...] Skull to Thigh FDG (12/20/2024 8:17 AM GREENHOUSE SUPERINTENDENT) Anatomical Region Laterality Modality Body, Nuclear Medicine PET R ST LOS, PET ARZ LOS, Nuclear Medicine PET FLA LOS, Nuclear Medicine N/A Positron Emission Tomography (PET), Positron Emission Tomography (PET) Impressions 12/20/2024 10:09 AM GREENHOUSE SUPERINTENDENT Compared with prior outside FDG PET significantly decreased conspicuity in FDG activity in the right breast cancer now with similar FDG activity to background. No evidence of suspicious FDG avid metastatic disease. Narrative 12/20/2024 10:09 AM GREENHOUSE SUPERINTENDENT EXAM: PET CT SKULL TO THIGH FDG Serum glucose at time of F-18 FDG injection was 81 mg/dL. Patient followed standard dietary/fasting requirements for this exam. RADIOPHARMACEUTICAL/MEDS: Route: intravenous fludeoxyglucose F 18 injection INTERMEDIATE (FDG F-18),14.87 millicurie TECHNIQUE: F-18 FDG PET/CT [...] RADIOPHARMACEUTICAL/MEDS: Route: intravenous fludeoxyglucose F 18 injection INTERMEDIATE (FDG F-18),14.87 millicurie TECHNIQUE: F-18 FDG PET/CT [...] 1.3 similar to background parenchyma (series 13, [id number]), previously this demonstrated SUV max 7.7. Minimal [...] Diagnostic Left with Tomosynthesis (12/15/2024 12:58 PM GREENHOUSE SUPERINTENDENT) Anatomical Region Laterality Modality Breast, Breast Imaging RST L OS, Breast Imaging ARZ LOS, Breast Imaging FLA LOS Left Mammography Impressions 12/15/2024 1:16 PM GREENHOUSE SUPERINTENDENT No mammographic findings of malignancy. RECOMMENDATION: Clinical Management Continue multidisciplinary management of the contralateral breast malignancy. ASSESSMENT: BI-RADS: 2: Benign. Narrative 12/15/2024 1:16 PM GREENHOUSE SUPERINTENDENT EXAM: BI BREAST DIAGNOSTIC LEFT WITH TOMOSYNTHESIS [...] of Outside Breast Imaging (12/02/2024 2:29 PM GREENHOUSE SUPERINTENDENT) Only the most recent of2 resultswithin the time period is included. Anatomical Region Laterality Modality Breast, Breast Imaging RST L OS, Breast Imaging ARZ LOS, Breast Imaging FLA LOS, Other N/A Mammography Impressions 12/05/2024 11:28 AM GREENHOUSE SUPERINTENDENT 1. Decreased size of the biopsy-proven right [...] inner left breast. Narrative 12/05/2024 11:28 AM GREENHOUSE SUPERINTENDENT EXAM: INTERPRETATION OF OUTSIDE BREAST IMAGING, INTERPRETATION [...] may present a biopsy clip. Additional field representative/health education images were saved at 2:00, 4 cm [...] right breast maypresent a biopsy clip. Additional field representative/health education images were saved at2:00, 4 cm from [...] Outside NM PET Scan (11/30/2024 1:15 PM GREENHOUSE SUPERINTENDENT) Anatomical Region Laterality Modality Nuclear Medicine PET RST LOS , Nuclear Medicine ARZ LOS, Nuclear Medicine FLA LOS, Nuclear Medicine, Other, Neuroradiology ARZ LOS, Neuroradiology FLA LOS, Neuroradiology RST LOS, Body N/A Nuclear Medicine Impressions 12/01/2024 3:49 PM GREENHOUSE SUPERINTENDENT 1. Moderately hypermetabolic right breast mass (deep [...] to ensure stability. Narrative 12/01/2024 3:49 PM GREENHOUSE SUPERINTENDENT EXAM: INTERPRETATION OF OUTSIDE NM PET SCAN [...] R esult from Last 3 Months Insurance [facility]
--- OUTSIDE RECORDS SUMMARY | 2025-01-08 00:11 | XMS_ITS | Encounter Summary ---
Author Organization [facility] Address [address] [place] [phone] Care Team Providers Care Production Team Advisor Name Role Phone Unavailable Primary Care Provider Unavailabl e Reason for Visit * Reason Onset Date Comments Ambry:MTP 01/04/2025 Encounter Details Date Type Department Care Team (Late st Contact Info) Description 01/04/2025 Clinical Communication Department of Medical Genetics in [place], [place] [address] [place] [phone] Tonie Calle M.S., [facility] [address] [place] [phone] Ambry:[facility] Social History Tobacco Use Types Packs/Day Years Used Date Smoking Tobacco: Never Passive Smoke Exposure: Never Smokeless Tobacco: Never Alcohol Use Standard Drinks/Week Comments Yes 14 (1 standard drink = 0.6 oz pu re alcohol) [facility] Utilities Answer Date Recorded In the past 12 months has [employer], gas, oil, or water [employer] threatened to shut off services in your [...] your living situation today? I have a [facility] place to live 12/14/2024 Comments No Sex and Gender Information Value Date Recorded Sex Assigned at Female 12/14/2024 12:10 PM REACTOR KETTLE OPERATOR Legal Sex Female 10:00 AM CDT Gender Identity Female 12/14/2024 12:10 PM REACTOR KETTLE OPERATOR Sexual Orientation Straight 12/14/2024 12 :10 PM REACTOR KETTLE OPERATOR documented as of this encounter Miscellaneous Notes * Telephone Encounter - Jamilah Jhaveri - 01/04/2025 1:34 PM CST Date: 01/04/25 Lab: [facility] Test: RNA Sample: Whole Blood Provider: Tonie Calle CGC Insurance: Commercial TOR KETTLE OPERATOR documented in this encounter Plan of Treatment Upcoming Encounters Date Type Department Care Team (Latest Contact Info) Description 01/12/2025 8:30 AM REACTOR KETTLE OPERATOR Comprehensive Visit Division of Breast and Melanoma Surgical Oncology in [place], [place] [address] [place] [phone] Rosalva Ruiz M.D. 200 [place] [phone] 01/12/2025 10:20 AM REACTOR KETTLE OPERATOR Comprehensive Visit Department of Oncology in [place], [place] [address] [place] [phone] Amei Sue M.B., B.Ch. [address] [place] [phone] 01/12/2025 1:00 PM REACTOR KETTLE OPERATOR Appointment Department of Radiation Oncology in [place], [place] [address] [place] [phone] Delilah Dos Santos, SCOTS, P.A.-C. [address] [place] [phone] 01/12/2025 1:30 PM REACTOR KETTLE OPERATOR Comprehensive Visit Breast Diagnostic Clinic in [place], [place] [address] [place] [phone] Radha Becker, Ph.D., L.P. [address] [place] [phone] 01/13/2025 9:30 AM REACTOR KETTLE OPERATOR Appointment Department of Radiology in [place], [place] [address] [place] [phone] Rei Loredo M.D. [address] [place] [phone] Discharge Disposition: Home or Self Care documented as of this encounter Visit Diagnoses Not on filedocumented in this encounter
--- OUTSIDE RECORDS SUMMARY | 2025-01-08 00:11 | XMS_ITS | Encounter Summary ---
Author Organization [facility] Address [address] [place] [address] Care Team Providers Care Furnace Cleaner Name Role Phone Unavailable Primary Care Provider Unavailabl e Encounter Details Date Type Department Care Team (Latest Contact Info) Description 01/04/2025 1:37 PM SECOND FACING BASTER - 01/04/2025 11:59 PM SECOND FACING BASTER Hospital Encounter Department of Laboratory Medicine and Pathology, [facility] in [place], [place] [address] [place] [phone] Ned Yates M.D. 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 I have a [facility] place to live 12/14/2024 Comments No Sex and Gender Information Value Date Recorded Sex Assigned at Female 12/14/2024 12:10 PM SECOND FACING BASTER Legal Sex Female 10:00 AM CDT Gender Identity Female 12/14/2024 12:10 PM SECOND FACING BASTER Sexual Orientation Straight 12/14/2024 12 :10 PM SECOND FACING BASTER documented as of this encounter Medications at [...] mouth 3 (three) times a week. omega 8-ehb-dvz-fish oil 900 mg-360 mg- 455 mg-1,000 mg [...] (Latest Contact Info) Description 01/12/2025 8:30 AM SECOND FACING BASTER Comprehensive Visit Division of Breast and Melanoma Surgical Oncology in [place], [place] [address] [place] [phone] Rosalva Ruiz M.D. [address] [place] [phone] 01/12/2025 10:20 AM SECOND FACING BASTER Comprehensive Visit Department of Oncology in [place], [place] [address] [place] [phone] Amie Sue M.B., B.Ch. [address] [place] [phone] 01/12/2025 1:00 PM SECOND FACING BASTER Appointment Department of Radiation Oncology in [place], [place] [address] [place] [phone] Delilah Dos Santos, MPAS, P.A.-C. [address] [place] [phone] 01/12/2025 1:30 PM SECOND FACING BASTER Comprehensive Visit [facility] Diagnostic Clinic in [place], [place] [address] [place] [phone] Radha Becker, Ph.D., L.P. [address] [place] [phone] 01/13/2025 9:30 AM SECOND FACING BASTER Appointment Department of Radiology in [place], [place] [address] [place] [phone] Rei Loredo M.D. 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
--- OUTSIDE RECORDS SUMMARY | 2025-01-08 00:11 | XMS_ITS ---
Author Name Interface, [id number] lity Address [address] [facility] [address] [address] Organization [facility] Address [address] [facility] [address] [address] Care Team Providers Care Small Engine Technician Name Role Phone Barbie Moreno Unavailable Unavailable Allergies and Adverse Reactions Medication/Group [...] 15 MIN 12/11/2021 APPOINTMENT CHART CHECK 5 NJ N 12/10/2021 APPOINTMENT OUTSIDE TEST 5 M IN 11/26/2021 APPOINTMENT NEW PT CONSULT 6 0 MIN 04/08/2022 LABORDER iSTAT creatinine panel 05/06/2022 LABORDER iSTAT creatinine panel 06/03/2022 LABORDER iSTAT creatinine panel 10/22/2022 LABORDER iSTAT creatinine panel 02/10/2023 LABORDER CMP 02/10/2023 LABORDER iSTAT creatinine panel 02/10/2023 LABORDER CBC w/ auto diff 05/14/2023 LABORDER iSTAT creatinine panel 04/15/2024 LABORDER DEXA scan 04/15/2024 LABORDER Mammogram, diagn ostic, bilateral breast 04/15/2024 LABORDER U/S Reason for Visit OV 20 MIN Encounters Date Name 11/26/2021 Blurry vision 11/26/2021 Breast cancer, femal e 11/26/2021 Breast pain 11/26/2021 Encounter for other plastic and reconstructive surgery following medical procedure or healed injury 11/26/2021 Estrogen receptor po sitive status [ER+] 11/26/2021 History of malignant neoplasm of breast (situation) 11/26/2021 Multiple sclerosis ( disorder) 11/26/2021 Postmenopausal state (finding) Immunizations Date Name Route Dose Instructions Refusal Reason Stat us Covid-19 vaccine (Moderna) Patient declined/rejected Not Administered Flu vaccine - Adult Patient declined/rejected Not Administered Diagnostic Results Date Type Test Units Lower Limit Upper Limit Result Flag Comments Status Ordered By Specimen Source Lab Address 04/08 iSTAT creat inine panel Creat inine , iSTAT mg/dl 0.6 1.3 0.8 [facility]AL [place] [facility] [place], [address] [place] [phone] 0 Phone: () - 04/08 iSTAT creat inine panel GFR estim ate ml/min /1.73m ^2 90.5 GFR is calculate d using the CKD-EPI equation. [facility]AL [place] [facility] [place], [address] [place] [phone] 0 Phone: () - 05/06 iSTAT creat inine panel Creat inine , iSTAT mg/dl 0.6 1.3 0.8 [facility]AL [place] [facility] [place], [address] [place] [phone] 0 Phone: () - 05/06 iSTAT creat inine panel GFR estim ate ml/min /1.73m ^2 90.4 GFR is calculate d using the CKD-EPI equation. FINAL [place] [facility] [place], [address] [place] [phone] 0 Phone: () - 07/08 [facility] other lab See global transportation manager d 10/22 iSTAT creat inine panel Creat inine , iSTAT mg/dl 0.6 1.3 0.8 [facility]AL [place] [facility] [place], [address] [place] [phone] 0 Phone: () - 10/22 iSTAT creat inine panel GFR estim ate ml/min /1.73m ^2 90.1 GFR is calculate d using the CKD-EPI equation. [facility] [place] [facility] [place], [address] [place] [phone] 0 Phone: () - 11/18 [facility] other lab See global transportation manager d 11/18 [facility] other lab See global transportation manager d 11/18 [facility] other lab See global transportation manager d 11/18 [facility] other lab See global transportation manager d 02/10 CBC w/ auto diff WBC K/uL 3.0 8.9 5.1 [facility]AL [place] [facility] [place], [address] [place] [phone] 0 Phone: () - 02/10 CBC w/ auto diff HGB g/dL 11.3 15.2 13.9 [facility] [place] [facility] [place], [address] [place] [phone] 0 Phone: () - 02/10 CBC w/ auto diff PLT K/uL 113.0 364.0 311 [facility]AL [place] [facility] [place], [address] [place] [phone] 0 Phone: () - 02/10 CBC w/ auto diff Doreen # (ANC) K/uL 1.6 6.6 1.8 [facility]AL [place] [facility] [place], [address] [place] [phone] 0 Phone: () - 02/10 CBC w/ auto diff Doreen % % 43.0 74.0 35.1 Low [facility]AL [place] [facility] [place], [address] [place] [phone] 0 Phone: () - 02/10 CBC w/ auto diff IG % % 0.0 0.5 0.2 [facility] [place] [facility] [place], [address] [place] [phone] 0 Phone: () - 02/10 CBC w/ auto diff IG # K/uL 0.0 0.03 0.01 [facility] [place] [facility] [place], [address] [place] [phone] 0 Phone: () - 02/10 CBC w/ auto diff LY % % 14.0 41.0 52.3 High [facility]AL [place] [facility] [place], [address] [place] [phone] 0 Phone: () - 02/10 CBC w/ auto diff MO % % 6.0 15.0 9.8 [facility] [place] [facility] [place], [address] [place] [phone] 0 Phone: () - 02/10 CBC w/ auto diff EO % % 0.0 7.0 2.0 [facility]AL [place] [facility] [place], [address] [place] [phone] 0 Phone: () - 02/10 CBC w/ auto diff BA % % 0.0 2.0 0.6 [facility] [place] [facility] [place], [address] [place] [phone] 0 Phone: () - 02/10 CBC w/ auto diff LY # K/uL 0.4 3.6 2.7 [facility] [place] [facility] [place], [address] [place] [phone] 0 Phone: () - 03/28 /2023 CBC w/ auto diff MO # K/uL 0.2 1.3 0.5 [facility] [place] [facility] [place], [address] [place] [phone] 0 Phone: () - 02/10 CBC w/ auto diff EO # K/uL 0.0 0.6 0.1 [facility] [place] [facility] [place], [address] [place] [phone] 0 Phone: () - 02/10 CBC w/ auto diff BA # K/uL 0.0 0.2 0.0 [facility] [place] [facility] [place], [address] [place] [phone] 0 Phone: () - 02/10 CBC w/ auto diff NRBC % #/100W BC 0.0 0.2 0.0 [facility]AL [place] [facility] [place], [address] [place] [phone] 0 Phone: () - 02/10 CBC w/ auto diff RBC M/uL 3.9 5.1 4.40 [facility]AL [place] [facility] [place], [address] [place] [phone] 0 Phone: () - 02/10 CBC w/ auto diff HCT % 35.0 48.0 41.7 [facility]AL [facility] [place], [address] [place] [phone] 0 Phone: () - 02/10 CBC w/ auto diff MCV fL 80.0 104.0 94.8 [facility] [place], [address] [place] [phone] 0 Phone: () - 02/10 CBC w/ auto diff MCH pg 26.0 35.0 31.6 [facility] [place] [facility] [place], [address] [place] [phone] 0 Phone: () - 02/10 CBC w/ auto diff MCHC g/dL 30.0 35.0 33.3 [facility]AL [place] [facility] [place], [address] [place] [phone] 0 Phone: () - 02/10 CBC w/ auto diff MPV fL 9.5 13.4 9.4 Low [facility]AL [place] [facility] [place], [address] [facility] [address] [address] [place] [phone] 0 Phone: () - 02/10 CBC w/ auto diff RDW % 11.4 16.1 11.80 [facility] [place] [facility] [place], [address] [facility] [place] [phone] 0 Phone: () - 02/10 CMP Album in g/dL 3.2 5.2 5.0 FINAL [place] [facility], [address] [place] [phone] 0 Phone: () - 02/10 CMP Alkal ine phosp hatas e U/L 46.0 116.0 73 [facility] [address] [facility] [address] [place] [phone] 0 Phone: () - 02/10 CMP ALT/S GPT U/L 7.0 40.0 22 FINAL [place] [facility] [address] [place] [phone] 0 Phone: () - 02/10 CMP AST/S GOT U/L 13.0 40.0 22 [facility]AL [place] [facility], [address] [facility] [phone] 0 Phone: () - 02/10 CMP BUN mg/dL 9.0 23.0 16 [facility], [address] [facility] [phone] 0 Phone: () - 02/10 CMP Calci um mg/dL 8.7 10.4 9.9 FINAL [place] [facility], [address] [facility] [address] [facility] [phone] 0 Phone: () - 02/10 CMP Chlor indy mmol/L 96.0 114.0 106 [place]AL [place] [facility] [address] [phone] 0 Phone: () - 02/10 CMP CO2 [...] the 96 hour stability window. [facility]AL [place] [facility] [address] [phone] 0 Phone: () - 02/10 CMP Creat inine mg/dL 0.5 1.2 0.81 [place] [place] [facility] [address] [phone] 0 Phone: () - 02/10 CMP GFR estim ate ml/min /1.73m ^2 88.6 GFR is calculate d using the CKD-EPI equation. [place] [place] [facility] [address] [phone] 0 Phone: () - 02/10 CMP Gluco se mg/dL 73.0 126.0 95 [facility] [place] [facility] [address] [phone] 0 Phone: () - 02/10 CMP Potas sium mmol/L 3.5 5.1 4.2 [facility]AL [place] [facility] [address] [phone] 0 Phone: () - 02/10 CMP Sodiu m mmol/L 136.0 145.0 144 [facility] [place] [facility] [address] [phone] 0 Phone: () - 02/10 CMP Bilir ubin, total mg/dL 0.3 1.2 0.3 [facility]AL [place] [facility] [place], [address] [place] [phone] 0 Phone: () - 02/10 CMP Total prote in g/dL 5.7 8.2 7.9 [facility] [place] [facility] [place], [address] [place] [phone] 0 Phone: () - 02/10 iSTAT creat inine panel Creat inine , iSTAT mg/dl 0.6 1.3 0.8 [facility]AL [facility] [place], [address] [facility] [place] [phone] 0 Phone: () - 02/10 iSTAT creat inine panel GFR estim ate ml/min /1.73m ^2 90.0 GFR is calculate d using the CKD-EPI equation. [facility]AL [place] [facility] [place], [address] [facility] [address] [facility] [place] [phone] 0 Phone: () - Medications Date Name [...] vision Active Vital Signs Date Type Value 11/26/2021 BSA 1.63 11/26/2021 BMI 23.74 11/26/2021 Height 63.00 11/26/2021 Weight 134.00 11/26/2021 Heart Beat 89.00 11/26/2021 Respiratory Rate 16.00 11/26/2021 Intravascular Systolic 146 11/26/2021 Intravascular Diastolic 91 11/26/2021 Oxygen Saturation 98.00 11/26/2021 Pain Scale 0.00 01/14/2022 BSA 1.67 01/14/2022 BMI 24.94 01/14/2022 Height 63.00 01/14/2022 Weight 140.80 01/14/2022 Pain Scale 0.00 01/14/2022 Oxygen Saturation 93.00 01/14/2022 Respiratory Rate 16.00 01/14/2022 Heart Beat 62.00 01/14/2022 Intravascular Systolic 153 01/14/2022 Intravascular Diastolic 104 01/14/2022 Body Temperature 98.90 05/06/2022 Body Temperature 99.10 05/06/2022 Heart Beat 87.00 05/06/2022 BSA 1.69 05/06/2022 BMI 25.86 05/06/2022 Height 63.00 05/06/2022 Weight 146.00 05/06/2022 Pain Scale 0.00 05/06/2022 Intravascular Systolic 134 05/06/2022 Intravascular Diastolic 86 05/06/2022 Oxygen Saturation 98.00 05/06/2022 Respiratory Rate 16.00 07/29/2022 BSA 1.70 07/29/2022 BMI 26.08 07/29/2022 Height 63.00 07/29/2022 Weight 147.20 07/29/2022 Body Temperature 98.80 07/29/2022 Intravascular Systolic 144 07/29/2022 Intravascular Diastolic 90 07/29/2022 Oxygen Saturation 97.00 07/29/2022 Respiratory Rate 16.00 07/29/2022 Heart Beat 75.00 07/29/2022 Pain Scale 0.00 10/22/2022 Body Temperature 98.40 10/22/2022 Heart Beat 82.00 10/22/2022 Respiratory Rate 16.00 10/22/2022 Oxygen Saturation 98.00 10/22/2022 Intravascular Systolic 148 10/22/2022 Intravascular Diastolic 92 10/22/2022 Pain Scale 0.00 10/22/2022 Weight 145.80 10/22/2022 Height 63.00 10/22/2022 BMI 25.83 10/22/2022 BSA 1.69 11/19/2022 Pain Scale 0.00 02/10/2023 Intravascular Systolic 118 02/10/2023 Intravascular Diastolic 76 02/10/2023 BMI 26.39 02/10/2023 Heart Beat 71.00 02/10/2023 Respiratory Rate 16.00 02/10/2023 Oxygen Saturation 99.00 02/10/2023 Height 63.00 02/10/2023 Pain Scale 0.00 02/10/2023 Weight 149.00 02/10/2023 Body Temperature 98.60 02/10/2023 BSA 1.71 03/16/2023 Height 63.00 03/16/2023 Pain Scale 0.00 04/15/2024 BSA 1.73 04/15/2024 BMI 27.35 04/15/2024 Height 63.00 04/15/2024 Pain Scale 3.00 04/15/2024 Intravascular Systolic 144 04/15/2024 Intravascular Diastolic 100 04/15/2024 Oxygen Saturation 98.00 04/15/2024 Respiratory Rate 16.00 04/15/2024 Heart Beat 94.00 04/15/2024 Body Temperature 98.00 04/15/2024 Weight 154.40 10/03/2024 BMI 28.24 10/03/2024 Height 63.00 10/03/2024 Weight 159.40 10/03/2024 Pain Scale 0.00 10/03/2024 BSA 1.76 10/03/2024 Oxygen Saturation 98.00 10/03/2024 Respiratory Rate 16.00 10/03/2024 Heart Beat 89.00 10/03/2024 Body Temperature 97.70 10/03/2024 Intravascular Systolic 130 10/03/2024 Intravascular Diastolic 100
--- OUTSIDE RECORDS SUMMARY | 2025-01-08 00:11 | XMS_ITS | Encounter Summary ---
Author Organization [facility] Address [address] [place] [address] Care Team Providers Care Iuss Master Analyst Name Role Phone Unavailable Primary Care Provider Unavailabl e Encounter Details Date Type Department Care Team ([facility] st Contact Info) Description 12/20/2024 Results Follow-Up Department of Radiation Oncology in [place], [place] [address] [place] [phone] Angela Piper APRN, C.N.P., D.N.P. [address] [place] [phone] Skull to Thigh FDG, BI Breast Diagnostic Right with Tomosynthesis, BI Ultrasound Breast Focused Right Social History Tobacco Use Types Packs/Day Years Used Date Smoking Tobacco: Never Smokeless Tobacco: Never Alcohol Use Standard Drinks/Week Comments Yes 14 (1 standard drink = 0.6 oz pu re alcohol) [facility] Utilities Answer Date Recorded In the past 12 months has [employer], [employer], oil, or water [employer] threatened to shut off services in your [...] your living situation today? I [facility] place to live 12/14/2024 Comments Unknown Sex and Gender Information Value Date Recorded Sex Assigned at Female 12/14/2024 12:10 PM CODE AND TEST CLERK Legal Sex Female 10:00 AM CDT Gender Identity Female 12/14/2024 12:10 PM CODE AND TEST CLERK Sexual Orientation Straight 12/14/2024 12 :10 PM CODE AND TEST CLERK documented as of this encounter Plan of Treatment Upcoming Encounters Date Type Department Care Team (Latest Contact Info) Description 01/12/2025 8:30 AM CODE AND TEST CLERK Comprehensive Visit Division of Breast and Melanoma Surgical Oncology in [place], [place] 200 [place] [phone] Rosalva Ruiz M.D. [address] [place] [phone] 01/12/2025 10:20 AM CODE AND TEST CLERK Comprehensive Visit Department of Oncology in [place], [place] 200 [place] [phone] Amie Sue M.B., B.Ch. [address] [place] [phone] 01/12/2025 1:00 PM CODE AND TEST CLERK Appointment Department of Radiation Oncology in [place], [place] [address] [place] [phone] Delilah Dos Santos, SCOTS, P.A.-C. [address] [place] [phone] 01/12/2025 1:30 PM CODE AND TEST CLERK Comprehensive Visit Breast Diagnostic Clinic in [place], [place] [address] [place] [phone] Radha Becker, Ph.D., L.P. [address] [place] [phone] 01/13/2025 9:30 AM CODE AND TEST CLERK Appointment Department of Radiology in [place], [place] [address] [place] [phone] Rei Loredo M.D. [address] [place] [phone] Discharge Disposition: Home or Self Care documented as of this encounter Visit Diagnoses Not on filedocumented in this encounter
--- OUTSIDE RECORDS SUMMARY | 2025-01-08 00:11 | XMS_ITS | Encounter Summary ---
Author Organization [facility] Address [address] [place] [address] Care Team Providers Care Hand Roller Engraver Name Role Phone No Ref-Primary, Physician Primary Care Provider No Ref-Primary, Physician Primary Care Provider Encounter Details Date Type Department Care Team (Late st Contact Info) Description 08/22/2024 [facility] [address] [place] [phone] Kevon Duarte MD [address] [facility] [address] [place] [address] Multiple sclerosis (H) (Primary Dx) [...] on file Legal Sex Female 3:34 AM SKIP TENDER Gender Identity Not on file Sexual Orientation Not on file documented as of this encounter Plan of Treatment Not on file documented as of this encounter Results * CD20 on B Cells, Blood (08/23/2024 12:37 PM CDT) CD45 Absolute 2.20 0.99 - 3.15 thou/mcL 08/24/2024 3:06 PM CDT [facility] %CD19 B-Cells 12 4.6 - 22.1 % 08/24/2024 3:06 PM CDT [facility] %CD20 B-Cells 12 5.0 - 22.3 % 08/24/2024 3:06 PM CDT [facility] CD19 Absolute 255 56.6 - 417.4 cells/mcL 08/24/2024 3:06 PM CDT [facility] CD20 Absolute 255 74.4 - 441.1 cells/mcL 08/24/2024 3:06 PM CDT [facility] Comment: ADDITIONAL INFORMATION Reference values implemented February 14, 2009. This test was developed using an analyte specific reagent. Its performance characteristics were determined by [facility] in a manner consistent with CLIA requirements. This test has not been cleared or approved by the U.S. Food and Drug Administration. Test Performed by: [facility] [place] [address] Sales Clerk Supervisor: Rich Latif Ph.D.; CLIA# [id number] Blood STRUCTURE OF LEFT UPPER LIMB / Unknown Venipuncture / Unknown 08/23/2024 12:37 PM CDT 08/23/2024 12:38 PM CDT Kevon Duarte MD LAB - BLOOD ORDERABLES Final R esult [facility] [address] [phone] * Hepatitis C antibody (08/23/2024 12:37 PM CDT) Pathologist [facility] Hepatitis C Antibody Nonreactive Nonreactive 08/23/2024 7:15 [...] BLOOD ORDERABLES Final R esult [facility] [place] [facility] [address] [facility], [address] [place] [phone] * [facility]; [id number]; HBV Baseline Avaluation, HCV Direct-acting Antivirals (Laboratory Miscellaneous Order) (08/23/2024 12:37 PM CDT) Specimen Status Specimen received. Reordered and sent to performing laboratory. Report to follow upon completion. [facility] 08/23/2024 1:46 PM CDT LABORATORY Performing Laboratory [facility] 08/23/2024 1:46 PM CDT [facility] Test Name HBV Baseline Avaluation, HCV Direct-acting Antivirals [facility] 08/23/2024 1:46 PM CDT LABORATORY Test Code [id number] [facility] 08/23/2024 1:46 PM CDT LABORATORY Blood STRUCTURE OF LEFT UPPER LIMB / Unknown Venipuncture / Unknown 08/23/2024 12:37 PM CDT 08/23/2024 12:38 PM CDT Kevon Duarte MD LAB - BLOOD ORDERABLES Final R esult LABORATORY [facility] [address] Lab (1st floor, no room number) [place] [phone] documented in this encounter Visit Diagnoses Diagnosis Multiple sclerosis (H)- Primary Multiple sclerosis documented in this encounter Care Teams Hand Roller Engraver Relationship Specialty Start Date End Date No Ref-Primary, Physician PCP - General 09/04/14 10/10/24 No Ref-Primary, Physician PCP - General 10/11/24 documented as of this encounter
--- OUTSIDE RECORDS SUMMARY | 2025-01-08 00:11 | XMS_ITS | Encounter Summary ---
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 [address] [place] [phone] Phone: tel: fax: [facility] Referral ID Status Reason Start Date Expiration Date Visits Re quested Visits Authorized [id number] Closed 12/20/2024 06/21/2026 1 1 Encounter Details Date Type Department Care Team (Latest Contact Info) Description 01/04/2025 1:00 PM PIE FILLER Comprehensive Visit Department of Medical Genetics in [place], [place] [address] [place] [phone] Rei Loredo M.D. 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 Utilities Answer Date Recorded In the past 12 months has [facility] [employer], gas, oil, or water [employer] threatened to shut off services in your [...] your living situation today? I have a [facility] place to live 12/14/2024 Comments No Sex and Gender Information Value Date Recorded Sex Assigned at Female 12/14/2024 12:10 PM PIE FILLER Legal Sex Female 10:00 AM CDT Gender Identity Female 12/14/2024 12:10 PM PIE FILLER Sexual Orientation Straight 12/14/2024 12 :10 PM PIE FILLER documented as of this encounter Progress Notes * Jamilah Jhaveri - 01/04/2025 1:00 PM CST REFERRAL Rei Loredo M.D. CHIEF COMPLAINT/PURPOSE OF VISIT Obtain and construct family history for clinical assessment. HISTORY OF PRESENT ILLNESS Please see Tonie Calle [facility]'s Clinical Genomics consultation for further details. FAMILY [...] and clinical assessment. Total time: 15 minutes FILLER documented in this encounter Plan of Treatment Upcoming Encounters Date Type Department Care Team (Latest Contact Info) Description 01/12/2025 8:30 AM PIE FILLER Comprehensive Visit Division of Breast and Melanoma Surgical Oncology in [address] [phone] Rosalva Ruiz M.D. [address] [place] [phone] 01/12/2025 10:20 AM PIE FILLER Comprehensive Visit Department of Oncology in [address] [phone] Amie Sue M.B., B.Ch. [address] [place] [phone] 01/12/2025 1:00 PM PIE FILLER Appointment Department of Radiation Oncology in [address] [phone] Delilah Dos Santos, MPAS, P.A.-C. [address] [place] [phone] 01/12/2025 1:30 PM PIE FILLER Comprehensive Visit Breast Diagnostic Clinic in [address] [phone] Radha Becker, Ph.D., L.P. [address] [place] [phone] 01/13/2025 9:30 AM PIE FILLER Appointment Department of Radiology in [place], [place] [address] [place] [phone] Rei Loredo M.D. 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
--- OUTSIDE RECORDS SUMMARY | 2025-01-08 00:11 | XMS_ITS | Encounter Summary ---
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 [address] [place] [phone] Phone: tel: fax: [facility] Referral ID Status Reason Start Date Expiration Date Visits Re quested Visits Authorized [id number] Closed 12/15/2024 03/17/2026 1 1 Encounter Details Date Type Department Care Team (Latest Contact Info) Description 01/06/2025 11:43 AM DATA PROCESSING MECHANIC - 01/06/2025 11:59 PM DATA PROCESSING MECHANIC Hospital Encounter Department of Radiology, [facility], in [place], [place] [address] [place] [address] Angela Piper APRN, C.N.P., D.N.P. 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 I have a [facility] place to live 12/14/2024 Comments No Sex and Gender Information Value Date Recorded Sex Assigned at Female 12/14/2024 12:10 PM DATA PROCESSING MECHANIC Legal Sex Female 10:00 AM CDT Gender Identity Female 12/14/2024 12:10 PM DATA PROCESSING MECHANIC Sexual Orientation Straight 12/14/2024 12 :10 PM DATA PROCESSING MECHANIC documented as of this encounter Medications at [...] mouth 3 (three) times a week. omega 4-pxf-mja-fish oil 900 mg-360 mg- 455 mg-1,000 mg [...] (Latest Contact Info) Description 01/12/2025 8:30 AM DATA PROCESSING MECHANIC Comprehensive Visit Division of Breast and Melanoma Surgical Oncology in [place], [place] [address] [place] [phone] Rosalva Ruiz M.D. [address] [place] [phone] 01/12/2025 10:20 AM DATA PROCESSING MECHANIC Comprehensive Visit Department of Oncology in [place], [place] [address] [place] [phone] Amie Sue M.B., B.Ch. [address] [place] [phone] 01/12/2025 1:00 PM DATA PROCESSING MECHANIC Appointment Department of Radiation Oncology in [address] [phone] Delilah Dos Santos, SCOTS, P.A.-C. [address] [place] [phone] 01/12/2025 1:30 PM DATA PROCESSING MECHANIC Comprehensive Visit Breast Diagnostic Clinic in [address] [phone] Radha Becker, Ph.D., L.P. [address] [place] [phone] 01/13/2025 9:30 AM DATA PROCESSING MECHANIC Appointment Department of Radiology in [address] [phone] Rei Loredo M.D. 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 Given 01/06/2025 1:18 PM DATA PROCESSING MECHANIC 8 mL sodium chloride (PF) 0.9 % injection 1-100 mL 1-100 mL, intravenous, Once, On Thu01/06/25 at 1300, For 1 dose, Imaging Protocol Orders, Dose per Radiant Medication Guidelines Given 01/06/2025 1:18 PM DATA PROCESSING MECHANIC 20 mL documented in this encounter
--- OUTSIDE RECORDS SUMMARY | 2025-01-08 00:11 | XMS_ITS | Clinical Summary ---
Author Organization [facility] Address [address] [place] [address] Care Team Providers Care Bosom Presser Name Role Phone No Ref-Primary, Physician Primary Care Provider Allergies Active Allergy Reactions Criticality Noted Date Comments No Known Allergies 06/01/2003 Medications MIRCETTE 0.15-0.02/0.01 MG (05/04) OR TABSIndications:Oth er general counseling and advice for contraceptive management 1 TABLET DAILY-PT WILL NOT BE ALLOWED ANY FURTHER REFILLS UNTIL SEEN. 28 0 5 Active SYNTHROID 100 MCG OR TABSIndications:Uns [...] Department Care Team Description 10/11/2024 2:00 PM [facility] [address] [place] [address] Multiple sclerosis (H) (Primary Dx) 10/11/2024 Travel [...] on file Legal Sex Female 3:34 AM COMMERCIAL ENGINEER Gender Identity Not on file Sexual Orientation Not on file Last Filed Vital Signs Vital Sign Reading Time Taken Comments Blood Pressure 124/78 05/23/2021 10:53 AM CDT Pulse 74 05/23/2021 10:53 AM CDT Temperature 36.9 C (98.4 F) 11/10/2011 9:43 AM COMMERCIAL ENGINEER Respiratory Rate 16 05/23/2021 10:53 AM CDT [...] INDEX REFLEX INHIBITION Routine 10/11/2024 2:08 PM COMMERCIAL ENGINEER Multiple sclerosis (H) HEPATITIS C ANTIBODY Routine 08/23/2024 12:37 PM CDT Multiple sclerosis (H) MA DIAGNOSTIC BILATERAL W/ BARRY Routine 08/17/2024 9:20 AM CDT Breast cancer of upper-outer quadrant of right female breast (H) Blurred vision Breast pain Encounter for breast reconstruction following mastectomy Chronic fatigue Hot flashes, menopausal Hypothyroidism Multiple sclerosis (H) Osteopenia BASIC METABOLIC PANEL Routine 11/18/2022 5:00 PM COMMERCIAL ENGINEER Encounter for other specified special examinations [ICD-10-CM] TSH WITH FREE T4 REFLEX Routine 11/10/2011 10:01 AM COMMERCIAL ENGINEER HYPOTHYROIDISM NOS LIPID REFLEX TO DIRECT LDL PANEL Routine 11/10/2011 10:01 AM COMMERCIAL ENGINEER CARDIOVASCULAR SCREENING; LDL GOAL LESS THAN 160 HCL PAP THIN LAYER DIAGNOSTIC Routine 04/03/2005 DIAGNOSIS NOT YET DEFINED from Last 3 Months or Most Recently Relevant to Health Maintenance Results * (ABNORMAL) NELSON Virus Ab Index Reflex Inhibition (10/11/2024 2:08 PM COMMERCIAL ENGINEER) See Scanned Result NELSON VIRUS AB INDEX REFLEX INHIBITION- Scanned(A) 10/19/2024 8:41 AM COMMERCIAL ENGINEER [facility] Blood STRUCTURE OF LEFT UPPER LIMB / Unknown Venipuncture / Unknown 10/11/2024 2:08 PM COMMERCIAL ENGINEER 10/11/2024 2:08 PM COMMERCIAL ENGINEER us Kevon Duarte MD LAB - BLOOD ORDERABLES Final [facility] [address] [phone] * Hepatitis C antibody (08/23/2024 12:37 PM [...] BLOOD ORDERABLES Final R esult [facility] Core Lab [address] [facility], Room [address] [phone] * (ABNORMAL) MA Diagnostic Bilateral w/Barry (08/17/2024 [...] (ABNORMAL) Basic metabolic panel (11/18/2022 5:00 PM COMMERCIAL ENGINEER) Sodium 143 136 - 145 mmol/L 11/18/2022 9:05 PM COMMERCIAL ENGINEER [facility] Potassium 3.8 3.4 - 5.3 mmol/L 11/18/2022 9:05 PM COMMERCIAL ENGINEER [facility] Chloride 103 98 - 107 mmol/L 11/18/2022 9:05 PM COMMERCIAL ENGINEER [facility] Carbon Dioxide (CO2) 23 22 - 29 mmol/L 11/18/2022 9:05 PM COMMERCIAL ENGINEER [facility] Anion Gap 17(H) 7 - 15 mmol/L 11/18/2022 9:05 PM COMMERCIAL ENGINEER [facility] Urea Nitrogen 14.9 6.0 - 20.0 mg/dL 11/18/2022 9:05 PM COMMERCIAL ENGINEER [facility] Creatinine 0.82 0.51 - 0.95 mg/dL 11/18/2022 9:05 PM COMMERCIAL ENGINEER [facility] Calcium 9.8 8.6 - 10.0 mg/dL 11/18/2022 9:05 PM COMMERCIAL ENGINEER [facility] Glucose 116(H) 70 - 99 mg/dL 11/18/2022 9:05 PM COMMERCIAL ENGINEER [facility] GFR Estimate 87 >60 mL/min/1.7 3m2 11/18/2022 9:05 PM COMMERCIAL ENGINEER [facility] Comment:Effective October 172020 eGFRcr in adults is calculated using the 2020 CKD-EPI creatinine equation which includes age and gender (Tello et al., NEJ, DOI: 10.1056/BYURvh7729098) Blood BLOOD SPECIMEN / Unknown Client Draw / Unknown 11/18/2022 5:00 PM COMMERCIAL ENGINEER 11/18/2022 8:20 PM COMMERCIAL ENGINEER us London Del Rio DO LAB - BLOOD ORDERABLES F inal Result [facility] [address] [facility] Building, Room [address] [place] [address], [facility] [phone] * TSH with free T4 reflex (11/10/2011 10:01 AM COMMERCIAL ENGINEER) TSH 0.60 0.4 - 5.0 mU/L [facility] Blood specimen (specimen) 11/10/2011 10:01 AM COMMERCIAL ENGINEER 11/10/2011 10:04 AM COMMERCIAL ENGINEER Oumar Rocha MD LAB - BLOOD ORDERABLES Final Res ult Performing Organization Address City/[facility]/ZIP Co de Phone Number [facility] [address] [place] [address] * (ABNORMAL) Lipid Profile with reflex to direct LDL (11/10/2011 10:01 AM COMMERCIAL ENGINEER) Cholesterol 181 0 - 200 mg/dL [facility] Comment: LDL Cholesterol is the primary guide to therapy. The NCEP recommends further evaluation of: patients with cholesterol greater than 200 mg/dL if additional risk factors are present, cholesterol greater than 240 mg/dL, triglycerides greater than 150 mg/dL, or HDL less than 40 mg/dL. Triglycerides 174(H) 0 - 150 mg/dL [facility] HDL Cholesterol 73 50 - 110 mg/dL [facility] LDL Cholesterol Calculated 73 0 - 129 mg/dL [facility] Comment: LDL Cholesterol is the primary guide to therapy: LDL-cholesterol goal in high risk patients is <100 mg/dL and in very high risk patients is <70 mg/dL. VLDL-Cholesterol 35(H) 0 - 30 mg/dL [facility] Cholesterol/HDL Ratio 2.5 0.0 - 5.0 [facility] Blood specimen (specimen) 11/10/2011 10:01 AM COMMERCIAL ENGINEER 11/10/2011 10:04 AM COMMERCIAL ENGINEER Oumar Rocha MD LAB - BLOOD ORDERABLES Final Res ult Performing Organization Address City/[facility]/ZIP Co de Phone Number [facility] [address] [place] [address] * A THIN LAYER, DIAGNOSTIC PAP (04/03/2005) 04/03/2005 Oumar Rocha MD LABORATORY Final Result MISYS from Last 3 Months or Most Recently Relevant to Health Maintenance Insurance [facility] Care Teams Bosom Presser Relationship Specialty Start Date End Date No Ref-Primary, Physician PCP - General 10/11/24
--- OUTSIDE RECORDS SUMMARY | 2025-01-08 00:12 | XMS_ITS | Encounter Summary ---
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 [address] [place] [phone] Phone: tel: fax: [facility] Referral ID Status Reason Start Date Expiration Date Visits Re quested Visits Authorized [id number] Closed 12/15/2024 03/17/2026 1 1 Encounter Details Date Type Department Care Team (Latest Contact Info) Description 12/20/2024 9:25 AM COMMUNITY SERVICES OFFICER - 12/20/2024 11:59 PM COMMUNITY SERVICES OFFICER Hospital Encounter Department of Radiology in [place], [place] [address] [place] [address] Angela Piper APRN, C.N.P., D.N.P. 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 I have a [facility] place to live 12/14/2024 Comments Unknown Sex and Gender Information Value Date Recorded Sex Assigned at Female 12/14/2024 12:10 PM COMMUNITY SERVICES OFFICER Legal Sex Female 10:00 AM CDT Gender Identity Female 12/14/2024 12:10 PM COMMUNITY SERVICES OFFICER Sexual Orientation Straight 12/14/2024 12 :10 PM COMMUNITY SERVICES OFFICER documented as of this encounter Medications at [...] mouth 3 (three) times a week. omega 0-szh-vbl-fish oil 900 mg-360 mg- 455 mg-1,000 mg [...] (Latest Contact Info) Description 01/12/2025 8:30 AM COMMUNITY SERVICES OFFICER Comprehensive Visit Division of Breast and Melanoma Surgical Oncology in [place], [place] [address] [place] [phone] Rosalva Ruiz M.D. [address] [place] [phone] 01/12/2025 10:20 AM COMMUNITY SERVICES OFFICER Comprehensive Visit Department of Oncology in [place], [place] [address] [place] [phone] Amie Sue M.B., B.Ch. [address] [place] [phone] 01/12/2025 1:00 PM COMMUNITY SERVICES OFFICER Appointment Department of Radiation Oncology in [place], [place] [address] [place] [phone] Delilah Dos Santos, MPAS, P.A.-C. [address] [place] [phone] 01/12/2025 1:30 PM COMMUNITY SERVICES OFFICER Comprehensive Visit Breast Diagnostic Clinic in [place], [place] [address] [place] [phone] Radha Becker, Ph.D., L.P. [address] [place] [phone] 01/13/2025 9:30 AM COMMUNITY SERVICES OFFICER Appointment Department of Radiology in [place], [place] [address] [place] [phone] Rei Loredo M.D. 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 Narrative 12/20/2024 3:37 PM COMMUNITY SERVICES OFFICER EXAM: BI BREAST DIAGNOSTIC RIGHT WITH TOMOSYNTHESIS, [...]
--- OUTSIDE RECORDS SUMMARY | 2025-01-08 00:12 | XMS_ITS | Encounter Summary ---
Author Organization [facility] Address [address] [place] [address] Care Team Providers Care Company Accountant Name Role Phone Unavailable Primary Care Provider Unavailabl e Reason for Referral * Outpatient (Routine) - Closed Specialty Diagnoses / Procedures Referred By Judyac t Referred To Contact Diagnoses Breast Examination Abnormal Procedures BI Breast Diagnostic Left with Tomosynthesis Arely Martinez P.A.-C. [address] [place] [phone] Phone: tel: fax: [facility] Referral ID Status Reason Start Date Expiration Date Visits Re quested Visits Authorized [id number] Closed 12/05/2024 03/07/2026 1 1 ISITION APPROVER Reason for Visit * Outpatient (Routine) - Closed Specialty Diagnoses / Procedures Referred By Contac katty Referred To Contact Diagnoses Breast Examination Abnormal Procedures BI Breast Diagnostic Left with Tomosynthesis Arely Martinez P.A.-C. [address] [place] [phone] Phone: tel: fax: [facility] Referral ID Status Reason Start Date Expiration Date Visits Re quested Visits Authorized [id number] Closed 12/05/2024 03/07/2026 1 1 Encounter Details Date Type Department Care Team (Latest Contact Info) Description 12/15/2024 12:22 PM REQUISITION APPROVER - 12/15/2024 11:59 PM REQUISITION APPROVER Hospital Encounter Department of Radiology in [place], [place] [address] [place] [phone] Arely [place] P.A.-C. [address] [place] [address] Breast Examination Abnormal Discharge Disposition: Home or Self Care Social History Tobacco Use Types Packs/Day Years Used Date Smoking Tobacco: Never Smokeless Tobacco: Never Alcohol Use Standard Drinks/Week Comments Yes 14 (1 standard drink = 0.6 oz pu re alcohol) [facility] Utilities Answer Date Recorded In the past 12 months has th e electric, gas, oil, or water [employer] threatened to shut off services in your [...] your living situation today? I have a [facility] place to live 12/14/2024 Comments Unknown Sex and Gender Information Value Date Recorded Sex Assigned at Female 12/14/2024 12:10 PM REQUISITION APPROVER Legal Sex Female 10:00 AM CDT Gender Identity Female 12/14/2024 12:10 PM REQUISITION APPROVER Sexual Orientation Straight 12/14/2024 12 :10 PM REQUISITION APPROVER documented as of this encounter Medications at [...] mouth 3 (three) times a week. omega 8-bco-ztj-fish oil 900 mg-360 mg- 455 mg-1,000 mg [...] (Latest Contact Info) Description 01/12/2025 8:30 AM REQUISITION APPROVER Comprehensive Visit Division of Breast and Melanoma Surgical Oncology in [place], [place] [address] [place] [phone] Rosalva Ruiz M.D. [address] [place] [phone] 01/12/2025 10:20 AM REQUISITION APPROVER Comprehensive Visit Department of Oncology in [place], [place] [address] [place] [phone] Amie Sue M.B., B.Ch. [address] [place] [phone] 01/12/2025 1:00 PM REQUISITION APPROVER Appointment Department of Radiation Oncology in [place], [place] [address] [place] [phone] Delilah Dos Santos MPAS, P.A.-C. [address] [place] [phone] 01/12/2025 1:30 PM REQUISITION APPROVER Comprehensive Visit Breast Diagnostic Clinic in [place], [place] [address] [place] [phone] Radha Becker, Ph.D., L.P. [address] [place] [phone] 01/13/2025 9:30 AM REQUISITION APPROVER Appointment Department of Radiology in [place], [place] [address] [place] [phone] Rei Loredo M.D. [address] [place] [phone] Discharge Disposition: Home or Self Care documented as of this encounter Procedures Procedure Name Priority Date/Time Associated Diagnosis Comments BI BREAST DIAGNOSTIC LEFT WITH TOMOSYNTHESIS RAD - Routine (most inpatients and all outpatients) 12/15/2024 12:58 PM REQUISITION APPROVER Breast Examination Abnormal documented in this encounter Results * BI Breast Diagnostic Left with Tomosynthesis (12/15/2024 12:58 PM REQUISITION APPROVER) Anatomical Region Laterality Modality Breast, Breast Imaging RST L OS, Breast Imaging ARZ LOS, Breast Imaging FLA LOS Left Mammography Impressions 12/15/2024 1:16 PM REQUISITION APPROVER No mammographic findings of malignancy. RECOMMENDATION: Clinical Management Continue multidisciplinary management of the contralateral breast malignancy. ASSESSMENT: BI-RADS: 2: Benign. Narrative 12/15/2024 1:16 PM REQUISITION APPROVER EXAM: BI BREAST DIAGNOSTIC LEFT WITH TOMOSYNTHESIS [...]
--- OUTSIDE RECORDS SUMMARY | 2025-01-08 00:12 | XMS_ITS | Encounter Summary ---
Author Organization [facility] Address [address] [place] [address] Care Team Providers Care Acquisition Analyst Name Role Phone Unavailable Primary Care Provider Unavailabl e Reason for Visit * Reason Onset Date Comments Pre-visit Intake 01/03/2025 * Appointment Request (Routine) - Authorized Specialty Diagnoses / Procedures Referred By Deidre t Referred To Contact Breast Clinic Referral ID Status Reason Start Date Expiration Date V isits Requested Visits Authorized [id number] Authorized 12/20/2024 03/22/2026 1 1 Encounter Details Date Type Department Care Team (Latest Contact Info) Description 01/03/2025 8:30 AM INDUSTRIAL SALES MANAGER Clinical Communication Virtual Review in [address] [phone] Pre-visit Intake Social History Tobacco Use Types Packs/Day Years Used Date Smoking Tobacco: Never Smokeless Tobacco: Never Tobacco Cessation:Counseling Given: Not Answered Alcohol Use Standard Drinks/Week Comments Yes 14 (1 standard drink = 0.6 oz pu re alcohol) [facility] Utilities Answer Date Recorded In the past 12 months has [employer] gas, oil, or water [employer] threatened to shut off services in your [...] your living situation today? I have a [facility] place to live 12/14/2024 Comments No Sex and Gender Information Value Date Recorded Sex Assigned at Female 12/14/2024 12:10 PM INDUSTRIAL SALES MANAGER Legal Sex Female 10:00 AM CDT Gender Identity Female 12/14/2024 12:10 PM INDUSTRIAL SALES MANAGER Sexual Orientation Straight 12/14/2024 12 :10 PM INDUSTRIAL SALES MANAGER documented as of this encounter Plan of Treatment Upcoming Encounters Date Type Department Care Team (Latest Contact Info) Description 01/12/2025 8:30 AM INDUSTRIAL SALES MANAGER Comprehensive Visit Division of Breast and Melanoma Surgical Oncology in [place], [place] 200 [place] [phone] Rosalva Ruiz M.D. [address] [place] [phone] 01/12/2025 10:20 AM INDUSTRIAL SALES MANAGER Comprehensive Visit Department of Oncology in [place], [place] [address] [place] [phone] Amie Sue M.B., B.Ch. [address] [place] [phone] 01/12/2025 1:00 PM INDUSTRIAL SALES MANAGER Appointment Department of Radiation Oncology in [place], [place] [address] [place] [phone] Delilah Dos Santos, MPAS, P.A.-C. [address] [place] [phone] 01/12/2025 1:30 PM INDUSTRIAL SALES MANAGER Comprehensive Visit Breast Diagnostic Clinic in [place], [place] [address] [place] [phone] Radha Becker, Ph.D., L.P. [address] [place] [phone] 01/13/2025 9:30 AM INDUSTRIAL SALES MANAGER Appointment Department of Radiology in [place], [place] [address] [place] [phone] Rei Loredo M.D. [address] [place] [address] [phone] Discharge Disposition: Home or Self Care documented as of this encounter Visit Diagnoses Not on filedocumented in this encounter
--- OUTSIDE RECORDS SUMMARY | 2025-01-08 00:12 | XMS_ITS | Encounter Summary ---
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 [address] [place] [address] Phone: tel: fax: [facility] Referral ID Status Reason Start Date Expiration Date V isits Requested Visits Authorized [id number] Authorized 12/20/2024 06/21/2026 1 1 Scheduling Instructions Please coordinate with other appointments. If unable to have completed on same day as [facility] or other appointments. Please make it a video appointment. Thanks. NG SERVICE SUPERVISOR Reason for Visit * Reason Onset Date Comments ASSESSMENT TECHNICIAN Dandy Call 12/20/2024 Encounter Details Date Type Department Care Team (Latest Contact Info) Description 12/20/2024 8:45 AM DINING SERVICE SUPERVISOR Clinical Communication Breast Diagnostic Clinic in [place], [place] [address] [place] [address] ASSESSMENT TECHNICIAN Dandy Call Social History Tobacco Use Types Packs/Day Years Used Date Smoking Tobacco: Never Smokeless Tobacco: Never Alcohol Use Standard Drinks/Week Comments Yes 14 (1 standard drink = 0.6 oz pu re alcohol) [facility] Utilities Answer Date Recorded In the past [...] your living situation today? I have a [facility] place to live 12/14/2024 Comments Unknown Sex and Gender Information Value Date Recorded Sex Assigned at Female 12/14/2024 12:10 PM DINING SERVICE SUPERVISOR Legal Sex Female 10:00 AM CDT Gender Identity Female 12/14/2024 12:10 PM DINING SERVICE SUPERVISOR Sexual Orientation Straight 12/14/2024 12 :10 PM DINING SERVICE SUPERVISOR documented as of this encounter Miscellaneous Notes * Addendum Note - Joelle Dos Santos L.P.N. - 12/20/2024 2:28 PM CSTAddended by: JOELLE DOS SANTOS on: 12/20/2024 02:28 PM Modules accepted: Orders NG SERVICE SUPERVISOR * Telephone Encounter - Joelle Dos Santos L.P.N. - 12/20/2024 8:34 AM DINING SERVICE SUPERVISOR SUBJECTIVE REFERRAL: Internal Referral Local Care Provider None. REASON FOR COMMUNICATION ASSESSMENT TECHNICIAN focused assessment phone call in preparation for first appointment with newly diagnosed breast cancer patient. Patient's expectations of the upcoming visit: Opinion, surgery, radiation therapy and chemotherapy at [facility]. Oncology History Overview Note History of MS. [...] in the t hird intercostal space. Per [facility] Review: 10/23/2020: PET scan demonstrates a 2.6 [...] PET resolution, consider attention on follow-up. Per [facility] review of local PET scan. 10/25/2020: Breast [...] adenopathy. Per local report, not reviewed at [facility]. 04/30/2021: Breast MRI demonstrated decrease size of right breast mass (now 2.6 x 1.2 x 1.8 cm) andinternal mammary adenopathy has decreased in prominence. Previously noted lower outer right breast enhancing mass now measures 2 mm, previously 6 mm. Previously noted left upper inner enhancement less prominent, no mass or adenopathy. Per local report, not reviewed at [facility]. 12/10/2021: Breast MRI demonstrates residual architectural distortion of the right breast in the area of biopsy-proven malignancy but enhancement has completely resolved. Right lower outer enhancing mass has also resolved. No adenopathy. Left breast with mild background parenchymal enhancement no mass or adenopathy. Per local report, not reviewed at [facility]. Per [facility]: Screening mammogram: Bilateral, 08/17/2024 . Multiple [...] on the XCCL or MLO images. Per [facility] Review: Diagnostic mammogram: Right, 08/17/2024 . Decreased [...] breast may present a biopsy clip. Additional traffic representative images were saved at 2:00, 4 [...] CMFN: IDC, grade 2 ER positive (91-100%) [place] positive (91-100%) HER-2 negative Right breast biopsy 1 o'clock, retroareolar: benign breast tissue, negative for malignancy. Right axillary lymph node biopsy: negative for malignancy, benign lymphoid parenchyma. Per [facility] review: Complete. 10/04/2020 Genetic Testing and Tumor [...] supplements and over the counter. Please call [phone] if needing to cancel or reschedule. PLAN The following information was provided: Information/Education: patient/caller able to teach back. The following references were used: none. NG SERVICE SUPERVISOR documented in this encounter Plan of Treatment Upcoming Encounters Date Type Department Care Team (Latest Contact Info) Description 01/12/2025 8:30 AM DINING SERVICE SUPERVISOR Comprehensive Visit Division of Breast and Melanoma Surgical Oncology in [place], [place] [address] [place] [address] Rosalva Ruiz M.D. [address] [place] [address] 01/12/2025 10:20 AM DINING SERVICE SUPERVISOR Comprehensive Visit Department of Oncology in [place], [place] [address] [place] [phone] Amie Sue M.B., B.Ch. [address] [place] [phone] 01/12/2025 1:00 PM DINING SERVICE SUPERVISOR Appointment Department of Radiation Oncology in [place], [place] [address] [place] [phone] Delilah Dos Santos, SCOTS, P.A.-C. [address] [place] [phone] 01/12/2025 1:30 PM DINING SERVICE SUPERVISOR Comprehensive Visit Breast Diagnostic Clinic in [place], [place] [address] [place] [phone] Radha Becker, Ph.D., L.P. [address] [place] [phone] 01/13/2025 9:30 AM DINING SERVICE SUPERVISOR Appointment Department of Radiology in [place], [place] [address] [place] [phone] Rei Loredo M.D. [address] [place] [phone] Discharge Disposition: Home or Self Care Scheduled [...]
--- OUTSIDE RECORDS SUMMARY | 2025-01-08 00:12 | XMS_ITS | Encounter Summary ---
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 [address] [place] [phone] Phone: tel: fax: [facility] Referral ID Status Reason Start Date Expiration Date Visits Re quested Visits Authorized [id number] Closed 12/15/2024 03/17/2026 1 1 Encounter Details Date Type Department Care Team (Latest Contact Info) Description 12/20/2024 6:08 AM OUTREACH LIAISON - 12/20/2024 9:24 AM OUTREACH LIAISON Hospital Encounter Department of Radiology, [facility], in [place], [place] [address] [place] [address] Angela Piper APRN, C.N.P., D.N.P. 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 I have a [facility] place to live 12/14/2024 Comments Unknown Sex and Gender Information Value Date Recorded Sex Assigned at Female 12/14/2024 12:10 PM OUTREACH LIAISON Legal Sex Female 10:00 AM CDT Gender Identity Female 12/14/2024 12:10 PM OUTREACH LIAISON Sexual Orientation Straight 12/14/2024 12 :10 PM OUTREACH LIAISON documented as of this encounter Medications at [...] mouth 3 (three) times a week. omega 0-yfc-bzw-fish oil 900 mg-360 mg- 455 mg-1,000 mg [...] (Latest Contact Info) Description 01/12/2025 8:30 AM OUTREACH LIAISON Comprehensive Visit Division of Breast and Melanoma Surgical Oncology in [place], [place] [address] [place] [phone] Rosalva Ruiz M.D. [address] [place] [phone] 01/12/2025 10:20 AM OUTREACH LIAISON Comprehensive Visit Department of Oncology in [place], [place] [address] [place] [phone] Amie Sue M.B., B.Ch. [address] [place] [phone] 01/12/2025 1:00 PM OUTREACH LIAISON Appointment Department of Radiation Oncology in [place], [place] [address] [place] [phone] Delilah Dos Santos, MPAS, P.A.-C. [address] [place] [phone] 01/12/2025 1:30 PM OUTREACH LIAISON Comprehensive Visit Breast Diagnostic Clinic in [place], [place] [address] [place] [phone] Radha Becker, Ph.D., L.P. [address] [place] [phone] 01/13/2025 9:30 AM OUTREACH LIAISON Appointment Department of Radiology in [place], [place] [address] [place] [phone] Rei Loredo M.D. 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 No evidence of suspicious FDG avid metastatic disease. Narrative 12/20/2024 10:09 AM OUTREACH LIAISON EXAM: PET CT SKULL TO THIGH FDG Serum glucose at time of F-18 FDG injection was 81 mg/dL. Patient followed standard dietary/fasting requirements for this exam. RADIOPHARMACEUTICAL/MEDS: Route: intravenous fludeoxyglucose F 18 injection ALF (FDG F-18),14.87 millicurie TECHNIQUE: F-18 FDG PET/CT [...] RADIOPHARMACEUTICAL/MEDS: Route: intravenous fludeoxyglucose F 18 injection ALF (FDG F-18),14.87 millicurie TECHNIQUE: F-18 FDG PET/CT [...] 1.3 similar to background parenchyma (series 13, [id number]), previously this demonstrated SUV max 7.7. Minimal [...] disease. us Angela Piper APRN, C.N.P., D.N.P. 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
--- OUTSIDE RECORDS SUMMARY | 2025-01-08 00:12 | XMS_ITS | Encounter Summary ---
Author Organization [facility] Address [address] [place] [address] Care Team Providers Care School Office Manager Name Role Phone Unavailable Primary Care Provider Unavailabl e Encounter Details Date Type Department Care Team (Late st Contact Info) Description 12/02/2024 Clinical Communication Department of Radiation Oncology in [place], [place] [address] [place] [address] Osvaldo Durant M.D. [address] [place] [address] Social History Tobacco Use Types Packs/Day Years Used Date Smoking Tobacco: Never Assessed [facility] Utilities Answer Date Recorded In [...] Answer Date Recorded Employment status Unemployed/not in [employer] paid workforce but seeking employment 12/14/2024 Housing Stability Answer Date Recorded What is your living situation today? I have a [facility] place to live 12/14/2024 Comments Unknown Sex and Gender Information Value Date Recorded Sex Assigned at Female 12/14/2024 12:10 PM SHANK CUTTER Legal Sex Female 10:00 AM CDT Gender Identity Female 12/14/2024 12:10 PM SHANK CUTTER Sexual Orientation Straight 12/14/2024 12 :10 PM SHANK CUTTER documented as of this encounter Plan of Treatment Upcoming Encounters Date Type Department Care Team (Latest Contact Info) Description 01/12/2025 8:30 AM SHANK CUTTER Comprehensive Visit Division of Breast and Melanoma Surgical Oncology in [place], [place] [address] [place] [phone] Rosalva Ruiz M.D. [address] [place] [phone] 01/12/2025 10:20 AM SHANK CUTTER Comprehensive Visit Department of Oncology in [place], [place] [address] [place] [phone] Amie Sue M.B., B.Ch. [address] [place] [phone] 01/12/2025 1:00 PM SHANK CUTTER Appointment Department of Radiation Oncology in [place], [place] [address] [place] [phone] Delilah Dos Santos, MPAS, P.A.-C. [address] [place] [phone] 01/12/2025 1:30 PM SHANK CUTTER Comprehensive Visit Breast Diagnostic Clinic in [place], [place] [address] [place] [phone] Radha Becker, Ph.D., L.P. [address] [place] [phone] 01/13/2025 9:30 AM SHANK CUTTER Appointment Department of Radiology in [place], [place] [address] [place] [phone] Rei Loredo M.D. [address] [place] [phone] Discharge Disposition: Home or Self Care documented as of this encounter Visit Diagnoses Not on filedocumented in this encounter
--- OUTSIDE RECORDS SUMMARY | 2025-01-08 00:12 | XMS_ITS | Encounter Summary ---
Author Organization [facility] Address [address] [place] [address] Care Team Providers Care Tea Tree Farmer Name Role Phone Unavailable Primary Care Provider Unavailabl e Encounter Details Date Type Department Care Team (Late st Contact Info) Description 12/16/2024 Clinical Communication Breast Diagnostic Clinic in [place], [place] [address] [place] [phone] Fariha Corral M.D. [address] [place] [address] Social History Tobacco Use Types Packs/Day Years Used Date Smoking Tobacco: Never Smokeless Tobacco: Never Alcohol Use Standard Drinks/Week Comments Yes 14 (1 standard drink = 0.6 oz pu re alcohol) [facility] Utilities Answer Date Recorded In the past 12 months has th e electric, gas, oil, or water [employer] threatened to shut off services in your [...] your living situation today? I have a [facility] place to live 12/14/2024 Comments Unknown Sex and Gender Information Value Date Recorded Sex Assigned at Female 12/14/2024 12:10 PM MANAGER OF NETWORK Legal Sex Female 10:00 AM CDT Gender Identity Female 12/14/2024 12:10 PM MANAGER OF NETWORK Sexual Orientation Straight 12/14/2024 12 :10 PM MANAGER OF NETWORK documented as of this encounter Miscellaneous Notes * Telephone Encounter - Ling Marmolejo - 12/19/2024 10:38 AM CST MAUREEN call has been scheduled GER OF NETWORK * Telephone Encounter - Ling Marmolejo - [...] most appropriate. Please advise Thank you Ling GER OF NETWORK documented in this encounter Plan of Treatment Upcoming Encounters Date Type Department Care Team (Latest Contact Info) Description 01/12/2025 8:30 AM MANAGER OF NETWORK Comprehensive Visit Division of Breast and Melanoma Surgical Oncology in [place], [place] [address] [place] [phone] Rosalva Ruiz M.D. [address] [place] [phone] 01/12/2025 10:20 AM MANAGER OF NETWORK Comprehensive Visit Department of Oncology in [place], [place] [address] [place] [phone] Amie Sue M.B., B.Ch. [address] [place] [phone] 01/12/2025 1:00 PM MANAGER OF NETWORK Appointment Department of Radiation Oncology in [address] [phone] Delilah Dos Santos, AISHWARYA, P.A.-C. [address] [place] [phone] 01/12/2025 1:30 PM MANAGER OF NETWORK Comprehensive Visit Breast Diagnostic Clinic in [place], [place] [address] [place] [phone] Radha Becker, Ph.D., L.P. [address] [place] [phone] 01/13/2025 9:30 AM MANAGER OF NETWORK Appointment Department of Radiology in [place], [place] [address] [place] [phone] Rei Loredo M.D. [address] [place] [phone] Discharge Disposition: Home or Self Care documented as of this encounter Visit Diagnoses Not on filedocumented in this encounter
--- OUTSIDE RECORDS SUMMARY | 2025-01-08 00:12 | XMS_ITS | Encounter Summary ---
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 [address] [place] [phone] Phone: tel: fax: [facility] Referral ID Status Reason Start Date Expiration Date Visits Re quested Visits Authorized [id number] Closed 12/15/2024 03/17/2026 1 1 Encounter Details Date Type Department Care Team (Latest Contact Info) Description 12/20/2024 9:25 AM WEIGHER ALLOY - 12/20/2024 11:59 PM WEIGHER ALLOY Hospital Encounter Department of Radiology in [place], [place] [address] [place] [address] Angela Piper APRN, C.N.P., D.N.P. 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 I have a [facility] place to live 12/14/2024 Comments Unknown Sex and Gender Information Value Date Recorded Sex Assigned at Female 12/14/2024 12:10 PM WEIGHER ALLOY Legal Sex Female 10:00 AM CDT Gender Identity Female 12/14/2024 12:10 PM WEIGHER ALLOY Sexual Orientation Straight 12/14/2024 12 :10 PM WEIGHER ALLOY documented as of this encounter Medications at [...] mouth 3 (three) times a week. omega 3-djo-wnq-fish oil 900 mg-360 mg- 455 mg-1,000 mg [...] (Latest Contact Info) Description 01/12/2025 8:30 AM WEIGHER ALLOY Comprehensive Visit Division of Breast and Melanoma Surgical Oncology in [place], [place] [address] [place] [phone] Rosalva Ruiz M.D. [address] [place] [phone] 01/12/2025 10:20 AM WEIGHER ALLOY Comprehensive Visit Department of Oncology in [place], [place] [address] [place] [phone] Amie Sue M.B., B.Ch. [address] [place] [phone] 01/12/2025 1:00 PM WEIGHER ALLOY Appointment Department of Radiation Oncology in [place], [place] [address] [place] [phone] Delilah Dos Santos, MPAS, P.A.-C. [address] [place] [phone] 01/12/2025 1:30 PM WEIGHER ALLOY Comprehensive Visit Breast Diagnostic Clinic in [place], [place] [address] [place] [phone] Radha Becker, Ph.D., L.P. [address] [place] [phone] 01/13/2025 9:30 AM WEIGHER ALLOY Appointment Department of Radiology in [place], [place] [address] [place] [phone] Rei Loredo M.D. 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 Narrative 12/20/2024 3:37 PM WEIGHER ALLOY EXAM: BI BREAST DIAGNOSTIC RIGHT WITH TOMOSYNTHESIS, [...]
--- OUTSIDE RECORDS SUMMARY | 2025-01-08 00:12 | XMS_ITS | Encounter Summary ---
Author Organization [facility] Address [address] [place] [address] Care Team Providers Care Simulation Software Engineer Name Role Phone Unavailable Primary Care Provider Unavailabl e Encounter Details Date Type Department Care Team (Late st Contact Info) Description 12/19/2024 Documentation Breast Diagnostic Clinic in [place], [place] [address] [place] [address] Joelle Dos Santos, L.P.N. Social History Tobacco Use Types Packs/Day Years Used Date Smoking Tobacco: Never Smokeless Tobacco: Never Alcohol Use Standard Drinks/Week Comments Yes 14 (1 standard drink = 0.6 oz pu re alcohol) [facility] Utilities Answer Date Recorded In the past 12 months has th e electric, gas, oil, or water [employer] threatened to shut off services in your [...] your living situation today? I have a [facility] place to live 12/14/2024 Comments Unknown Sex and Gender Information Value Date Recorded Sex Assigned at Female 12/14/2024 12:10 PM SKYDIVING INSTRUCTOR Legal Sex Female 10:00 AM CDT Gender Identity Female 12/14/2024 12:10 PM SKYDIVING INSTRUCTOR Sexual Orientation Straight 12/14/2024 12 :10 PM SKYDIVING INSTRUCTOR documented as of this encounter Progress Notes * Joelle Dos Santos LAminataP.N. - 12/19/2024 12:49 PM CST Primary Care Provider: Name : Don?t have a dedicated GP Address : N/A Phone : N/A Patient was not referred to [facility] by a physician. History of present illness: Patient is coming to the [facility] in order to get a second opinion, have surgery, have reconstructive surgery and have all treatments. She has no schedule limitations regarding her future appointment at [facility]. She reports her diagnosis was discovered based [...] carcinoma. Grade: IDC- 2. ER: Positive, 100%. WA: Positive, 100% HER2: Negative (HER2 FISH negative) Ki-67: . Medical tests taken in the last 12 months: Mammogram Aug 17, 2024, [facility] Ul[facility] Aug 17, 2024, [facility] IVING INSTRUCTOR documented in this encounter Plan of Treatment Upcoming Encounters Date Type Department Care Team (Latest Contact Info) Description 01/12/2025 8:30 AM SKYDIVING INSTRUCTOR Comprehensive Visit Division of Breast and Melanoma Surgical Oncology in [address] [phone] Rosalva Ruiz M.D. [address] [place] [phone] 01/12/2025 10:20 AM SKYDIVING INSTRUCTOR Comprehensive Visit Department of Oncology in [address] [phone] Amie Sue M.B., B.Ch. [address] [place] [phone] 01/12/2025 1:00 PM SKYDIVING INSTRUCTOR Appointment Department of Radiation Oncology in [address] [phone] Delilah Dos Santos, SCOTS, P.A.-C. [address] [place] [phone] 01/12/2025 1:30 PM SKYDIVING INSTRUCTOR Comprehensive Visit Breast Diagnostic Clinic in [address] [phone] Radha Becker, Ph.D., L.P. [address] [place] [phone] 01/13/2025 9:30 AM SKYDIVING INSTRUCTOR Appointment Department of Radiology in [place], [place] [address] [place] [address] Rei Loredo M.D. [address] [place] [address] Discharge Disposition: Home or Self Care documented as of this encounter Visit Diagnoses Not on filedocumented in this encounter
--- OUTSIDE RECORDS SUMMARY | 2025-01-08 00:12 | XMS_ITS | Encounter Summary ---
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 [address] [place] [phone] Phone: tel: fax: [facility] Referral ID Status Reason Start Date Expiration Date Visits Re quested Visits Authorized [id number] Closed 12/20/2024 06/21/2026 1 1 Encounter Details Date Type Department Care Team (Latest Contact Info) Description 01/04/2025 1:30 PM EBD TEACHER Comprehensive Visit Department of Medical Genetics in [place], [place] [address] [place] [phone] Rei Loredo M.D. 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 I have a [facility] place to live 12/14/2024 Comments No Sex and Gender Information Value Date Recorded Sex Assigned at Female 12/14/2024 12:10 PM EBD TEACHER Legal Sex Female 10:00 AM CDT Gender Identity Female 12/14/2024 12:10 PM EBD TEACHER Sexual Orientation Straight 12/14/2024 12 :10 PM EBD TEACHER documented as of this encounter Consult Notes * Tonie Calle M.S., [facility] - 01/04/2025 1:30 PM CST Images from [...] pathology demonstrated invasive ductal carcinoma, ER positive, SD positive, HER2 negative. Aury has been on [...] scanned document and available for viewing under [employer]. Our risk assessment is based upon medical [...] reported consanguinity The patient's maternal ancestry is [place]ian and possibly Palauan; the patient's paternal ancestry is [place]ian. IMPRESSION/REPORT/PLAN PATIENT EDUCATION As a part of [...] Criteria for breast cancer susceptibility genes. The [place] [employer] recommends genetic testing [...] CancerNext: Expanded + RNA insight panel through [facility]. Aury will complete a blood draw [...] screening recommendations, suchas those made by the [place] [employer], do remain appropriate. It was a pleasure to meet Aury. The family is certainly welcome to contact us with any additional questions. PATIENT EDUCATION: All of the above was discussed in detail with the patient who verbalized understanding. The patient's questions were answered. Total time: 11 minutes Electronically signed by Tonie Calle M.S., [facility] at 01/04/2025 2:06 PM EBD TEACHER documented in this encounter Plan of Treatment Upcoming Encounters Date Type Department Care Team (Latest Contact Info) Description 01/12/2025 8:30 AM EBD TEACHER Comprehensive Visit Division of Breast and Melanoma Surgical Oncology in [address] [phone] Rosalva Ruiz M.D. [address] [place] [phone] 01/12/2025 10:20 AM EBD TEACHER Comprehensive Visit Department of Oncology in [address] [phone] Amie Sue M.B., B.Ch. [address] [place] [phone] 01/12/2025 1:00 PM EBD TEACHER Appointment Department of Radiation Oncology in [address] [phone] Delilah Dos Santos, SCOTS, P.A.-C. [address] [place] [phone] 01/12/2025 1:30 PM EBD TEACHER Comprehensive Visit Breast Diagnostic Clinic in [place], [place] [address] [place] [phone] Radha Becker, Ph.D., L.P. [address] [place] [phone] 01/13/2025 9:30 AM EBD TEACHER Appointment Department of Radiology in [place], [place] [address] [place] [phone] Rei Loredo M.D. [address] [place] [phone] Discharge Disposition: Home or Self Care documented as of this encounter Results * [id number] [facility] Custom + RNA Panel - Miscellaneous Test (01/04/2025 1:50 PM EBD TEACHER) Test Name [facility] Custom + RNA Panel 01/04/2025 1:50 PM EBD TEACHER HLS Result Specimen sent out; results to follow DEFAULT 01/04/2025 1:50 PM EBD TEACHER HLS Blood (Blood, Venous) 01/04/2025 1:50 PM EBD TEACHER 01/04/2025 1:50 PM EBD TEACHER Ned Yates M.D. 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
--- OUTSIDE RECORDS SUMMARY | 2025-01-08 00:12 | XMS_ITS | Encounter Summary ---
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 [address] [place] [phone] Phone: tel: fax: [facility] Referral ID Status Reason Start Date Expiration Date Visits Re quested Visits Authorized [id number] Closed 12/16/2024 06/17/2026 1 1 Encounter Details Date Type Department Care Team (Latest Contact Info) Description 01/04/2025 8:30 AM RECORDS MANAGEMENT DIRECTOR Comprehensive Visit Breast Diagnostic Clinic in [place], [place] [address] [place] [phone] Rei Loredo M.D. 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 Utilities Answer Date Recorded In the past 12 months has e Clerk, gas, oil, or water [employer] threatened to shut off services in your [...] your living situation today? I have a [facility] place to live 12/14/2024 Comments No Sex and Gender Information Value Date Recorded Sex Assigned at Female 12/14/2024 12:10 PM RECORDS MANAGEMENT DIRECTOR Legal Sex Female 10:00 AM CDT Gender Identity Female 12/14/2024 12:10 PM RECORDS MANAGEMENT DIRECTOR Sexual Orientation Straight 12/14/2024 12 :10 PM RECORDS MANAGEMENT DIRECTOR documented as of this encounter Last Filed Vital Signs Vital Sign Reading Time Taken Comments Blood Pressure 127/85 01/04/2025 8:07 AM RECORDS MANAGEMENT DIRECTOR Pulse 75 01/04/2025 8:07 AM RECORDS MANAGEMENT DIRECTOR Temperature - - Respiratory Rate - - Oxygen Saturation - - Inhaled Oxygen Concentration - - Weight 74.2 kg (163 lb 7.5 oz) 01/04/2025 8:07 A M RECORDS MANAGEMENT DIRECTOR Height 160.1 cm (5' 3.03) 01/04/2025 8:07 AM CS T Body Mass Index 28.93 01/04/2025 8:07 AM RECORDS MANAGEMENT DIRECTOR documented in this encounter Progress Notes * [...] and my continued support at this time. RDS MANAGEMENT DIRECTOR * Belle Bentley R.N. - 01/04/2025 8:30 AM CST SUBJECTIVE CHIEF COMPLAINT/REASON FOR VISIT Review of resources related to breast cancer consultation. OBJECTIVE Discussion included: Resource List, Breast Cancer Mentorship contact information, [facility]. RDS MANAGEMENT DIRECTOR documented in this encounter Consult Notes * [...] positive for a grade 2 IDC, ER AL positive HER2 negative by fish, Ki 67 [...] FDG avid metastatic disease. Patient came to [facility] seeking Radiation Oncology consultation for possible radiation [...] in the t hird intercostal space. Per [place] Review: 10/23/2020: PET scan demonstrates a 2.6 [...] PET resolution, consider attention on follow-up. Per [facility] review of local PET scan. 10/25/2020: [...] adenopathy. Per local report, not reviewed at [facility]. 04/30/2021: Breast MRI demonstrated decrease size of right breast mass (now 2.6 x 1.2 x 1.8 cm) andinternal mammary adenopathy has decreased in prominence. Previously noted lower outer right breast enhancing mass now measures 2 mm, previously 6 mm. Previously noted left upper inner enhancement less prominent, no mass or adenopathy. Per local report, not reviewed at [facility]. 12/10/2021: Breast MRI demonstrates residual architectural distortion of the right breast in the area of biopsy-proven malignancy but enhancement has completely resolved. Right lower outer enhancing mass has also resolved. No adenopathy. Left breast with mild background parenchymal enhancement no mass or adenopathy. Per local report, not reviewed at [facility]. Per [place] Review: Screening mammogram: Bilateral, 08/17/2024 . Multiple [...] on the XCCL or MLO images. Per [place] Review: Diagnostic mammogram: Right, 08/17/2024 . Decreased [...] breast may present a biopsy clip. Additional resources representative images were saved at 2:00, 4 [...] negative for malignancy, benign lymphoid parenchyma. Per [facility] review: Complete. 10/04/2020 Genetic Testing and Tumor [...] / PLAN #1 Right grade 2 IDC, ER/AL strongly positive HER2 negative by FISH, Ki [...] treatments. Follow-up may be completed either at [place] or locally. Patient informed that the cancer [...] and coordination of care activities described above. RDS MANAGEMENT DIRECTOR documented in this encounter Plan of Treatment Upcoming Encounters Date Type Department Care Team (Latest Contact Info) Description 01/12/2025 8:30 AM RECORDS MANAGEMENT DIRECTOR Comprehensive Visit Division of Breast and Melanoma Surgical Oncology in [address] [phone] Rosalva Ruiz M.D. [address] [place] [phone] 01/12/2025 10:20 AM RECORDS MANAGEMENT DIRECTOR Comprehensive Visit Department of Oncology in [address] [phone] Amie Sue M.B., B.Ch. [address] [place] [phone] 01/12/2025 1:00 PM RECORDS MANAGEMENT DIRECTOR Appointment Department of Radiation Oncology in [address] [phone] Delilah Dos Santos, MPAS, P.A.-C. [address] [place] [phone] 01/12/2025 1:30 PM RECORDS MANAGEMENT DIRECTOR Comprehensive Visit Breast Diagnostic Clinic in [address] [phone] Radha Becker, Ph.D., L.P. [address] [place] [phone] 01/13/2025 9:30 AM RECORDS MANAGEMENT DIRECTOR Appointment Department of Radiology in [place], [place] [address] [place] [address] [place] [phone] Rei Loredo M.D. 200 [place] [phone] Discharge Disposition: Home or Self Care Scheduled [...]
--- OUTSIDE RECORDS SUMMARY | 2025-01-08 00:13 | XMS_ITS | Encounter Summary ---
Author Organization [facility] Address [address] [place] [address] Care Team Providers Care Tire Tester Name Role Phone Unavailable Primary Care Provider Unavailabl e Encounter Details Date Type Department Care Team (Latest Contact Info) Description 11/30/2024 1:15 PM CRISIS COUNSELOR Ancillary Procedure Department of Radiology in [place], [place] [address] [place] [address] Arely Martinez P.A.-C. [address] [place] [phone] Malignant Neoplasm Of Breast Upper Inner Quadrant [...] Sex Assigned at Female 12/14/2024 12:10 PM CRISIS COUNSELOR Legal Sex Female 10:00 AM CDT Gender Identity Female 12/14/2024 12:10 PM CRISIS COUNSELOR Sexual Orientation Straight 12/14/2024 12 :10 PM CRISIS COUNSELOR documented as of this encounter Plan of Treatment Upcoming Encounters Date Type Department Care Team (Latest Contact Info) Description 01/12/2025 8:30 AM CRISIS COUNSELOR Comprehensive Visit Division of Breast and Melanoma Surgical Oncology in [place], [place] [address] [place] [phone] Rosalva Ruiz M.D. [address] [place] [phone] 01/12/2025 10:20 AM CRISIS COUNSELOR Comprehensive Visit Department of Oncology in [place], [place] [address] [place] [phone] Amie Sue M.B., B.Ch. [address] [place] [phone] 01/12/2025 1:00 PM CRISIS COUNSELOR Appointment Department of Radiation Oncology in [place], [place] [address] [place] [phone] Delilah Dos Santos, MPAS, P.A.-C. [address] [place] [phone] 01/12/2025 1:30 PM CRISIS COUNSELOR Comprehensive Visit Breast Diagnostic Clinic in [place], [place] [address] [place] [phone] Radha Becker, Ph.D., L.P. [address] [place] [phone] 01/13/2025 9:30 AM CRISIS COUNSELOR Appointment Department of Radiology in [address] [phone] Rei Loredo M.D. 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 Decreased size of the biopsy-proven right [...] inner left breast. Narrative 12/05/2024 11:28 AM CRISIS COUNSELOR EXAM: INTERPRETATION OF OUTSIDE BREAST IMAGING, INTERPRETATION [...] breast may present a biopsy clip. Additional community health representative images were saved at 2:00, 4 [...] right breast maypresent a biopsy clip. Additional community health representative images were saved at2:00, 4 cm [...] of Outside Breast Imaging (12/02/2024 2:29 PM CRISIS COUNSELOR) Anatomical Region Laterality Modality Breast, Breast Imaging RST L OS, Breast Imaging ARZ LOS, Breast Imaging FLA LOS, Other N/A Mammography Impressions 12/05/2024 11:28 AM CRISIS COUNSELOR 1. Decreased size of the biopsy-proven right [...] inner left breast. Narrative 12/05/2024 11:28 AM CRISIS COUNSELOR EXAM: INTERPRETATION OF OUTSIDE BREAST IMAGING, INTERPRETATION [...] breast may present a biopsy clip. Additional community health representative images were saved at 2:00, 4 [...] right breast maypresent a biopsy clip. Additional community health representative images were saved at2:00, 4 cm [...]
--- OUTSIDE RECORDS SUMMARY | 2025-01-08 00:13 | XMS_ITS | Encounter Summary ---
Author Organization [facility] Address [address] [place] [phone] Care Team Providers Care Section Plotter Operator Name Role Phone Unavailable Primary Care Provider Unavailabl e Encounter Details Date Type Department Care Team (Latest Contact Info) Description 11/30/2024 1:10 PM CLINICAL SUPERVISOR Ancillary Procedure Department of Radiology in [place], [place] [address] [place] [phone] Arely Martinez P.A.-C. [address] [place] [phone] Malignant Neoplasm Of Breast Upper Inner Quadrant [...] Sex Assigned at Female 12/14/2024 12:10 PM CLINICAL SUPERVISOR Legal Sex Female 10:00 AM CDT Gender Identity Female 12/14/2024 12:10 PM CLINICAL SUPERVISOR Sexual Orientation Straight 12/14/2024 12 :10 PM CLINICAL SUPERVISOR documented as of this encounter Plan of Treatment Upcoming Encounters Date Type Department Care Team (Latest Contact Info) Description 01/12/2025 8:30 AM CLINICAL SUPERVISOR Comprehensive Visit Division of Breast and Melanoma Surgical Oncology in [place], [place] [address] [place] [phone] Rosalva Ruiz M.D. [address] [place] [phone] 01/12/2025 10:20 AM CLINICAL SUPERVISOR Comprehensive Visit Department of Oncology in [place], [place] [address] [place] [phone] Amie Sue M.B., B.Ch. [address] [place] [phone] 01/12/2025 1:00 PM CLINICAL SUPERVISOR Appointment Department of Radiation Oncology in [place], [place] [address] [place] [phone] Delilah Dos Santos, SCOTS, P.A.-C. [address] [place] [address] [phone] 01/12/2025 1:30 PM CLINICAL SUPERVISOR Comprehensive Visit Breast Diagnostic Clinic in [place], [place] [address] [place] [phone] Radha Becker, Ph.D., L.P. [address] [place] [phone] 01/13/2025 9:30 AM CLINICAL SUPERVISOR Appointment Department of Radiology in [place], [place] [address] [place] [address] [phone] Rei Loredo M.D. 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
--- OUTSIDE RECORDS SUMMARY | 2025-01-08 00:13 | XMS_ITS | Encounter Summary ---
Author Organization [facility] Address [address] [place] [address] Care Team Providers Care Materials Analyst Name Role Phone Unavailable Primary Care Provider Unavailabl e Encounter Details Date Type Department Care Team (Late st Contact Info) Description 12/08/2024 Orders Only RST RO LMP [address] [place] [phone] Arely Martinez P.A.-C. 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 I have a [facility] to live 12/14/2024 Comments Unknown Sex and Gender Information Value Date Recorded Sex Assigned at Female 12/14/2024 12:10 PM GROUP INSURANCE SPECIALIST Legal Sex Female 10:00 AM CDT Gender Identity Female 12/14/2024 12:10 PM GROUP INSURANCE SPECIALIST Sexual Orientation Straight 12/14/2024 12 :10 PM GROUP INSURANCE SPECIALIST documented as of this encounter Plan of Treatment Upcoming Encounters Date Type Department Care Team (Latest Contact Info) Description 01/12/2025 8:30 AM GROUP INSURANCE SPECIALIST Comprehensive Visit Division of Breast and Melanoma Surgical Oncology in [place], [place] [address] [place] [phone] Rosalva Ruiz M.D. [address] [place], [place] [phone] 01/12/2025 10:20 AM GROUP INSURANCE SPECIALIST Comprehensive Visit Department of Oncology in [place], [place] [address] [place] [phone] Amie Sue M.B., B.Ch. [address] [place] [phone] 01/12/2025 1:00 PM GROUP INSURANCE SPECIALIST Appointment Department of Radiation Oncology in [place], [place] [address] [place] [phone] Delilah Dos Santos, MPAS, P.A.-C. [address] [place] [phone] 01/12/2025 1:30 PM GROUP INSURANCE SPECIALIST Comprehensive Visit Breast Diagnostic Clinic in [place], [place] [address] [place] [phone] Radha Becker, Ph.D., L.P. [address] [place] [phone] 01/13/2025 9:30 AM GROUP INSURANCE SPECIALIST Appointment Department of Radiology in [place], [place] [address] [place] [phone] Rei Loredo M.D. [address] [place] [phone] Discharge Disposition: Home or Self Care documented as of this encounter Results * Pathology Review of Outside Material (10/04/2020 12:00 AM GROUP INSURANCE SPECIALIST) 12/09/2024 2:01 PM GROUP INSURANCE SPECIALIST DTL Report electronically signed by Matthew Abreu M.D. I verify that I have examined all relevant slides/materials for the specimen(s) and rendered or confirmed the diagnosis. 12/09/2024 2:01 PM GROUP INSURANCE SPECIALIST DTL Material Received A. [id number]: Breast, right, lymph node, right, axillary 12 stained slides 12/09/2024 2:01 PM GROUP INSURANCE SPECIALIST DTL Addendum Breast, right, 1:00 o'clock, 4 cm from nipple, ultrasound-guided needle core biopsy, ([id number]; 10/04/2020): block [id number] SPECIAL PROCEDURE REPORT Breast Biomarker(s) for: Invasive [...] Proliferation marker Ki-67 in early breast cancer https://pubmed.ncbi.[facility].nih.gov/47835768/ 2. Mcqueen et al. Ki-67 as prognostic marker in early breast cancer; a meta-analysis of published studies involving 12,155 patients https://pubmed.ncbi.[facility].nih.gov/27397354/ 3. Castillo Read, et al: Assessment of Ki67 in Breast Cancer: Updated Recommendations from the International Ki67 in Breast Cancer Working Group https://pubmed.ncbi.[facility].nih.gov/91016994/ Immunohistochemical staining of the Ki-67 antigen in formalin-fixed paraffin-embedded tissue sections has been validated by our laboratory, using the Dako mouse monoclonal MIB-1 clone and a proprietary detection system. External controls show appropriate reactivity. Immunohistochemical stained slides are scanned using the Leica BabyFirstTV GT450 digital scanner. The captured digital image is analyzed in [employer](r) by an AI (Artificial Intelligence) algorithm. The [...] its performance characteristics determined by [facility] in a manner consistent with CLIA requirements. This test has not been cleared or approved by the U.S. Food and Drug Administration. Signed by Tone Benavides M.D. 12/23/2024 2:27 PM 12/23/2024 2:27 PM GROUP INSURANCE SPECIALIST DTL Comment:REVISED RESULTS Interpretation FINAL DIAGNOSIS Breast, right, and right axillary lymph node ([id number]; 10/04/2020): A. Breast, right, 1:00 o'clock, 4 cm from nipple, ultrasound-guided needle core biopsy: - Invasive ductal carcinoma, [place] grade II (of III), 6 mm in linear extent. Immunohistochemical stains reviewed at [facility] demonstrate: ER: 91-100% of tumor cells staining, strong intensity WI: 91-100% of tumor cells staining, strong intensity Per report, HER2 FISH was performed and was negative. B. Breast, right, 1 o'clock, retroareolar, ultrasound-guided needle core biopsy: - Benign breast tissue, negative for tumor. C. Lymph node, right axillary, needle core biopsy: - Benign lymphoid parenchyma, negative for tumor. Digital imaging was used in the diagnostic assessment of this case. 12/23/2024 2:27 PM GROUP INSURANCE SPECIALIST DTL Varies 10/04/2020 12/08/2024 1:1 8 PM GROUP INSURANCE SPECIALIST Arely Martinez P.A.-C. 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
--- OUTSIDE RECORDS SUMMARY | 2025-01-08 00:13 | XMS_ITS | Encounter Summary ---
Author Organization [facility] Address [address] [place] [address] Care Team Providers Care Film Color Tester Name Role Phone Unavailable Primary Care Provider Unavailabl e Reason for Referral * Outpatient (High Priority-New Referral) - Closed Specialty Diagnoses / Procedures Referred By Contac t Referred To Contact Breast Clinic Diagnoses 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) Angela Piper APRN, C.N.P., D.N.P. [address] [place] [phone] Phone: tel: fax: [facility] Referral ID Status Reason Start Date Expiration Date Visits Re quested Visits Authorized [id number] Closed 12/16/2024 06/17/2026 1 1 OR CHEMIST * Outpatient (Routine) - Closed Specialty Diagnoses / Procedures Referred By Contac t Referred To Contact Diagnoses 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) Procedures BI Ultrasound Breast Focused Right Angela Piper APRN, C.N.P., D.N.P. [address] [place] [phone] Phone: tel: fax: [facility] Referral ID Status Reason Start Date Expiration Date Visits Re quested Visits Authorized [id number] Closed 12/15/2024 03/17/2026 1 1 OR CHEMIST * Outpatient (Routine) - Closed Specialty Diagnoses / Procedures Referred By Judyac t Referred To Contact Diagnoses 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) Procedures BI Breast Diagnostic Right with Tomosynthesis Angela Piper APRN, C.N.P., D.N.P. [address] [place] [phone] Phone: tel: fax: [facility] Referral ID Status Reason Start Date Expiration Date Visits Re quested Visits Authorized [id number] Closed 12/15/2024 03/17/2026 1 1 OR CHEMIST * MRI/CAT/PET Scan (Routine) - Closed Specialty Diagnoses / Procedures Referred By Deidre t Referred To Contact Diagnoses 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) Procedures PET CT Skull to Thigh FDG Angela Piper APRN C.N.P., D.N.P. [address] [place] [phone] Phone: tel: fax: [facility] Referral ID Status Reason Start Date Expiration Date Visits Re quested Visits Authorized [id number] Closed 12/15/2024 03/17/2026 1 1 OR CHEMIST * Outpatient (Routine) - Authorized Specialty Diagnoses / Procedures Referred By Judyac t Referred To Contact Breast Clinic Diagnoses 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) Angela Piper APRN, C.N.P., D.N.P. [address] [place] [phone] Phone: tel: fax: [facility] Referral ID Status Reason Start Date Expiration Date V isits Requested Visits Authorized [id number] Authorized 12/15/2024 06/16/2026 1 1 OR CHEMIST * MRI/CAT/PET Scan (Routine) - Closed Specialty Diagnoses / Procedures Referred By Contac t Referred To Contact Radiology Diagnoses 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) Procedures MR Breast Bilateral without and with IV Contrast SD MRI BREAST WOW CNTRST W/CAD BILAT Angela Piper APRN, C.N.P., D.N.P. 200 [place] [address] Phone: tel: fax: [facility] Referral ID Status Reason Start Date Expiration Date Visits Re quested Visits Authorized [id number] Closed 12/15/2024 03/17/2026 1 1 OR CHEMIST Reason for Visit * Appointment Request (Routine) - Pending Review Specialty Diagnoses / Procedures Referred By Contac t Referred To Contact Radiation Oncology Diagnoses Breast Cancer NOS Multiple Sclerosis (HCC) Fatigue Shortness Of Breath Referral ID Status Reason Start Date Expiration Date V isits Requested Visits Authorized [id number] Pending Review 04/14/2024 04/14/2025 1 1 Encounter Details Date Type Department Care Team (Latest Contact Info) Description 12/15/2024 9:30 AM SENIOR CHEMIST - 12/15/2024 12:21 PM SENIOR CHEMIST Hospital Encounter Department of Radiation Oncology in [place], [place] 200 [place] [address] Osvaldo Durant M.D. 200 [place] [phone] 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) (Primary Dx) Social History Tobacco Use Types Packs/Day Years Used Date Smoking Tobacco: Never Smokeless Tobacco: Never Tobacco Cessation:Counseling Given: Not Answered Alcohol Use Standard Drinks/Week Comments Yes 14 (1 standard drink = 0.6 oz pu re alcohol) [facility] Utilities Answer Date Recorded In the [...] your living situation today? I have a [facility] place to live 12/14/2024 Comments Unknown Sex and Gender Information Value Date Recorded Sex Assigned at Female 12/14/2024 12:10 PM SENIOR CHEMIST Legal Sex Female 10:00 AM CDT Gender Identity Female 12/14/2024 12:10 PM SENIOR CHEMIST Sexual Orientation Straight 12/14/2024 12 :10 PM SENIOR CHEMIST documented as of this encounter Last Filed Vital Signs Vital Sign Reading Time Taken Comments Blood Pressure - - Pulse - - Temperature - - Respiratory Rate - - Oxygen Saturation - - Inhaled Oxygen Concentration - - Weight 72.6 kg (160 lb) 12/15/2024 9:46 AM SENIOR CHEMIST Height - - Body Mass Index - [...] mouth 3 (three) times a week. omega 8-ykk-fzc-fish oil 900 mg-360 mg- 455 mg-1,000 mg [...] breast carcinoma. Collaborating Physician: Osvaldo Durant M.D. ([phone]) HISTORY OF PRESENT ILLNESS Aury Florez is a 49 y.o. woman from [place], [place] with right breast invasive ductal carcinoma, grade 2, ER+ (91-100%) SD+ (91-100%) HER2- , cT2 N2b M0 diagnosed [...] CMFN: IDC, grade 2 ER positive (91-100%) SD positive (91-100%) HER-2 negative Right breast biopsy 1 o'clock, retroareolar: benign breast tissue, negative for malignancy. Right axillary lymph node biopsy: negative for malignancy, benign lymphoid parenchyma. Per [facility] review of local pathology. Genetic Testing [...] consider attention on follow-up. Per [facility] review of local PET scan. 10/25/2020: [...] local report, not reviewed at [facility]. 12/18/2020 - Biological/Targeted/Hormone Therapy Initiated neoadjuvant [...] local report, not reviewed at [facility]. 12/10/2021: Breast MRI demonstrates residual architectural distortion of the right breast in the area of biopsy-proven malignancy but enhancement has completely resolved. Right lower outer enhancing mass has also resolved. No adenopathy. Left breast with mild background parenchymal enhancement no mass or adenopathy. Per local report, not reviewed at [facility]. 12/2022 Surgery and Procedures Laparoscopic BSO [...] scheduled for left breast mammogram today after [facility] review of her local imaging identified an [...] HISTORY Aury Florez lives with her in [place]. She is currently unemployed, previously worked in [...] the exam and I was present as trackmobile operator. Lymph: No palpable cervical, supraclavicular, infraclavicular, or [...] Osvaldo Durant M.D. at 12/16/2024 12:24 PM SENIOR CHEMIST OR CHEMIST OR CHEMIST Associated attestation - Osvaldo Durant M.D. - 12/16/2024 12:24 PM SENIOR CHEMIST I saw and evaluated the patient and participated in the millan portions of the service. I reviewed thedocumentation of Angela Piper and agree with the findings and plan. Mrs. Florez is a very pleasant woman from [place], [place] who has a history of multiple sclerosis (most bothersome symptoms fatigueand dyspnea) and locally advanced right breast cancer diagnosed in late 2019. I reviewed the imaging myself in detail and it appears this was a [id number] medially located tumor. Biopsy revealed grade 2 IDC, ER and SD strongly positive, HER-2 negative. Due to her [...] grade 2 invasive ductal carcinoma, ER positive, SD positive, HER2 negative, the patient has yet [...] care of this patient today including both katm-tw-dgxn and non duvr-iu-ubfn patient care. documented in this encounter Miscellaneous Notes * Addendum Note - Angela Piper APRN, C.N.P., D.N.P. - 12/15/2024 10:00 AM CSTEncounter addended by: Angela Piper APRN, C.N.P., D.N.P. on: 12/16/2024 9:14 AM Actions taken: Order list changed, Diagnosis association updated OR CHEMIST documented in this encounter Plan of Treatment Upcoming Encounters Date Type Department Care Team (Latest Contact Info) Description 01/12/2025 8:30 AM SENIOR CHEMIST Comprehensive Visit Division of Breast and Melanoma Surgical Oncology in [place], [place] [address] [place] [phone] Rosalva Ruiz M.D. [address] [place] [phone] 01/12/2025 10:20 AM SENIOR CHEMIST Comprehensive Visit Department of Oncology in [place], [place] [address] [place] [phone] Amie Sue M.B., B.Ch. [address] [place] [phone] 01/12/2025 1:00 PM SENIOR CHEMIST Appointment Department of Radiation Oncology in [address] [phone] Delilah Dos Santos MPAS, P.A.-C. [address] [place] [phone] 01/12/2025 1:30 PM SENIOR CHEMIST Comprehensive Visit Breast Diagnostic Clinic in [address] [phone] Radha Becker, Ph.D., L.P. [address] [place] [phone] 01/13/2025 9:30 AM SENIOR CHEMIST Appointment Department of Radiology in [address] [phone] Rei Loredo M.D. [address] [place] [phone] Discharge Disposition: Home or Self Care Pending Results Name Type Priority Associated Diagnoses Date /Time MR Breast Bilateral without and with IV Contrast Imaging RAD - Routine (most inpatients and all outpatients) 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) 01/06/2025 1:17 PM SENIOR CHEMIST Scheduled Orders Name Type Priority Associated Diagnoses [...] Ultrasound Breast Focused Right (12/20/2024 12:14 PM SENIOR CHEMIST) Anatomical Region Laterality Modality Breast, Breast Imaging RST L OS, Breast Imaging ARZ LOS, Breast Imaging FLA LOS Right Ultrasound Impressions 12/20/2024 3:37 PM SENIOR CHEMIST Known biopsy-proven malignancy in the inner right [...] Known Biopsy-Proven Malignancy. Narrative 12/20/2024 3:37 PM SENIOR CHEMIST EXAM: BI BREAST DIAGNOSTIC RIGHT WITH TOMOSYNTHESIS, [...] Diagnostic Right with Tomosynthesis (12/20/2024 10:37 AM SENIOR CHEMIST) Anatomical Region Laterality Modality Breast, Breast Imaging RST L OS, Breast Imaging ARZ LOS, Breast Imaging FLA LOS Right Mammography Impressions 12/20/2024 3:37 PM SENIOR CHEMIST Known biopsy-proven malignancy in the inner right [...] Known Biopsy-Proven Malignancy. Narrative 12/20/2024 3:37 PM SENIOR CHEMIST EXAM: BI BREAST DIAGNOSTIC RIGHT WITH TOMOSYNTHESIS, [...] Skull to Thigh FDG (12/20/2024 8:17 AM SENIOR CHEMIST) Anatomical Region Laterality Modality Body, Nuclear Medicine PET R ST LOS, PET ARZ LOS, Nuclear Medicine PET FLA LOS, Nuclear Medicine N/A Positron Emission Tomography (PET), Positron Emission Tomography (PET) Impressions 12/20/2024 10:09 AM SENIOR CHEMIST Compared with prior outside FDG PET significantly decreased conspicuity in FDG activity in the right breast cancer now with similar FDG activity to background. No evidence of suspicious FDG avid metastatic disease. Narrative 12/20/2024 10:09 AM SENIOR CHEMIST EXAM: PET CT SKULL TO THIGH FDG Serum glucose at time of F-18 FDG injection was 81 mg/dL. Patient followed standard dietary/fasting requirements for this exam. RADIOPHARMACEUTICAL/MEDS: Route: intravenous fludeoxyglucose F 18 injection SHELTER (FDG F-18),14.87 millicurie TECHNIQUE: F-18 FDG PET/CT [...] RADIOPHARMACEUTICAL/MEDS: Route: intravenous fludeoxyglucose F 18 injection SHELTER (FDG F-18),14.87 millicurie TECHNIQUE: F-18 FDG PET/CT [...] 1.3 similar to background parenchyma (series 13, [id number]), previously this demonstrated SUV max 7.7. Minimal [...]
--- OUTSIDE RECORDS SUMMARY | 2025-01-08 00:13 | XMS_ITS | Encounter Summary ---
Author Organization [facility] Address [address] [place] [address] Care Team Providers Care Columnist/Commentator Name Role Phone Unavailable Primary Care Provider Unavailabl e Encounter Details Date Type Department Care Team ( Contact Info) Description 12/08/2024 1:05 PM FLUME MAKER Lab RST RO LMP [address] [place] [phone] Arely Martinez P.A.-C. [address] [place] [phone] Malignant Neoplasm Of Breast Upper Inner Quadrant [...] Sex Assigned at Female 12/14/2024 12:10 PM FLUME MAKER Legal Sex Female 10:00 AM CDT Gender Identity Female 12/14/2024 12:10 PM FLUME MAKER Sexual Orientation Straight 12/14/2024 12 :10 PM FLUME MAKER documented as of this encounter Plan of Treatment Upcoming Encounters Date Type Department Care Team (Latest Contact Info) Description 01/12/2025 8:30 AM FLUME MAKER Comprehensive Visit Division of Breast and Melanoma Surgical Oncology in [place], [place] [address] [place] [phone] Rosalva Ruiz M.D. [address] [place] [phone] 01/12/2025 10:20 AM FLUME MAKER Comprehensive Visit Department of Oncology in [place], [place] [address] [place] [phone] Amie Sue M.B., B.Ch. [address] [place] [phone] 01/12/2025 1:00 PM FLUME MAKER Appointment Department of Radiation Oncology in [address] [phone] Delilah Dos Santos, SCOTS, P.A.-C. [address] [place] [phone] 01/12/2025 1:30 PM FLUME MAKER Comprehensive Visit Breast Diagnostic Clinic in [address] [phone] Radha Becker, Ph.D., L.P. [address] [place] [phone] 01/13/2025 9:30 AM FLUME MAKER Appointment Department of Radiology in [address] [phone] Rei Loredo M.D. [address] [place] [phone] Discharge Disposition: Home or Self Care documented as of this encounter Procedures Procedure Name Priority Date/Time Associated Diagnosis Comments PATHOLOGY REVIEW OF OUTSIDE MATERIAL Routine 10/04/2020 12:00 AM FLUME MAKER 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) documented in this encounter Results * Pathology Review of Outside Material (10/04/2020 12:00 AM FLUME MAKER) 12/09/2024 2:01 PM FLUME MAKER DTL Report electronically signed by Matthew Abreu M.D. I verify that I have examined all relevant slides/materials for the specimen(s) and rendered or confirmed the diagnosis. 12/09/2024 2:01 PM [facility] DT Material Received A. [id number]: Breast, right, lymph node, right, axillary 12 stained slides 12/09/2024 2:01 PM [facility] DTL Addendum Breast, right, 1:00 o'clock, 4 cm from nipple, ultrasound-guided needle core biopsy, ([id number]; 10/04/2020): block [id number] SPECIAL PROCEDURE REPORT Breast Biomarker(s) for: Invasive [...] marker Ki-67 in early breast cancer https://pubmed.ncbi.nl .nih.gov/15555256/ 2. Mcqueen et al. Ki-67 as prognostic marker in early breast cancer; a meta-analysis of published studies involving 12,155 patients https://pubmed.ncbi. m.nih.gov/68035730/ 3. Castillo Read, et al: Assessment of Ki67 in Breast Cancer: Updated Recommendations from the International Ki67 in Breast Cancer Working Group https://pubmed.ncbi.count includes the [facility].nih.gov/43384958/ Immunohistochemical staining of the Ki-67 antigen in formalin-fixed paraffin-embedded tissue sections has been validated by our laboratory, using the Dako mouse monoclonal MIB-1 clone and a proprietary detection system. External controls show appropriate reactivity. Immunohistochemical stained slides are scanned using the Leica Hitlantis GT450 digital scanner. The captured digital image is analyzed in [employer]) by an AI (Artificial Intelligence) algorithm. The [employer] software renders a percentage of positive-staining tumor nuclei. A technologist reviews the analyzed digital image and ensures at least 80% of the total invasive or metastatic cancer is analyzed appropriately. The [employer](r) data and corresponding slide are reviewed by a pathologist for final interpretation. This test was developed and its performance characteristics determined by [facility] in a manner consistent with CLIA requirements. This test has not been cleared or approved by the U.S. Food and Drug Administration. Signed by Tone Benavides M.D. 12/23/2024 2:27 PM 12/23/2024 2:27 PM FLUME MAKER DTL Comment:REVISED RESULTS Interpretation FINAL DIAGNOSIS Breast, right, and right axillary lymph node ([id number]; 10/04/2020): A. Breast, right, 1:00 o'clock, 4 cm from nipple, ultrasound-guided needle core biopsy: - Invasive ductal carcinoma, [place] grade II (of III), 6 mm in linear extent. Immunohistochemical stains reviewed at [facility] demonstrate: ER: 91-100% of tumor cells staining, strong intensity VT: 91-100% of tumor cells staining, strong intensity Per report, HER2 FISH was performed and was negative. B. Breast, right, 1 o'clock, retroareolar, ultrasound-guided needle core biopsy: - Benign breast tissue, negative for tumor. C. Lymph node, right axillary, needle core biopsy: - Benign lymphoid parenchyma, negative for tumor. Digital imaging was used in the diagnostic assessment of this case. 12/23/2024 2:27 PM FLUME MAKER DTL Varies 10/04/2020 12/08/2024 1:1 8 PM FLUME MAKER Arely Martinez P.A.-C. LAB SURG PATH ORDERABLES Edited Result - Final [facility] [address] [place] [address], [facility] DTL [address] [place] [address] documented in this encounter Visit Diagnoses Diagnosis 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) documented in this encounter
--- OUTSIDE RECORDS SUMMARY | 2025-01-08 00:13 | XMS_ITS | Encounter Summary ---
Author Organization [facility] Address [address] [place] [address] Care Team Providers Care Surgical First Assistant Name Role Phone Unavailable Primary Care Provider Unavailabl e Encounter Details Date Type Department Care Team (Latest Contact Info) Description 11/30/2024 1:10 PM MULTI NEEDLE MACHINE OPERATOR Ancillary Procedure Department of Radiology in [place], [place] [address] [place] [phone] Arely Martinez P.A.-C. [address] [place] [phone] Malignant Neoplasm Of Breast Upper Inner Quadrant [...] Sex Assigned at Female 12/14/2024 12:10 PM MULTI NEEDLE MACHINE OPERATOR Legal Sex Female 10:00 AM CDT Gender Identity Female 12/14/2024 12:10 PM MULTI NEEDLE MACHINE OPERATOR Sexual Orientation Straight 12/14/2024 12 :10 PM MULTI NEEDLE MACHINE OPERATOR documented as of this encounter Plan of Treatment Upcoming Encounters Date Type Department Care Team (Latest Contact Info) Description 01/12/2025 8:30 AM MULTI NEEDLE MACHINE OPERATOR Comprehensive Visit Division of Breast and Melanoma Surgical Oncology in [place], [place] [address] [place] [phone] Rosalva Ruiz M.D. [address] [place] [phone] 01/12/2025 10:20 AM MULTI NEEDLE MACHINE OPERATOR Comprehensive Visit Department of Oncology in [place], [place] [address] [place] [phone] Amie Sue M.B., B.Ch. [address] [place] [phone] 01/12/2025 1:00 PM MULTI NEEDLE MACHINE OPERATOR Appointment Department of Radiation Oncology in [place], [place] [address] [place] [phone] Delilah Dos Santos, MPAS, P.A.-C. [address] [place] [phone] 01/12/2025 1:30 PM MULTI NEEDLE MACHINE OPERATOR Comprehensive Visit [facility] in [place], [place] [address] [place] [phone] Radha Becker, Ph.D., L.P. [address] [place] [phone] 01/13/2025 9:30 AM MULTI NEEDLE MACHINE OPERATOR Appointment Department of Radiology in [address] [phone] Rei Loredo M.D. [address] [place] [phone] Discharge Disposition: Home or Self Care documented as of this encounter Procedures Procedure Name Priority Date/Time Associated Diagnosis Comments INTERPRETATION OF OUTSIDE NM PET SCAN RAD - Routine (most inpatients and all outpatients) 11/30/2024 1:15 PM MULTI NEEDLE MACHINE OPERATOR 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) documented in this encounter Results * Interpretation of Outside NM PET Scan (11/30/2024 1:15 PM MULTI NEEDLE MACHINE OPERATOR) Anatomical Region Laterality Modality Nuclear Medicine PET RST LOS , Nuclear Medicine ARZ LOS, Nuclear Medicine FLA LOS, Nuclear Medicine, Other, Neuroradiology ARZ LOS, Neuroradiology FLA LOS, Neuroradiology RST LOS, Body N/A Nuclear Medicine Impressions 12/01/2024 3:49 PM MULTI NEEDLE MACHINE OPERATOR 1. Moderately hypermetabolic right breast mass (deep [...] to ensure stability. Narrative 12/01/2024 3:49 PM MULTI NEEDLE MACHINE OPERATOR EXAM: INTERPRETATION OF OUTSIDE NM PET SCAN [...]
--- OUTSIDE RECORDS SUMMARY | 2025-01-08 00:13 | XMS_ITS | Encounter Summary ---
Author Organization [facility] Address [address] [place] [address] Care Team Providers Care Patent Solicitor Name Role Phone Unavailable Primary Care Provider Unavailabl e Encounter Details Date Type Department Care Team ([facility] st Contact Info) Description 11/30/2024 Referral Triage Department of Radiation Oncology in [place], [place] [address] [place] [phone] Arely Martinez P.A.-C. [address] [place] [phone] Social History Tobacco Use Types Packs/Day Years Used Date Smoking Tobacco: Never Assessed [facility] Utilities Answer Date Recorded In the [...] Answer Date Recorded Employment status Unemployed/not in [email or web address] paid workforce but seeking employment 12/14/2024 Housing Stability Answer Date Recorded What is your living situation today? I have a [facility] place to live 12/14/2024 Comments Unknown Sex and Gender Information Value Date Recorded Sex Assigned at Female 12/14/2024 12:10 PM SALES PROMOTION REPRESENTATIVE Legal Sex Female 10:00 AM CDT Gender Identity Female 12/14/2024 12:10 PM SALES PROMOTION REPRESENTATIVE Sexual Orientation Straight 12/14/2024 12 :10 PM SALES PROMOTION REPRESENTATIVE documented as of this encounter Plan of Treatment Upcoming Encounters Date Type Department Care Team (Latest Contact Info) Description 01/12/2025 8:30 AM SALES PROMOTION REPRESENTATIVE Comprehensive Visit Division of Breast and Melanoma Surgical Oncology in [place], [place] [address] [place] [phone] Rosalva Ruiz M.D. [address] [place], [place] [phone] 01/12/2025 10:20 AM SALES PROMOTION REPRESENTATIVE Comprehensive Visit Department of Oncology in [place], [place] [address] [place] [phone] Amie Sue M.B., B.Ch. [address] [place] [phone] 01/12/2025 1:00 PM SALES PROMOTION REPRESENTATIVE Appointment Department of Radiation Oncology in [place], [place] [address] [place] [phone] Delilah Dos Santos, MPAS, P.A.-C. [address] [place] [phone] 01/12/2025 1:30 PM SALES PROMOTION REPRESENTATIVE Comprehensive Visit Breast Diagnostic Clinic in [place], [place] [address] [place] [phone] Radha Becker, Ph.D., L.P. [address] [place] [phone] 01/13/2025 9:30 AM SALES PROMOTION REPRESENTATIVE Appointment Department of Radiology in [place], [place] [address] [place] [phone] Rei Loredo M.D. [address] [place] [phone] Discharge Disposition: Home or Self Care documented as of this encounter Results * Interpretation of Outside Breast Imaging (12/02/2024 2:29 PM SALES PROMOTION REPRESENTATIVE) Anatomical Region Laterality Modality Breast, Breast Imaging RST L OS, Breast Imaging ARZ LOS, Breast Imaging FLA LOS, Other N/A Mammography Impressions 12/05/2024 11:28 AM SALES PROMOTION REPRESENTATIVE 1. Decreased size of the biopsy-proven right [...] inner left breast. Narrative 12/05/2024 11:28 AM SALES PROMOTION REPRESENTATIVE EXAM: INTERPRETATION OF OUTSIDE BREAST IMAGING, INTERPRETATION [...] breast may present a biopsy clip. Additional inbound call center representative images were saved at 2:00, 4 [...] right breast maypresent a biopsy clip. Additional inbound call center representative images were saved at2:00, 4 cm [...] Outside NM PET Scan (11/30/2024 1:15 PM SALES PROMOTION REPRESENTATIVE) Anatomical Region Laterality Modality Nuclear Medicine PET RST LOS , Nuclear Medicine ARZ LOS, Nuclear Medicine FLA LOS, Nuclear Medicine, Other, Neuroradiology ARZ LOS, Neuroradiology FLA LOS, Neuroradiology RST LOS, Body N/A Nuclear Medicine Impressions 12/01/2024 3:49 PM SALES PROMOTION REPRESENTATIVE 1. Moderately hypermetabolic right breast mass (deep [...] to ensure stability. Narrative 12/01/2024 3:49 PM SALES PROMOTION REPRESENTATIVE EXAM: INTERPRETATION OF OUTSIDE NM PET SCAN [...]
--- OUTSIDE RECORDS SUMMARY | 2025-01-08 00:13 | XMS_ITS | Encounter Summary ---
Author Organization [facility] Address [address] [place] [address] Care Team Providers Care Roustabout Supervisor Name Role Phone Unavailable Primary Care Provider Unavailabl e Encounter Details Date Type Department Care Team (Latest Contact Info) Description 11/30/2024 1:10 PM WIRE STITCHER Ancillary Procedure Department of Radiology in [place], [place] [address] [place] [phone] Arely Martinez P.A.-C. [address] [place] [address] [phone] Malignant Neoplasm Of Breast Upper Inner Quadrant [...] Sex Assigned at Female 12/14/2024 12:10 PM WIRE STITCHER Legal Sex Female 10:00 AM CDT Gender Identity Female 12/14/2024 12:10 PM WIRE STITCHER Sexual Orientation Straight 12/14/2024 12 :10 PM WIRE STITCHER documented as of this encounter Plan of Treatment Upcoming Encounters Date Type Department Care Team (Latest Contact Info) Description 01/12/2025 8:30 AM WIRE STITCHER Comprehensive Visit Division of Breast and Melanoma Surgical Oncology in [place], [place] [address] [place] [phone] Rosalva Ruiz M.D. [address] [place] [phone] 01/12/2025 10:20 AM WIRE STITCHER Comprehensive Visit Department of Oncology in [place], [place] [address] [place] [phone] Amie Sue M.B., B.Ch. [address] [place] [phone] 01/12/2025 1:00 PM WIRE STITCHER Appointment Department of Radiation Oncology in [place], [place] [address] [place] [phone] Delilah Dos Santos, MPAS, P.A.-C. [address] [place] [address] [phone] 01/12/2025 1:30 PM WIRE STITCHER Comprehensive Visit Breast Diagnostic Clinic in [place], [place] [address] [place] [phone] Radha Becker, Ph.D., L.P. [address] [place] [phone] 01/13/2025 9:30 AM WIRE STITCHER Appointment Department of Radiology in [address] [phone] Rei Loredo M.D. 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 Decreased size of the biopsy-proven right [...] inner left breast. Narrative 12/05/2024 11:28 AM WIRE STITCHER EXAM: INTERPRETATION OF OUTSIDE BREAST IMAGING, INTERPRETATION [...] breast may present a biopsy clip. Additional risk control field representative images were saved at 2:00, 4 [...] right breast maypresent a biopsy clip. Additional risk control field representative images were saved at2:00, 4 cm [...] of Outside Breast Imaging (12/02/2024 2:29 PM WIRE STITCHER) Anatomical Region Laterality Modality Breast, Breast Imaging RST L OS, Breast Imaging ARZ LOS, Breast Imaging FLA LOS, Other N/A Mammography Impressions 12/05/2024 11:28 AM WIRE STITCHER 1. Decreased size of the biopsy-proven right [...] inner left breast. Narrative 12/05/2024 11:28 AM WIRE STITCHER EXAM: INTERPRETATION OF OUTSIDE BREAST IMAGING, INTERPRETATION [...] breast may present a biopsy clip. Additional risk control field representative images were saved at 2:00, 4 [...] right breast maypresent a biopsy clip. Additional risk control field representative images were saved at2:00, 4 cm [...]
[2025-01-08 00:20] LABS: PCR FLU A Negative PCR FLU A (Negative); PCR FLU B Negative PCR FLU B (Negative); PCR RSV Negative PCR RSV (Negative); SARS PCR* Negative SARS-CoV-2 (Negative)
--- OUTSIDE RECORDS SUMMARY | 2025-01-08 00:21 | XMS_ITS | Continuity of Care Document ---
Author Organization [facility] Address [address] [place] [address] Phone Care Team Providers Care Print Shop Helper Name Role Phone Seven HERNÁNDEZ MD, Navid Unavailable Unavailable Advance Directives Directive Yes / No Effective Date File Name No Information Encounters Encounter Description Practice Location Reason(s) For Visit Diagnoses Date Provider Providers Copied on Encounter [facility], [address], [place], [place], [id number], [place] tel:[phone] No Information Seven HERNÁNDEZ Navid. [address], [facility] [place], [address], [place]. tel:[phone] Family History Family Member Type Diagnosis Age At Onset No Information Payers Payer name Insurance type Covered constitution party ID Authoriza tion(s) [employer] [id number] Social History Type Description Quantity Date Captured [...]
--- OUTSIDE RECORDS SUMMARY | 2025-01-08 00:21 | XMS_ITS ---
Author Name Interface, [facility] Address [address] [facility] [address] [address] Organization [facility] Address [address] [address] Care Team Providers Care Freight Receiver Name Role Phone Sylvester Panchito Unavailable Unavailable [...] replacement. 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 MammaPrint was low [...] Patient in her home. I was at [facility].?? I have discussed the above stated plan with the patient and they verbalized understanding and agreed with the plan. Thank you for allowing us to participate in this patient's care. Panchito Phan MD Copy To:??Joyce Maharaj MD FAX Adalberto Estrada???MD Gee (Referring) Electronically signed by Panchito Phan MD 03/16/2023 14:01 CDT
--- OUTSIDE RECORDS SUMMARY | 2025-01-08 00:22 | XMS_ITS ---
Author Name Interface, [id number] lity Address [address] [facility] [address] [address] Organization [facility] Address [address] [facility] [address] [address] Care Team Providers Care Pest Control Pilot Name Role Phone Reema Law Unavailable Unavailable [...] 15 MIN 12/11/2021 APPOINTMENT CHART CHECK 5 MT N 12/10/2021 APPOINTMENT OUTSIDE TEST 5 M [...] K/uL 3.0 8.9 5.0 FINAL [facility] [place], [address] [place] [id number] 0 Phone: () - 10/22 CBC w/ auto diff HGB g/dL 11.3 15.2 13.8 FINAL Reema [facility] [place], [address] [place] [phone] 0 Phone: () - 10/22 CBC w/ auto diff PLT K/uL 113.0 364.0 318 FINAL Reema [facility] [place], [address] [place] [phone] 0 Phone: () - 10/22 CBC w/ auto diff Doreen # (ANC) K/uL 1.6 6.6 2.3 FINAL [facility]ema [facility] [place], [address] [place] [phone] 0 Phone: () - 10/22 CBC w/ auto diff Doreen % % 43.0 74.0 46.3 FINAL Reema [facility] [place], [address] [place] [id number] 0 Phone: () - 10/22 CBC w/ auto diff IG % % 0.0 0.5 0.4 FINAL Reema [facility] [place], [address] [place] [id number] 0 Phone: () - 10/22 CBC w/ auto diff IG # K/uL 0.0 0.03 0.02 FINAL Reema [facility] [place], [address] [place] [id number] 0 Phone: () - 10/22 CBC w/ auto diff LY % % 14.0 41.0 37.9 FINAL Reema [facility] [place], [address] [place] [phone] 0 Phone: () - 10/22 CBC w/ auto diff MO % % 6.0 15.0 13.4 FINAL Reema [facility] [place], [address] [place] [phone] 0 Phone: () - 10/22 CBC w/ auto diff EO % % 0.0 7.0 1.2 FINAL Reema [facility] [place], [address] [place] [phone] 0 Phone: () - 10/22 CBC w/ auto diff BA % % 0.0 2.0 0.8 FINAL Reema [facility] [place], [address] [place] [id number] 0 Phone: () - 10/22 CBC w/ auto diff LY # K/uL 0.4 3.6 1.9 FINAL Reema [facility] [place], [address] [place] [phone] 0 Phone: () - 10/22 CBC w/ auto diff MO # K/uL 0.2 1.3 0.7 FINAL Reema [facility] [place], [address] [place] [id number] 0 Phone: () - 10/22 CBC w/ auto diff EO # K/uL 0.0 0.6 0.1 FINAL Reema [facility] [place], [address] [facility] [address] [place] [phone] 0 Phone: () - 10/22 CBC w/ auto diff BA # K/uL 0.0 0.2 0.0 FINAL Reema [facility] [place], [address] [facility] [address] [place] [id number] 0 Phone: () - 10/22 CBC w/ auto diff NRBC % #/100W BC 0.0 0.2 0.0 FINAL Reema [facility] [place], [address] [facility] [address] [place] [id number] 0 Phone: () - 10/22 CBC w/ auto diff RBC M/uL 3.9 5.1 4.35 FINAL Reema [facility] [place], [address] [facility] [place] [id number] 0 Phone: () - 10/22 CBC w/ auto diff HCT % 35.0 48.0 41.2 FINAL Reema [facility] [place], [address] [place] [id number] 0 Phone: () - 10/22 CBC w/ auto diff MCV fL 80.0 104.0 94.7 FINAL Reema [facility] [place], [address] [place] [id number] 0 Phone: () - 10/22 CBC w/ auto diff MCH pg 26.0 35.0 31.7 FINAL Reema [facility] [place], [address] [facility] [address] [place] [id number] 0 Phone: () - 10/22 CBC w/ auto diff MCHC g/dL 30.0 35.0 33.5 FINAL Reema [facility] [place], [address] [place] [address] d [address] [facility] [place] [phone] 0 Phone: () - 10/22 CBC w/ auto diff MPV fL 9.5 13.4 9.3 Low FINAL Reema [facility] [place], [address] [place] [address] [address] [facility] [place] [phone] 0 Phone: () - 10/22 CBC w/ auto diff RDW % 11.4 16.1 11.30 Low FINAL Reema [facility] [place], [address] [place] [address] [address] [facility] [place] [id number] 0 Phone: () - 10/22 TSH w/ refle x to free T4 TSH uIU/ml 0.32 5.0 1.34 Test performed at [facility] on a [employer] 2000 Immunoass ay Analyzer that uses an immunoenz ymometric sandwich assay for analysis. Patient testing should not be performed using multiple methodolo giphoebe due to analytica l variation seen between test methodarcadio zavala. FINAL Reema [facility] - [place], [address] [place] [phone] 0 Phone: () - 04/08 iSTAT creat inine panel Creat inine , iSTAT mg/dl 0.6 1.3 0.8 FINAL [place] [facility] [place] , [address] [facility] [address] [facility] [place] [phone] 0 Phone: () - 04/08 iSTAT creat inine panel GFR estim ate ml/min /1.73m ^2 90.5 GFR is calculate d using the CKD-EPI equation. FINAL [place] [facility] [place], [address] [place] [phone] 0 Phone: () - 05/06 iSTAT creat inine panel Creat inine , iSTAT mg/dl 0.6 1.3 0.8 FINAL [place] [facility] [place], [address] [place] [id number] 0 Phone: () - 05/06 iSTAT creat inine panel GFR estim ate ml/min /1.73m ^2 90.4 GFR is calculate d using the CKD-EPI equation. FINAL [place] [facility] [place], [address] [place] [phone] 0 Phone: () - 07/08 [facility] [place] See nail puller d 10/22 iSTAT creat inine panel Creat inine , iSTAT mg/dl 0.6 1.3 0.8 FINAL [place] [facility] [place], [address] [place] [id number] 0 Phone: () - 10/22 iSTAT creat inine panel GFR estim ate ml/min /1.73m ^2 90.1 GFR is calculate d using the CKD-EPI equation. FINAL [place] [facility] [place], [address] [place] [id number] 0 Phone: () - 11/18 [facility] [place] See nail puller d 11/18 [facility] [place] See nail puller d 11/18 [facility] [place] See nail puller d 11/18 [facility] [place] See nail puller d 02/10 iSTAT creat inine panel Creat inine , iSTAT mg/dl 0.6 1.3 0.8 FINAL [place] [facility] [place], [address] [place] [id number] 0 Phone: () - 02/10 iSTAT creat inine panel GFR estim ate ml/min /1.73m ^2 90.0 GFR is calculate d using the CKD-EPI equation. FINAL [place] peralta [facility], [address] [facility] [phone] 0 Phone: () - 02/10 CMP Album in g/dL 3.2 5.2 5.0 [facility], [address] [facility] [id number] 0 Phone: () - 02/10 CMP Alkal ine phosp hatas e U/L 46.0 116.0 73 [facility] [address] [facility] [address] [facility] [id number] 0 Phone: () - 02/10 CMP ALT/S GPT U/L 7.0 40.0 22 [facility] [place] [facility] [address] [facility] [address] [facility] [id number] 0 Phone: () - 02/10 CMP AST/S GOT U/L 13.0 40.0 22 [facility], [address] [facility] [address] [facility] [id number] 0 Phone: () - 02/10 CMP BUN mg/dL 9.0 23.0 16 [facility], [address] [facility] [address] [facility] [id number] 0 Phone: () - 02/10 CMP Calci um mg/dL 8.7 10.4 9.9 FINAL [place] per[place] [facility], [facility] [address] [facility] [address] [facility] [id number] 0 Phone: () - 02/10 CMP Chlor indy mmol/L 96.0 114.0 106 [place] [address] [address] [facility] [address] [phone] 0 Phone: () - 02/10 CMP CO2 [...] 96 hour stability window. FINAL [place] [address] [phone] 0 Phone: () - 02/10 CMP Creat inine mg/dL 0.5 1.2 0.81 FINAL [place] [address] [id number] 0 Phone: () - 02/10 CMP GFR estim ate ml/min /1.73m ^2 88.6 GFR is calculate d using the CKD-EPI equation. FINAL [place] Gerard [address] [id number] 0 Phone: () - 02/10 CMP Gluco se mg/dL 73.0 126.0 95 FINAL [place] Oron[address] [phone] 0 Phone: () - 02/10 CMP Potas sium mmol/L 3.5 5.1 4.2 FINAL [place] [address] [id number] 0 Phone: () - 02/10 CMP Sodiu m mmol/L 136.0 145.0 144 FINAL [place] [address] [id number] 0 Phone: () - 02/10 CMP Bilir ubin, total mg/dL 0.3 1.2 0.3 FINAL [place] [address] [id number] 0 Phone: () - 02/10 CMP Total prote in g/dL 5.7 8.2 7.9 FINAL [place] [address] [id number] 0 Phone: () - 02/10 CBC w/ auto diff WBC K/uL 3.0 8.9 5.1 FINAL [place] [facility] [place], [address] [place] [id number] 0 Phone: () - 02/10 CBC w/ auto diff HGB g/dL 11.3 15.2 13.9 FINAL [place] [facility] [place], [address] [place] [id number] 0 Phone: () - 02/10 CBC w/ auto diff PLT K/uL 113.0 364.0 311 FINAL [place] [facility] [place], [address] [place] [id number] 0 Phone: () - 02/10 CBC w/ auto diff Doreen # (ANC) K/uL 1.6 6.6 1.8 FINAL [place] [facility] [place], [address] [place] [id number] 0 Phone: () - 02/10 CBC w/ auto diff Doreen % % 43.0 74.0 35.1 Low FINAL [place] [facility] [place], [address] [place] [id number] 0 Phone: () - 02/10 CBC w/ auto diff IG % % 0.0 0.5 0.2 FINAL [place] [facility] [place], [address] [place] [id number] 0 Phone: () - 02/10 CBC w/ auto diff IG # K/uL 0.0 0.03 0.01 FINAL [place] [facility] [place], [address] [place] [id number] 0 Phone: () - 02/10 CBC w/ auto diff LY % % 14.0 41.0 52.3 High FINAL [place] [facility] [place], [address] [place] [id number] 0 Phone: () - 02/10 CBC w/ auto diff MO % % 6.0 15.0 9.8 FINAL [place] [facility] [place], [address] [place] [id number] 0 Phone: () - 02/10 CBC w/ auto diff EO % % 0.0 7.0 2.0 FINAL [place] [facility] [place], [address] [place] [id number] 0 Phone: () - 02/10 CBC w/ auto diff BA % % 0.0 2.0 0.6 FINAL [place] [facility] [place], [address] [place] [id number] 0 Phone: () - 02/10 CBC w/ auto diff LY # K/uL 0.4 3.6 2.7 FINAL [place] [facility] [place], [address] [place] [id number] 0 Phone: () - 02/10 CBC w/ auto diff MO # K/uL 0.2 1.3 0.5 FINAL [place] [facility] [place], [address] [place] [id number] 0 Phone: () - 02/10 CBC w/ auto diff EO # K/uL 0.0 0.6 0.1 FINAL [place] [facility] [place], [address] [place] [id number] 0 Phone: () - 02/10 CBC w/ auto diff BA # K/uL 0.0 0.2 0.0 FINAL [place] [facility] [place], [address] [place] [id number] 0 Phone: () - 02/10 CBC w/ auto diff NRBC % #/100W BC 0.0 0.2 0.0 FINAL [place] [facility] [place], [address] [place] [id number] 0 Phone: () - 02/10 CBC w/ auto diff RBC M/uL 3.9 5.1 4.40 FINAL [place] Moustapha [facility] [place], [address] [place] [id number] 0 Phone: () - 02/10 CBC w/ auto diff HCT % 35.0 48.0 41.7 FINAL [place] Moustapha [facility] [place], [address] [place] [id number] 0 Phone: () - 02/10 CBC w/ auto diff MCV fL 80.0 104.0 94.8 FINAL [place] Mando Moustapha [facility] [place], [address] [place] [id number] 0 Phone: () - 02/10 CBC w/ auto diff MCH pg 26.0 35.0 31.6 FINAL [place] M[place] Ad[facility]ush [facility] [place], [address] [place] [id number] 0 Phone: () - 02/10 CBC w/ auto diff MCHC g/dL 30.0 35.0 33.3 FINAL [place] Gil[place] Moustapha [facility] [place], [address] [place] [id number] 0 Phone: () - 02/10 CBC w/ auto diff MPV fL 9.5 13.4 9.4 Low FINAL [place] Adwo[facility]ush [facility] [place], [address] [place] [id number] 0 Phone: () - 02/10 CBC w/ auto diff RDW % 11.4 16.1 11.80 FINAL [place] Mando Adwo[facility]ush [facility] [place], [address] [place] [phone] 0 Phone: () - Medications Date Name [...]
--- OUTSIDE RECORDS SUMMARY | 2025-01-08 00:22 | XMS_ITS ---
Author Name Interface, [id number] lity Address [address] [facility] [address] [address] Organization [facility] Address [address] [facility] [address] [address] Care Team Providers Care Leisure Travel Agent Name Role Phone Barbie Moreno Unavailable Unavailable [...] 15 MIN 12/11/2021 APPOINTMENT CHART CHECK 5 FL N 12/10/2021 APPOINTMENT OUTSIDE TEST 5 M [...] [facility] [place], [address] [place] [phone] 0 Phone: () - 04/08 iSTAT creat inine panel GFR estim ate ml/min /1.73m ^2 90.5 GFR is calculate d using the CKD-EPI equation. FINAL [place] Moustapha [facility] - [place], [address] [place] [id number] 0 Phone: () - 05/06 iSTAT creat inine panel Creat inine , iSTAT mg/dl 0.6 1.3 0.8 FINAL [place] Moustapha [facility] [place], [address] [place] [id number] 0 Phone: () - 05/06 iSTAT creat inine panel GFR estim ate ml/min /1.73m ^2 90.4 GFR is calculate d using the CKD-EPI equation. FINAL [place] [facility] [place], [address] [place] [phone] 0 Phone: () - 07/08 [facility] other lab See denitrator d 10/22 iSTAT creat inine panel Creat inine , iSTAT mg/dl 0.6 1.3 0.8 FINAL [place] per[facility] [place], [address] [place] [id number] 0 Phone: () - 10/22 iSTAT creat inine panel GFR estim ate ml/min /1.73m ^2 90.1 GFR is calculate d using the CKD-EPI equation. FINAL [place] [facility] [place], [address] [place] [phone] 0 Phone: () - 11/18 [facility] other lab See denitrator d 11/18 [facility] other lab See denitrator d 11/18 [facility] other lab See denitrator d 11/18 [facility] other lab See denitrator d 02/10 CBC w/ auto diff WBC K/uL 3.0 8.9 5.1 FINAL [place] [facility] [place], [address] [place] [id number] 0 Phone: () - 02/10 CBC w/ auto diff HGB g/dL 11.3 15.2 13.9 FINAL [place] [facility] [place], [address] [place] [id number] 0 Phone: () - 02/10 CBC w/ auto diff PLT K/uL 113.0 364.0 311 FINAL [place] per[facility] [place], [address] [place] [id number] 0 Phone: () - 02/10 CBC w/ auto diff Doreen # (ANC) K/uL 1.6 6.6 1.8 FINAL [place] [facility] [place], [address] [place] [id number] 0 Phone: () - 02/10 CBC w/ auto diff Doreen % % 43.0 74.0 35.1 Low FINAL [place] [facility] [place], [address] [place] [id number] 0 Phone: () - 02/10 CBC w/ auto diff IG % % 0.0 0.5 0.2 FINAL [place] [facility] [place], [address] [place] [id number] 0 Phone: () - 02/10 CBC w/ auto diff IG # K/uL 0.0 0.03 0.01 FINAL [place] [facility] [place], [address] [place] [id number] 0 Phone: () - 02/10 CBC w/ auto diff LY % % 14.0 41.0 52.3 High FINAL [place] [facility] [place], [address] [place] [phone] 0 Phone: () - 02/10 CBC w/ auto diff MO % % 6.0 15.0 9.8 FINAL [place] [facility] [place], [address] [place] [id number] 0 Phone: () - 02/10 CBC w/ auto diff EO % % 0.0 7.0 2.0 FINAL [place] [facility] [place], [address] [place] [id number] 0 Phone: () - 02/10 CBC w/ auto diff BA % % 0.0 2.0 0.6 FINAL [place] [facility] [place], [address] [place] [id number] 0 Phone: () - 02/10 CBC w/ auto diff LY # K/uL 0.4 3.6 2.7 FINAL [place] [facility] [place], [address] [place] [id number] 0 Phone: () - 03/28 /2023 CBC w/ auto diff MO # K/uL 0.2 1.3 0.5 FINAL [place] Ger[place] [facility] - [place], [address] [place] [phone] 0 Phone: () - 02/10 CBC w/ auto diff EO # K/uL 0.0 0.6 0.1 FINAL [place] Gerard [facility] - [place], [address] [place] [id number] 0 Phone: () - 02/10 CBC w/ auto diff BA # K/uL 0.0 0.2 0.0 FINAL [place]ard [facility] - [place], [address] [place] [id number] 0 Phone: () - 02/10 CBC w/ auto diff NRBC % #/100W BC 0.0 0.2 0.0 FINAL [place] per[facility] [place], [address] [place] [id number] 0 Phone: () - 02/10 CBC w/ auto diff RBC M/uL 3.9 5.1 4.40 FINAL [place] [facility] [place], [address] [place] [id number] 0 Phone: () - 02/10 CBC w/ auto diff HCT % 35.0 48.0 41.7 FINAL [place] [facility] [place], [address] [place] [id number] 0 Phone: () - 02/10 CBC w/ auto diff MCV fL 80.0 104.0 94.8 FINAL [place] [facility] [place], [address] [place] [id number] 0 Phone: () - 02/10 CBC w/ auto diff MCH pg 26.0 35.0 31.6 FINAL [place] [facility] [place], [address] [place] [id number] 0 Phone: () - 02/10 CBC w/ auto diff MCHC g/dL 30.0 35.0 33.3 FINAL [place] [facility] [place], [address] [place] [id number] 0 Phone: () - 02/10 CBC w/ auto diff MPV fL 9.5 13.4 9.4 Low FINAL [place] [facility] [place], [address] [facility] [place] [id number] 0 Phone: () - 02/10 CBC w/ auto diff RDW % 11.4 16.1 11.80 FINAL [place] [facility] [place], [address] [facility] [address] [facility] [place] [id number] 0 Phone: () - 02/10 CMP Album in g/dL 3.2 5.2 5.0 FINAL [place] peralta [facility], [address] [place] [address] [phone] 0 Phone: () - 02/10 CMP Alkal ine phosp hatas e U/L 46.0 116.0 73 [facility] [place] [facility], [address] [facility] [address] [place] [address] [phone] 0 Phone: () - 02/10 CMP ALT/S GPT U/L 7.0 40.0 22 FINAL [place]ron[place] [facility] [address] [place] [phone] 0 Phone: () - 02/10 CMP AST/S GOT U/L 13.0 40.0 22 FINAL [place] Orona a [facility], [address] [facility] [id number] 0 Phone: () - 02/10 CMP BUN mg/dL 9.0 23.0 16 [facility] [place] [facility], [address] [facility] [id number] 0 Phone: () - 02/10 CMP Calci um mg/dL 8.7 10.4 9.9 FINAL [place]ron[place] fabian [facility], [address] [facility] [address] [facility] [phone] 0 Phone: () - 02/10 CMP Chlor indy mmol/L 96.0 114.0 106 FINAL [place] per[place] [address] [id number] 0 Phone: () - 02/10 CMP CO2 [...] 96 hour stability window. FINAL [place] per[place] [address] [phone] 0 Phone: () - 02/10 CMP Creat inine mg/dL 0.5 1.2 0.81 FINAL [place] per[place] [address] [id number] 0 Phone: () - 02/10 CMP GFR estim ate ml/min /1.73m ^2 88.6 GFR is calculate d using the CKD-EPI equation. FINAL [place] per[place] [address] [id number] 0 Phone: () - 02/10 CMP Gluco se mg/dL 73.0 126.0 95 FINAL [place] per[place] [address] [id number] 0 Phone: () - 02/10 CMP Potas sium mmol/L 3.5 5.1 4.2 FINAL [place] per[place] [address] [id number] 0 Phone: () - 02/10 CMP Sodiu m mmol/L 136.0 145.0 144 FINAL [place] per[place] [address] [id number] 0 Phone: () - 02/10 CMP Bilir ubin, total mg/dL 0.3 1.2 0.3 FINAL [place] [facility] [place], [address] [place] [phone] 0 Phone: () - 02/10 CMP Total prote in g/dL 5.7 8.2 7.9 FINAL [place] [facility] [place], [address] [place] [phone] 0 Phone: () - 02/10 iSTAT creat inine panel Creat inine , iSTAT mg/dl 0.6 1.3 0.8 FINAL [place] [facility] [place], [address] [facility] [place] [id number] 0 Phone: () - 02/10 iSTAT creat inine panel GFR estim ate ml/min /1.73m ^2 90.0 GFR is calculate d using the CKD-EPI equation. FINAL [place] [facility] [place], [address] [facility] [address] [facility] [place] [phone] 0 Phone: () - Medications Date Name [...]
[2025-01-08] MEDS: dexAMETHasone 10 MG/ML inj IVP (00:42)
[2025-01-08] MEDS: POTASSIUM BICARB 25 MEQ EFFERVESCENT TAB 50 MEQ PO (00:42)
[2025-01-08] MEDS: ALBUTEROL SULFATE 2.5 MG/3 ML VIAL.NEB NEB (01:15)
== END 2025-01-08 01:31 | disposition home or self-care (01) ==
PROVIDERS: Emergency Provider Family Medicine
DX: J22 Unspecified acute lower respiratory infection (principal); J98.01 Acute bronchospasm
CPT/HCPCS: 36415; 71045; 80053; 85025; 87631; 94640; 99284; A9270; J1100